=== PATIENT | male | born 1975 | race African-American/Black ===

== ENCOUNTER 2016-03-29 19:35 | Inpatient (IN) | payer MEDICARE ==
[~2016-03-29] VITALS: Ht 180.3 cm; Wt 81.0 kg
[~2016-03-29 19:35] MED LIST: ALBU8HFA IH; ARIP15TA3 PO; LITH300T PO; METF500T4 PO; MIRT30 PO; VITAD1000 PO
[2016-03-29] MEDS ORDERED: ZOLPIDEM TARTRATE 10 MG TABLET PO PRN (22:45)
[2016-03-29] MEDS ORDERED: HALOPERIDOL 5 MG TABLET PO PRN (22:45)
[2016-03-29 23:05] VITALS: BP 116/77
[2016-03-29] MEDS ORDERED: PNEUMOCOCCAL VACCINE POLYVALENT 0.5 ML VIAL [PPSV23] IM ONE (23:45)
[2016-03-30 00:02] LABS: GLUCOSE,POINT OF CARE 272 MG/DL (70-110)
[2016-03-30 00:53] VITALS: BP 114/87
[2016-03-30 06:37] LABS: GLUCOSE,POINT OF CARE 238 MG/DL (70-110)
[2016-03-30 08:06] VITALS: BP 117/79
[2016-03-30 08:39] LABS: EOSINOPHILS % (AUTO) 3.4 % (1.0-6.0); HEMATOCRIT 49.7 % (36-46); HEMOGLOBIN 16.2 g/dL (12.0-16.0); LYMPHOCYTES # (AUTO) 2.9 K/uL (1.0-4.8); MEAN CORPUSCULAR HEMOGLOBIN 29.5 pg (26.0-34.0); MEAN CORPUSCULAR HGB CONC 32.6 G/dL (31.0-37.0); MEAN CORPUSCULAR VOLUME 91 fL (80-100); MONOCYTES # (AUTO) 0.8 K/uL (0.1-1.0); MONOCYTES % (AUTO) 11.3 % (2.0-9.0); NEUTROPHILS # (AUTO) 2.8 K/uL (1.8-7.7); NEUTROPHILS % (AUTO) 41.3 % (40.0-70.0); PLATELET COUNT (AUTO) 205 K/uL (150-450); RED BLOOD CELL COUNT(AUTO) 5.48 MIL/uL (4.00-5.20); WHITE BLOOD COUNT (AUTO) 6.7 K/uL (4.5-11.0)
[2016-03-30 09:10] LABS: ALANINE AMINOTRANSFERASE 25 U/L (12-78); ALBUMIN 3.2 g/dL (3.4-5.0); ANION GAP 7 mmol/L (8-16); ASPARTATE AMINOTRANSFERASE 18 U/L (15-37); BILIRUBIN,TOTAL 0.6 mg/dL (0.1-1.0); CALCIUM, TOTAL 8.6 mg/dL (8.8-10.5); CARBON DIOXIDE 32 mmol/L (22-29); CHLORIDE 98 mmol/L (98-107); CHOL/HDL RATIO 3.5 (3.9-5.7); CREATININE 0.73 mg/dL (0.60-1.30); GLOMERULAR FILTR. RATE CALC > 60 mL/min (>60); SODIUM SERUM 137 mmol/L (136-145); TOTAL PROTEIN, SERUM 6.6 g/dL (6.4-8.2); UREA NITROGEN, BLOOD 19 mg/dL (7-18)
[2016-03-30 09:13] LABS: HEMOGLOBIN A1C 8.8 % (4.5-6.2)
[2016-03-30] MEDS ORDERED: ALBUTEROL SULFATE HFA 90 MCG/PUFF 8 GM INHALER IH PRN ×2 (13:30→17:00)
[2016-03-30] MEDS ORDERED: GLUCAGON,HUMAN RECOMBINANT 1 MG VIAL IM PRN ×2 (13:30→17:00)
[2016-03-30] MEDS ORDERED: INSULIN REGULAR, HUMAN 100 UNITS/ML SQ PRN (13:30)
[2016-03-30 14:01] LABS: GLUCOSE,POINT OF CARE 236 MG/DL (70-110)
[2016-03-30 16:11] LABS: GLUCOSE COMMENT 1 Received Meds; GLUCOSE,POINT OF CARE 223 MG/DL (70-110)
[2016-03-30 16:19] VITALS: BP 124/75
[2016-03-30] MEDS: MetFORMIN HCL 500 MG TABLET PO SCH (17:06)
[2016-03-30] MEDS: LITHIUM CARBONATE 300 MG CAPSULE PO SCH (20:39)
[2016-03-30] MEDS: ARIPiprazole 15 MG TABLET PO SCH (20:39)
[2016-03-30 20:42] LABS: GLUCOSE,POINT OF CARE 262 MG/DL (70-110)
[2016-03-31 06:19] VITALS: BP 111/71
[2016-03-31] MEDS: MetFORMIN HCL 500 MG TABLET PO SCH ×2 (06:40→16:54)
[2016-03-31 06:41] LABS: GLUCOSE,POINT OF CARE 182 MG/DL (70-110)
[2016-03-31 08:05] VITALS: BP 120/72
[2016-03-31] MEDS: CHOLECALCIFEROL (VIT D3) 2,000 UNITS TABLET PO SCH (09:05)
[2016-03-31 11:07] LABS: GLUCOSE COMMENT 1 Received Meds; GLUCOSE,POINT OF CARE 218 MG/DL (70-110)
[2016-03-31] MEDS: INSULIN ASPART 100 UNITS/ML SQ PRN (12:40)
[2016-03-31 16:06] VITALS: BP 121/80
[2016-03-31 16:46] LABS: GLUCOSE COMMENT 1 Received Meds; GLUCOSE,POINT OF CARE 192 MG/DL (70-110)
[2016-03-31] MEDS: LITHIUM CARBONATE 300 MG CAPSULE PO SCH (20:03)
[2016-03-31] MEDS: ARIPiprazole 15 MG TABLET PO SCH (20:03)
[2016-03-31 20:07] LABS: GLUCOSE,POINT OF CARE 169 MG/DL (70-110)
[2016-04-01 06:13] VITALS: BP 119/73
[2016-04-01] MEDS: MetFORMIN HCL 500 MG TABLET PO SCH ×2 (06:20→17:22)
[2016-04-01 06:22] LABS: GLUCOSE,POINT OF CARE 192 MG/DL (70-110)
[2016-04-01 08:34] VITALS: BP 124/73
[2016-04-01] MEDS: CHOLECALCIFEROL (VIT D3) 2,000 UNITS TABLET PO SCH (09:57)
[2016-04-01 12:17] LABS: GLUCOSE,POINT OF CARE 223 MG/DL (70-110)
[2016-04-01 16:14] VITALS: BP 113/67
[2016-04-01 16:47] LABS: GLUCOSE COMMENT 1 Received Meds; GLUCOSE,POINT OF CARE 285 MG/DL (70-110)
[2016-04-01] MEDS: INSULIN ASPART 100 UNITS/ML SQ PRN ×2 (17:42→21:03)
[2016-04-01] MEDS: LITHIUM CARBONATE 300 MG CAPSULE PO SCH (20:43)
[2016-04-01] MEDS: ARIPiprazole 15 MG TABLET PO SCH (20:43)
[2016-04-01 20:47] LABS: GLUCOSE,POINT OF CARE 169 MG/DL (70-110)
[2016-04-01] MEDS: LORazepam 2 MG TABLET PO PRN (22:29)
[2016-04-02 06:22] LABS: GLUCOSE,POINT OF CARE 153 MG/DL (70-110)
[2016-04-02] MEDS: MetFORMIN HCL 500 MG TABLET PO SCH ×2 (06:51→16:32)
[2016-04-02 08:49] VITALS: BP 119/72
[2016-04-02] MEDS: CHOLECALCIFEROL (VIT D3) 2,000 UNITS TABLET PO SCH (09:06)
[2016-04-02 11:31] LABS: GLUCOSE,POINT OF CARE 239 MG/DL (70-110)
[2016-04-02] MEDS: INSULIN ASPART 100 UNITS/ML SQ PRN (11:31)
[2016-04-02 16:12] VITALS: BP 117/74
[2016-04-02 16:27] LABS: GLUCOSE,POINT OF CARE 202 MG/DL (70-110)
[2016-04-02 20:17] LABS: GLUCOSE,POINT OF CARE 234 MG/DL (70-110)
[2016-04-02] MEDS: LITHIUM CARBONATE 300 MG CAPSULE PO SCH (20:37)
[2016-04-02] MEDS: ARIPiprazole 15 MG TABLET PO SCH (20:38)
[2016-04-03 01:44] VITALS: BP 113/68
[2016-04-03] MEDS: LORazepam 2 MG TABLET PO PRN (01:48)
[2016-04-03 06:18] LABS: GLUCOSE,POINT OF CARE 171 MG/DL (70-110)
[2016-04-03] MEDS: MetFORMIN HCL 500 MG TABLET PO SCH ×2 (06:46→16:36)
[2016-04-03] MEDS: INSULIN ASPART 100 UNITS/ML SQ PRN ×2 (06:58→20:07)
[2016-04-03 08:07] VITALS: BP 104/63
[2016-04-03] MEDS: CHOLECALCIFEROL (VIT D3) 2,000 UNITS TABLET PO SCH (08:36)
[2016-04-03 12:01] LABS: GLUCOSE,POINT OF CARE 166 MG/DL (70-110)
[2016-04-03 16:04] VITALS: BP 119/70
[2016-04-03 16:42] LABS: GLUCOSE COMMENT 1 Received Meds; GLUCOSE,POINT OF CARE 190 MG/DL (70-110)
[2016-04-03] MEDS ORDERED: NICOTINE 14 MG/24 HOUR PATCH TD ONE (17:00)
[2016-04-03 20:06] LABS: GLUCOSE COMMENT 1 Received Meds; GLUCOSE,POINT OF CARE 202 MG/DL (70-110)
[2016-04-03] MEDS: LITHIUM CARBONATE 300 MG CAPSULE PO SCH (20:08)
[2016-04-03] MEDS: ARIPiprazole 15 MG TABLET PO SCH (20:08)
[2016-04-04] MEDS ORDERED: ONDANSETRON HCL 4 MG TABLET PO PRN (00:30)
[2016-04-04 00:49] VITALS: BP 119/86
[2016-04-04] MEDS ORDERED: VITAD1000 PO (03:09)
[2016-04-04 06:01] LABS: GLUCOSE,POINT OF CARE 174 MG/DL (70-110)
[2016-04-04] MEDS: MetFORMIN HCL 500 MG TABLET PO SCH (06:25)
[2016-04-04] MEDS: CHOLECALCIFEROL (VIT D3) 2,000 UNITS TABLET PO SCH (08:09)
[2016-04-04 08:12] VITALS: BP 112/65
[2016-04-04] MEDS ORDERED: NICOTINE 14 MG/24 HOUR PATCH TD SCH (09:00)
== END 2016-04-04 10:20 | disposition home or self-care (01) | DRG 885 ==
LOC: EDSEX 22:41 → B2X 22:41 → EDSTATUS 23:17
PROVIDERS: ADMIT Psychiatry & Neurology Psychiatry; ATTEND Psychiatry & Neurology Psychiatry
DX: F25.9 Schizoaffective disorder, unspecified (principal); R45.851 Suicidal ideations; F32.9 Major depressive disorder, single episode, unspecified; J45.909 Unspecified asthma, uncomplicated; E11.9 Type 2 diabetes mellitus without complications; J44.9 Chronic obstructive pulmonary disease, unspecified; E55.9 Vitamin D deficiency, unspecified; F19.10 Other psychoactive substance abuse, uncomplicated; Z71.51 Drug abuse counseling and surveillance of drug abuser; Z28.21 Immunization not carried out because of patient refusal
CPT/HCPCS: 82962; 83036; 84439; 84443; Q0162

== ENCOUNTER 2016-04-21 15:12 | Inpatient (IN) | payer MEDICARE ==
[~2016-04-21] VITALS: Ht 180.3 cm; Wt 80.5 kg
[~2016-04-21 15:12] MED LIST changes: -ALBU8HFA IH; -MIRT30 PO
[2016-04-21 17:38] VITALS: BP 126/83
[2016-04-21] MEDS ORDERED: HALOPERIDOL 5 MG TABLET PO PRN (17:45)
[2016-04-21] MEDS ORDERED: LORazepam 2 MG TABLET PO PRN (17:45)
[2016-04-21] MEDS ORDERED: INFLUENZA VIRUS VACCINE QVS 2016-17 (3YR+)/PF 60 MCG/0.5 ML SYRINGE IM ONE (18:30)
[2016-04-21 18:34] VITALS: BP 116/83
[2016-04-21 18:42] LABS: GLUCOSE,POINT OF CARE 191 MG/DL (70-110)
[2016-04-21] MEDS ORDERED: NICOTINE 14 MG/24 HOUR PATCH TD ONE (19:00)
[2016-04-21] MEDS: ZOLPIDEM TARTRATE 10 MG TABLET PO PRN (20:54)
[2016-04-22 00:47] VITALS: BP 112/72
[2016-04-22 06:02] LABS: GLUCOSE,POINT OF CARE 149 MG/DL (70-110)
[2016-04-22] MEDS: MetFORMIN HCL 500 MG TABLET PO SCH ×2 (06:46→16:33)
[2016-04-22 08:01] VITALS: BP 102/62
[2016-04-22 08:04] LABS: BASOPHILS % (AUTO) 0.8 % (0.0-2.0); EOSINOPHILS % (AUTO) 2.6 % (1.0-6.0); HEMATOCRIT 48.7 % (41-53); HEMOGLOBIN 15.7 g/dL (13.5-17.5); LYMPHOCYTES # (AUTO) 2.6 K/uL (1.0-4.8); LYMPHOCYTES % (AUTO) 30.6 % (22.0-44.0); MEAN CORPUSCULAR HEMOGLOBIN 29.3 pg (26.0-34.0); MEAN CORPUSCULAR HGB CONC 32.2 G/dL (31.0-37.0); MEAN CORPUSCULAR VOLUME 91 fL (80-100); MONOCYTES # (AUTO) 0.8 K/uL (0.1-1.0); MONOCYTES % (AUTO) 9.7 % (2.0-9.0); NEUTROPHILS # (AUTO) 4.7 K/uL (1.8-7.7); NEUTROPHILS % (AUTO) 56.3 % (40.0-70.0); PLATELET COUNT (AUTO) 253 K/uL (150-450); RED BLOOD CELL COUNT(AUTO) 5.35 MIL/uL (4.50-5.90); RED CELL DISTRIBUTION WIDTH 14.2 % (11.5-14.5); WHITE BLOOD COUNT (AUTO) 8.4 K/uL (4.5-11.0)
[2016-04-22 08:33] LABS: ALANINE AMINOTRANSFERASE 41 U/L (12-78); ALBUMIN 3.5 g/dL (3.4-5.0); ANION GAP 8 mmol/L (8-16); ASPARTATE AMINOTRANSFERASE 34 U/L (15-37); CALCIUM, TOTAL 8.7 mg/dL (8.8-10.5); CARBON DIOXIDE 28 mmol/L (22-29); CHLORIDE 100 mmol/L (98-107); CREATININE 0.67 mg/dL (0.60-1.30); GLOMERULAR FILTR. RATE CALC > 60 mL/min (>60); POTASSIUM 4.1 mmol/L (3.5-5.1); SODIUM SERUM 136 mmol/L (136-145); THYROID STIMULATING HORMONE 0.76 uIU/mL (0.36-3.74); TOTAL PROTEIN, SERUM 7.4 g/dL (6.4-8.2); UREA NITROGEN, BLOOD 14 mg/dL (7-18)
[2016-04-22 08:56] LABS: LITHIUM < 0.20 mmol/L (0.60-1.20)
[2016-04-22] MEDS: CHOLECALCIFEROL (VIT D3) 1,000 UNITS TABLET PO SCH (09:14)
[2016-04-22] MEDS: NICOTINE 14 MG/24 HOUR PATCH TD SCH (09:15)
[2016-04-22] MEDS ORDERED: BENZOCAINE 10% 7 GM GEL TP PRN (09:45)
[2016-04-22 16:09] VITALS: BP 112/67
[2016-04-22 16:57] LABS: GLUCOSE,POINT OF CARE 195 MG/DL (70-110)
[2016-04-22] MEDS: LITHIUM CARBONATE 300 MG CAPSULE PO SCH (20:21)
[2016-04-22] MEDS: ARIPiprazole 15 MG TABLET PO SCH (20:21)
[2016-04-22] MEDS: ZOLPIDEM TARTRATE 10 MG TABLET PO PRN (20:54)
[2016-04-22] MEDS ORDERED: ACETAMINOPHEN 325 MG TABLET PO PRN (22:45)
[2016-04-22] MEDS ORDERED: IBUPROFEN 400 MG TABLET PO PRN (22:45)
[2016-04-23 03:50] VITALS: BP 115/77
[2016-04-23] MEDS: MetFORMIN HCL 500 MG TABLET PO SCH ×2 (06:59→17:04)
[2016-04-23] MEDS ORDERED: MetFORMIN HCL 500 MG TABLET PO SCH (07:00)
[2016-04-23 08:25] LABS: CHOL/HDL RATIO 2.8 (4.2-7.3)
[2016-04-23] MEDS ORDERED: CHOLECALCIFEROL (VIT D3) 1,000 UNITS TABLET PO SCH (09:00)
[2016-04-23] MEDS: NICOTINE 14 MG/24 HOUR PATCH TD SCH (09:00)
[2016-04-23] MEDS: CHOLECALCIFEROL (VIT D3) 1,000 UNITS TABLET PO SCH (09:00)
[2016-04-23] MEDS: CETYLPYRIDINIUM 120 ML MOUTHWASH PO PRN (13:30)
[2016-04-23 16:13] VITALS: BP 121/79
[2016-04-23] MEDS: LITHIUM CARBONATE 300 MG CAPSULE PO SCH (20:38)
[2016-04-23] MEDS: ARIPiprazole 15 MG TABLET PO SCH (20:39)
[2016-04-23] MEDS: ZOLPIDEM TARTRATE 10 MG TABLET PO PRN (20:42)
[2016-04-24 06:32] VITALS: BP 115/73
[2016-04-24] MEDS: MetFORMIN HCL 500 MG TABLET PO SCH ×2 (07:17→16:35)
[2016-04-24 08:28] VITALS: BP 123/70
[2016-04-24] MEDS: NICOTINE 14 MG/24 HOUR PATCH TD SCH (09:37)
[2016-04-24] MEDS: CHOLECALCIFEROL (VIT D3) 1,000 UNITS TABLET PO SCH (09:37)
[2016-04-24 16:00] VITALS: BP 121/70
[2016-04-24 16:32] LABS: GLUCOSE,POINT OF CARE 203 MG/DL (70-110)
[2016-04-24] MEDS: ARIPiprazole 15 MG TABLET PO SCH (20:37)
[2016-04-24] MEDS: LITHIUM CARBONATE 300 MG CAPSULE PO SCH (20:37)
[2016-04-25 06:52] LABS: GLUCOSE,POINT OF CARE 83 MG/DL (70-110)
[2016-04-25] MEDS: MetFORMIN HCL 500 MG TABLET PO SCH ×2 (07:05→16:34)
[2016-04-25] MEDS: NICOTINE 14 MG/24 HOUR PATCH TD SCH (08:25)
[2016-04-25] MEDS: CHOLECALCIFEROL (VIT D3) 1,000 UNITS TABLET PO SCH (08:26)
[2016-04-25 08:29] VITALS: BP 115/64
[2016-04-25 16:16] VITALS: BP 117/69
[2016-04-25 16:16] LABS: GLUCOSE,POINT OF CARE 174 MG/DL (70-110)
[2016-04-25] MEDS: LITHIUM CARBONATE 300 MG CAPSULE PO SCH (20:36)
[2016-04-25] MEDS: ARIPiprazole 15 MG TABLET PO SCH (20:36)
[2016-04-26] MEDS: MetFORMIN HCL 500 MG TABLET PO SCH ×2 (06:57→17:59)
[2016-04-26 08:07] VITALS: BP 118/72
[2016-04-26] MEDS: CHOLECALCIFEROL (VIT D3) 1,000 UNITS TABLET PO SCH (08:53)
[2016-04-26] MEDS: NICOTINE 14 MG/24 HOUR PATCH TD SCH (08:54)
[2016-04-26 16:00] VITALS: BP 108/76
[2016-04-26 16:26] LABS: GLUCOSE,POINT OF CARE 139 MG/DL (70-110)
[2016-04-26] MEDS: ARIPiprazole 15 MG TABLET PO SCH (20:35)
[2016-04-26] MEDS: LITHIUM CARBONATE 300 MG CAPSULE PO SCH (20:35)
[2016-04-27] MEDS: MetFORMIN HCL 500 MG TABLET PO SCH ×2 (07:02→16:36)
[2016-04-27] MEDS: CHOLECALCIFEROL (VIT D3) 1,000 UNITS TABLET PO SCH (08:58)
[2016-04-27] MEDS: NICOTINE 14 MG/24 HOUR PATCH TD SCH (08:58)
[2016-04-27 09:02] VITALS: BP 122/75
[2016-04-27] MEDS: CETYLPYRIDINIUM 120 ML MOUTHWASH PO PRN (14:27)
[2016-04-27 16:04] VITALS: BP 115/66
[2016-04-27 16:12] LABS: GLUCOSE,POINT OF CARE 134 MG/DL (70-110)
[2016-04-27] MEDS: ARIPiprazole 15 MG TABLET PO SCH (20:39)
[2016-04-27] MEDS: LITHIUM CARBONATE 300 MG CAPSULE PO SCH (20:39)
[2016-04-28 06:12] VITALS: BP 111/72
[2016-04-28] MEDS: MetFORMIN HCL 500 MG TABLET PO SCH ×2 (06:44→17:06)
[2016-04-28 08:56] VITALS: BP 114/62
[2016-04-28] MEDS: CHOLECALCIFEROL (VIT D3) 1,000 UNITS TABLET PO SCH (09:02)
[2016-04-28] MEDS: NICOTINE 14 MG/24 HOUR PATCH TD SCH (09:03)
[2016-04-28 16:19] VITALS: BP 109/79
[2016-04-28 16:52] LABS: GLUCOSE,POINT OF CARE 164 MG/DL (70-110)
[2016-04-28] MEDS: ZOLPIDEM TARTRATE 10 MG TABLET PO PRN (20:40)
[2016-04-28] MEDS: LITHIUM CARBONATE 300 MG CAPSULE PO SCH (20:43)
[2016-04-28] MEDS: ARIPiprazole 15 MG TABLET PO SCH (20:43)
[2016-04-29] MEDS: MetFORMIN HCL 500 MG TABLET PO SCH ×2 (06:24→16:52)
[2016-04-29 06:27] LABS: GLUCOSE,POINT OF CARE 146 MG/DL (70-110)
[2016-04-29 06:35] VITALS: BP 110/71
[2016-04-29 08:08] VITALS: BP 114/61
[2016-04-29] MEDS: CHOLECALCIFEROL (VIT D3) 1,000 UNITS TABLET PO SCH (09:30)
[2016-04-29] MEDS: NICOTINE 14 MG/24 HOUR PATCH TD SCH (09:31)
[2016-04-29 16:08] VITALS: BP 105/69
[2016-04-29 16:57] LABS: GLUCOSE,POINT OF CARE 173 MG/DL (70-110)
[2016-04-29] MEDS: LITHIUM CARBONATE 300 MG CAPSULE PO SCH (20:08)
[2016-04-29] MEDS: ARIPiprazole 15 MG TABLET PO SCH (20:08)
[2016-04-29] MEDS: ZOLPIDEM TARTRATE 10 MG TABLET PO PRN (20:43)
[2016-04-30 05:45] VITALS: BP 117/71
[2016-04-30 06:07] LABS: GLUCOSE,POINT OF CARE 135 MG/DL (70-110)
[2016-04-30] MEDS: MetFORMIN HCL 500 MG TABLET PO SCH ×2 (06:45→16:16)
[2016-04-30] MEDS: CHOLECALCIFEROL (VIT D3) 1,000 UNITS TABLET PO SCH (08:11)
[2016-04-30] MEDS: NICOTINE 14 MG/24 HOUR PATCH TD SCH (08:12)
[2016-04-30 08:21] VITALS: BP 112/59
[2016-04-30 16:05] VITALS: BP 115/73
[2016-04-30] MEDS: LITHIUM CARBONATE 300 MG CAPSULE PO SCH (20:06)
[2016-04-30] MEDS: ARIPiprazole 15 MG TABLET PO SCH (20:06)
[2016-04-30] MEDS: ZOLPIDEM TARTRATE 10 MG TABLET PO PRN (20:07)
[2016-05-01 01:28] VITALS: BP 123/80
[2016-05-01] MEDS ORDERED: LOPERAMIDE HCL 2 MG CAPSULE PO PRN (05:30)
[2016-05-01 06:02] LABS: GLUCOSE,POINT OF CARE 197 MG/DL (70-110)
[2016-05-01] MEDS: MetFORMIN HCL 500 MG TABLET PO SCH (06:36)
[2016-05-01 08:06] VITALS: BP 120/70
[2016-05-01] MEDS: CHOLECALCIFEROL (VIT D3) 1,000 UNITS TABLET PO SCH (08:33)
[2016-05-01] MEDS: NICOTINE 14 MG/24 HOUR PATCH TD SCH (08:33)
== END 2016-05-01 10:00 | disposition home or self-care (01) | DRG 885 ==
LOC: B2X 17:57
PROVIDERS: ADMIT Psychiatry & Neurology Psychiatry; ATTEND Psychiatry & Neurology Psychiatry
DX: F25.9 Schizoaffective disorder, unspecified (principal); J44.9 Chronic obstructive pulmonary disease, unspecified; J45.909 Unspecified asthma, uncomplicated; Z59.0 Homelessness; E55.9 Vitamin D deficiency, unspecified; E11.9 Type 2 diabetes mellitus without complications; Z79.84 Long term (current) use of oral hypoglycemic drugs; Z79.899 Other long term (current) drug therapy; F19.10 Other psychoactive substance abuse, uncomplicated; F99 Mental disorder, not otherwise specified; Z28.21 Immunization not carried out because of patient refusal
CPT/HCPCS: 82962; 83036; 84436; 84439; 84443; 87081

== ENCOUNTER 2016-07-15 01:33 | Inpatient (IN) | payer MEDICARE ==
[~2016-07-15] VITALS: Ht 180.3 cm; Wt 77.6 kg
[2016-07-15] MEDS ORDERED: LORazepam 2 MG TABLET PO PRN (02:00)
[2016-07-15] MEDS ORDERED: HALOPERIDOL 5 MG TABLET PO PRN (02:00)
[2016-07-15] MEDS ORDERED: PNEUMOCOCCAL VACCINE POLYVALENT 0.5 ML VIAL [PPSV23] IM ONE (04:00)
[2016-07-15 05:10] VITALS: BP 122/72
[2016-07-15] MEDS ORDERED: LORazepam 1 MG TABLET PO PRN (08:00)
[2016-07-15 08:02] VITALS: BP 120/70
[2016-07-15] MEDS ORDERED: HALO5 PO (09:27)
[2016-07-15] MEDS ORDERED: ARIP10TA14 PO (09:27)
[2016-07-15] MEDS ORDERED: LITH450CRT PO (09:27)
[2016-07-15] MEDS ORDERED: TRAZ-144 PO (09:27)
[2016-07-15] MEDS ORDERED: ZOLP10 PO (09:27)
[2016-07-15 16:30] VITALS: BP 125/74
[2016-07-15] MEDS ORDERED: ACETAMINOPHEN 325 MG TABLET PO PRN (20:15)
[2016-07-15] MEDS ORDERED: IBUPROFEN 400 MG TABLET PO PRN (20:15)
[2016-07-15] MEDS: ARIPiprazole 15 MG TABLET PO SCH (20:21)
[2016-07-15] MEDS ORDERED: LITHIUM CARBONATE 300 MG CAPSULE PO SCH (21:00)
[2016-07-16 05:26] VITALS: BP 118/71
[2016-07-16] MEDS: MetFORMIN HCL 500 MG TABLET PO SCH ×2 (06:08→16:25)
[2016-07-16 07:47] LABS: BASOPHILS % (AUTO) 0.9 % (0.0-2.0); EOSINOPHILS % (AUTO) 4.3 % (1.0-6.0); HEMATOCRIT 46.2 % (41-53); HEMOGLOBIN 14.7 g/dL (13.5-17.5); LYMPHOCYTES # (AUTO) 2.6 K/uL (1.0-4.8); LYMPHOCYTES % (AUTO) 39.1 % (22.0-44.0); MEAN CORPUSCULAR HEMOGLOBIN 29.2 pg (26.0-34.0); MEAN CORPUSCULAR HGB CONC 31.8 G/dL (31.0-37.0); MEAN CORPUSCULAR VOLUME 92 fL (80-100); MONOCYTES # (AUTO) 0.6 K/uL (0.1-1.0); MONOCYTES % (AUTO) 8.8 % (2.0-9.0); NEUTROPHILS # (AUTO) 3.2 K/uL (1.8-7.7); NEUTROPHILS % (AUTO) 46.9 % (40.0-70.0); PLATELET COUNT (AUTO) 186 K/uL (150-450); RED BLOOD CELL COUNT(AUTO) 5.02 MIL/uL (4.50-5.90); RED CELL DISTRIBUTION WIDTH 14.8 % (11.5-14.5); WHITE BLOOD COUNT (AUTO) 6.8 K/uL (4.5-11.0)
[2016-07-16 08:13] VITALS: BP 118/77
[2016-07-16 08:17] LABS: ALANINE AMINOTRANSFERASE 20 U/L (12-78); ALBUMIN 3.2 g/dL (3.4-5.0); ANION GAP 6 mmol/L (8-16); ASPARTATE AMINOTRANSFERASE 18 U/L (15-37); BILIRUBIN,TOTAL 0.6 mg/dL (0.1-1.0); CALCIUM, TOTAL 8.5 mg/dL (8.8-10.5); CARBON DIOXIDE 28 mmol/L (22-29); CHLORIDE 100 mmol/L (98-107); CHOL/HDL RATIO 2.7 (4.2-7.3); CREATININE 0.66 mg/dL (0.60-1.30); GLOMERULAR FILTR. RATE CALC > 60 mL/min (>60); LITHIUM < 0.20 mmol/L (0.60-1.20); POTASSIUM 4.3 mmol/L (3.5-5.1); SODIUM SERUM 134 mmol/L (136-145); THYROID STIMULATING HORMONE 1.22 uIU/mL (0.36-3.74); TOTAL PROTEIN, SERUM 6.8 g/dL (6.4-8.2); UREA NITROGEN, BLOOD 16 mg/dL (7-18)
[2016-07-16] MEDS: CHOLECALCIFEROL (VIT D3) 1,000 UNITS TABLET PO SCH (08:43)
[2016-07-16 12:41] LABS: HEMOGLOBIN A1C 7.9 % (4.5-6.2)
[2016-07-16 16:43] VITALS: BP 121/80
[2016-07-16] MEDS: ARIPiprazole 15 MG TABLET PO SCH (20:46)
[2016-07-16] MEDS: LITHIUM CARBONATE 300 MG CAPSULE PO SCH (20:46)
[2016-07-17 00:56] VITALS: BP 119/79
[2016-07-17] MEDS: MetFORMIN HCL 500 MG TABLET PO SCH ×2 (06:52→17:00)
[2016-07-17] MEDS: CHOLECALCIFEROL (VIT D3) 1,000 UNITS TABLET PO SCH ×2 (08:32→09:00)
[2016-07-17 08:54] VITALS: BP 117/74
[2016-07-17 16:15] VITALS: BP 137/70
[2016-07-17] MEDS: LITHIUM CARBONATE 300 MG CAPSULE PO SCH (20:49)
[2016-07-17] MEDS: ARIPiprazole 15 MG TABLET PO SCH (20:49)
[2016-07-18 00:47] VITALS: BP 115/69
[2016-07-18] MEDS: MetFORMIN HCL 500 MG TABLET PO SCH ×2 (07:00→16:59)
[2016-07-18 08:25] VITALS: BP 125/76
[2016-07-18] MEDS: CHOLECALCIFEROL (VIT D3) 1,000 UNITS TABLET PO SCH (09:00)
[2016-07-18 16:20] VITALS: BP 118/72
[2016-07-18] MEDS: LITHIUM CARBONATE 300 MG CAPSULE PO SCH (20:38)
[2016-07-18] MEDS: ARIPiprazole 15 MG TABLET PO SCH (20:38)
[2016-07-19 01:30] VITALS: BP 115/74
[2016-07-19] MEDS: MetFORMIN HCL 500 MG TABLET PO SCH ×2 (06:03→17:00)
[2016-07-19 08:30] VITALS: BP 124/77
[2016-07-19] MEDS: CHOLECALCIFEROL (VIT D3) 1,000 UNITS TABLET PO SCH (08:48)
[2016-07-19 16:11] VITALS: BP 122/76
[2016-07-19] MEDS: ARIPiprazole 15 MG TABLET PO SCH (20:42)
[2016-07-19] MEDS: LITHIUM CARBONATE 300 MG CAPSULE PO SCH (20:42)
[2016-07-20 01:16] VITALS: BP 102/74
[2016-07-20] MEDS: MetFORMIN HCL 500 MG TABLET PO SCH ×2 (07:00→17:00)
[2016-07-20 08:14] VITALS: BP 124/74
[2016-07-20] MEDS: CHOLECALCIFEROL (VIT D3) 1,000 UNITS TABLET PO SCH (09:00)
[2016-07-20 16:19] VITALS: BP 117/74
[2016-07-20] MEDS: ARIPiprazole 15 MG TABLET PO SCH (20:40)
[2016-07-20] MEDS: LITHIUM CARBONATE 300 MG CAPSULE PO SCH (20:40)
[2016-07-21 06:55] VITALS: BP 130/87
[2016-07-21] MEDS: MetFORMIN HCL 500 MG TABLET PO SCH ×2 (06:55→16:50)
[2016-07-21] MEDS: CHOLECALCIFEROL (VIT D3) 1,000 UNITS TABLET PO SCH (08:40)
[2016-07-21 09:34] VITALS: BP 123/61
[2016-07-21 11:27] LABS: GLUCOSE,POINT OF CARE 212 MG/DL (70-110)
[2016-07-21 16:21] VITALS: BP 117/69
[2016-07-21] MEDS: LITHIUM CARBONATE 300 MG CAPSULE PO SCH (20:07)
[2016-07-21] MEDS: ARIPiprazole 15 MG TABLET PO SCH (20:07)
[2016-07-21] MEDS: ZOLPIDEM TARTRATE 10 MG TABLET PO PRN (20:44)
[2016-07-22 06:27] LABS: GLUCOSE,POINT OF CARE 150 MG/DL (70-110)
[2016-07-22 06:41] VITALS: BP 114/72
[2016-07-22] MEDS: MetFORMIN HCL 500 MG TABLET PO SCH ×2 (06:50→16:22)
[2016-07-22 08:47] VITALS: BP 116/64
[2016-07-22] MEDS: CHOLECALCIFEROL (VIT D3) 1,000 UNITS TABLET PO SCH (09:19)
[2016-07-22 16:27] VITALS: BP 111/82
[2016-07-22] MEDS: ARIPiprazole 15 MG TABLET PO SCH (20:20)
[2016-07-22] MEDS: LITHIUM CARBONATE 300 MG CAPSULE PO SCH (20:20)
[2016-07-22] MEDS: ZOLPIDEM TARTRATE 10 MG TABLET PO PRN (20:57)
[2016-07-23] MEDS: MetFORMIN HCL 500 MG TABLET PO SCH ×2 (06:02→16:37)
[2016-07-23 06:22] LABS: GLUCOSE,POINT OF CARE 159 MG/DL (70-110)
[2016-07-23 06:43] VITALS: BP 120/73
[2016-07-23 08:11] VITALS: BP 120/76
[2016-07-23] MEDS: CHOLECALCIFEROL (VIT D3) 1,000 UNITS TABLET PO SCH (09:32)
[2016-07-23 16:16] VITALS: BP 111/76
[2016-07-23] MEDS: ARIPiprazole 15 MG TABLET PO SCH (20:37)
[2016-07-23] MEDS: LITHIUM CARBONATE 300 MG CAPSULE PO SCH (20:37)
[2016-07-24 01:09] VITALS: BP 111/69
[2016-07-24] MEDS: MetFORMIN HCL 500 MG TABLET PO SCH (06:30)
[2016-07-24 06:43] LABS: GLUCOSE,POINT OF CARE 171 MG/DL (70-110)
[2016-07-24 08:05] VITALS: BP 123/70
[2016-07-24] MEDS: CHOLECALCIFEROL (VIT D3) 1,000 UNITS TABLET PO SCH (08:52)
== END 2016-07-24 13:25 | disposition home or self-care (01) | DRG 885 ==
LOC: B2X 02:08 → EDSTATUS 02:32 → B2X 07-23 16:21
PROVIDERS: ADMIT Psychiatry & Neurology Child & Adolescent Psychiatry; ATTEND Psychiatry & Neurology Child & Adolescent Psychiatry
DX: F25.0 Schizoaffective disorder, bipolar type (principal); E11.9 Type 2 diabetes mellitus without complications; E55.9 Vitamin D deficiency, unspecified; F10.10 Alcohol abuse, uncomplicated; F12.10 Cannabis abuse, uncomplicated; J44.9 Chronic obstructive pulmonary disease, unspecified; Z63.8 Other specified problems related to primary support group; F29 Unspecified psychosis not due to a substance or known physiological condition; Y90.9 Presence of alcohol in blood, level not specified; F19.10 Other psychoactive substance abuse, uncomplicated; F15.10 Other stimulant abuse, uncomplicated
CPT/HCPCS: 82962; 83036; 84443

== ENCOUNTER 2016-07-28 17:53 | Inpatient (IN) | payer MEDICARE ==
[~2016-07-28] VITALS: Ht 180.3 cm; Wt 83.0 kg
[2016-07-28 20:46] VITALS: BP 120/70
[2016-07-28] MEDS ORDERED: ZOLPIDEM TARTRATE 10 MG TABLET PO PRN (21:15)
[2016-07-28] MEDS ORDERED: LORazepam 2 MG TABLET PO PRN (21:15)
[2016-07-28] MEDS ORDERED: HALOPERIDOL 5 MG TABLET PO PRN (21:15)
[2016-07-28 21:45] VITALS: BP 109/71
[2016-07-28] MEDS ORDERED: PERMETHRIN 5% 60 GM CREAM TP ONE (22:15)
[2016-07-28] MEDS ORDERED: GLUCAGON,HUMAN RECOMBINANT 1 MG VIAL IM PRN (22:15)
[2016-07-29 00:07] LABS: GLUCOSE,POINT OF CARE 219 MG/DL (70-110)
[2016-07-29] MEDS: MetFORMIN HCL 500 MG TABLET PO SCH ×2 (07:00→16:50)
[2016-07-29] MEDS: INSULIN ASPART 100 UNITS/ML SQ PRN (07:33)
[2016-07-29] MEDS: CHOLECALCIFEROL (VIT D3) 1,000 UNITS TABLET PO SCH (08:44)
[2016-07-29 08:45] VITALS: BP 134/82
[2016-07-29 16:06] VITALS: BP 114/72
[2016-07-29 16:52] LABS: GLUCOSE,POINT OF CARE 185 MG/DL (70-110)
[2016-07-29] MEDS: OLANZapine 5 MG TABLET PO SCH (20:44)
[2016-07-29] MEDS: LITHIUM CARBONATE 300 MG CAPSULE PO SCH (20:45)
[2016-07-30 00:49] VITALS: BP 115/74
[2016-07-30 06:13] LABS: GLUCOSE,POINT OF CARE 175 MG/DL (70-110)
[2016-07-30] MEDS: MetFORMIN HCL 500 MG TABLET PO SCH ×2 (06:42→16:53)
[2016-07-30 08:08] VITALS: BP 125/75
[2016-07-30] MEDS: CHOLECALCIFEROL (VIT D3) 1,000 UNITS TABLET PO SCH (09:17)
[2016-07-30 16:18] VITALS: BP 119/83
[2016-07-30 17:06] LABS: GLUCOSE,POINT OF CARE 150 MG/DL (70-110)
[2016-07-30] MEDS: LITHIUM CARBONATE 300 MG CAPSULE PO SCH (20:34)
[2016-07-30] MEDS: OLANZapine 5 MG TABLET PO SCH (20:35)
[2016-07-31 00:01] VITALS: BP 115/75
[2016-07-31] MEDS: MetFORMIN HCL 500 MG TABLET PO SCH ×2 (06:00→17:08)
[2016-07-31 08:43] VITALS: BP 116/67
[2016-07-31] MEDS: CHOLECALCIFEROL (VIT D3) 1,000 UNITS TABLET PO SCH (09:24)
[2016-07-31 17:37] LABS: GLUCOSE,POINT OF CARE 216 MG/DL (70-110)
[2016-07-31 18:45] VITALS: BP 118/74
[2016-07-31] MEDS: OLANZapine 5 MG TABLET PO SCH (20:28)
[2016-07-31] MEDS: LITHIUM CARBONATE 300 MG CAPSULE PO SCH (20:28)
[2016-08-01] MEDS: MetFORMIN HCL 500 MG TABLET PO SCH ×2 (06:31→16:58)
[2016-08-01] MEDS: CHOLECALCIFEROL (VIT D3) 1,000 UNITS TABLET PO SCH (08:06)
[2016-08-01 08:30] LABS: BASOPHILS % (AUTO) 0.7 % (0.0-2.0); EOSINOPHILS % (AUTO) 5.3 % (1.0-6.0); HEMOGLOBIN 16.2 g/dL (13.5-17.5); LYMPHOCYTES # (AUTO) 1.5 K/uL (1.0-4.8); LYMPHOCYTES % (AUTO) 21.8 % (22.0-44.0); MEAN CORPUSCULAR HEMOGLOBIN 30.6 pg (26.0-34.0); MEAN CORPUSCULAR HGB CONC 33.8 G/dL (31.0-37.0); MEAN CORPUSCULAR VOLUME 90 fL (80-100); MONOCYTES # (AUTO) 0.6 K/uL (0.1-1.0); MONOCYTES % (AUTO) 9.1 % (2.0-9.0); NEUTROPHILS # (AUTO) 4.4 K/uL (1.8-7.7); NEUTROPHILS % (AUTO) 63.1 % (40.0-70.0); PLATELET COUNT (AUTO) 201 K/uL (150-450); RED BLOOD CELL COUNT(AUTO) 5.31 MIL/uL (4.50-5.90); RED CELL DISTRIBUTION WIDTH 14.3 % (11.5-14.5)
[2016-08-01 08:41] VITALS: BP 122/67
[2016-08-01 08:43] LABS: WHITE BLOOD COUNT (AUTO) 7.6 K/uL (4.5-11.0)
[2016-08-01 08:46] LABS: LITHIUM 0.88 mmol/L (0.60-1.20)
[2016-08-01 08:53] LABS: ALANINE AMINOTRANSFERASE 29 U/L (12-78); ALBUMIN 3.3 g/dL (3.4-5.0); ANION GAP 5 mmol/L (8-16); ASPARTATE AMINOTRANSFERASE 16 U/L (15-37); BILIRUBIN,TOTAL 0.5 mg/dL (0.1-1.0); CALCIUM, TOTAL 8.9 mg/dL (8.8-10.5); CARBON DIOXIDE 31 mmol/L (22-29); CHLORIDE 102 mmol/L (98-107); CREATININE 0.75 mg/dL (0.60-1.30); GLOMERULAR FILTR. RATE CALC > 60 mL/min (>60); SODIUM SERUM 138 mmol/L (136-145); THYROID STIMULATING HORMONE 1.13 uIU/mL (0.36-3.74); TOTAL PROTEIN, SERUM 7.2 g/dL (6.4-8.2); UREA NITROGEN, BLOOD 13 mg/dL (7-18)
[2016-08-01 16:00] VITALS: BP 110/79
[2016-08-01] MEDS: LITHIUM CARBONATE 300 MG CAPSULE PO SCH (20:09)
[2016-08-01] MEDS: OLANZapine 5 MG TABLET PO SCH (20:09)
[2016-08-02 00:43] VITALS: BP 117/80
[2016-08-02] MEDS: MetFORMIN HCL 500 MG TABLET PO SCH ×2 (06:42→16:58)
[2016-08-02] MEDS: CHOLECALCIFEROL (VIT D3) 1,000 UNITS TABLET PO SCH (09:07)
[2016-08-02 16:08] VITALS: BP 112/78
[2016-08-02] MEDS: LITHIUM CARBONATE 300 MG CAPSULE PO SCH (20:22)
[2016-08-02] MEDS: OLANZapine 5 MG TABLET PO SCH (20:23)
[2016-08-03 06:20] VITALS: BP 104/69
[2016-08-03] MEDS: MetFORMIN HCL 500 MG TABLET PO SCH ×2 (06:30→16:39)
[2016-08-03] MEDS: CHOLECALCIFEROL (VIT D3) 1,000 UNITS TABLET PO SCH (09:05)
[2016-08-03] MEDS: FLUoxetine HCL 20 MG CAPSULE PO SCH (13:07)
[2016-08-03 16:07] VITALS: BP 110/66
[2016-08-03 16:18] LABS: GLUCOSE,POINT OF CARE 183 MG/DL (70-110)
[2016-08-03] MEDS: OLANZapine 5 MG TABLET PO SCH (20:43)
[2016-08-03] MEDS: LITHIUM CARBONATE 300 MG CAPSULE PO SCH (20:43)
[2016-08-04 00:04] VITALS: BP 113/67
[2016-08-04] MEDS: MetFORMIN HCL 500 MG TABLET PO SCH ×2 (06:07→17:19)
[2016-08-04 08:05] VITALS: BP 110/67
[2016-08-04] MEDS: FLUoxetine HCL 20 MG CAPSULE PO SCH (08:45)
[2016-08-04] MEDS: CHOLECALCIFEROL (VIT D3) 1,000 UNITS TABLET PO SCH (08:45)
[2016-08-04 16:08] VITALS: BP 108/68
[2016-08-04] MEDS: OLANZapine 5 MG TABLET PO SCH (20:16)
[2016-08-04] MEDS: LITHIUM CARBONATE 300 MG CAPSULE PO SCH (20:16)
[2016-08-05 00:14] VITALS: BP 102/61
[2016-08-05] MEDS: MetFORMIN HCL 500 MG TABLET PO SCH ×2 (06:36→16:45)
[2016-08-05 08:44] VITALS: BP 120/63
[2016-08-05] MEDS: CHOLECALCIFEROL (VIT D3) 1,000 UNITS TABLET PO SCH (08:49)
[2016-08-05] MEDS: FLUoxetine HCL 20 MG CAPSULE PO SCH (08:49)
[2016-08-05 11:27] LABS: GLUCOSE,POINT OF CARE 163 MG/DL (70-110)
[2016-08-05 16:04] VITALS: BP 111/69
[2016-08-05 16:38] LABS: GLUCOSE,POINT OF CARE 173 MG/DL (70-110)
[2016-08-05] MEDS: INSULIN ASPART 100 UNITS/ML SQ PRN (16:43)
[2016-08-05] MEDS: OLANZapine 5 MG TABLET PO SCH (20:34)
[2016-08-05] MEDS: LITHIUM CARBONATE 300 MG CAPSULE PO SCH (20:34)
[2016-08-06 00:27] VITALS: BP 123/76
[2016-08-06] MEDS: MetFORMIN HCL 500 MG TABLET PO SCH ×2 (07:04→17:06)
[2016-08-06 08:03] VITALS: BP 102/56
[2016-08-06] MEDS: CHOLECALCIFEROL (VIT D3) 1,000 UNITS TABLET PO SCH (08:53)
[2016-08-06] MEDS: FLUoxetine HCL 20 MG CAPSULE PO SCH (08:53)
[2016-08-06 11:28] LABS: GLUCOSE,POINT OF CARE 136 MG/DL (70-110)
[2016-08-06 16:04] VITALS: BP 114/60
[2016-08-06 19:43] LABS: GLUCOSE,POINT OF CARE 131 MG/DL (70-110)
[2016-08-06] MEDS: LITHIUM CARBONATE 300 MG CAPSULE PO SCH (20:50)
[2016-08-06] MEDS: OLANZapine 5 MG TABLET PO SCH (20:50)
[2016-08-06] MEDS: INSULIN ASPART 100 UNITS/ML SQ PRN (20:55)
[2016-08-06 21:22] LABS: GLUCOSE,POINT OF CARE 162 MG/DL (70-110)
[2016-08-07 01:03] VITALS: BP 107/68
[2016-08-07] MEDS: MetFORMIN HCL 500 MG TABLET PO SCH ×2 (05:48→16:40)
[2016-08-07 06:37] LABS: GLUCOSE,POINT OF CARE 140 MG/DL (70-110)
[2016-08-07 08:12] VITALS: BP 105/61
[2016-08-07] MEDS: CHOLECALCIFEROL (VIT D3) 1,000 UNITS TABLET PO SCH (08:42)
[2016-08-07] MEDS: FLUoxetine HCL 20 MG CAPSULE PO SCH (08:42)
[2016-08-07 11:22] LABS: GLUCOSE,POINT OF CARE 143 MG/DL (70-110)
[2016-08-07 16:07] VITALS: BP 116/72
[2016-08-07 16:36] LABS: GLUCOSE COMMENT 1 Received Meds; GLUCOSE,POINT OF CARE 286 MG/DL (70-110)
[2016-08-07] MEDS: INSULIN ASPART 100 UNITS/ML SQ PRN ×2 (16:47→20:55)
[2016-08-07 20:37] LABS: GLUCOSE,POINT OF CARE 276 MG/DL (70-110)
[2016-08-07] MEDS: OLANZapine 5 MG TABLET PO SCH (21:10)
[2016-08-07] MEDS: LITHIUM CARBONATE 300 MG CAPSULE PO SCH (21:10)
[2016-08-08 00:01] VITALS: BP 106/69
[2016-08-08] MEDS: MetFORMIN HCL 500 MG TABLET PO SCH ×2 (06:51→16:43)
[2016-08-08 07:02] LABS: GLUCOSE,POINT OF CARE 143 MG/DL (70-110)
[2016-08-08] MEDS: INSULIN ASPART 100 UNITS/ML SQ PRN ×2 (07:13→12:02)
[2016-08-08 08:01] VITALS: BP 110/61
[2016-08-08] MEDS: FLUoxetine HCL 20 MG CAPSULE PO SCH (08:08)
[2016-08-08] MEDS: CHOLECALCIFEROL (VIT D3) 1,000 UNITS TABLET PO SCH (08:08)
[2016-08-08 11:17] LABS: GLUCOSE,POINT OF CARE 157 MG/DL (70-110)
[2016-08-08 16:03] VITALS: BP 124/83
[2016-08-08] MEDS: LITHIUM CARBONATE 300 MG CAPSULE PO SCH (20:37)
[2016-08-08] MEDS: OLANZapine 5 MG TABLET PO SCH (20:38)
[2016-08-09 00:23] VITALS: BP 104/61
[2016-08-09] MEDS: MetFORMIN HCL 500 MG TABLET PO SCH ×2 (06:41→16:20)
[2016-08-09 08:15] VITALS: BP 112/68
[2016-08-09] MEDS: CHOLECALCIFEROL (VIT D3) 1,000 UNITS TABLET PO SCH (09:00)
[2016-08-09] MEDS: FLUoxetine HCL 20 MG CAPSULE PO SCH (09:00)
[2016-08-09 11:23] LABS: GLUCOSE,POINT OF CARE 184 MG/DL (70-110)
[2016-08-09 16:06] VITALS: BP 108/75
[2016-08-09 16:47] LABS: GLUCOSE,POINT OF CARE 208 MG/DL (70-110)
[2016-08-09] MEDS: INSULIN ASPART 100 UNITS/ML SQ PRN (16:58)
[2016-08-09] MEDS ORDERED: FLUO-191 PO (17:10)
== END 2016-08-09 18:27 | disposition home or self-care (01) | DRG 885 ==
LOC: B2X 21:07 → EDSTATUS 21:16 → B2X 07-29 08:59
PROVIDERS: ADMIT Psychiatry & Neurology Psychiatry; ATTEND Psychiatry & Neurology Psychiatry
DX: F25.0 Schizoaffective disorder, bipolar type (principal); F15.20 Other stimulant dependence, uncomplicated; R45.851 Suicidal ideations; E11.9 Type 2 diabetes mellitus without complications; J44.9 Chronic obstructive pulmonary disease, unspecified; E55.9 Vitamin D deficiency, unspecified; F10.10 Alcohol abuse, uncomplicated; F22 Delusional disorders; Z59.0 Homelessness; Z79.899 Other long term (current) drug therapy; Z71.51 Drug abuse counseling and surveillance of drug abuser
CPT/HCPCS: 82962; 84436; 84439; 84443; 86592; 87081

== ENCOUNTER 2017-07-12 21:05 | Inpatient (IN) | payer MEDICARE ==
[~2017-07-12] VITALS: Ht 180.3 cm; Wt 80.7 kg
[~2017-07-12 21:05] MED LIST changes: +ARIP15TA2 PO; -ARIP15TA3 PO; +ARIP400S3 IM; +GLIM2TAB PO; -METF500T4 PO; +METF500T6 PO; +TRAZ-147 PO; -VITAD1000 PO
[2017-07-13 01:20] VITALS: BP 125/79
[2017-07-13] MEDS ORDERED: PNEUMOCOCCAL VACCINE POLYVALENT 0.5 ML VIAL [PPSV23] IM ONE (01:45)
[2017-07-13] MEDS ORDERED: HALOPERIDOL 5 MG TABLET PO PRN (03:45)
[2017-07-13] MEDS ORDERED: ZOLPIDEM TARTRATE 10 MG TABLET PO PRN (03:45)
[2017-07-13] MEDS ORDERED: LORazepam 2 MG TABLET PO PRN (03:45)
[2017-07-13 05:52] LABS: GLUCOMETER DEV NAME(LOC) 3EI B; GLUCOSE,POINT OF CARE 253 MG/DL (70-110)
[2017-07-13] MEDS ORDERED: DEXTROSE 50%-WATER 25 GM/50 ML SYRINGE IVP PRN (07:15)
[2017-07-13 08:00] VITALS: BP 130/77
[2017-07-13] MEDS: INSULIN LISPRO 100 UNITS/ML SQ PRN ×2 (08:15→21:00)
[2017-07-13] MEDS: GLIMEPIRIDE 4 MG TABLET PO SCH (08:15)
[2017-07-13] MEDS: MetFORMIN HCL 500 MG TABLET PO SCH ×2 (10:53→17:26)
[2017-07-13 11:38] LABS: GLUCOMETER DEV NAME(LOC) 3EI B; GLUCOSE,POINT OF CARE 145 MG/DL (70-110)
[2017-07-13] MEDS ORDERED: GLIM4 PO (16:46)
[2017-07-13 17:03] LABS: GLUCOMETER DEV NAME(LOC) 3EI B; GLUCOSE,POINT OF CARE 110 MG/DL (70-110)
[2017-07-13 17:14] VITALS: BP 113/65
[2017-07-13] MEDS: LITHIUM CARBONATE 300 MG CAPSULE PO SCH (17:23)
[2017-07-13] MEDS: TraZODone HCL 50 MG TABLET PO SCH (20:48)
[2017-07-13 21:03] LABS: GLUCOMETER DEV NAME(LOC) 3EI B; GLUCOSE,POINT OF CARE 158 MG/DL (70-110)
[2017-07-14 06:08] LABS: GLUCOMETER DEV NAME(LOC) 3EX 1; GLUCOSE,POINT OF CARE 195 MG/DL (70-110)
[2017-07-14 06:18] LABS: BASOPHILS % (AUTO) 0.8 % (0.0-2.0); EOSINOPHILS % (AUTO) 6.5 % (1.0-6.0); HEMATOCRIT 46.3 % (41-53); HEMOGLOBIN 15.9 g/dL (13.5-17.5); LYMPHOCYTES # (AUTO) 1.8 K/uL (1.0-4.8); LYMPHOCYTES % (AUTO) 35.7 % (22.0-44.0); MEAN CORPUSCULAR HGB CONC 34.3 G/dL (31.0-37.0); MEAN CORPUSCULAR VOLUME 88 fL (80-100); MONOCYTES # (AUTO) 0.6 K/uL (0.1-1.0); MONOCYTES % (AUTO) 11.5 % (2.0-9.0); NEUTROPHILS # (AUTO) 2.4 K/uL (1.8-7.7); NEUTROPHILS % (AUTO) 45.5 % (40.0-70.0); PLATELET COUNT (AUTO) 232 K/uL (150-450); RED BLOOD CELL COUNT(AUTO) 5.29 MIL/uL (4.50-5.90); RED CELL DISTRIBUTION WIDTH 14.4 % (11.5-14.5)
[2017-07-14 06:33] LABS: ALANINE AMINOTRANSFERASE 20 U/L (12-78); ALBUMIN 2.9 g/dL (3.4-5.0); ALKALINE PHOSPHATASE 72 U/L (46-116); ANION GAP 5 mmol/L (8-16); ASPARTATE AMINOTRANSFERASE 15 U/L (15-37); BILIRUBIN,TOTAL 0.3 mg/dL (0.1-1.0); CALCIUM, TOTAL 8.8 mg/dL (8.8-10.5); CARBON DIOXIDE 28 mmol/L (22-29); CHLORIDE 103 mmol/L (98-107); CREATININE 0.68 mg/dL (0.60-1.30); GLOMERULAR FILTR. RATE CALC > 60 mL/min (>60); GLUCOSE,RANDOM 194 mg/dL (70-110); SODIUM SERUM 136 mmol/L (136-145); TOTAL PROTEIN, SERUM 7.2 g/dL (6.4-8.2); UREA NITROGEN, BLOOD 14 mg/dL (7-18)
[2017-07-14] MEDS: GLIMEPIRIDE 4 MG TABLET PO SCH (07:25)
[2017-07-14] MEDS: MetFORMIN HCL 500 MG TABLET PO SCH ×2 (07:25→17:18)
[2017-07-14 08:00] VITALS: BP 126/75
[2017-07-14] MEDS: ARIPiprazole 15 MG TABLET PO SCH (08:37)
[2017-07-14] MEDS: LITHIUM CARBONATE 300 MG CAPSULE PO SCH ×2 (08:37→17:18)
[2017-07-14 11:33] LABS: GLUCOMETER DEV NAME(LOC) 3EI B; GLUCOSE,POINT OF CARE 218 MG/DL (70-110)
[2017-07-14] MEDS: INSULIN LISPRO 100 UNITS/ML SQ PRN ×3 (11:40→21:07)
[2017-07-14 16:50] VITALS: BP 135/84
[2017-07-14 16:58] LABS: GLUCOMETER DEV NAME(LOC) 3EI B; GLUCOSE,POINT OF CARE 141 MG/DL (70-110)
[2017-07-14] MEDS: TraZODone HCL 50 MG TABLET PO SCH (20:13)
[2017-07-14 21:03] LABS: GLUCOMETER DEV NAME(LOC) 3EI B; GLUCOSE,POINT OF CARE 172 MG/DL (70-110)
[2017-07-15 06:18] LABS: GLUCOMETER DEV NAME(LOC) 3EX 1; GLUCOSE,POINT OF CARE 212 MG/DL (70-110)
[2017-07-15] MEDS: GLIMEPIRIDE 4 MG TABLET PO SCH (07:26)
[2017-07-15] MEDS: MetFORMIN HCL 500 MG TABLET PO SCH ×3 (07:27→17:30)
[2017-07-15] MEDS: INSULIN LISPRO 100 UNITS/ML SQ PRN ×2 (07:28→11:45)
[2017-07-15 08:45] VITALS: BP 136/76
[2017-07-15] MEDS: LITHIUM CARBONATE 300 MG CAPSULE PO SCH ×2 (08:53→17:42)
[2017-07-15] MEDS: ARIPiprazole 15 MG TABLET PO SCH (08:53)
[2017-07-15 11:33] LABS: GLUCOMETER DEV NAME(LOC) 3EI B; GLUCOSE,POINT OF CARE 196 MG/DL (70-110)
[2017-07-15 16:05] VITALS: BP 124/79
[2017-07-15 17:48] LABS: GLUCOMETER DEV NAME(LOC) 3EI B; GLUCOSE,POINT OF CARE 98 MG/DL (70-110)
[2017-07-15] MEDS: TraZODone HCL 50 MG TABLET PO SCH (21:00)
[2017-07-16 06:39] LABS: GLUCOMETER DEV NAME(LOC) 3EI B; GLUCOSE,POINT OF CARE 203 MG/DL (70-110)
[2017-07-16] MEDS: GLIMEPIRIDE 4 MG TABLET PO SCH (07:04)
[2017-07-16] MEDS: MetFORMIN HCL 500 MG TABLET PO SCH ×2 (07:05→17:28)
[2017-07-16] MEDS: INSULIN LISPRO 100 UNITS/ML SQ PRN ×3 (07:22→21:22)
[2017-07-16] MEDS: LITHIUM CARBONATE 300 MG CAPSULE PO SCH (08:14)
[2017-07-16] MEDS: ARIPiprazole 15 MG TABLET PO SCH (08:14)
[2017-07-16 08:15] VITALS: BP 115/72
[2017-07-16 11:39] LABS: GLUCOMETER DEV NAME(LOC) 3EX 1; GLUCOSE,POINT OF CARE 248 MG/DL (70-110)
[2017-07-16 16:30] VITALS: BP 116/77
[2017-07-16] MEDS: LITHIUM CARBONATE 600 MG CAPSULE PO SCH (17:25)
[2017-07-16 17:28] LABS: GLUCOMETER DEV NAME(LOC) 3EX 1; GLUCOSE,POINT OF CARE 86 MG/DL (70-110)
[2017-07-16] MEDS: TraZODone HCL 50 MG TABLET PO SCH (20:49)
[2017-07-16 22:38] LABS: GLUCOMETER DEV NAME(LOC) 3EX 1; GLUCOSE,POINT OF CARE 224 MG/DL (70-110)
[2017-07-17 05:48] LABS: GLUCOMETER DEV NAME(LOC) 3EI B; GLUCOSE,POINT OF CARE 200 MG/DL (70-110)
[2017-07-17] MEDS: GLIMEPIRIDE 4 MG TABLET PO SCH (06:49)
[2017-07-17] MEDS: MetFORMIN HCL 500 MG TABLET PO SCH ×3 (06:49→17:12)
[2017-07-17] MEDS: INSULIN LISPRO 100 UNITS/ML SQ PRN ×4 (07:22→21:12)
[2017-07-17] MEDS: ARIPiprazole 15 MG TABLET PO SCH (08:00)
[2017-07-17] MEDS: LITHIUM CARBONATE 600 MG CAPSULE PO SCH ×2 (08:00→17:11)
[2017-07-17 09:03] VITALS: BP 110/78
[2017-07-17 11:17] LABS: GLUCOMETER DEV NAME(LOC) 3EX 1; GLUCOSE,POINT OF CARE 304 MG/DL (70-110)
[2017-07-17 17:18] LABS: GLUCOMETER DEV NAME(LOC) 3EX 1; GLUCOSE,POINT OF CARE 215 MG/DL (70-110)
[2017-07-17 18:43] VITALS: BP 132/77
[2017-07-17] MEDS: TraZODone HCL 50 MG TABLET PO SCH (20:25)
[2017-07-17 20:35] LABS: GLUCOMETER DEV NAME(LOC) 3EX 1; GLUCOSE,POINT OF CARE 188 MG/DL (70-110)
[2017-07-18 05:53] LABS: GLUCOMETER DEV NAME(LOC) 3EI B; GLUCOSE,POINT OF CARE 164 MG/DL (70-110)
[2017-07-18] MEDS: GLIMEPIRIDE 4 MG TABLET PO SCH (06:39)
[2017-07-18] MEDS: MetFORMIN HCL 500 MG TABLET PO SCH (06:42)
[2017-07-18] MEDS: INSULIN LISPRO 100 UNITS/ML SQ PRN ×2 (06:47→13:04)
[2017-07-18] MEDS: ARIPiprazole 15 MG TABLET PO SCH (08:13)
[2017-07-18] MEDS: LITHIUM CARBONATE 600 MG CAPSULE PO SCH (08:13)
[2017-07-18 08:50] VITALS: BP 109/67
[2017-07-18 12:38] LABS: GLUCOMETER DEV NAME(LOC) 3EX 1; GLUCOSE,POINT OF CARE 199 MG/DL (70-110)
== END 2017-07-18 15:00 | disposition home or self-care (01) | DRG 885 ==
LOC: 3EX 07-13 00:45
PROVIDERS: ADMIT Psychiatry & Neurology Psychiatry; ATTEND Psychiatry & Neurology Psychiatry
DX: F25.1 Schizoaffective disorder, depressive type (principal); R45.851 Suicidal ideations; E11.9 Type 2 diabetes mellitus without complications; F12.90 Cannabis use, unspecified, uncomplicated; G47.00 Insomnia, unspecified; F15.90 Other stimulant use, unspecified, uncomplicated; Z59.0 Homelessness; Z79.84 Long term (current) use of oral hypoglycemic drugs; Z91.5 Personal history of self-harm; Z28.21 Immunization not carried out because of patient refusal; Z71.51 Drug abuse counseling and surveillance of drug abuser
CPT/HCPCS: 82652; 99285

== ENCOUNTER 2017-08-22 16:07 | Inpatient (IN) | payer MEDICARE ==
[~2017-08-22] VITALS: Ht 180.3 cm; Wt 75.0 kg
[~2017-08-22 16:07] MED LIST changes: -ARIP400S3 IM; -GLIM2TAB PO; +GLIM4 PO; -TRAZ-147 PO; +TRAZ-220 PO
[2017-08-22 18:30] VITALS: BP 128/64
[2017-08-22] MEDS ORDERED: ACETAMINOPHEN 325 MG TABLET PO PRN (19:15)
[2017-08-22] MEDS ORDERED: DEXTROSE 50%-WATER 25 GM/50 ML SYRINGE IVP PRN (19:15)
[2017-08-22] MEDS ORDERED: LORazepam 2 MG TABLET PO PRN (19:15)
[2017-08-22] MEDS ORDERED: LOPERAMIDE HCL 2 MG CAPSULE PO PRN (19:15)
[2017-08-22] MEDS ORDERED: MAGNESIUM HYDROXIDE SUSPENSION 30 ML UDCUP PO PRN (19:15)
[2017-08-22] MEDS ORDERED: HALOPERIDOL 5 MG TABLET PO PRN (19:15)
[2017-08-22] MEDS ORDERED: MAG HYDROX/AL HYDROX/SIMETH ES 30 ML SUSPENSION UDCUP PO PRN (19:15)
[2017-08-23 06:36] LABS: BASOPHILS % (AUTO) 0.8 % (0.0-2.0); EOSINOPHILS % (AUTO) 3.7 % (1.0-6.0); HEMATOCRIT 45.5 % (41-53); HEMOGLOBIN 15.7 g/dL (13.5-17.5); LYMPHOCYTES # (AUTO) 2.3 K/uL (1.0-4.8); LYMPHOCYTES % (AUTO) 40.5 % (22.0-44.0); MEAN CORPUSCULAR HEMOGLOBIN 30.3 pg (26.0-34.0); MEAN CORPUSCULAR HGB CONC 34.5 G/dL (31.0-37.0); MEAN CORPUSCULAR VOLUME 88 fL (80-100); MONOCYTES # (AUTO) 0.6 K/uL (0.1-1.0); MONOCYTES % (AUTO) 10.2 % (2.0-9.0); NEUTROPHILS # (AUTO) 2.6 K/uL (1.8-7.7); NEUTROPHILS % (AUTO) 44.8 % (40.0-70.0); PLATELET COUNT (AUTO) 211 K/uL (150-450); RED BLOOD CELL COUNT(AUTO) 5.18 MIL/uL (4.50-5.90); RED CELL DISTRIBUTION WIDTH 14.5 % (11.5-14.5)
[2017-08-23 06:56] LABS: ALANINE AMINOTRANSFERASE 18 U/L (12-78); ALKALINE PHOSPHATASE 76 U/L (46-116); ANION GAP 1 mmol/L (8-16); ASPARTATE AMINOTRANSFERASE 12 U/L (15-37); BILIRUBIN,TOTAL 0.5 mg/dL (0.1-1.0); CALCIUM, TOTAL 8.2 mg/dL (8.8-10.5); CARBON DIOXIDE 31 mmol/L (22-29); CHLORIDE 103 mmol/L (98-107); CREATININE 0.68 mg/dL (0.60-1.30); GLOMERULAR FILTR. RATE CALC > 60 mL/min (>60); GLUCOSE,RANDOM 220 mg/dL (70-110); POTASSIUM 4.2 mmol/L (3.5-5.1); SODIUM SERUM 135 mmol/L (136-145); TOTAL PROTEIN, SERUM 6.8 g/dL (6.4-8.2); UREA NITROGEN, BLOOD 14 mg/dL (7-18)
[2017-08-23 07:01] LABS: HEMOGLOBIN A1C 8.7 % (4.5-6.2)
[2017-08-23 08:36] VITALS: BP 159/96
[2017-08-23] MEDS: ARIPiprazole 15 MG TABLET PO SCH (09:22)
[2017-08-23] MEDS: MetFORMIN HCL 500 MG TABLET PO SCH ×2 (09:22→17:15)
[2017-08-23] MEDS: LITHIUM CARBONATE 600 MG CAPSULE PO SCH ×2 (09:22→17:09)
[2017-08-23] MEDS: NICOTINE 21 MG/24 HOUR PATCH TD SCH (09:23)
[2017-08-23 17:23] LABS: GLUCOMETER DEV NAME(LOC) 3EX 1; GLUCOSE,POINT OF CARE 184 MG/DL (70-110)
[2017-08-23] MEDS: INSULIN LISPRO 100 UNITS/ML SQ PRN (17:34)
[2017-08-23 18:08] VITALS: BP 109/68
[2017-08-24] MEDS: MetFORMIN HCL 500 MG TABLET PO SCH ×2 (07:09→16:56)
[2017-08-24 08:00] VITALS: BP 127/76
[2017-08-24] MEDS: ARIPiprazole 15 MG TABLET PO SCH (08:28)
[2017-08-24] MEDS: LITHIUM CARBONATE 600 MG CAPSULE PO SCH ×2 (08:28→16:49)
[2017-08-24] MEDS: NICOTINE 21 MG/24 HOUR PATCH TD SCH (08:32)
[2017-08-24 17:02] VITALS: BP 106/72
[2017-08-25] MEDS: MetFORMIN HCL 500 MG TABLET PO SCH ×2 (06:55→17:00)
[2017-08-25 08:16] VITALS: BP 134/93
[2017-08-25] MEDS: NICOTINE 21 MG/24 HOUR PATCH TD SCH (08:41)
[2017-08-25] MEDS: ARIPiprazole 15 MG TABLET PO SCH (08:41)
[2017-08-25] MEDS: CHOLECALCIFEROL (VIT D3) 1,000 UNITS TABLET PO SCH (08:41)
[2017-08-25] MEDS: LITHIUM CARBONATE 600 MG CAPSULE PO SCH ×2 (08:41→16:42)
[2017-08-25 16:46] VITALS: BP 121/78
[2017-08-26] MEDS: MetFORMIN HCL 500 MG TABLET PO SCH ×2 (07:00→16:36)
[2017-08-26 09:50] VITALS: BP 96/66
[2017-08-26] MEDS: ARIPiprazole 15 MG TABLET PO SCH (10:37)
[2017-08-26] MEDS: NICOTINE 21 MG/24 HOUR PATCH TD SCH (10:37)
[2017-08-26] MEDS: LITHIUM CARBONATE 600 MG CAPSULE PO SCH ×2 (10:37→16:23)
[2017-08-26] MEDS: CHOLECALCIFEROL (VIT D3) 1,000 UNITS TABLET PO SCH (10:38)
[2017-08-26 11:54] LABS: GLUCOMETER DEV NAME(LOC) 3EX 1; GLUCOSE,POINT OF CARE 240 MG/DL (70-110)
[2017-08-26] MEDS: INSULIN LISPRO 100 UNITS/ML SQ PRN (13:03)
[2017-08-26 18:00] VITALS: BP 132/84
[2017-08-27] MEDS: MetFORMIN HCL 500 MG TABLET PO SCH ×2 (07:20→16:17)
[2017-08-27 08:10] VITALS: BP 126/77
[2017-08-27] MEDS: LITHIUM CARBONATE 600 MG CAPSULE PO SCH ×2 (08:28→16:11)
[2017-08-27] MEDS: ARIPiprazole 15 MG TABLET PO SCH (08:28)
[2017-08-27] MEDS: CHOLECALCIFEROL (VIT D3) 1,000 UNITS TABLET PO SCH (08:28)
[2017-08-27] MEDS: NICOTINE 21 MG/24 HOUR PATCH TD SCH (08:29)
[2017-08-27 11:23] LABS: GLUCOMETER DEV NAME(LOC) 3EX 1; GLUCOSE,POINT OF CARE 274 MG/DL (70-110)
[2017-08-27] MEDS: INSULIN LISPRO 100 UNITS/ML SQ PRN ×3 (11:30→20:35)
[2017-08-27 16:04] VITALS: BP 124/71
[2017-08-27 16:34] LABS: GLUCOMETER DEV NAME(LOC) 3EX 1; GLUCOSE,POINT OF CARE 197 MG/DL (70-110)
[2017-08-27] MEDS: ZOLPIDEM TARTRATE 10 MG TABLET PO PRN (20:33)
[2017-08-27 20:59] LABS: GLUCOMETER DEV NAME(LOC) 3EX 1; GLUCOSE,POINT OF CARE 199 MG/DL (70-110)
[2017-08-28] MEDS: MetFORMIN HCL 500 MG TABLET PO SCH ×2 (07:08→16:15)
[2017-08-28] MEDS: LITHIUM CARBONATE 600 MG CAPSULE PO SCH ×2 (08:08→16:13)
[2017-08-28] MEDS: ARIPiprazole 15 MG TABLET PO SCH (08:08)
[2017-08-28] MEDS: CHOLECALCIFEROL (VIT D3) 1,000 UNITS TABLET PO SCH (08:16)
[2017-08-28] MEDS: NICOTINE 21 MG/24 HOUR PATCH TD SCH (08:17)
[2017-08-28 09:38] VITALS: BP 117/71
[2017-08-28] MEDS: INSULIN LISPRO 100 UNITS/ML SQ PRN ×2 (11:14→17:27)
[2017-08-28 11:19] LABS: GLUCOMETER DEV NAME(LOC) 3EX 1; GLUCOSE,POINT OF CARE 285 MG/DL (70-110)
[2017-08-28 16:28] LABS: GLUCOMETER DEV NAME(LOC) 3EX 1; GLUCOSE,POINT OF CARE 186 MG/DL (70-110)
[2017-08-28] MEDS: ZOLPIDEM TARTRATE 10 MG TABLET PO PRN (21:27)
[2017-08-29 06:22] VITALS: BP 151/78
[2017-08-29] MEDS: MetFORMIN HCL 500 MG TABLET PO SCH ×2 (07:11→17:04)
[2017-08-29] MEDS: NICOTINE 21 MG/24 HOUR PATCH TD SCH (08:03)
[2017-08-29] MEDS: CHOLECALCIFEROL (VIT D3) 1,000 UNITS TABLET PO SCH (08:03)
[2017-08-29] MEDS: ARIPiprazole 15 MG TABLET PO SCH (08:04)
[2017-08-29] MEDS: LITHIUM CARBONATE 600 MG CAPSULE PO SCH ×2 (08:04→16:06)
[2017-08-29 09:30] VITALS: BP 103/72
[2017-08-29 16:43] VITALS: BP 123/76
[2017-08-29 16:58] LABS: GLUCOMETER DEV NAME(LOC) 3EX 1; GLUCOSE,POINT OF CARE 176 MG/DL (70-110)
[2017-08-29] MEDS: INSULIN LISPRO 100 UNITS/ML SQ PRN ×2 (16:59→21:00)
[2017-08-29 20:49] LABS: GLUCOMETER DEV NAME(LOC) 3EX 1; GLUCOSE,POINT OF CARE 171 MG/DL (70-110)
[2017-08-29] MEDS: ZOLPIDEM TARTRATE 10 MG TABLET PO PRN (21:22)
[2017-08-30 07:12] LABS: ALANINE AMINOTRANSFERASE 17 U/L (12-78); ALBUMIN 3.3 g/dL (3.4-5.0); ALKALINE PHOSPHATASE 92 U/L (46-116); ANION GAP 2 mmol/L (8-16); ASPARTATE AMINOTRANSFERASE 14 U/L (15-37); BILIRUBIN,TOTAL 0.7 mg/dL (0.1-1.0); CARBON DIOXIDE 30 mmol/L (22-29); CHLORIDE 101 mmol/L (98-107); CHOL/HDL RATIO 3.9 (4.2-7.3); CHOLESTEROL 141 mg/dL (131-200); CREATINE KINASE, TOTAL 28 U/L (39-308); CREATININE 0.75 mg/dL (0.60-1.30); FREE T4 (FREE THYROXINE) 0.71 ng/dL (0.76-1.46); GLOMERULAR FILTR. RATE CALC > 60 mL/min (>60); GLUCOSE,RANDOM 212 mg/dL (70-110); HDL CHOLESTEROL 36 mg/dL (40-60); LDL CHOL (CALC.) 67 mg/dL (0-130); POTASSIUM 4.1 mmol/L (3.5-5.1); SODIUM SERUM 133 mmol/L (136-145); THYROID STIMULATING HORMONE 4.47 uIU/mL (0.36-3.74); TOTAL PROTEIN, SERUM 7.3 g/dL (6.4-8.2); TRIGLYCERIDES 189 mg/dL (15-150); UREA NITROGEN, BLOOD 15 mg/dL (7-18)
[2017-08-30] MEDS: MetFORMIN HCL 500 MG TABLET PO SCH (07:13)
[2017-08-30] MEDS: NICOTINE 21 MG/24 HOUR PATCH TD SCH (08:23)
[2017-08-30] MEDS: LITHIUM CARBONATE 600 MG CAPSULE PO SCH ×2 (08:24→16:25)
[2017-08-30] MEDS: LinaGLIPtin 5 MG TABLET PO SCH (08:24)
[2017-08-30] MEDS: CHOLECALCIFEROL (VIT D3) 1,000 UNITS TABLET PO SCH (08:24)
[2017-08-30] MEDS: ARIPiprazole 15 MG TABLET PO SCH (08:24)
[2017-08-30 09:10] VITALS: BP 123/75
[2017-08-30 11:18] LABS: GLUCOMETER DEV NAME(LOC) 3EX 1; GLUCOSE,POINT OF CARE 239 MG/DL (70-110)
[2017-08-30] MEDS: INSULIN LISPRO 100 UNITS/ML SQ PRN ×3 (11:18→21:11)
[2017-08-30 16:29] LABS: GLUCOMETER DEV NAME(LOC) 3EX 1; GLUCOSE,POINT OF CARE 189 MG/DL (70-110)
[2017-08-30 16:38] VITALS: BP 147/61
[2017-08-30 20:53] LABS: GLUCOMETER DEV NAME(LOC) 3EX 1; GLUCOSE,POINT OF CARE 163 MG/DL (70-110)
[2017-08-30] MEDS: ZOLPIDEM TARTRATE 10 MG TABLET PO PRN (21:34)
[2017-08-31 05:44] LABS: GLUCOMETER DEV NAME(LOC) 3EI B; GLUCOSE,POINT OF CARE 193 MG/DL (70-110)
[2017-08-31] MEDS: INSULIN LISPRO 100 UNITS/ML SQ PRN (07:13)
[2017-08-31] MEDS: GlipiZIDE 5 MG TABLET PO SCH (07:16)
[2017-08-31] MEDS: LinaGLIPtin 5 MG TABLET PO SCH (08:03)
[2017-08-31] MEDS: ARIPiprazole 15 MG TABLET PO SCH (08:03)
[2017-08-31] MEDS: CHOLECALCIFEROL (VIT D3) 1,000 UNITS TABLET PO SCH (08:03)
[2017-08-31] MEDS: LITHIUM CARBONATE 600 MG CAPSULE PO SCH ×2 (08:03→16:14)
[2017-08-31] MEDS: NICOTINE 21 MG/24 HOUR PATCH TD SCH (08:08)
[2017-08-31 09:27] VITALS: BP_SYST 116
[2017-08-31] MEDS: ZOLPIDEM TARTRATE 10 MG TABLET PO PRN (22:12)
[2017-09-01 06:14] LABS: GLUCOMETER DEV NAME(LOC) 3EI B; GLUCOSE,POINT OF CARE 208 MG/DL (70-110)
[2017-09-01] MEDS: INSULIN LISPRO 100 UNITS/ML SQ PRN ×2 (07:06→11:11)
[2017-09-01] MEDS: GlipiZIDE 5 MG TABLET PO SCH (07:08)
[2017-09-01] MEDS: LITHIUM CARBONATE 600 MG CAPSULE PO SCH (08:32)
[2017-09-01] MEDS: CHOLECALCIFEROL (VIT D3) 1,000 UNITS TABLET PO SCH (08:32)
[2017-09-01] MEDS: ARIPiprazole 15 MG TABLET PO SCH (08:32)
[2017-09-01] MEDS: LinaGLIPtin 5 MG TABLET PO SCH (08:32)
[2017-09-01] MEDS: NICOTINE 21 MG/24 HOUR PATCH TD SCH (08:32)
[2017-09-01 10:10] VITALS: BP 126/82
[2017-09-01 11:13] LABS: GLUCOMETER DEV NAME(LOC) 3EX 1; GLUCOSE,POINT OF CARE 166 MG/DL (70-110)
[2017-09-01] MEDS ORDERED: VITAD1000 PO (11:32)
[2017-09-01] MEDS ORDERED: GLIP5 PO (11:34)
[2017-09-01] MEDS ORDERED: LINA5TAB PO (11:35)
== END 2017-09-01 13:30 | disposition home or self-care (01) | DRG 885 ==
LOC: 3EX 18:00
PROVIDERS: ADMIT Psychiatry & Neurology Psychiatry; ATTEND Psychiatry & Neurology Psychiatry
DX: F25.0 Schizoaffective disorder, bipolar type (principal); E87.1 Hypo-osmolality and hyponatremia; F19.20 Other psychoactive substance dependence, uncomplicated; R45.851 Suicidal ideations; F17.200 Nicotine dependence, unspecified, uncomplicated; E55.9 Vitamin D deficiency, unspecified; E11.9 Type 2 diabetes mellitus without complications; Z59.0 Homelessness; Z79.84 Long term (current) use of oral hypoglycemic drugs; Z79.899 Other long term (current) drug therapy; Z91.5 Personal history of self-harm; Z91.19 Patient's noncompliance with other medical treatment and regimen
CPT/HCPCS: 80074; 82306; 82607; 82652; 82746; 83036; 83735; 84439; 84443

== ENCOUNTER 2017-09-16 01:31 | Inpatient (IN) | payer MEDICARE ==
[~2017-09-16] VITALS: Ht 180.3 cm; Wt 72.6 kg
[~2017-09-16 01:31] MED LIST changes: -GLIM4 PO; +GLIP5 PO; +LINA5TAB PO; -METF500T6 PO; -TRAZ-220 PO; +VITAD1000 PO
[2017-09-16] MEDS ORDERED: LITH300C3 PO (02:51)
[2017-09-16] MEDS ORDERED: TRAZ150 PO (02:51)
[2017-09-16] MEDS ORDERED: METF500T6 PO ×2 (02:51)
[2017-09-16] MEDS ORDERED: ARIP10TA8 PO (02:51)
[2017-09-16] MEDS ORDERED: HALOPERIDOL 5 MG TABLET PO PRN (03:00)
[2017-09-16] MEDS ORDERED: ZOLPIDEM TARTRATE 10 MG TABLET PO PRN (03:00)
[2017-09-16] MEDS ORDERED: LORazepam 2 MG TABLET PO PRN (03:00)
[2017-09-16 03:47] VITALS: BP 130/86
[2017-09-16 06:18] LABS: GLUCOMETER DEV NAME(LOC) BV2N3; GLUCOSE,POINT OF CARE 231 MG/DL (70-110)
[2017-09-16] MEDS ORDERED: GLUCAGON,HUMAN RECOMBINANT 1 MG VIAL IM PRN (07:00)
[2017-09-16] MEDS: MetFORMIN HCL 500 MG TABLET PO SCH ×2 (07:00→17:00)
[2017-09-16] MEDS: INSULIN LISPRO 100 UNITS/ML SQ PRN ×3 (07:09→20:38)
[2017-09-16] MEDS ORDERED: MAGNESIUM HYDROXIDE SUSPENSION 30 ML UDCUP PO PRN (07:15)
[2017-09-16] MEDS ORDERED: LOPERAMIDE HCL 2 MG CAPSULE PO PRN (07:15)
[2017-09-16] MEDS ORDERED: ACETAMINOPHEN 325 MG TABLET PO PRN (07:15)
[2017-09-16] MEDS ORDERED: MAG HYDROX/AL HYDROX/SIMETH ES 30 ML SUSPENSION UDCUP PO PRN (07:15)
[2017-09-16] MEDS: NICOTINE 7 MG/24 HOUR PATCH TD SCH (08:19)
[2017-09-16] MEDS: CHOLECALCIFEROL (VIT D3) 1,000 UNITS TABLET PO SCH (08:19)
[2017-09-16 08:30] VITALS: BP 118/67
[2017-09-16 10:58] LABS: GLUCOMETER DEV NAME(LOC) BV2N3; GLUCOSE,POINT OF CARE 175 MG/DL (70-110)
[2017-09-16 16:00] VITALS: BP 119/78
[2017-09-16 16:23] LABS: GLUCOMETER DEV NAME(LOC) BV2N3; GLUCOSE,POINT OF CARE 134 MG/DL (70-110)
[2017-09-16] MEDS: LinaGLIPtin 5 MG TABLET PO SCH (16:24)
[2017-09-16] MEDS: LITHIUM CARBONATE 600 MG CAPSULE PO SCH (16:35)
[2017-09-16] MEDS: MAGNESIUM SULFATE 454 GM BOX TP SCH (17:27)
[2017-09-16 20:34] LABS: GLUCOMETER DEV NAME(LOC) BV2N3; GLUCOSE,POINT OF CARE 180 MG/DL (70-110)
[2017-09-17 06:14] VITALS: BP 105/68
[2017-09-17 06:23] LABS: GLUCOMETER DEV NAME(LOC) BV2N3; GLUCOSE,POINT OF CARE 130 MG/DL (70-110)
[2017-09-17] MEDS ORDERED: GlipiZIDE 5 MG TABLET PO SCH (06:30)
[2017-09-17] MEDS: GlipiZIDE 5 MG TABLET PO SCH (06:40)
[2017-09-17 08:15] VITALS: BP 118/74
[2017-09-17] MEDS: ARIPiprazole 15 MG TABLET PO SCH (08:25)
[2017-09-17] MEDS: LinaGLIPtin 5 MG TABLET PO SCH (08:25)
[2017-09-17] MEDS: LITHIUM CARBONATE 600 MG CAPSULE PO SCH ×2 (08:25→17:03)
[2017-09-17] MEDS: NICOTINE 7 MG/24 HOUR PATCH TD SCH (08:26)
[2017-09-17] MEDS: CHOLECALCIFEROL (VIT D3) 1,000 UNITS TABLET PO SCH (08:26)
[2017-09-17] MEDS: MAGNESIUM SULFATE 454 GM BOX TP SCH (09:00)
[2017-09-17 11:13] LABS: GLUCOMETER DEV NAME(LOC) BV2N3; GLUCOSE,POINT OF CARE 137 MG/DL (70-110)
[2017-09-17 16:10] VITALS: BP 105/65
[2017-09-17 17:09] LABS: GLUCOMETER DEV NAME(LOC) BV2N3; GLUCOSE,POINT OF CARE 98 MG/DL (70-110)
[2017-09-17 20:24] LABS: GLUCOMETER DEV NAME(LOC) BV2N3; GLUCOSE,POINT OF CARE 159 MG/DL (70-110)
[2017-09-17] MEDS: INSULIN LISPRO 100 UNITS/ML SQ PRN (20:42)
[2017-09-18 03:07] VITALS: BP 115/67
[2017-09-18] MEDS ORDERED: PNEUMOCOCCAL VACCINE POLYVALENT 0.5 ML VIAL [PPSV23] IM ONE (04:00)
[2017-09-18] MEDS: GlipiZIDE 5 MG TABLET PO SCH (06:29)
[2017-09-18 08:34] VITALS: BP 114/74
[2017-09-18] MEDS: ARIPiprazole 15 MG TABLET PO SCH (08:40)
[2017-09-18] MEDS: LITHIUM CARBONATE 600 MG CAPSULE PO SCH ×2 (08:40→17:00)
[2017-09-18] MEDS: LinaGLIPtin 5 MG TABLET PO SCH (08:40)
[2017-09-18] MEDS: CHOLECALCIFEROL (VIT D3) 1,000 UNITS TABLET PO SCH (08:40)
[2017-09-18] MEDS: NICOTINE 7 MG/24 HOUR PATCH TD SCH (08:42)
[2017-09-18] MEDS: MAGNESIUM SULFATE 454 GM BOX TP SCH (09:00)
[2017-09-18] MEDS: INSULIN LISPRO 100 UNITS/ML SQ PRN ×2 (11:02→20:43)
[2017-09-18 14:55] LABS: GLUCOMETER DEV NAME(LOC) BV2N3; GLUCOSE,POINT OF CARE 109 MG/DL (70-110)
[2017-09-18 14:55] LABS: GLUCOMETER DEV NAME(LOC) BV2N3; GLUCOSE,POINT OF CARE 142 MG/DL (70-110)
[2017-09-18 16:08] VITALS: BP 113/69
[2017-09-18 17:03] LABS: GLUCOMETER DEV NAME(LOC) BV2N3; GLUCOSE,POINT OF CARE 122 MG/DL (70-110)
[2017-09-18 20:19] LABS: GLUCOMETER DEV NAME(LOC) BV2N3; GLUCOSE,POINT OF CARE 145 MG/DL (70-110)
[2017-09-19 06:24] LABS: GLUCOMETER DEV NAME(LOC) BV2N3; GLUCOSE,POINT OF CARE 109 MG/DL (70-110)
[2017-09-19] MEDS: GlipiZIDE 5 MG TABLET PO SCH (06:33)
[2017-09-19 06:59] VITALS: BP 109/69
[2017-09-19 08:21] VITALS: BP 111/68
[2017-09-19] MEDS: ARIPiprazole 15 MG TABLET PO SCH (08:46)
[2017-09-19] MEDS: LinaGLIPtin 5 MG TABLET PO SCH (08:46)
[2017-09-19] MEDS: CHOLECALCIFEROL (VIT D3) 1,000 UNITS TABLET PO SCH (08:46)
[2017-09-19] MEDS: LITHIUM CARBONATE 600 MG CAPSULE PO SCH ×2 (08:46→16:51)
[2017-09-19] MEDS: NICOTINE 7 MG/24 HOUR PATCH TD SCH (08:47)
[2017-09-19] MEDS: MAGNESIUM SULFATE 454 GM BOX TP SCH (09:00)
[2017-09-19 11:08] LABS: GLUCOMETER DEV NAME(LOC) BV2N3; GLUCOSE,POINT OF CARE 123 MG/DL (70-110)
[2017-09-19 16:19] VITALS: BP 122/73
[2017-09-19 17:04] LABS: GLUCOMETER DEV NAME(LOC) BV2N3; GLUCOSE,POINT OF CARE 119 MG/DL (70-110)
[2017-09-19 21:04] LABS: GLUCOMETER DEV NAME(LOC) BV2N3; GLUCOSE,POINT OF CARE 134 MG/DL (70-110)
[2017-09-20 02:08] VITALS: BP 115/73
[2017-09-20] MEDS: GlipiZIDE 5 MG TABLET PO SCH (06:56)
[2017-09-20 08:00] VITALS: BP 112/75
[2017-09-20 08:39] LABS: BASOPHILS % (AUTO) 0.8 % (0.0-2.0); EOSINOPHILS % (AUTO) 2.4 % (1.0-6.0); HEMATOCRIT 53.3 % (41-53); HEMOGLOBIN 18.3 g/dL (13.5-17.5); LYMPHOCYTES # (AUTO) 1.8 K/uL (1.0-4.8); MEAN CORPUSCULAR HEMOGLOBIN 30.4 pg (26.0-34.0); MEAN CORPUSCULAR HGB CONC 34.2 G/dL (31.0-37.0); MEAN CORPUSCULAR VOLUME 89 fL (80-100); MONOCYTES # (AUTO) 0.7 K/uL (0.1-1.0); MONOCYTES % (AUTO) 8.7 % (2.0-9.0); NEUTROPHILS # (AUTO) 5.5 K/uL (1.8-7.7); NEUTROPHILS % (AUTO) 66.1 % (40.0-70.0); PLATELET COUNT (AUTO) 233 K/uL (150-450); RED BLOOD CELL COUNT(AUTO) 6.01 MIL/uL (4.50-5.90); RED CELL DISTRIBUTION WIDTH 14.4 % (11.5-14.5)
[2017-09-20] MEDS: CHOLECALCIFEROL (VIT D3) 1,000 UNITS TABLET PO SCH (08:46)
[2017-09-20] MEDS: LinaGLIPtin 5 MG TABLET PO SCH (08:46)
[2017-09-20] MEDS: LITHIUM CARBONATE 600 MG CAPSULE PO SCH ×2 (08:46→16:44)
[2017-09-20] MEDS: ARIPiprazole 15 MG TABLET PO SCH (08:47)
[2017-09-20] MEDS: NICOTINE 7 MG/24 HOUR PATCH TD SCH (08:47)
[2017-09-20 08:51] LABS: HEMOGLOBIN A1C 8.3 % (4.5-6.2)
[2017-09-20 09:13] LABS: ALANINE AMINOTRANSFERASE 19 U/L (12-78); ALBUMIN 3.6 g/dL (3.4-5.0); ALKALINE PHOSPHATASE 68 U/L (46-116); ANION GAP 5 mmol/L (8-16); ASPARTATE AMINOTRANSFERASE 17 U/L (15-37); BILIRUBIN,TOTAL 0.8 mg/dL (0.1-1.0); CALCIUM, TOTAL 9.6 mg/dL (8.8-10.5); CARBON DIOXIDE 30 mmol/L (22-29); CHLORIDE 99 mmol/L (98-107); CREATININE 0.82 mg/dL (0.60-1.30); FREE T4 (FREE THYROXINE) 0.73 ng/dL (0.76-1.46); GLOMERULAR FILTR. RATE CALC > 60 mL/min (>60); GLUCOSE,RANDOM 129 mg/dL (70-110); HDL CHOLESTEROL 43 mg/dL (40-60); POTASSIUM 4.6 mmol/L (3.5-5.1); SODIUM SERUM 134 mmol/L (136-145); THYROID STIMULATING HORMONE 2.32 uIU/mL (0.36-3.74); TOTAL PROTEIN, SERUM 8.3 g/dL (6.4-8.2); TRIGLYCERIDES 145 mg/dL (15-150); UREA NITROGEN, BLOOD 17 mg/dL (7-18)
[2017-09-20 09:23] LABS: CHOL/HDL RATIO 3.2 (4.2-7.3); CHOLESTEROL 139 mg/dL (131-200); LDL CHOL (CALC.) 67 mg/dL (0-130)
[2017-09-20] MEDS: MAGNESIUM SULFATE 454 GM BOX TP SCH (10:15)
[2017-09-20] MEDS: INSULIN LISPRO 100 UNITS/ML SQ PRN (11:04)
[2017-09-20 11:14] LABS: GLUCOMETER DEV NAME(LOC) BV2N3; GLUCOSE,POINT OF CARE 200 MG/DL (70-110)
[2017-09-20 16:11] VITALS: BP 105/64
[2017-09-20 16:48] LABS: GLUCOMETER DEV NAME(LOC) BV2N3; GLUCOSE,POINT OF CARE 99 MG/DL (70-110)
[2017-09-20 20:44] LABS: GLUCOMETER DEV NAME(LOC) BV2N3; GLUCOSE,POINT OF CARE 260 MG/DL (70-110)
[2017-09-21] MEDS: GlipiZIDE 5 MG TABLET PO SCH (06:22)
[2017-09-21 06:29] LABS: GLUCOMETER DEV NAME(LOC) BV2N3; GLUCOSE,POINT OF CARE 132 MG/DL (70-110)
[2017-09-21 06:31] VITALS: BP 101/69
[2017-09-21 08:31] VITALS: BP 101/60
[2017-09-21] MEDS: NICOTINE 7 MG/24 HOUR PATCH TD SCH (08:49)
[2017-09-21] MEDS: LITHIUM CARBONATE 600 MG CAPSULE PO SCH ×2 (08:49→16:35)
[2017-09-21] MEDS: LinaGLIPtin 5 MG TABLET PO SCH (08:49)
[2017-09-21] MEDS: ARIPiprazole 15 MG TABLET PO SCH (08:49)
[2017-09-21] MEDS: CHOLECALCIFEROL (VIT D3) 1,000 UNITS TABLET PO SCH (08:49)
[2017-09-21] MEDS: MAGNESIUM SULFATE 454 GM BOX TP SCH (09:58)
[2017-09-21 11:03] LABS: GLUCOMETER DEV NAME(LOC) BV2N3; GLUCOSE,POINT OF CARE 124 MG/DL (70-110)
[2017-09-21 16:28] LABS: GLUCOMETER DEV NAME(LOC) BV2N3; GLUCOSE,POINT OF CARE 160 MG/DL (70-110)
[2017-09-21 16:34] VITALS: BP 118/78
[2017-09-21] MEDS: INSULIN LISPRO 100 UNITS/ML SQ PRN ×2 (16:36→20:46)
[2017-09-21 20:39] LABS: GLUCOMETER DEV NAME(LOC) BV2N3; GLUCOSE,POINT OF CARE 177 MG/DL (70-110)
[2017-09-22] MEDS: GlipiZIDE 5 MG TABLET PO SCH (06:18)
[2017-09-22 06:38] VITALS: BP 116/74
[2017-09-22] MEDS: INSULIN LISPRO 100 UNITS/ML SQ PRN ×2 (07:03→20:38)
[2017-09-22 07:28] LABS: GLUCOMETER DEV NAME(LOC) BV2N3; GLUCOSE,POINT OF CARE 146 MG/DL (70-110)
[2017-09-22 08:33] VITALS: BP 102/61
[2017-09-22] MEDS: LITHIUM CARBONATE 600 MG CAPSULE PO SCH ×2 (08:46→16:58)
[2017-09-22] MEDS: ARIPiprazole 15 MG TABLET PO SCH (08:46)
[2017-09-22] MEDS: CHOLECALCIFEROL (VIT D3) 1,000 UNITS TABLET PO SCH (08:46)
[2017-09-22] MEDS: LinaGLIPtin 5 MG TABLET PO SCH (08:46)
[2017-09-22] MEDS: MAGNESIUM SULFATE 454 GM BOX TP SCH (08:47)
[2017-09-22] MEDS: NICOTINE 7 MG/24 HOUR PATCH TD SCH (08:47)
[2017-09-22 11:09] LABS: GLUCOMETER DEV NAME(LOC) BV2N3; GLUCOSE,POINT OF CARE 120 MG/DL (70-110)
[2017-09-22 16:10] VITALS: BP 111/68
[2017-09-22 16:44] LABS: GLUCOMETER DEV NAME(LOC) BV2N3; GLUCOSE,POINT OF CARE 130 MG/DL (70-110)
[2017-09-22 20:54] LABS: GLUCOMETER DEV NAME(LOC) BV2N3; GLUCOSE,POINT OF CARE 151 MG/DL (70-110)
[2017-09-23 06:14] LABS: GLUCOMETER DEV NAME(LOC) BV2N3; GLUCOSE,POINT OF CARE 146 MG/DL (70-110)
[2017-09-23] MEDS: GlipiZIDE 5 MG TABLET PO SCH (06:40)
[2017-09-23] MEDS: INSULIN LISPRO 100 UNITS/ML SQ PRN (06:42)
[2017-09-23 08:28] VITALS: BP 102/63
[2017-09-23] MEDS: NICOTINE 7 MG/24 HOUR PATCH TD SCH (08:44)
[2017-09-23] MEDS: LITHIUM CARBONATE 600 MG CAPSULE PO SCH ×2 (08:44→17:07)
[2017-09-23] MEDS: ARIPiprazole 15 MG TABLET PO SCH (08:44)
[2017-09-23] MEDS: CHOLECALCIFEROL (VIT D3) 1,000 UNITS TABLET PO SCH (08:45)
[2017-09-23] MEDS: LinaGLIPtin 5 MG TABLET PO SCH (08:45)
[2017-09-23] MEDS: MAGNESIUM SULFATE 454 GM BOX TP SCH (10:09)
[2017-09-23 11:08] LABS: GLUCOMETER DEV NAME(LOC) BV2N3; GLUCOSE,POINT OF CARE 102 MG/DL (70-110)
[2017-09-23 16:05] VITALS: BP 118/64
[2017-09-23 16:49] LABS: GLUCOMETER DEV NAME(LOC) BV2N3; GLUCOSE,POINT OF CARE 91 MG/DL (70-110)
[2017-09-24 04:00] VITALS: BP 112/69
[2017-09-24] MEDS: GlipiZIDE 5 MG TABLET PO SCH (07:07)
[2017-09-24] MEDS: LinaGLIPtin 5 MG TABLET PO SCH (09:19)
[2017-09-24] MEDS: ARIPiprazole 15 MG TABLET PO SCH (09:19)
[2017-09-24] MEDS: LITHIUM CARBONATE 600 MG CAPSULE PO SCH ×2 (09:19→16:33)
[2017-09-24] MEDS: NICOTINE 7 MG/24 HOUR PATCH TD SCH (09:19)
[2017-09-24] MEDS: MAGNESIUM SULFATE 454 GM BOX TP SCH (09:19)
[2017-09-24] MEDS: CHOLECALCIFEROL (VIT D3) 1,000 UNITS TABLET PO SCH (09:19)
[2017-09-24 10:07] VITALS: BP 101/66
[2017-09-24 16:27] VITALS: BP 103/65
[2017-09-24 16:28] LABS: GLUCOMETER DEV NAME(LOC) BV2N3; GLUCOSE,POINT OF CARE 95 MG/DL (70-110)
[2017-09-25 01:35] VITALS: BP 108/64
[2017-09-25] MEDS: GlipiZIDE 5 MG TABLET PO SCH (06:22)
[2017-09-25 07:04] LABS: GLUCOMETER DEV NAME(LOC) BV2N3; GLUCOSE,POINT OF CARE 134 MG/DL (70-110)
[2017-09-25 08:44] VITALS: BP 110/56
[2017-09-25] MEDS: LinaGLIPtin 5 MG TABLET PO SCH (08:58)
[2017-09-25] MEDS: NICOTINE 7 MG/24 HOUR PATCH TD SCH (08:58)
[2017-09-25] MEDS: CHOLECALCIFEROL (VIT D3) 1,000 UNITS TABLET PO SCH (08:58)
[2017-09-25] MEDS: LITHIUM CARBONATE 600 MG CAPSULE PO SCH ×2 (08:58→16:34)
[2017-09-25] MEDS: ARIPiprazole 15 MG TABLET PO SCH (08:58)
[2017-09-25] MEDS: MAGNESIUM SULFATE 454 GM BOX TP SCH (10:00)
[2017-09-25 11:58] LABS: GLUCOMETER DEV NAME(LOC) BV2N3; GLUCOSE,POINT OF CARE 92 MG/DL (70-110)
[2017-09-25 16:08] VITALS: BP 114/69
[2017-09-25 16:29] LABS: GLUCOMETER DEV NAME(LOC) BV2N3; GLUCOSE,POINT OF CARE 147 MG/DL (70-110)
[2017-09-25] MEDS: INSULIN LISPRO 100 UNITS/ML SQ PRN (16:42)
[2017-09-25 21:29] LABS: GLUCOMETER DEV NAME(LOC) BV2N3; GLUCOSE,POINT OF CARE 136 MG/DL (70-110)
[2017-09-26 05:14] VITALS: BP 102/64
[2017-09-26] MEDS: GlipiZIDE 5 MG TABLET PO SCH (06:17)
[2017-09-26] MEDS: INSULIN LISPRO 100 UNITS/ML SQ PRN (06:46)
[2017-09-26 06:53] LABS: GLUCOMETER DEV NAME(LOC) BV2N3; GLUCOSE,POINT OF CARE 157 MG/DL (70-110)
[2017-09-26 08:37] VITALS: BP 121/72
[2017-09-26] MEDS: LITHIUM CARBONATE 600 MG CAPSULE PO SCH ×2 (08:41→16:35)
[2017-09-26] MEDS: ARIPiprazole 15 MG TABLET PO SCH (08:41)
[2017-09-26] MEDS: LinaGLIPtin 5 MG TABLET PO SCH (08:42)
[2017-09-26] MEDS: NICOTINE 7 MG/24 HOUR PATCH TD SCH (08:42)
[2017-09-26] MEDS: CHOLECALCIFEROL (VIT D3) 1,000 UNITS TABLET PO SCH (08:42)
[2017-09-26] MEDS: MAGNESIUM SULFATE 454 GM BOX TP SCH (09:08)
[2017-09-26 11:14] LABS: GLUCOMETER DEV NAME(LOC) BV2N3; GLUCOSE,POINT OF CARE 87 MG/DL (70-110)
[2017-09-26 16:04] VITALS: BP 114/74
[2017-09-26 16:19] LABS: GLUCOMETER DEV NAME(LOC) BV2N3; GLUCOSE,POINT OF CARE 133 MG/DL (70-110)
[2017-09-27 00:30] VITALS: BP 104/64
[2017-09-27] MEDS: GlipiZIDE 5 MG TABLET PO SCH (06:33)
[2017-09-27 06:48] LABS: GLUCOMETER DEV NAME(LOC) BV2N3; GLUCOSE,POINT OF CARE 129 MG/DL (70-110)
[2017-09-27 08:10] VITALS: BP 108/72
[2017-09-27] MEDS: LITHIUM CARBONATE 600 MG CAPSULE PO SCH ×2 (08:10→16:31)
[2017-09-27] MEDS: LinaGLIPtin 5 MG TABLET PO SCH (08:11)
[2017-09-27] MEDS: ARIPiprazole 15 MG TABLET PO SCH (08:11)
[2017-09-27] MEDS: NICOTINE 7 MG/24 HOUR PATCH TD SCH (08:11)
[2017-09-27] MEDS: CHOLECALCIFEROL (VIT D3) 1,000 UNITS TABLET PO SCH (08:11)
[2017-09-27] MEDS: MAGNESIUM SULFATE 454 GM BOX TP SCH (09:37)
[2017-09-27] MEDS: INSULIN LISPRO 100 UNITS/ML SQ PRN ×2 (10:58→16:32)
[2017-09-27 11:04] LABS: GLUCOMETER DEV NAME(LOC) BV2N3; GLUCOSE,POINT OF CARE 158 MG/DL (70-110)
[2017-09-27 16:03] VITALS: BP 106/62
[2017-09-27 16:18] LABS: GLUCOMETER DEV NAME(LOC) BV2N3; GLUCOSE,POINT OF CARE 170 MG/DL (70-110)
[2017-09-28 06:34] LABS: GLUCOMETER DEV NAME(LOC) BV2N3; GLUCOSE,POINT OF CARE 149 MG/DL (70-110)
[2017-09-28] MEDS: GlipiZIDE 5 MG TABLET PO SCH (07:12)
[2017-09-28] MEDS: INSULIN LISPRO 100 UNITS/ML SQ PRN (07:13)
[2017-09-28] MEDS: CHOLECALCIFEROL (VIT D3) 1,000 UNITS TABLET PO SCH (08:24)
[2017-09-28] MEDS: NICOTINE 7 MG/24 HOUR PATCH TD SCH (08:24)
[2017-09-28] MEDS: ARIPiprazole 15 MG TABLET PO SCH (08:24)
[2017-09-28] MEDS: LinaGLIPtin 5 MG TABLET PO SCH (08:24)
[2017-09-28] MEDS: LITHIUM CARBONATE 600 MG CAPSULE PO SCH (08:24)
[2017-09-28 08:28] VITALS: BP 117/63
[2017-09-28] MEDS: MAGNESIUM SULFATE 454 GM BOX TP SCH (09:39)
== END 2017-09-28 10:30 | disposition home or self-care (01) | DRG 885 ==
LOC: B2X 02:55
PROVIDERS: ADMIT Psychiatry & Neurology Psychiatry; ATTEND Psychiatry & Neurology Psychiatry
DX: F25.9 Schizoaffective disorder, unspecified (principal); Z79.84 Long term (current) use of oral hypoglycemic drugs
CPT/HCPCS: 82306; 83036; 84439; 84443; 87081

== ENCOUNTER 2018-10-04 17:39 | Inpatient (IN) | payer MEDICARE, MEDICAID ==
[~2018-10-04] VITALS: Ht 180.3 cm; Wt 86.2 kg
[~2018-10-04 17:39] MED LIST changes: +ARIP10TA8 PO; -ARIP15TA2 PO; +LITH300CRT PO; -LITH300T PO; +TRAZ-220 PO; -VITAD1000 PO
[2018-10-04] MEDS ORDERED: ZOLPIDEM TARTRATE 10 MG TABLET PO PRN (21:00)
[2018-10-04] MEDS ORDERED: LORazepam 2 MG TABLET PO PRN (21:00)
[2018-10-04] MEDS ORDERED: HALOPERIDOL 5 MG TABLET PO PRN (21:00)
[2018-10-04 21:35] LABS: GLUCOMETER DEV NAME(LOC) BV2X.; GLUCOSE,POINT OF CARE 284 MG/DL (70-110)
[2018-10-04] MEDS ORDERED: MAG HYDROX/AL HYDROX/SIMETH ES 30 ML SUSPENSION UDCUP PO PRN (22:15)
[2018-10-04] MEDS ORDERED: PETROLATUM,WHITE 28 GM JELLY TP PRN (22:15)
[2018-10-04] MEDS ORDERED: MAGNESIUM HYDROXIDE SUSPENSION 30 ML UDCUP PO PRN (22:15)
[2018-10-04] MEDS ORDERED: GLUCAGON,HUMAN RECOMBINANT 1 MG VIAL IM PRN (22:15)
[2018-10-04] MEDS ORDERED: CloNIDine HCL 0.1 MG TABLET PO PRN (22:15)
[2018-10-04] MEDS ORDERED: NICOTINE 14 MG/24 HOUR PATCH TD PRN (22:15)
[2018-10-04] MEDS ORDERED: ACETAMINOPHEN 325 MG TABLET PO PRN (22:15)
[2018-10-04] MEDS ORDERED: ONDANSETRON HCL 4 MG TABLET PO PRN (22:15)
[2018-10-04] MEDS ORDERED: DOCUSATE SODIUM 100 MG CAPSULE PO PRN (22:15)
[2018-10-04] MEDS ORDERED: GuaiFENesin/D-METHORPHAN [SUGAR-FREE] 200-20MG/10 ML SYRUP UDCUP PO PRN (22:15)
[2018-10-04] MEDS ORDERED: ALBUTEROL SULFATE HFA 90 MCG/PUFF 8 GM INHALER IH PRN (22:15)
[2018-10-04] MEDS ORDERED: IBUPROFEN 400 MG TABLET PO PRN (22:15)
[2018-10-04] MEDS ORDERED: LOPERAMIDE HCL 2 MG CAPSULE PO PRN (22:15)
[2018-10-04 22:19] VITALS: BP 122/83
[2018-10-04] MEDS ORDERED: PNEUMOCOCCAL VACCINE POLYVALENT 0.5 ML VIAL [PPSV23] IM ONE (22:30)
[2018-10-05 00:17] VITALS: BP 114/74
[2018-10-05] MEDS: GlipiZIDE 5 MG TABLET PO SCH (06:30)
[2018-10-05 08:12] VITALS: BP 122/78
[2018-10-05 08:45] LABS: BASOPHILS % (AUTO) 1.3 % (0.0-2.0); HEMATOCRIT 42.4 % (41-53); HEMOGLOBIN 14.1 g/dL (13.5-17.5); LYMPHOCYTES # (AUTO) 2.1 K/uL (1.0-4.8); LYMPHOCYTES % (AUTO) 30.7 % (22.0-44.0); MEAN CORPUSCULAR HEMOGLOBIN 29.8 pg (26.0-34.0); MEAN CORPUSCULAR HGB CONC 33.2 G/dL (31.0-37.0); MEAN CORPUSCULAR VOLUME 90 fL (80-100); MONOCYTES # (AUTO) 0.5 K/uL (0.1-1.0); NEUTROPHILS # (AUTO) 3.9 K/uL (1.8-7.7); PLATELET COUNT (AUTO) 333 K/uL (150-450); RED BLOOD CELL COUNT(AUTO) 4.72 MIL/uL (4.50-5.90); RED CELL DISTRIBUTION WIDTH 14.3 % (11.5-14.5)
[2018-10-05] MEDS: BACITRACIN 28.4 GM OINTMENT TP SCH ×2 (08:48→16:25)
[2018-10-05] MEDS: LinaGLIPtin 5 MG TABLET PO SCH (08:48)
[2018-10-05 09:02] LABS: LITHIUM < 0.20 mmol/L (0.60-1.20)
[2018-10-05 09:08] LABS: HEMOGLOBIN A1C 9.1 % (4.5-6.2)
[2018-10-05 09:09] LABS: ALANINE AMINOTRANSFERASE 17 U/L (12-78); ALKALINE PHOSPHATASE 104 U/L (46-116); ANION GAP 6 mmol/L (8-16); ASPARTATE AMINOTRANSFERASE 15 U/L (15-37); BILIRUBIN,TOTAL 0.3 mg/dL (0.1-1.0); CALCIUM, TOTAL 8.9 mg/dL (8.8-10.5); CARBON DIOXIDE 28 mmol/L (22-29); CHLORIDE 98 mmol/L (98-107); CHOL/HDL RATIO 3.4 (4.2-7.3); CHOLESTEROL 146 mg/dL (131-200); CREATININE 0.71 mg/dL (0.60-1.30); GLOMERULAR FILTR. RATE CALC > 60 mL/min (>60); GLUCOSE,RANDOM 298 mg/dL (70-110); HDL CHOLESTEROL 43 mg/dL (40-60); LDL CHOL (CALC.) 73 mg/dL (0-130); POTASSIUM 4.3 mmol/L (3.5-5.1); SODIUM SERUM 132 mmol/L (136-145); THYROID STIMULATING HORMONE 0.88 uIU/mL (0.36-3.74); TOTAL PROTEIN, SERUM 7.4 g/dL (6.4-8.2); TRIGLYCERIDES 151 mg/dL (15-150); UREA NITROGEN, BLOOD 12 mg/dL (7-18)
[2018-10-05] MEDS: INSULIN LISPRO 100 UNITS/ML SQ PRN ×3 (11:06→20:35)
[2018-10-05 11:20] LABS: GLUCOMETER DEV NAME(LOC) BV2X.; GLUCOSE,POINT OF CARE 324 MG/DL (70-110)
[2018-10-05] MEDS: LITHIUM CARBONATE 300 MG TABLET PO SCH ×2 (13:00→16:25)
[2018-10-05 16:01] VITALS: BP 110/77
[2018-10-05 17:11] LABS: GLUCOMETER DEV NAME(LOC) BV2X.; GLUCOSE,POINT OF CARE 220 MG/DL (70-110)
[2018-10-05] MEDS: TraZODone HCL 100 MG TABLET PO SCH (20:22)
[2018-10-05 20:40] LABS: GLUCOMETER DEV NAME(LOC) BV2X.; GLUCOSE,POINT OF CARE 254 MG/DL (70-110)
[2018-10-06 00:31] VITALS: BP 116/76
[2018-10-06 06:35] LABS: GLUCOMETER DEV NAME(LOC) BV2X.; GLUCOSE,POINT OF CARE 252 MG/DL (70-110)
[2018-10-06] MEDS: GlipiZIDE 5 MG TABLET PO SCH (07:12)
[2018-10-06] MEDS: INSULIN LISPRO 100 UNITS/ML SQ PRN ×3 (07:14→16:42)
[2018-10-06 08:25] VITALS: BP 114/72
[2018-10-06] MEDS: LinaGLIPtin 5 MG TABLET PO SCH (08:29)
[2018-10-06] MEDS: LITHIUM CARBONATE 300 MG TABLET PO SCH ×2 (08:29→16:38)
[2018-10-06] MEDS: ARIPiprazole 15 MG TABLET PO SCH (08:29)
[2018-10-06] MEDS: BACITRACIN 28.4 GM OINTMENT TP SCH ×2 (08:30→16:43)
[2018-10-06 11:15] LABS: GLUCOMETER DEV NAME(LOC) BV2X.; GLUCOSE,POINT OF CARE 244 MG/DL (70-110)
[2018-10-06 16:02] VITALS: BP 115/83
[2018-10-06] MEDS: TraZODone HCL 100 MG TABLET PO SCH (20:21)
[2018-10-07 01:15] VITALS: BP 117/72
[2018-10-07] MEDS: GlipiZIDE 5 MG TABLET PO SCH (07:01)
[2018-10-07] MEDS: INSULIN LISPRO 100 UNITS/ML SQ PRN ×3 (07:02→20:38)
[2018-10-07] MEDS: ARIPiprazole 15 MG TABLET PO SCH (09:24)
[2018-10-07] MEDS: LinaGLIPtin 5 MG TABLET PO SCH (09:25)
[2018-10-07] MEDS: LITHIUM CARBONATE 300 MG TABLET PO SCH ×2 (09:25→16:28)
[2018-10-07] MEDS: BACITRACIN 28.4 GM OINTMENT TP SCH ×2 (09:25→16:28)
[2018-10-07 09:27] VITALS: BP 122/76
[2018-10-07 12:21] LABS: GLUCOMETER DEV NAME(LOC) BV2X.; GLUCOSE,POINT OF CARE 148 MG/DL (70-110)
[2018-10-07 13:00] LABS: GLUCOMETER DEV NAME(LOC) BV2X.; GLUCOSE,POINT OF CARE 229 MG/DL (70-110)
[2018-10-07 16:01] VITALS: BP 113/62
[2018-10-07 16:11] LABS: GLUCOMETER DEV NAME(LOC) BV2X.; GLUCOSE,POINT OF CARE 199 MG/DL (70-110)
[2018-10-07] MEDS: TraZODone HCL 100 MG TABLET PO SCH (20:30)
[2018-10-07 20:39] LABS: GLUCOMETER DEV NAME(LOC) BV2X.; GLUCOSE,POINT OF CARE 237 MG/DL (70-110)
[2018-10-08 00:31] VITALS: BP 132/83
[2018-10-08 06:25] LABS: GLUCOMETER DEV NAME(LOC) BV2X.; GLUCOSE,POINT OF CARE 95 MG/DL (70-110)
[2018-10-08] MEDS: GlipiZIDE 5 MG TABLET PO SCH (06:31)
[2018-10-08 08:05] VITALS: BP 120/71
[2018-10-08] MEDS: LinaGLIPtin 5 MG TABLET PO SCH (08:29)
[2018-10-08] MEDS: BACITRACIN 28.4 GM OINTMENT TP SCH ×2 (08:29→17:02)
[2018-10-08] MEDS: ARIPiprazole 10 MG TABLET PO SCH (08:29)
[2018-10-08] MEDS: LITHIUM CARBONATE 300 MG TABLET PO SCH ×2 (08:29→16:30)
[2018-10-08] MEDS: INSULIN LISPRO 100 UNITS/ML SQ PRN ×3 (10:53→20:37)
[2018-10-08 11:57] LABS: GLUCOMETER DEV NAME(LOC) BV2X.; GLUCOSE,POINT OF CARE 237 MG/DL (70-110)
[2018-10-08 16:01] VITALS: BP 117/86
[2018-10-08 16:40] LABS: GLUCOMETER DEV NAME(LOC) BV2X.; GLUCOSE,POINT OF CARE 246 MG/DL (70-110)
[2018-10-08] MEDS: OLANZapine 5 MG TABLET PO SCH (17:02)
[2018-10-08] MEDS: TraZODone HCL 100 MG TABLET PO SCH (20:34)
[2018-10-08 20:37] LABS: GLUCOMETER DEV NAME(LOC) BV2X.; GLUCOSE,POINT OF CARE 257 MG/DL (70-110)
[2018-10-09 00:58] VITALS: BP 127/69
[2018-10-09] MEDS: GlipiZIDE 5 MG TABLET PO SCH (06:53)
[2018-10-09 08:23] VITALS: BP 121/76
[2018-10-09] MEDS: LITHIUM CARBONATE 300 MG TABLET PO SCH ×2 (08:42→16:33)
[2018-10-09] MEDS: LinaGLIPtin 5 MG TABLET PO SCH (08:42)
[2018-10-09] MEDS: OLANZapine 5 MG TABLET PO SCH ×2 (08:42→16:33)
[2018-10-09] MEDS: ARIPiprazole 10 MG TABLET PO SCH (08:42)
[2018-10-09] MEDS: BACITRACIN 28.4 GM OINTMENT TP SCH ×2 (08:43→16:33)
[2018-10-09] MEDS: INSULIN LISPRO 100 UNITS/ML SQ PRN ×3 (10:53→20:46)
[2018-10-09 11:05] LABS: GLUCOMETER DEV NAME(LOC) BV2X.; GLUCOSE,POINT OF CARE 214 MG/DL (70-110)
[2018-10-09 16:14] VITALS: BP 110/69
[2018-10-09 16:25] LABS: GLUCOMETER DEV NAME(LOC) BV2X.; GLUCOSE,POINT OF CARE 166 MG/DL (70-110)
[2018-10-09] MEDS: TraZODone HCL 100 MG TABLET PO SCH (20:40)
[2018-10-09 20:43] LABS: GLUCOMETER DEV NAME(LOC) BV2X.; GLUCOSE,POINT OF CARE 292 MG/DL (70-110)
[2018-10-10] MEDS: INSULIN LISPRO 100 UNITS/ML SQ PRN ×2 (06:31→10:50)
[2018-10-10] MEDS: GlipiZIDE 5 MG TABLET PO SCH (06:34)
[2018-10-10 06:39] VITALS: BP 105/63
[2018-10-10 06:41] LABS: GLUCOMETER DEV NAME(LOC) BV2X.; GLUCOSE,POINT OF CARE 227 MG/DL (70-110)
[2018-10-10 08:23] VITALS: BP 109/67
[2018-10-10] MEDS: OLANZapine 5 MG TABLET PO SCH (08:37)
[2018-10-10] MEDS: LinaGLIPtin 5 MG TABLET PO SCH (08:37)
[2018-10-10] MEDS: ARIPiprazole 10 MG TABLET PO SCH (08:37)
[2018-10-10] MEDS: LITHIUM CARBONATE 300 MG TABLET PO SCH (08:37)
[2018-10-10] MEDS: BACITRACIN 28.4 GM OINTMENT TP SCH (08:38)
[2018-10-10] MEDS ORDERED: GLIP5 PO (10:46)
[2018-10-10] MEDS ORDERED: LITH600 PO (10:46)
[2018-10-10] MEDS ORDERED: OLAN5TAB2 PO (10:46)
[2018-10-10] MEDS ORDERED: ARIP10TA8 PO (10:46)
[2018-10-10 11:00] LABS: GLUCOMETER DEV NAME(LOC) BV2X.; GLUCOSE,POINT OF CARE 215 MG/DL (70-110)
== END 2018-10-10 12:10 | disposition home or self-care (01) | DRG 885 ==
LOC: B2X 21:29
PROVIDERS: ADMIT Psychiatry & Neurology Psychiatry; ATTEND Psychiatry & Neurology Psychiatry
DX: F25.9 Schizoaffective disorder, unspecified (principal); R45.851 Suicidal ideations; E11.9 Type 2 diabetes mellitus without complications; E78.5 Hyperlipidemia, unspecified; F10.10 Alcohol abuse, uncomplicated; G89.29 Other chronic pain; M54.9 Dorsalgia, unspecified; J44.9 Chronic obstructive pulmonary disease, unspecified; Z59.0 Homelessness; Z79.899 Other long term (current) drug therapy; Z71.41 Alcohol abuse counseling and surveillance of alcoholic
CPT/HCPCS: 83036; 84436; 84443

== ENCOUNTER 2019-03-05 15:59 | Inpatient (IN) | payer MEDICARE, MEDICAID ==
[~2019-03-05] VITALS: Ht 180.3 cm; Wt 74.4 kg
[~2019-03-05 15:59] MED LIST changes: -LITH300CRT PO; +LITH600 PO; +OLAN5TAB2 PO; -TRAZ-220 PO; +TRAZ-257 PO
[2019-03-05 19:39] VITALS: BP 128/85
[2019-03-05] MEDS ORDERED: HALOPERIDOL 5 MG TABLET PO PRN (19:45)
[2019-03-05] MEDS ORDERED: LORazepam 2 MG TABLET PO PRN (19:45)
[2019-03-05] MEDS ORDERED: HALO5TAB2 PO (20:43)
[2019-03-05] MEDS ORDERED: CloNIDine HCL 0.1 MG TABLET PO PRN (20:45)
[2019-03-05] MEDS ORDERED: MAGNESIUM HYDROXIDE SUSPENSION 30 ML UDCUP PO PRN (20:45)
[2019-03-05] MEDS ORDERED: IBUPROFEN 400 MG TABLET PO PRN (20:45)
[2019-03-05] MEDS ORDERED: MAG HYDROX/AL HYDROX/SIMETH ES 30 ML SUSPENSION UDCUP PO PRN (20:45)
[2019-03-05] MEDS ORDERED: ALBUTEROL SULFATE HFA 90 MCG/PUFF 8 GM INHALER IH PRN (20:45)
[2019-03-05] MEDS ORDERED: NICOTINE 14 MG/24 HOUR PATCH TD PRN (20:45)
[2019-03-05] MEDS ORDERED: DOCUSATE SODIUM 100 MG CAPSULE PO PRN (20:45)
[2019-03-05] MEDS ORDERED: ONDANSETRON HCL 4 MG TABLET PO PRN (20:45)
[2019-03-05] MEDS ORDERED: GuaiFENesin/D-METHORPHAN [SUGAR-FREE] 200-20MG/10 ML SYRUP UDCUP PO PRN (20:45)
[2019-03-05] MEDS ORDERED: LOPERAMIDE HCL 2 MG CAPSULE PO PRN (20:45)
[2019-03-05] MEDS ORDERED: PETROLATUM,WHITE 28 GM JELLY TP PRN (20:45)
[2019-03-05] MEDS ORDERED: ACETAMINOPHEN 325 MG TABLET PO PRN (20:45)
[2019-03-05] MEDS ORDERED: INFLUENZA VIRUS VACCINE QVS 2019-20 (3YR+)/PF 60 MCG/0.5 ML SYRINGE IM ONE (21:15)
[2019-03-05] MEDS ORDERED: PNEUMOCOCCAL VACCINE POLYVALENT 0.5 ML VIAL [PPSV23] IM ONE (21:15)
[2019-03-05] MEDS ORDERED: GLUCAGON,HUMAN RECOMBINANT 1 MG VIAL IM PRN (21:30)
[2019-03-05 21:35] VITALS: BP 132/98
[2019-03-05 21:35] LABS: GLUCOMETER DEV NAME(LOC) BV2X.; GLUCOSE,POINT OF CARE 306 MG/DL (70-110)
[2019-03-05] MEDS: INSULIN LISPRO 100 UNITS/ML SQ PRN (21:42)
[2019-03-06 06:17] LABS: GLUCOMETER DEV NAME(LOC) BV2X.; GLUCOSE,POINT OF CARE 241 MG/DL (70-110)
[2019-03-06] MEDS: GlipiZIDE 5 MG TABLET PO SCH (06:23)
[2019-03-06] MEDS: INSULIN LISPRO 100 UNITS/ML SQ PRN ×3 (06:30→20:38)
[2019-03-06 07:12] VITALS: BP 125/72
[2019-03-06 08:15] VITALS: BP 130/79
[2019-03-06] MEDS: LinaGLIPtin 5 MG TABLET PO SCH (08:58)
[2019-03-06 11:32] LABS: GLUCOMETER DEV NAME(LOC) BV2X.; GLUCOSE,POINT OF CARE 189 MG/DL (70-110)
[2019-03-06 16:14] VITALS: BP 109/76
[2019-03-06 16:26] LABS: GLUCOMETER DEV NAME(LOC) BV2X.; GLUCOSE,POINT OF CARE 106 MG/DL (70-110)
[2019-03-06 20:29] LABS: GLUCOMETER DEV NAME(LOC) BV2X.; GLUCOSE,POINT OF CARE 199 MG/DL (70-110)
[2019-03-07] MEDS: GlipiZIDE 5 MG TABLET PO SCH ×3 (06:21→06:56)
[2019-03-07 08:11] VITALS: BP 139/88
[2019-03-07] MEDS: LITHIUM CARBONATE 600 MG CAPSULE PO SCH ×2 (08:13→16:58)
[2019-03-07] MEDS: LinaGLIPtin 5 MG TABLET PO SCH (08:13)
[2019-03-07 11:17] LABS: GLUCOMETER DEV NAME(LOC) BV2X.; GLUCOSE,POINT OF CARE 133 MG/DL (70-110)
[2019-03-07 16:09] VITALS: BP 132/78
[2019-03-07 16:24] LABS: GLUCOMETER DEV NAME(LOC) BV2X.; GLUCOSE,POINT OF CARE 125 MG/DL (70-110)
[2019-03-08 03:30] VITALS: BP 127/69
[2019-03-08 06:16] LABS: GLUCOMETER DEV NAME(LOC) BV2X.; GLUCOSE,POINT OF CARE 176 MG/DL (70-110)
[2019-03-08] MEDS: GlipiZIDE 5 MG TABLET PO SCH (07:02)
[2019-03-08] MEDS: INSULIN LISPRO 100 UNITS/ML SQ PRN (07:04)
[2019-03-08 08:11] VITALS: BP 130/81
[2019-03-08] MEDS: LITHIUM CARBONATE 600 MG CAPSULE PO SCH ×2 (08:31→16:31)
[2019-03-08] MEDS: LinaGLIPtin 5 MG TABLET PO SCH (08:31)
[2019-03-08 16:26] VITALS: BP 104/70
[2019-03-09 06:48] VITALS: BP 145/81
[2019-03-09] MEDS: GlipiZIDE 5 MG TABLET PO SCH (07:07)
[2019-03-09 08:11] VITALS: BP 137/81
[2019-03-09] MEDS: LITHIUM CARBONATE 600 MG CAPSULE PO SCH ×2 (08:34→16:05)
[2019-03-09] MEDS: LinaGLIPtin 5 MG TABLET PO SCH (08:34)
[2019-03-09] MEDS ORDERED: OLAN7.5T2 PO (13:36)
[2019-03-09] MEDS ORDERED: HALO10 PO (13:37)
[2019-03-09] MEDS: RisperiDONE 1 MG TABLET PO SCH (16:05)
[2019-03-09 16:08] VITALS: BP 122/76
[2019-03-10] MEDS: GlipiZIDE 5 MG TABLET PO SCH (06:07)
[2019-03-10] MEDS: INSULIN LISPRO 100 UNITS/ML SQ PRN ×3 (06:16→16:56)
[2019-03-10 06:41] LABS: GLUCOMETER DEV NAME(LOC) BV2X.; GLUCOSE,POINT OF CARE 207 MG/DL (70-110)
[2019-03-10 07:30] VITALS: BP 124/78
[2019-03-10 08:24] VITALS: BP 131/78
[2019-03-10] MEDS: RisperiDONE 1 MG TABLET PO SCH ×2 (09:17→16:36)
[2019-03-10] MEDS: LITHIUM CARBONATE 600 MG CAPSULE PO SCH ×2 (09:17→16:36)
[2019-03-10] MEDS: LinaGLIPtin 5 MG TABLET PO SCH (09:17)
[2019-03-10 11:11] LABS: GLUCOMETER DEV NAME(LOC) BV2X.; GLUCOSE,POINT OF CARE 145 MG/DL (70-110)
[2019-03-10 16:08] VITALS: BP 117/66
[2019-03-10 16:22] LABS: GLUCOMETER DEV NAME(LOC) BV2X.; GLUCOSE,POINT OF CARE 211 MG/DL (70-110)
[2019-03-11 06:11] VITALS: BP 112/72
[2019-03-11] MEDS: GlipiZIDE 10 MG TABLET PO SCH (06:26)
[2019-03-11 08:14] VITALS: BP 126/81
[2019-03-11] MEDS: RisperiDONE 1 MG TABLET PO SCH ×2 (08:37→16:24)
[2019-03-11] MEDS: LinaGLIPtin 5 MG TABLET PO SCH (08:37)
[2019-03-11] MEDS: LITHIUM CARBONATE 600 MG CAPSULE PO SCH ×2 (08:37→16:24)
[2019-03-11 10:50] LABS: GLUCOMETER DEV NAME(LOC) BV2X.; GLUCOSE,POINT OF CARE 201 MG/DL (70-110)
[2019-03-11] MEDS: INSULIN LISPRO 100 UNITS/ML SQ PRN ×2 (11:19→16:23)
[2019-03-11 16:06] VITALS: BP 133/64
[2019-03-11 16:35] LABS: GLUCOMETER DEV NAME(LOC) BV2X.; GLUCOSE,POINT OF CARE 178 MG/DL (70-110)
[2019-03-12 06:24] VITALS: BP 106/59
[2019-03-12] MEDS: GlipiZIDE 10 MG TABLET PO SCH (06:55)
[2019-03-12 08:10] VITALS: BP 113/74
[2019-03-12] MEDS: LinaGLIPtin 5 MG TABLET PO SCH (08:38)
[2019-03-12] MEDS: RisperiDONE 1 MG TABLET PO SCH ×2 (08:38→16:32)
[2019-03-12] MEDS: LITHIUM CARBONATE 600 MG CAPSULE PO SCH ×2 (08:39→16:32)
[2019-03-12 11:00] LABS: GLUCOMETER DEV NAME(LOC) BV2X.; GLUCOSE,POINT OF CARE 113 MG/DL (70-110)
[2019-03-12 16:05] VITALS: BP 112/79
[2019-03-12 16:16] LABS: GLUCOMETER DEV NAME(LOC) BV2X.; GLUCOSE,POINT OF CARE 118 MG/DL (70-110)
[2019-03-13 04:14] VITALS: BP 146/79
[2019-03-13] MEDS: GlipiZIDE 10 MG TABLET PO SCH (06:31)
[2019-03-13 06:33] LABS: GLUCOMETER DEV NAME(LOC) BV2X.; GLUCOSE,POINT OF CARE 225 MG/DL (70-110)
[2019-03-13] MEDS: INSULIN LISPRO 100 UNITS/ML SQ PRN ×3 (06:35→16:39)
[2019-03-13 08:18] VITALS: BP 110/69
[2019-03-13] MEDS: LinaGLIPtin 5 MG TABLET PO SCH (08:40)
[2019-03-13] MEDS: LITHIUM CARBONATE 600 MG CAPSULE PO SCH ×2 (08:40→16:39)
[2019-03-13] MEDS: RisperiDONE 1 MG TABLET PO SCH ×2 (08:40→16:39)
[2019-03-13 08:58] LABS: LITHIUM 0.64 mmol/L (0.60-1.20)
[2019-03-13 09:08] LABS: CHOL/HDL RATIO 3.2 (4.2-7.3); FREE T4 (FREE THYROXINE) 0.79 ng/dL (0.76-1.46); THYROID STIMULATING HORMONE 2.37 uIU/mL (0.36-3.74)
[2019-03-13 09:10] LABS: HEMOGLOBIN A1C 9.6 % (4.5-6.2)
[2019-03-13 11:29] LABS: GLUCOMETER DEV NAME(LOC) BV2X.; GLUCOSE,POINT OF CARE 150 MG/DL (70-110)
[2019-03-13 16:10] VITALS: BP 118/71
[2019-03-13 16:52] LABS: GLUCOMETER DEV NAME(LOC) BV2X.; GLUCOSE,POINT OF CARE 150 MG/DL (70-110)
[2019-03-13] MEDS: ZOLPIDEM TARTRATE 10 MG TABLET PO PRN (22:47)
[2019-03-14 01:05] VITALS: BP 113/63
[2019-03-14] MEDS: GlipiZIDE 10 MG TABLET PO SCH (07:02)
[2019-03-14 08:18] VITALS: BP 128/78
[2019-03-14] MEDS: LinaGLIPtin 5 MG TABLET PO SCH (09:34)
[2019-03-14] MEDS: RisperiDONE 1 MG TABLET PO SCH ×2 (09:34→17:29)
[2019-03-14] MEDS: LITHIUM CARBONATE 600 MG CAPSULE PO SCH ×2 (09:34→17:29)
[2019-03-14 16:42] VITALS: BP 116/77
[2019-03-15] MEDS: ZOLPIDEM TARTRATE 10 MG TABLET PO PRN (00:53)
[2019-03-15 01:35] VITALS: BP 100/89
[2019-03-15] MEDS: GlipiZIDE 10 MG TABLET PO SCH (07:01)
[2019-03-15] MEDS: LinaGLIPtin 5 MG TABLET PO SCH (09:18)
[2019-03-15] MEDS: RisperiDONE 1 MG TABLET PO SCH ×2 (09:19→16:44)
[2019-03-15] MEDS: LITHIUM CARBONATE 600 MG CAPSULE PO SCH ×2 (09:19→16:44)
[2019-03-15 09:57] VITALS: BP 107/75
[2019-03-15 11:27] LABS: GLUCOMETER DEV NAME(LOC) BV2X.; GLUCOSE,POINT OF CARE 245 MG/DL (70-110)
[2019-03-15] MEDS: INSULIN LISPRO 100 UNITS/ML SQ PRN ×2 (11:31→16:45)
[2019-03-15 16:15] LABS: GLUCOMETER DEV NAME(LOC) BV2X.; GLUCOSE,POINT OF CARE 148 MG/DL (70-110)
[2019-03-15 16:24] VITALS: BP 122/68
[2019-03-16 01:57] VITALS: BP 133/75
[2019-03-16] MEDS: GlipiZIDE 10 MG TABLET PO SCH (07:13)
[2019-03-16 08:20] VITALS: BP 119/69
[2019-03-16] MEDS: LITHIUM CARBONATE 600 MG CAPSULE PO SCH ×2 (09:02→16:34)
[2019-03-16] MEDS: LinaGLIPtin 5 MG TABLET PO SCH (09:02)
[2019-03-16] MEDS: RisperiDONE 1 MG TABLET PO SCH ×2 (09:03→16:34)
[2019-03-16 11:53] LABS: GLUCOMETER DEV NAME(LOC) BV2X.; GLUCOSE,POINT OF CARE 178 MG/DL (70-110)
[2019-03-16] MEDS: INSULIN LISPRO 100 UNITS/ML SQ PRN ×3 (12:19→20:57)
[2019-03-16 16:16] VITALS: BP 112/68
[2019-03-16 16:22] LABS: GLUCOMETER DEV NAME(LOC) BV2X.; GLUCOSE,POINT OF CARE 188 MG/DL (70-110)
[2019-03-16] MEDS ORDERED: ZOLPIDEM TARTRATE 10 MG TABLET PO PRN (20:15)
[2019-03-16 20:46] LABS: GLUCOMETER DEV NAME(LOC) BV2X.; GLUCOSE,POINT OF CARE 233 MG/DL (70-110)
[2019-03-17 04:29] VITALS: BP 113/76
[2019-03-17] MEDS: GlipiZIDE 10 MG TABLET PO SCH (06:44)
[2019-03-17] MEDS: LinaGLIPtin 5 MG TABLET PO SCH (08:46)
[2019-03-17] MEDS: LITHIUM CARBONATE 600 MG CAPSULE PO SCH (08:46)
[2019-03-17] MEDS: RisperiDONE 1 MG TABLET PO SCH (08:46)
[2019-03-17 08:48] VITALS: BP 126/79
[2019-03-17] MEDS ORDERED: GLIP5TAB3 PO (09:37)
[2019-03-17] MEDS ORDERED: RISP1 PO (09:38)
[2019-03-17] MEDS ORDERED: LITH300CRT PO (09:46)
[2019-03-17] MEDS ORDERED: RISP1TAB89 PO (09:47)
[2019-03-17] MEDS ORDERED: GLIP10TA3 PO (09:50)
[2019-03-17] MEDS ORDERED: LINA5TAB PO (09:52)
== END 2019-03-17 11:35 | disposition home or self-care (01) | DRG 885 ==
LOC: B2X 20:01
PROVIDERS: ADMIT Psychiatry & Neurology Psychiatry; ATTEND Psychiatry & Neurology Psychiatry
DX: F25.9 Schizoaffective disorder, unspecified (principal); R45.851 Suicidal ideations; G89.29 Other chronic pain; J44.9 Chronic obstructive pulmonary disease, unspecified; E11.9 Type 2 diabetes mellitus without complications; K59.00 Constipation, unspecified; M54.9 Dorsalgia, unspecified
CPT/HCPCS: 83036; 84439; 84443

== ENCOUNTER 2019-03-31 02:22 | Inpatient (IN) | payer MEDICARE, MEDICAID ==
[~2019-03-31] VITALS: Ht 175.3 cm; Wt 80.2 kg
[~2019-03-31 02:22] MED LIST changes: -ARIP10TA8 PO; -GLIP5 PO; +GLIP5TAB3 PO; -OLAN5TAB2 PO; +RISP1TAB89 PO; -TRAZ-257 PO
[2019-03-31 02:58] LABS: GLUCOSE,POINT OF CARE 236 MG/DL (70-110)
[2019-03-31 02:58] LABS: BASOPHILS % (AUTO) 0.5 % (0.0-2.0); LYMPHOCYTES # (AUTO) 2.3 K/uL (1.0-4.8); LYMPHOCYTES % (AUTO) 27.9 % (22.0-44.0); MEAN CORPUSCULAR HEMOGLOBIN 28.9 pg (26.0-34.0); MEAN CORPUSCULAR HGB CONC 33.3 G/dL (31.0-37.0); MEAN CORPUSCULAR VOLUME 87 fL (80-100); MONOCYTES # (AUTO) 0.9 K/uL (0.1-1.0); MONOCYTES % (AUTO) 11.6 % (2.0-9.0); NEUTROPHILS # (AUTO) 4.7 K/uL (1.8-7.7); PLATELET COUNT (AUTO) 220 K/uL (150-450); RED BLOOD CELL COUNT(AUTO) 4.83 MIL/uL (4.50-5.90); RED CELL DISTRIBUTION WIDTH 14.8 % (11.5-14.5)
[2019-03-31 03:05] LABS: ANION GAP 6 mmol/L (8-16); CALCIUM, TOTAL 8.8 mg/dL (8.8-10.5); CARBON DIOXIDE 33 mmol/L (22-29); CHLORIDE 102 mmol/L (98-107); CREATININE 0.52 mg/dL (0.60-1.30); GLOMERULAR FILTR. RATE CALC > 60 mL/min (>60); GLUCOSE,RANDOM 239 mg/dL (70-110); POTASSIUM 3.8 mmol/L (3.5-5.1); SODIUM SERUM 141 mmol/L (136-145); UREA NITROGEN, BLOOD 16 mg/dL (7-18)
[2019-03-31 03:11] LABS: ALANINE AMINOTRANSFERASE 25 U/L (12-78); ALBUMIN 3.4 g/dL (3.4-5.0); ALKALINE PHOSPHATASE 101 U/L (46-116); ASPARTATE AMINOTRANSFERASE 25 U/L (15-37); BILIRUBIN,TOTAL 0.8 mg/dL (0.1-1.0); TOTAL PROTEIN, SERUM 7.4 g/dL (6.4-8.2)
[2019-03-31 03:16] LABS: LITHIUM < 0.20 mmol/L (0.60-1.20)
[2019-03-31] MEDS ORDERED: QUEtiapine FUMARATE 100 MG TABLET PO PRN (05:30)
[2019-03-31] MEDS: LORazepam 2 MG TABLET PO PRN (08:46)
[2019-03-31 10:37] LABS: GLUCOMETER DEV NAME(LOC) BV2X.; GLUCOSE,POINT OF CARE 309 MG/DL (70-110)
[2019-03-31] MEDS ORDERED: PETROLATUM,WHITE 28 GM JELLY TP PRN (11:30)
[2019-03-31] MEDS ORDERED: ONDANSETRON HCL 4 MG TABLET PO PRN (11:30)
[2019-03-31] MEDS ORDERED: CloNIDine HCL 0.1 MG TABLET PO PRN (11:30)
[2019-03-31] MEDS ORDERED: IBUPROFEN 400 MG TABLET PO PRN (11:30)
[2019-03-31] MEDS ORDERED: MAG HYDROX/AL HYDROX/SIMETH ES 30 ML SUSPENSION UDCUP PO PRN (11:30)
[2019-03-31] MEDS ORDERED: ACETAMINOPHEN 325 MG TABLET PO PRN (11:30)
[2019-03-31] MEDS ORDERED: DOCUSATE SODIUM 100 MG CAPSULE PO PRN (11:30)
[2019-03-31] MEDS ORDERED: NICOTINE 14 MG/24 HOUR PATCH TD PRN (11:30)
[2019-03-31] MEDS ORDERED: MAGNESIUM HYDROXIDE SUSPENSION 30 ML UDCUP PO PRN (11:30)
[2019-03-31] MEDS ORDERED: GuaiFENesin/D-METHORPHAN [SUGAR-FREE] 200-20MG/10 ML SYRUP UDCUP PO PRN (11:30)
[2019-03-31] MEDS ORDERED: ALBUTEROL SULFATE HFA 90 MCG/PUFF 8 GM INHALER IH PRN (11:30)
[2019-03-31 11:42] LABS: GLUCOMETER DEV NAME(LOC) BV2X.; GLUCOSE,POINT OF CARE 317 MG/DL (70-110)
[2019-03-31] MEDS ORDERED: INFLUENZA VIRUS VACCINE QVS 2019-20 (3YR+)/PF 60 MCG/0.5 ML SYRINGE IM ONE (11:45)
[2019-03-31] MEDS: LinaGLIPtin 5 MG TABLET PO SCH (12:45)
[2019-03-31] MEDS: NICOTINE 21 MG/24 HOUR PATCH TD SCH (12:45)
[2019-03-31 12:54] VITALS: BP 138/87
[2019-03-31 12:55] VITALS: BP 138/87
[2019-03-31 16:20] VITALS: BP 127/69
[2019-03-31 16:22] LABS: GLUCOMETER DEV NAME(LOC) BV2X.; GLUCOSE,POINT OF CARE 239 MG/DL (70-110)
[2019-03-31] MEDS: RisperiDONE 1 MG TABLET PO SCH (16:38)
[2019-03-31] MEDS: LITHIUM CARBONATE 600 MG CAPSULE PO SCH (16:38)
[2019-03-31] MEDS ORDERED: INSULIN LISPRO 100 UNITS/ML SQ ONE (17:05)
[2019-03-31 21:42] VITALS: BP 127/69
[2019-03-31] MEDS ORDERED: GLUCAGON,HUMAN RECOMBINANT 1 MG VIAL IM PRN (23:45)
[2019-04-01 06:32] VITALS: BP 143/86
[2019-04-01 06:55] LABS: GLUCOMETER DEV NAME(LOC) BV2X.; GLUCOSE,POINT OF CARE 330 MG/DL (70-110)
[2019-04-01] MEDS: INSULIN LISPRO 100 UNITS/ML SQ PRN ×2 (06:55→16:39)
[2019-04-01] MEDS: GlipiZIDE 10 MG TABLET PO SCH (06:56)
[2019-04-01 08:26] VITALS: BP 134/77
[2019-04-01 08:33] LABS: CHOL/HDL RATIO 3.1 (4.2-7.3)
[2019-04-01] MEDS: LITHIUM CARBONATE 600 MG CAPSULE PO SCH ×2 (08:46→16:29)
[2019-04-01] MEDS: RisperiDONE 1 MG TABLET PO SCH ×2 (08:46→16:29)
[2019-04-01] MEDS: NICOTINE 21 MG/24 HOUR PATCH TD SCH (08:47)
[2019-04-01] MEDS: LinaGLIPtin 5 MG TABLET PO SCH (08:47)
[2019-04-01 12:29] LABS: GLUCOMETER DEV NAME(LOC) BV2X.; GLUCOSE,POINT OF CARE 155 MG/DL (70-110)
[2019-04-01 16:13] VITALS: BP 115/77
[2019-04-01 16:28] LABS: GLUCOMETER DEV NAME(LOC) BV2X.; GLUCOSE,POINT OF CARE 188 MG/DL (70-110)
[2019-04-02] MEDS: GlipiZIDE 10 MG TABLET PO SCH (06:30)
[2019-04-02 08:07] VITALS: BP 123/70
[2019-04-02] MEDS: LinaGLIPtin 5 MG TABLET PO SCH (08:30)
[2019-04-02] MEDS: LITHIUM CARBONATE 600 MG CAPSULE PO SCH ×2 (08:30→16:29)
[2019-04-02] MEDS: NICOTINE 21 MG/24 HOUR PATCH TD SCH (08:30)
[2019-04-02] MEDS: RisperiDONE 1 MG TABLET PO SCH ×2 (08:30→16:29)
[2019-04-02] MEDS: LOPERAMIDE HCL 2 MG CAPSULE PO PRN (09:35)
[2019-04-02 16:29] LABS: GLUCOMETER DEV NAME(LOC) BV2X.; GLUCOSE,POINT OF CARE 222 MG/DL (70-110)
[2019-04-02] MEDS: MUPIROCIN CALCIUM 2% 22 GM OINTMENT NASAL SCH (16:29)
[2019-04-02 16:38] VITALS: BP 123/72
[2019-04-02] MEDS: INSULIN LISPRO 100 UNITS/ML SQ PRN ×2 (16:41→20:47)
[2019-04-02 20:27] LABS: GLUCOMETER DEV NAME(LOC) BV2X.; GLUCOSE,POINT OF CARE 272 MG/DL (70-110)
[2019-04-03 06:14] LABS: GLUCOMETER DEV NAME(LOC) BV2X.; GLUCOSE,POINT OF CARE 241 MG/DL (70-110)
[2019-04-03] MEDS: INSULIN LISPRO 100 UNITS/ML SQ PRN ×4 (06:40→20:42)
[2019-04-03] MEDS: GlipiZIDE 10 MG TABLET PO SCH (06:43)
[2019-04-03] MEDS: LinaGLIPtin 5 MG TABLET PO SCH (08:32)
[2019-04-03] MEDS: LITHIUM CARBONATE 600 MG CAPSULE PO SCH ×2 (08:32→16:37)
[2019-04-03] MEDS: NICOTINE 21 MG/24 HOUR PATCH TD SCH (08:33)
[2019-04-03 08:34] VITALS: BP 138/79
[2019-04-03] MEDS: RisperiDONE 1 MG TABLET PO SCH ×2 (08:35→16:37)
[2019-04-03] MEDS: MUPIROCIN CALCIUM 2% 22 GM OINTMENT NASAL SCH ×2 (09:11→16:37)
[2019-04-03 11:35] LABS: GLUCOMETER DEV NAME(LOC) BV2X.; GLUCOSE,POINT OF CARE 294 MG/DL (70-110)
[2019-04-03] MEDS: LOPERAMIDE HCL 2 MG CAPSULE PO PRN (14:44)
[2019-04-03 16:09] VITALS: BP 106/73
[2019-04-03 16:19] LABS: GLUCOMETER DEV NAME(LOC) BV2X.; GLUCOSE,POINT OF CARE 171 MG/DL (70-110)
[2019-04-03 20:13] LABS: GLUCOMETER DEV NAME(LOC) BV2X.; GLUCOSE,POINT OF CARE 249 MG/DL (70-110)
[2019-04-03] MEDS: ZOLPIDEM TARTRATE 10 MG TABLET PO PRN (20:41)
[2019-04-04 00:28] VITALS: BP 115/62
[2019-04-04] MEDS: GlipiZIDE 10 MG TABLET PO SCH (06:32)
[2019-04-04 06:33] LABS: GLUCOMETER DEV NAME(LOC) BV2X.; GLUCOSE,POINT OF CARE 277 MG/DL (70-110)
[2019-04-04] MEDS: INSULIN LISPRO 100 UNITS/ML SQ PRN ×2 (06:39→11:33)
[2019-04-04 08:10] VITALS: BP 103/69
[2019-04-04] MEDS: LITHIUM CARBONATE 600 MG CAPSULE PO SCH ×2 (08:17→16:09)
[2019-04-04] MEDS: LinaGLIPtin 5 MG TABLET PO SCH (08:17)
[2019-04-04] MEDS: NICOTINE 21 MG/24 HOUR PATCH TD SCH (08:17)
[2019-04-04] MEDS: RisperiDONE 1 MG TABLET PO SCH ×2 (08:19→16:08)
[2019-04-04] MEDS: MUPIROCIN CALCIUM 2% 22 GM OINTMENT NASAL SCH ×2 (08:19→16:08)
[2019-04-04 11:25] LABS: GLUCOMETER DEV NAME(LOC) BV2X.; GLUCOSE,POINT OF CARE 189 MG/DL (70-110)
[2019-04-04 16:05] VITALS: BP 121/69
[2019-04-04] MEDS: LOPERAMIDE HCL 2 MG CAPSULE PO PRN (16:09)
[2019-04-04 16:16] LABS: GLUCOMETER DEV NAME(LOC) BV2X.; GLUCOSE,POINT OF CARE 133 MG/DL (70-110)
[2019-04-04] MEDS: LORazepam 2 MG TABLET PO PRN (18:14)
[2019-04-04 20:13] LABS: GLUCOMETER DEV NAME(LOC) BV2X.; GLUCOSE,POINT OF CARE 124 MG/DL (70-110)
[2019-04-04] MEDS: ZOLPIDEM TARTRATE 10 MG TABLET PO PRN (20:44)
[2019-04-05 00:35] VITALS: BP 113/65
[2019-04-05] MEDS: GlipiZIDE 10 MG TABLET PO SCH (06:25)
[2019-04-05 06:30] LABS: GLUCOMETER DEV NAME(LOC) BV2X.; GLUCOSE,POINT OF CARE 93 MG/DL (70-110)
[2019-04-05 08:16] VITALS: BP 109/65
[2019-04-05] MEDS: RisperiDONE 1 MG TABLET PO SCH ×2 (08:26→18:05)
[2019-04-05] MEDS: MUPIROCIN CALCIUM 2% 22 GM OINTMENT NASAL SCH ×2 (08:26→17:00)
[2019-04-05] MEDS: LinaGLIPtin 5 MG TABLET PO SCH (08:26)
[2019-04-05] MEDS: LITHIUM CARBONATE 600 MG CAPSULE PO SCH ×2 (08:27→18:05)
[2019-04-05] MEDS: NICOTINE 21 MG/24 HOUR PATCH TD SCH (08:31)
[2019-04-05 11:24] LABS: GLUCOMETER DEV NAME(LOC) BV2X.; GLUCOSE,POINT OF CARE 297 MG/DL (70-110)
[2019-04-05] MEDS: INSULIN LISPRO 100 UNITS/ML SQ PRN ×3 (12:33→22:21)
[2019-04-05 16:09] VITALS: BP 115/81
[2019-04-05 16:37] LABS: GLUCOMETER DEV NAME(LOC) BV2X.; GLUCOSE,POINT OF CARE 246 MG/DL (70-110)
[2019-04-05] MEDS: LORazepam 2 MG TABLET PO PRN (19:05)
[2019-04-05 20:34] LABS: GLUCOMETER DEV NAME(LOC) BV2X.; GLUCOSE,POINT OF CARE 245 MG/DL (70-110)
[2019-04-05] MEDS: ZOLPIDEM TARTRATE 10 MG TABLET PO PRN (21:24)
[2019-04-06 06:35] VITALS: BP 105/78
[2019-04-06 06:41] LABS: GLUCOMETER DEV NAME(LOC) BV2X.; GLUCOSE,POINT OF CARE 218 MG/DL (70-110)
[2019-04-06] MEDS: INSULIN LISPRO 100 UNITS/ML SQ PRN ×2 (06:46→12:04)
[2019-04-06] MEDS: GlipiZIDE 10 MG TABLET PO SCH (06:47)
[2019-04-06 08:25] VITALS: BP 130/63
[2019-04-06] MEDS: RisperiDONE 1 MG TABLET PO SCH (09:51)
[2019-04-06] MEDS: LITHIUM CARBONATE 600 MG CAPSULE PO SCH (09:51)
[2019-04-06] MEDS: LinaGLIPtin 5 MG TABLET PO SCH (09:51)
[2019-04-06] MEDS: NICOTINE 21 MG/24 HOUR PATCH TD SCH (09:51)
[2019-04-06] MEDS: MUPIROCIN CALCIUM 2% 22 GM OINTMENT NASAL SCH (09:52)
[2019-04-06 12:01] LABS: GLUCOMETER DEV NAME(LOC) BV2X.; GLUCOSE,POINT OF CARE 295 MG/DL (70-110)
== END 2019-04-06 14:56 | disposition home or self-care (01) | DRG 885 ==
LOC: EMS 02:22 → B2X 06:41
PROVIDERS: ADMIT Psychiatry & Neurology Psychiatry; ATTEND Psychiatry & Neurology Psychiatry
DX: F25.0 Schizoaffective disorder, bipolar type (principal); R45.851 Suicidal ideations; Z28.21 Immunization not carried out because of patient refusal; F12.90 Cannabis use, unspecified, uncomplicated; J44.9 Chronic obstructive pulmonary disease, unspecified; E11.9 Type 2 diabetes mellitus without complications; G89.29 Other chronic pain; Z91.14 Patient's other noncompliance with medication regimen; Z91.5 Personal history of self-harm; F41.9 Anxiety disorder, unspecified; M54.9 Dorsalgia, unspecified
CPT/HCPCS: 82948; 87081; G0480; J1815

== ENCOUNTER 2019-04-10 17:55 | Inpatient (IN) | payer MEDICARE, MEDICAID ==
[~2019-04-10] VITALS: Ht 180.3 cm; Wt 77.7 kg
[2019-04-10] MEDS ORDERED: LORazepam 2 MG TABLET PO PRN (18:15)
[2019-04-10] MEDS ORDERED: HALOPERIDOL 5 MG TABLET PO PRN (18:15)
[2019-04-10 18:23] VITALS: BP 126/86
[2019-04-10] MEDS ORDERED: INFLUENZA VIRUS VACCINE QVS 2019-20 (3YR+)/PF 60 MCG/0.5 ML SYRINGE IM ONE (19:30)
[2019-04-10] MEDS ORDERED: PNEUMOCOCCAL VACCINE POLYVALENT 0.5 ML VIAL [PPSV23] IM ONE (19:30)
[2019-04-10 20:08] LABS: GLUCOMETER DEV NAME(LOC) BV2X.; GLUCOSE,POINT OF CARE 227 MG/DL (70-110)
[2019-04-11] MEDS: GlipiZIDE 10 MG TABLET PO SCH (06:22)
[2019-04-11 08:42] VITALS: BP 117/69
[2019-04-11] MEDS: LinaGLIPtin 5 MG TABLET PO SCH ×4 (09:00→10:36)
[2019-04-11] MEDS ORDERED: GLIP10 PO (13:35)
[2019-04-11] MEDS ORDERED: GLUCAGON,HUMAN RECOMBINANT 1 MG VIAL IM PRN (14:00)
[2019-04-11] MEDS ORDERED: GuaiFENesin/D-METHORPHAN [SUGAR-FREE] 200-20MG/10 ML SYRUP UDCUP PO PRN (15:00)
[2019-04-11] MEDS ORDERED: LOPERAMIDE HCL 2 MG CAPSULE PO PRN (15:00)
[2019-04-11] MEDS ORDERED: PETROLATUM,WHITE 28 GM JELLY TP PRN (15:00)
[2019-04-11] MEDS ORDERED: DOCUSATE SODIUM 100 MG CAPSULE PO PRN (15:00)
[2019-04-11] MEDS ORDERED: CloNIDine HCL 0.1 MG TABLET PO PRN (15:00)
[2019-04-11] MEDS ORDERED: ACETAMINOPHEN 325 MG TABLET PO PRN (15:00)
[2019-04-11] MEDS ORDERED: ONDANSETRON HCL 4 MG TABLET PO PRN (15:00)
[2019-04-11] MEDS ORDERED: IBUPROFEN 400 MG TABLET PO PRN (15:00)
[2019-04-11] MEDS ORDERED: MAGNESIUM HYDROXIDE SUSPENSION 30 ML UDCUP PO PRN (15:00)
[2019-04-11] MEDS ORDERED: ALBUTEROL SULFATE HFA 90 MCG/PUFF 8 GM INHALER IH PRN (15:00)
[2019-04-11] MEDS ORDERED: MAG HYDROX/AL HYDROX/SIMETH ES 30 ML SUSPENSION UDCUP PO PRN (15:00)
[2019-04-11 16:41] VITALS: BP 137/81
[2019-04-11] MEDS: RisperiDONE 1 MG TABLET PO SCH (17:20)
[2019-04-11] MEDS: LITHIUM CARBONATE 600 MG CAPSULE PO SCH (17:22)
[2019-04-11 20:49] VITALS: BP 125/74
[2019-04-12] MEDS: GlipiZIDE 10 MG TABLET PO SCH (06:01)
[2019-04-12 08:09] VITALS: BP 132/73
[2019-04-12] MEDS: RisperiDONE 1 MG TABLET PO SCH ×2 (09:00→17:00)
[2019-04-12] MEDS: LITHIUM CARBONATE 600 MG CAPSULE PO SCH ×2 (09:00→17:00)
[2019-04-12] MEDS: LinaGLIPtin 5 MG TABLET PO SCH (09:00)
[2019-04-12 16:05] VITALS: BP 120/70
[2019-04-13] MEDS: GlipiZIDE 10 MG TABLET PO SCH (06:40)
[2019-04-13] MEDS: RisperiDONE 1 MG TABLET PO SCH ×2 (09:00→17:00)
[2019-04-13] MEDS: LinaGLIPtin 5 MG TABLET PO SCH (09:00)
[2019-04-13] MEDS: LITHIUM CARBONATE 600 MG CAPSULE PO SCH ×2 (09:00→17:00)
[2019-04-13 16:06] VITALS: BP 118/75
[2019-04-14] MEDS: GlipiZIDE 10 MG TABLET PO SCH (06:30)
[2019-04-14] MEDS: RisperiDONE 1 MG TABLET PO SCH ×2 (09:54→16:55)
[2019-04-14] MEDS: LITHIUM CARBONATE 600 MG CAPSULE PO SCH ×2 (09:54→16:55)
[2019-04-14] MEDS: LinaGLIPtin 5 MG TABLET PO SCH (09:55)
[2019-04-14 11:41] LABS: GLUCOMETER DEV NAME(LOC) BV2X.; GLUCOSE,POINT OF CARE 239 MG/DL (70-110)
[2019-04-14 16:22] VITALS: BP 116/74
[2019-04-14 17:05] LABS: GLUCOMETER DEV NAME(LOC) BV2X.; GLUCOSE,POINT OF CARE 238 MG/DL (70-110)
[2019-04-14] MEDS: INSULIN LISPRO 100 UNITS/ML SQ PRN (17:41)
[2019-04-15] MEDS: GlipiZIDE 10 MG TABLET PO SCH (06:30)
[2019-04-15] MEDS: MetFORMIN HCL 500 MG TABLET PO SCH (06:50)
[2019-04-15] MEDS: LinaGLIPtin 5 MG TABLET PO SCH (09:34)
[2019-04-15] MEDS: RisperiDONE 1 MG TABLET PO SCH ×2 (09:34→16:47)
[2019-04-15] MEDS: LITHIUM CARBONATE 600 MG CAPSULE PO SCH ×2 (09:34→16:46)
[2019-04-15 16:11] VITALS: BP 100/61
[2019-04-16 02:13] VITALS: BP 105/73
[2019-04-16] MEDS: GlipiZIDE 10 MG TABLET PO SCH (06:23)
[2019-04-16] MEDS: MetFORMIN HCL 500 MG TABLET PO SCH (06:23)
[2019-04-16 08:25] VITALS: BP 106/69
[2019-04-16] MEDS: LITHIUM CARBONATE 600 MG CAPSULE PO SCH ×2 (09:25→16:46)
[2019-04-16] MEDS: LinaGLIPtin 5 MG TABLET PO SCH (09:25)
[2019-04-16] MEDS: RisperiDONE 1 MG TABLET PO SCH ×2 (09:25→16:46)
[2019-04-16 11:12] LABS: GLUCOMETER DEV NAME(LOC) BV2X.; GLUCOSE,POINT OF CARE 88 MG/DL (70-110)
[2019-04-16 16:27] VITALS: BP 119/67
[2019-04-16] MEDS: INSULIN LISPRO 100 UNITS/ML SQ PRN (16:46)
[2019-04-16 16:56] LABS: GLUCOMETER DEV NAME(LOC) BV2X.; GLUCOSE,POINT OF CARE 159 MG/DL (70-110)
[2019-04-16 20:57] LABS: GLUCOMETER DEV NAME(LOC) BV2X.; GLUCOSE,POINT OF CARE 129 MG/DL (70-110)
[2019-04-16] MEDS: ZOLPIDEM TARTRATE 10 MG TABLET PO PRN (21:06)
[2019-04-17 00:28] VITALS: BP 98/64
[2019-04-17] MEDS: MetFORMIN HCL 500 MG TABLET PO SCH (07:00)
[2019-04-17] MEDS: GlipiZIDE 10 MG TABLET PO SCH (07:01)
[2019-04-17 08:10] VITALS: BP 104/69
[2019-04-17] MEDS: LITHIUM CARBONATE 600 MG CAPSULE PO SCH ×2 (08:44→16:30)
[2019-04-17] MEDS: RisperiDONE 1 MG TABLET PO SCH ×2 (08:44→16:30)
[2019-04-17] MEDS: LinaGLIPtin 5 MG TABLET PO SCH (09:20)
[2019-04-17 16:12] VITALS: BP 106/60
[2019-04-17] MEDS: INSULIN LISPRO 100 UNITS/ML SQ PRN ×2 (16:48→20:38)
[2019-04-17 16:53] LABS: GLUCOMETER DEV NAME(LOC) BV2X.; GLUCOSE,POINT OF CARE 165 MG/DL (70-110)
[2019-04-17 20:34] LABS: GLUCOMETER DEV NAME(LOC) BV2X.; GLUCOSE,POINT OF CARE 169 MG/DL (70-110)
[2019-04-17] MEDS: ZOLPIDEM TARTRATE 10 MG TABLET PO PRN (20:55)
[2019-04-18] MEDS: MetFORMIN HCL 500 MG TABLET PO SCH (07:00)
[2019-04-18] MEDS: GlipiZIDE 10 MG TABLET PO SCH (07:15)
[2019-04-18 08:11] VITALS: BP 106/68
[2019-04-18] MEDS: RisperiDONE 1 MG TABLET PO SCH ×2 (10:10→16:45)
[2019-04-18] MEDS: LITHIUM CARBONATE 600 MG CAPSULE PO SCH ×2 (10:10→16:46)
[2019-04-18 10:28] LABS: GLUCOMETER DEV NAME(LOC) BV2X.; GLUCOSE,POINT OF CARE 202 MG/DL (70-110)
[2019-04-18] MEDS: LinaGLIPtin 5 MG TABLET PO SCH (11:21)
[2019-04-18 11:41] LABS: GLUCOMETER DEV NAME(LOC) BV2X.; GLUCOSE,POINT OF CARE 128 MG/DL (70-110)
[2019-04-18] MEDS: NICOTINE 14 MG/24 HOUR PATCH TD PRN (13:46)
[2019-04-18 16:23] VITALS: BP 112/72
[2019-04-18] MEDS: INSULIN LISPRO 100 UNITS/ML SQ PRN ×2 (16:50→21:13)
[2019-04-18 16:58] LABS: GLUCOMETER DEV NAME(LOC) BV2X.; GLUCOSE,POINT OF CARE 166 MG/DL (70-110)
[2019-04-18 20:16] LABS: GLUCOMETER DEV NAME(LOC) BV2X.; GLUCOSE,POINT OF CARE 188 MG/DL (70-110)
[2019-04-18] MEDS: ZOLPIDEM TARTRATE 10 MG TABLET PO PRN (21:07)
[2019-04-19 00:39] VITALS: BP 115/73
[2019-04-19] MEDS: MetFORMIN HCL 500 MG TABLET PO SCH (06:43)
[2019-04-19] MEDS: GlipiZIDE 10 MG TABLET PO SCH (06:43)
[2019-04-19 08:49] VITALS: BP 102/72
[2019-04-19] MEDS: LITHIUM CARBONATE 600 MG CAPSULE PO SCH ×2 (09:08→16:04)
[2019-04-19] MEDS: LinaGLIPtin 5 MG TABLET PO SCH (09:08)
[2019-04-19] MEDS: RisperiDONE 1 MG TABLET PO SCH ×2 (09:08→16:04)
[2019-04-19 09:33] LABS: GLUCOMETER DEV NAME(LOC) BV2X.; GLUCOSE,POINT OF CARE 123 MG/DL (70-110)
[2019-04-19 11:23] LABS: GLUCOMETER DEV NAME(LOC) BV2X.; GLUCOSE,POINT OF CARE 78 MG/DL (70-110)
[2019-04-19] MEDS: NICOTINE 14 MG/24 HOUR PATCH TD PRN (14:34)
[2019-04-19 16:07] VITALS: BP 105/68
[2019-04-19 16:31] LABS: GLUCOMETER DEV NAME(LOC) BV2X.; GLUCOSE,POINT OF CARE 136 MG/DL (70-110)
[2019-04-19] MEDS: ZOLPIDEM TARTRATE 10 MG TABLET PO PRN (21:09)
[2019-04-20 00:30] VITALS: BP 106/65
[2019-04-20] MEDS: GlipiZIDE 10 MG TABLET PO SCH (06:58)
[2019-04-20] MEDS: MetFORMIN HCL 500 MG TABLET PO SCH (06:59)
[2019-04-20 08:16] VITALS: BP 116/72
[2019-04-20] MEDS: LinaGLIPtin 5 MG TABLET PO SCH (09:28)
[2019-04-20] MEDS: LITHIUM CARBONATE 600 MG CAPSULE PO SCH ×2 (09:29→16:21)
[2019-04-20] MEDS: RisperiDONE 1 MG TABLET PO SCH ×2 (09:29→16:21)
[2019-04-20 11:43] LABS: GLUCOMETER DEV NAME(LOC) BV2X.; GLUCOSE,POINT OF CARE 132 MG/DL (70-110)
[2019-04-20 16:08] VITALS: BP 117/68
[2019-04-20 16:38] LABS: GLUCOMETER DEV NAME(LOC) BV2X.; GLUCOSE,POINT OF CARE 146 MG/DL (70-110)
[2019-04-20] MEDS: INSULIN LISPRO 100 UNITS/ML SQ PRN ×2 (17:01→20:59)
[2019-04-20 20:22] LABS: GLUCOMETER DEV NAME(LOC) BV2X.; GLUCOSE,POINT OF CARE 177 MG/DL (70-110)
[2019-04-21 06:13] VITALS: BP 114/74
[2019-04-21] MEDS: GlipiZIDE 10 MG TABLET PO SCH (06:34)
[2019-04-21] MEDS: MetFORMIN HCL 500 MG TABLET PO SCH (06:35)
[2019-04-21] MEDS: LITHIUM CARBONATE 600 MG CAPSULE PO SCH (09:54)
[2019-04-21] MEDS: RisperiDONE 1 MG TABLET PO SCH (09:54)
[2019-04-21] MEDS: LinaGLIPtin 5 MG TABLET PO SCH (09:54)
[2019-04-21 11:11] LABS: GLUCOMETER DEV NAME(LOC) BV2X.; GLUCOSE,POINT OF CARE 117 MG/DL (70-110)
[2019-04-21] MEDS: NICOTINE 14 MG/24 HOUR PATCH TD PRN (11:23)
[2019-04-21] MEDS ORDERED: METF-960 PO (13:09)
== END 2019-04-21 15:52 | disposition home or self-care (01) | DRG 885 ==
LOC: B2X 18:15
PROVIDERS: ADMIT Psychiatry & Neurology Psychiatry; ATTEND Psychiatry & Neurology Psychiatry
PROC: 3E02340 Introduction of Influenza Vaccine into Muscle, Percutaneous Approach (ICD-10-PCS; principal; 2019-04-10)
PROC: 3E0234Z Introduction of Serum, Toxoid and Vaccine into Muscle, Percutaneous Approach (ICD-10-PCS; 2019-04-10)
DX: F25.9 Schizoaffective disorder, unspecified (principal); E11.9 Type 2 diabetes mellitus without complications; G89.29 Other chronic pain; J44.9 Chronic obstructive pulmonary disease, unspecified; Z23 Encounter for immunization; Z79.899 Other long term (current) drug therapy
CPT/HCPCS: 87081

== ENCOUNTER 2019-04-26 19:21 | Inpatient (IN) | payer MEDICARE, MEDICAID ==
[~2019-04-26] VITALS: Ht 180.3 cm; Wt 77.8 kg
[~2019-04-26 19:21] MED LIST changes: +GLIP10 PO; -GLIP5TAB3 PO; +METF-960 PO
[2019-04-26] MEDS ORDERED: LORazepam 2 MG TABLET PO PRN (19:30)
[2019-04-26] MEDS ORDERED: HALOPERIDOL 5 MG TABLET PO PRN (19:30)
[2019-04-26 19:49] VITALS: BP 109/76
[2019-04-26 20:27] VITALS: BP 114/63
[2019-04-26] MEDS ORDERED: INFLUENZA VIRUS VACCINE QVS 2019-20 (3YR+)/PF 60 MCG/0.5 ML SYRINGE IM ONE (20:45)
[2019-04-26] MEDS ORDERED: PNEUMOCOCCAL VACCINE POLYVALENT 0.5 ML VIAL [PPSV23] IM ONE (20:45)
[2019-04-26 20:49] LABS: GLUCOMETER DEV NAME(LOC) BV2X.; GLUCOSE,POINT OF CARE 172 MG/DL (70-110)
[2019-04-26] MEDS ORDERED: GLUCAGON,HUMAN RECOMBINANT 1 MG VIAL IM PRN (21:15)
[2019-04-26] MEDS: INSULIN LISPRO 100 UNITS/ML SQ PRN (21:41)
[2019-04-27] MEDS: GlipiZIDE 10 MG TABLET PO SCH (06:30)
[2019-04-27] MEDS: MetFORMIN HCL 500 MG TABLET PO SCH (06:59)
[2019-04-27] MEDS ORDERED: PETROLATUM,WHITE 28 GM JELLY TP PRN (09:00)
[2019-04-27] MEDS ORDERED: CloNIDine HCL 0.1 MG TABLET PO PRN (09:00)
[2019-04-27] MEDS ORDERED: ONDANSETRON HCL 4 MG TABLET PO PRN (09:00)
[2019-04-27] MEDS ORDERED: LOPERAMIDE HCL 2 MG CAPSULE PO PRN (09:00)
[2019-04-27] MEDS ORDERED: DOCUSATE SODIUM 100 MG CAPSULE PO PRN (09:00)
[2019-04-27] MEDS ORDERED: MAG HYDROX/AL HYDROX/SIMETH ES 30 ML SUSPENSION UDCUP PO PRN (09:00)
[2019-04-27] MEDS ORDERED: ACETAMINOPHEN 325 MG TABLET PO PRN (09:00)
[2019-04-27] MEDS ORDERED: ALBUTEROL SULFATE HFA 90 MCG/PUFF 8 GM INHALER IH PRN (09:00)
[2019-04-27] MEDS ORDERED: NICOTINE 14 MG/24 HOUR PATCH TD PRN (09:00)
[2019-04-27] MEDS ORDERED: GuaiFENesin/D-METHORPHAN [SUGAR-FREE] 200-20MG/10 ML SYRUP UDCUP PO PRN (09:00)
[2019-04-27] MEDS ORDERED: MAGNESIUM HYDROXIDE SUSPENSION 30 ML UDCUP PO PRN (09:00)
[2019-04-27] MEDS ORDERED: IBUPROFEN 400 MG TABLET PO PRN (09:00)
[2019-04-27] MEDS: LinaGLIPtin 5 MG TABLET PO SCH (09:34)
[2019-04-27] MEDS: NICOTINE 14 MG/24 HOUR PATCH TD SCH (09:34)
[2019-04-27 16:16] VITALS: BP 130/86
[2019-04-28] MEDS: GlipiZIDE 10 MG TABLET PO SCH (06:30)
[2019-04-28] MEDS: MetFORMIN HCL 500 MG TABLET PO SCH (06:42)
[2019-04-28] MEDS: LinaGLIPtin 5 MG TABLET PO SCH (08:36)
[2019-04-28] MEDS: NICOTINE 14 MG/24 HOUR PATCH TD SCH (08:40)
[2019-04-28 14:21] LABS: GLUCOMETER DEV NAME(LOC) BV2X.; GLUCOSE,POINT OF CARE 256 MG/DL (70-110)
[2019-04-28] MEDS: MUPIROCIN CALCIUM 2% 22 GM OINTMENT NASAL SCH (16:10)
[2019-04-28 16:17] VITALS: BP 127/79
[2019-04-29] MEDS: GlipiZIDE 10 MG TABLET PO SCH (06:30)
[2019-04-29] MEDS: MetFORMIN HCL 500 MG TABLET PO SCH (06:35)
[2019-04-29 08:01] VITALS: BP 133/71
[2019-04-29] MEDS: NICOTINE 14 MG/24 HOUR PATCH TD SCH (08:46)
[2019-04-29] MEDS: LITHIUM CARBONATE 600 MG CAPSULE PO SCH ×2 (08:46→16:10)
[2019-04-29] MEDS: RisperiDONE 1 MG TABLET PO SCH ×2 (08:46→16:10)
[2019-04-29] MEDS: LinaGLIPtin 5 MG TABLET PO SCH (08:46)
[2019-04-29] MEDS: MUPIROCIN CALCIUM 2% 22 GM OINTMENT NASAL SCH ×2 (08:48→16:10)
[2019-04-29 11:53] LABS: GLUCOMETER DEV NAME(LOC) BV2X.; GLUCOSE,POINT OF CARE 170 MG/DL (70-110)
[2019-04-29 16:08] VITALS: BP 121/74
[2019-04-29 16:19] LABS: GLUCOMETER DEV NAME(LOC) BV2X.; GLUCOSE,POINT OF CARE 187 MG/DL (70-110)
[2019-04-29] MEDS: INSULIN LISPRO 100 UNITS/ML SQ PRN (16:37)
[2019-04-30 00:05] VITALS: BP 134/79
[2019-04-30] MEDS: MetFORMIN HCL 500 MG TABLET PO SCH (06:36)
[2019-04-30] MEDS: GlipiZIDE 10 MG TABLET PO SCH (06:36)
[2019-04-30] MEDS: LinaGLIPtin 5 MG TABLET PO SCH (08:03)
[2019-04-30] MEDS: MUPIROCIN CALCIUM 2% 22 GM OINTMENT NASAL SCH ×2 (08:03→16:06)
[2019-04-30] MEDS: RisperiDONE 1 MG TABLET PO SCH ×2 (08:03→16:06)
[2019-04-30] MEDS: NICOTINE 14 MG/24 HOUR PATCH TD SCH (08:08)
[2019-04-30 08:09] VITALS: BP 112/61
[2019-04-30] MEDS: LITHIUM CARBONATE 600 MG CAPSULE PO SCH ×2 (10:08→16:06)
[2019-04-30 16:18] VITALS: BP 109/67
[2019-04-30 16:56] LABS: GLUCOMETER DEV NAME(LOC) BV2X.; GLUCOSE,POINT OF CARE 139 MG/DL (70-110)
[2019-04-30] MEDS: ZOLPIDEM TARTRATE 10 MG TABLET PO PRN (22:01)
[2019-05-01 00:03] VITALS: BP 129/76
[2019-05-01] MEDS: GlipiZIDE 10 MG TABLET PO SCH (06:30)
[2019-05-01] MEDS: MetFORMIN HCL 500 MG TABLET PO SCH (06:53)
[2019-05-01] MEDS: LITHIUM CARBONATE 600 MG CAPSULE PO SCH ×2 (08:14→16:09)
[2019-05-01] MEDS: LinaGLIPtin 5 MG TABLET PO SCH (08:15)
[2019-05-01] MEDS: RisperiDONE 1 MG TABLET PO SCH ×2 (08:15→16:09)
[2019-05-01] MEDS: MUPIROCIN CALCIUM 2% 22 GM OINTMENT NASAL SCH ×2 (08:19→16:08)
[2019-05-01] MEDS: NICOTINE 14 MG/24 HOUR PATCH TD SCH (08:20)
[2019-05-01 12:30] VITALS: BP 112/70
[2019-05-01 16:21] VITALS: BP 124/74
[2019-05-01] MEDS: ZOLPIDEM TARTRATE 10 MG TABLET PO PRN (20:09)
[2019-05-02 00:51] VITALS: BP 123/71
[2019-05-02] MEDS: GlipiZIDE 10 MG TABLET PO SCH (06:32)
[2019-05-02] MEDS: MetFORMIN HCL 500 MG TABLET PO SCH ×2 (06:32→06:49)
[2019-05-02 08:00] VITALS: BP 107/67
[2019-05-02] MEDS: LITHIUM CARBONATE 600 MG CAPSULE PO SCH ×2 (08:02→16:03)
[2019-05-02] MEDS: LinaGLIPtin 5 MG TABLET PO SCH (08:02)
[2019-05-02] MEDS: RisperiDONE 1 MG TABLET PO SCH ×2 (08:02→16:02)
[2019-05-02] MEDS: MUPIROCIN CALCIUM 2% 22 GM OINTMENT NASAL SCH ×2 (08:05→16:03)
[2019-05-02] MEDS: NICOTINE 14 MG/24 HOUR PATCH TD SCH (08:06)
[2019-05-02 16:05] VITALS: BP 109/69
[2019-05-02 16:44] LABS: GLUCOMETER DEV NAME(LOC) BV2X.; GLUCOSE,POINT OF CARE 105 MG/DL (70-110)
[2019-05-02] MEDS: ZOLPIDEM TARTRATE 10 MG TABLET PO PRN (21:59)
[2019-05-03] MEDS: GlipiZIDE 10 MG TABLET PO SCH (06:39)
[2019-05-03] MEDS: MetFORMIN HCL 500 MG TABLET PO SCH (06:58)
[2019-05-03 08:06] VITALS: BP 113/72
[2019-05-03] MEDS: LinaGLIPtin 5 MG TABLET PO SCH (08:08)
[2019-05-03] MEDS: RisperiDONE 1 MG TABLET PO SCH ×2 (08:08→16:21)
[2019-05-03] MEDS: LITHIUM CARBONATE 600 MG CAPSULE PO SCH ×2 (08:08→16:21)
[2019-05-03] MEDS: MUPIROCIN CALCIUM 2% 22 GM OINTMENT NASAL SCH (08:43)
[2019-05-03] MEDS: NICOTINE 14 MG/24 HOUR PATCH TD SCH (08:43)
[2019-05-03 16:05] VITALS: BP 113/74
[2019-05-03] MEDS: INSULIN LISPRO 100 UNITS/ML SQ PRN (16:30)
[2019-05-03 16:55] LABS: GLUCOMETER DEV NAME(LOC) BV2X.; GLUCOSE,POINT OF CARE 163 MG/DL (70-110)
[2019-05-03] MEDS: ZOLPIDEM TARTRATE 10 MG TABLET PO PRN (20:05)
[2019-05-04 06:12] VITALS: BP 115/76
[2019-05-04] MEDS: GlipiZIDE 10 MG TABLET PO SCH (06:29)
[2019-05-04] MEDS: MetFORMIN HCL 500 MG TABLET PO SCH (06:33)
[2019-05-04] MEDS: INSULIN LISPRO 100 UNITS/ML SQ PRN (06:33)
[2019-05-04 06:44] LABS: GLUCOMETER DEV NAME(LOC) BV2X.; GLUCOSE,POINT OF CARE 211 MG/DL (70-110)
[2019-05-04] MEDS: LITHIUM CARBONATE 600 MG CAPSULE PO SCH ×2 (08:30→16:52)
[2019-05-04] MEDS: RisperiDONE 1 MG TABLET PO SCH ×2 (08:30→16:52)
[2019-05-04] MEDS: LinaGLIPtin 5 MG TABLET PO SCH (08:30)
[2019-05-04] MEDS: NICOTINE 14 MG/24 HOUR PATCH TD SCH (08:31)
[2019-05-04 08:55] VITALS: BP 116/72
[2019-05-04 16:01] VITALS: BP 114/69
[2019-05-04] MEDS: ZOLPIDEM TARTRATE 10 MG TABLET PO PRN (20:55)
[2019-05-05 05:14] VITALS: BP 112/67
[2019-05-05] MEDS: MetFORMIN HCL 500 MG TABLET PO SCH (06:37)
[2019-05-05] MEDS: GlipiZIDE 10 MG TABLET PO SCH (06:37)
[2019-05-05 06:42] LABS: GLUCOMETER DEV NAME(LOC) BV2S.; GLUCOSE,POINT OF CARE 181 MG/DL (70-110)
[2019-05-05 08:13] VITALS: BP 134/72
[2019-05-05] MEDS: LinaGLIPtin 5 MG TABLET PO SCH (09:17)
[2019-05-05] MEDS: NICOTINE 14 MG/24 HOUR PATCH TD SCH (09:17)
[2019-05-05] MEDS: LITHIUM CARBONATE 600 MG CAPSULE PO SCH ×2 (09:17→16:30)
[2019-05-05] MEDS: RisperiDONE 1 MG TABLET PO SCH ×2 (09:17→16:30)
[2019-05-05 16:20] VITALS: BP 115/68
== END 2019-05-05 17:29 | disposition home or self-care (01) | DRG 885 ==
LOC: B2X 19:32
PROVIDERS: ADMIT Psychiatry & Neurology Psychiatry; ATTEND Psychiatry & Neurology Psychiatry
DX: F25.9 Schizoaffective disorder, unspecified (principal); E11.9 Type 2 diabetes mellitus without complications; J44.9 Chronic obstructive pulmonary disease, unspecified; F10.10 Alcohol abuse, uncomplicated; G89.29 Other chronic pain; M54.9 Dorsalgia, unspecified; Z22.322 Carrier or suspected carrier of Methicillin resistant Staphylococcus aureus
CPT/HCPCS: 87081

== ENCOUNTER 2019-05-16 02:26 | Inpatient (IN) | payer MEDICARE, MEDICAID ==
[~2019-05-16] VITALS: Ht 180.3 cm; Wt 77.6 kg
[2019-05-16] MEDS ORDERED: HALOPERIDOL 5 MG TABLET PO PRN (04:00)
[2019-05-16] MEDS ORDERED: LORazepam 2 MG TABLET PO PRN (04:00)
[2019-05-16 04:30] VITALS: BP 122/78
[2019-05-16] MEDS ORDERED: PNEUMOCOCCAL VACCINE POLYVALENT 0.5 ML VIAL [PPSV23] IM ONE (04:45)
[2019-05-16 04:52] VITALS: BP 122/78
[2019-05-16] MEDS ORDERED: GLUCAGON,HUMAN RECOMBINANT 1 MG VIAL IM PRN (05:30)
[2019-05-16] MEDS: GlipiZIDE 10 MG TABLET PO SCH (06:30)
[2019-05-16] MEDS: MetFORMIN HCL 500 MG TABLET PO SCH (06:51)
[2019-05-16] MEDS: LinaGLIPtin 5 MG TABLET PO SCH (08:25)
[2019-05-16 16:36] VITALS: BP 117/62
[2019-05-16 17:08] LABS: GLUCOMETER DEV NAME(LOC) BV2X.; GLUCOSE,POINT OF CARE 218 MG/DL (70-110)
[2019-05-16] MEDS: INSULIN LISPRO 100 UNITS/ML SQ PRN (17:08)
[2019-05-16] MEDS ORDERED: DOCUSATE SODIUM 100 MG CAPSULE PO PRN (19:30)
[2019-05-16] MEDS ORDERED: MAGNESIUM HYDROXIDE SUSPENSION 30 ML UDCUP PO PRN (19:30)
[2019-05-16] MEDS ORDERED: ALBUTEROL SULFATE HFA 90 MCG/PUFF 8 GM INHALER IH PRN (19:30)
[2019-05-16] MEDS ORDERED: MAG HYDROX/AL HYDROX/SIMETH ES 30 ML SUSPENSION UDCUP PO PRN (19:30)
[2019-05-16] MEDS ORDERED: ONDANSETRON HCL 4 MG TABLET PO PRN (19:30)
[2019-05-16] MEDS ORDERED: NICOTINE 14 MG/24 HOUR PATCH TD PRN (19:30)
[2019-05-16] MEDS ORDERED: ACETAMINOPHEN 325 MG TABLET PO PRN (19:30)
[2019-05-16] MEDS ORDERED: CloNIDine HCL 0.1 MG TABLET PO PRN (19:30)
[2019-05-16] MEDS ORDERED: GuaiFENesin/D-METHORPHAN [SUGAR-FREE] 200-20MG/10 ML SYRUP UDCUP PO PRN (19:30)
[2019-05-16] MEDS ORDERED: PETROLATUM,WHITE 28 GM JELLY TP PRN (19:30)
[2019-05-17] MEDS: GlipiZIDE 10 MG TABLET PO SCH (07:11)
[2019-05-17] MEDS: MetFORMIN HCL 500 MG TABLET PO SCH (07:11)
[2019-05-17] MEDS: LinaGLIPtin 5 MG TABLET PO SCH (08:08)
[2019-05-17] MEDS: IBUPROFEN 400 MG TABLET PO PRN (08:22)
[2019-05-17 08:23] VITALS: BP 120/69
[2019-05-17] MEDS: INSULIN LISPRO 100 UNITS/ML SQ PRN (11:48)
[2019-05-17 11:59] LABS: GLUCOMETER DEV NAME(LOC) BV2X.; GLUCOSE,POINT OF CARE 205 MG/DL (70-110)
[2019-05-17 16:06] VITALS: BP 100/60
[2019-05-17] MEDS: LITHIUM CARBONATE 600 MG CAPSULE PO SCH (16:34)
[2019-05-17] MEDS: RisperiDONE 1 MG TABLET PO SCH (16:34)
[2019-05-17 16:56] LABS: GLUCOMETER DEV NAME(LOC) BV2X.; GLUCOSE,POINT OF CARE 115 MG/DL (70-110)
[2019-05-18 06:08] VITALS: BP 113/69
[2019-05-18] MEDS: GlipiZIDE 10 MG TABLET PO SCH (06:37)
[2019-05-18] MEDS: MetFORMIN HCL 500 MG TABLET PO SCH (06:37)
[2019-05-18] MEDS: IBUPROFEN 400 MG TABLET PO PRN (07:00)
[2019-05-18 08:01] VITALS: BP 104/65
[2019-05-18] MEDS: LinaGLIPtin 5 MG TABLET PO SCH (08:32)
[2019-05-18] MEDS: LITHIUM CARBONATE 600 MG CAPSULE PO SCH ×2 (08:32→16:32)
[2019-05-18] MEDS: RisperiDONE 1 MG TABLET PO SCH ×2 (08:32→16:32)
[2019-05-18 16:01] VITALS: BP 116/68
[2019-05-18 20:10] LABS: GLUCOMETER DEV NAME(LOC) BV2X.; GLUCOSE,POINT OF CARE 295 MG/DL (70-110)
[2019-05-18] MEDS: INSULIN LISPRO 100 UNITS/ML SQ PRN (20:36)
[2019-05-18] MEDS: ZOLPIDEM TARTRATE 10 MG TABLET PO PRN (20:52)
[2019-05-19 01:59] VITALS: BP 110/72
[2019-05-19] MEDS: GlipiZIDE 10 MG TABLET PO SCH (06:30)
[2019-05-19] MEDS: MetFORMIN HCL 500 MG TABLET PO SCH (06:44)
[2019-05-19 08:08] VITALS: BP 121/67
[2019-05-19] MEDS: LITHIUM CARBONATE 600 MG CAPSULE PO SCH ×2 (08:11→16:50)
[2019-05-19] MEDS: RisperiDONE 1 MG TABLET PO SCH ×2 (08:11→16:49)
[2019-05-19] MEDS: LinaGLIPtin 5 MG TABLET PO SCH (08:11)
[2019-05-19 16:03] VITALS: BP 123/64
[2019-05-19 17:05] LABS: GLUCOMETER DEV NAME(LOC) BV2X.; GLUCOSE,POINT OF CARE 270 MG/DL (70-110)
[2019-05-19] MEDS: INSULIN LISPRO 100 UNITS/ML SQ PRN (17:51)
[2019-05-20 01:45] VITALS: BP 104/77
[2019-05-20] MEDS: GlipiZIDE 10 MG TABLET PO SCH (06:29)
[2019-05-20] MEDS: MetFORMIN HCL 500 MG TABLET PO SCH (06:29)
[2019-05-20] MEDS: RisperiDONE 1 MG TABLET PO SCH ×2 (08:05→16:29)
[2019-05-20] MEDS: LinaGLIPtin 5 MG TABLET PO SCH (08:05)
[2019-05-20] MEDS: LITHIUM CARBONATE 600 MG CAPSULE PO SCH ×2 (08:05→16:29)
[2019-05-20 08:06] VITALS: BP 114/86
[2019-05-20] MEDS: IBUPROFEN 400 MG TABLET PO PRN (09:50)
[2019-05-20 15:56] LABS: GLUCOMETER DEV NAME(LOC) BV2X.; GLUCOSE,POINT OF CARE 214 MG/DL (70-110)
[2019-05-20 16:05] VITALS: BP 116/75
[2019-05-20] MEDS: INSULIN LISPRO 100 UNITS/ML SQ PRN (16:41)
[2019-05-21 00:10] VITALS: BP 119/67
[2019-05-21 06:28] VITALS: BP 122/70
[2019-05-21] MEDS: IBUPROFEN 400 MG TABLET PO PRN ×2 (06:31→16:23)
[2019-05-21] MEDS: GlipiZIDE 10 MG TABLET PO SCH (06:31)
[2019-05-21] MEDS: MetFORMIN HCL 500 MG TABLET PO SCH (06:40)
[2019-05-21 08:04] VITALS: BP 132/76
[2019-05-21] MEDS: LinaGLIPtin 5 MG TABLET PO SCH (08:04)
[2019-05-21] MEDS: RisperiDONE 1 MG TABLET PO SCH ×2 (08:04→16:32)
[2019-05-21] MEDS: LITHIUM CARBONATE 600 MG CAPSULE PO SCH ×2 (08:04→16:32)
[2019-05-21 08:27] LABS: BASOPHILS % (AUTO) 0.5 % (0.0-2.0); EOSINOPHILS % (AUTO) 1.1 % (1.0-6.0); HEMATOCRIT 47.1 % (41-53); HEMOGLOBIN 15.9 g/dL (13.5-17.5); LYMPHOCYTES # (AUTO) 0.8 K/uL (1.0-4.8); LYMPHOCYTES % (AUTO) 11.4 % (22.0-44.0); MEAN CORPUSCULAR HEMOGLOBIN 29.5 pg (26.0-34.0); MEAN CORPUSCULAR HGB CONC 33.8 G/dL (31.0-37.0); MEAN CORPUSCULAR VOLUME 87 fL (80-100); MONOCYTES # (AUTO) 0.7 K/uL (0.1-1.0); MONOCYTES % (AUTO) 10.6 % (2.0-9.0); NEUTROPHILS # (AUTO) 5.3 K/uL (1.8-7.7); NEUTROPHILS % (AUTO) 76.4 % (40.0-70.0); PLATELET COUNT (AUTO) 189 K/uL (150-450); RED BLOOD CELL COUNT(AUTO) 5.41 MIL/uL (4.50-5.90); RED CELL DISTRIBUTION WIDTH 15.1 % (11.5-14.5)
[2019-05-21 09:18] LABS: LITHIUM 0.57 mmol/L (0.60-1.20)
[2019-05-21 09:30] LABS: ALANINE AMINOTRANSFERASE 28 U/L (12-78); ALBUMIN 3.4 g/dL (3.4-5.0); ALKALINE PHOSPHATASE 81 U/L (46-116); ANION GAP 10 mmol/L (8-16); ASPARTATE AMINOTRANSFERASE 16 U/L (15-37); BILIRUBIN,TOTAL 0.8 mg/dL (0.1-1.0); CALCIUM, TOTAL 9.1 mg/dL (8.8-10.5); CARBON DIOXIDE 27 mmol/L (22-29); CHLORIDE 97 mmol/L (98-107); CREATININE 0.84 mg/dL (0.60-1.30); GLOMERULAR FILTR. RATE CALC > 60 mL/min (>60); GLUCOSE,RANDOM 253 mg/dL (70-110); POTASSIUM 4.2 mmol/L (3.5-5.1); SODIUM SERUM 134 mmol/L (136-145); TOTAL PROTEIN, SERUM 7.2 g/dL (6.4-8.2); UREA NITROGEN, BLOOD 19 mg/dL (7-18)
[2019-05-21 16:18] LABS: GLUCOMETER DEV NAME(LOC) BV2X.; GLUCOSE,POINT OF CARE 202 MG/DL (70-110)
[2019-05-21 16:20] VITALS: BP 112/66
[2019-05-21] MEDS: INSULIN LISPRO 100 UNITS/ML SQ PRN ×2 (16:33→20:38)
[2019-05-21] MEDS: LOPERAMIDE HCL 2 MG CAPSULE PO PRN (18:33)
[2019-05-21 20:15] LABS: GLUCOMETER DEV NAME(LOC) BV2X.; GLUCOSE,POINT OF CARE 205 MG/DL (70-110)
[2019-05-21] MEDS: ZOLPIDEM TARTRATE 10 MG TABLET PO PRN (20:58)
[2019-05-22] MEDS: GlipiZIDE 10 MG TABLET PO SCH (06:36)
[2019-05-22] MEDS: INSULIN LISPRO 100 UNITS/ML SQ PRN ×4 (06:39→20:41)
[2019-05-22 06:41] LABS: GLUCOMETER DEV NAME(LOC) BV2X.; GLUCOSE,POINT OF CARE 230 MG/DL (70-110)
[2019-05-22] MEDS: MetFORMIN HCL 500 MG TABLET PO SCH (07:00)
[2019-05-22 08:06] VITALS: BP 107/66
[2019-05-22] MEDS: LITHIUM CARBONATE 600 MG CAPSULE PO SCH ×2 (08:09→16:27)
[2019-05-22] MEDS: RisperiDONE 1 MG TABLET PO SCH ×2 (08:09→16:27)
[2019-05-22] MEDS: LinaGLIPtin 5 MG TABLET PO SCH (08:09)
[2019-05-22 11:47] LABS: GLUCOMETER DEV NAME(LOC) BV2X.; GLUCOSE,POINT OF CARE 252 MG/DL (70-110)
[2019-05-22 16:07] VITALS: BP 120/78
[2019-05-22 16:29] LABS: GLUCOMETER DEV NAME(LOC) BV2X.; GLUCOSE,POINT OF CARE 172 MG/DL (70-110)
[2019-05-22 20:04] LABS: GLUCOMETER DEV NAME(LOC) BV2X.; GLUCOSE,POINT OF CARE 248 MG/DL (70-110)
[2019-05-22] MEDS: ZOLPIDEM TARTRATE 10 MG TABLET PO PRN (20:44)
[2019-05-23 00:44] VITALS: BP 106/69
[2019-05-23] MEDS: GlipiZIDE 10 MG TABLET PO SCH (06:18)
[2019-05-23] MEDS: MetFORMIN HCL 500 MG TABLET PO SCH (06:18)
[2019-05-23] MEDS: LITHIUM CARBONATE 600 MG CAPSULE PO SCH ×2 (08:11→16:39)
[2019-05-23] MEDS: LinaGLIPtin 5 MG TABLET PO SCH (08:11)
[2019-05-23] MEDS: RisperiDONE 1 MG TABLET PO SCH ×2 (08:11→16:39)
[2019-05-23 08:16] VITALS: BP 123/68
[2019-05-23 16:03] VITALS: BP 112/68
[2019-05-23] MEDS: IBUPROFEN 400 MG TABLET PO PRN (16:39)
[2019-05-23] MEDS: LOPERAMIDE HCL 2 MG CAPSULE PO PRN (16:47)
[2019-05-23 17:02] LABS: GLUCOMETER DEV NAME(LOC) BV2X.; GLUCOSE,POINT OF CARE 119 MG/DL (70-110)
[2019-05-23] MEDS ORDERED: LOPERAMIDE HCL 2 MG CAPSULE PO PRN (17:15)
[2019-05-23] MEDS: ZOLPIDEM TARTRATE 10 MG TABLET PO PRN (20:10)
[2019-05-24 01:52] VITALS: BP 128/79
[2019-05-24] MEDS: GlipiZIDE 10 MG TABLET PO SCH (06:30)
[2019-05-24] MEDS: MetFORMIN HCL 500 MG TABLET PO SCH (07:00)
[2019-05-24 08:00] VITALS: BP 105/64
[2019-05-24] MEDS: LinaGLIPtin 5 MG TABLET PO SCH ×2 (08:28→09:00)
[2019-05-24] MEDS: LITHIUM CARBONATE 600 MG CAPSULE PO SCH (08:28)
[2019-05-24] MEDS: RisperiDONE 1 MG TABLET PO SCH (08:28)
[2019-05-24] MEDS: INSULIN LISPRO 100 UNITS/ML SQ PRN (11:14)
[2019-05-24 11:21] LABS: GLUCOMETER DEV NAME(LOC) BV2X.; GLUCOSE,POINT OF CARE 190 MG/DL (70-110)
== END 2019-05-24 15:59 | disposition home or self-care (01) | DRG 885 ==
LOC: B2X 03:30
PROVIDERS: ADMIT Psychiatry & Neurology Psychiatry; ATTEND Psychiatry & Neurology Psychiatry
DX: F25.9 Schizoaffective disorder, unspecified (principal); E87.1 Hypo-osmolality and hyponatremia; E11.9 Type 2 diabetes mellitus without complications; J44.9 Chronic obstructive pulmonary disease, unspecified; F10.10 Alcohol abuse, uncomplicated; Y90.9 Presence of alcohol in blood, level not specified; F19.10 Other psychoactive substance abuse, uncomplicated; Z28.21 Immunization not carried out because of patient refusal
CPT/HCPCS: 87081

== ENCOUNTER 2019-06-01 10:49 | Inpatient (IN) | payer MEDICARE, MEDICAID ==
[~2019-06-01] VITALS: Ht 180.3 cm; Wt 78.5 kg
[2019-06-01] MEDS ORDERED: HALOPERIDOL 5 MG TABLET PO PRN (12:15)
[2019-06-01] MEDS ORDERED: LORazepam 2 MG TABLET PO PRN (12:15)
[2019-06-01 12:23] VITALS: BP 111/74
[2019-06-01] MEDS ORDERED: PNEUMOCOCCAL VACCINE POLYVALENT 0.5 ML VIAL [PPSV23] IM ONE (14:00)
[2019-06-01 14:43] LABS: GLUCOMETER DEV NAME(LOC) BV2X.; GLUCOSE,POINT OF CARE 358 MG/DL (70-110)
[2019-06-01] MEDS: INSULIN LISPRO 100 UNITS/ML SQ PRN (15:10)
[2019-06-01] MEDS ORDERED: GLUCAGON,HUMAN RECOMBINANT 1 MG VIAL IM PRN (15:15)
[2019-06-01 17:36] VITALS: BP 111/74
[2019-06-02] MEDS: GlipiZIDE 10 MG TABLET PO SCH (06:30)
[2019-06-02] MEDS: MetFORMIN HCL 500 MG TABLET PO SCH (06:38)
[2019-06-02] MEDS: LinaGLIPtin 5 MG TABLET PO SCH (08:04)
[2019-06-02 08:24] VITALS: BP 113/73
[2019-06-02] MEDS ORDERED: GuaiFENesin/D-METHORPHAN [SUGAR-FREE] 200-20MG/10 ML SYRUP UDCUP PO PRN (12:30)
[2019-06-02] MEDS ORDERED: LOPERAMIDE HCL 2 MG CAPSULE PO PRN (12:30)
[2019-06-02] MEDS ORDERED: CloNIDine HCL 0.1 MG TABLET PO PRN (12:30)
[2019-06-02] MEDS ORDERED: ALBUTEROL SULFATE HFA 90 MCG/PUFF 8 GM INHALER IH PRN (12:30)
[2019-06-02] MEDS ORDERED: ONDANSETRON HCL 4 MG TABLET PO PRN (12:30)
[2019-06-02] MEDS ORDERED: MAG HYDROX/AL HYDROX/SIMETH ES 30 ML SUSPENSION UDCUP PO PRN (12:30)
[2019-06-02] MEDS ORDERED: MAGNESIUM HYDROXIDE SUSPENSION 30 ML UDCUP PO PRN (12:30)
[2019-06-02] MEDS ORDERED: DOCUSATE SODIUM 100 MG CAPSULE PO PRN (12:30)
[2019-06-02] MEDS ORDERED: ACETAMINOPHEN 325 MG TABLET PO PRN (12:30)
[2019-06-02] MEDS ORDERED: PETROLATUM,WHITE 28 GM JELLY TP PRN (12:30)
[2019-06-02] MEDS ORDERED: NICOTINE 14 MG/24 HOUR PATCH TD PRN (12:30)
[2019-06-02 16:01] VITALS: BP 112/74
[2019-06-03] MEDS: GlipiZIDE 10 MG TABLET PO SCH (06:30)
[2019-06-03] MEDS: MetFORMIN HCL 500 MG TABLET PO SCH (06:37)
[2019-06-03 08:12] VITALS: BP 100/66
[2019-06-03] MEDS: LinaGLIPtin 5 MG TABLET PO SCH (08:59)
[2019-06-03 16:03] VITALS: BP 110/64
[2019-06-03] MEDS: INSULIN LISPRO 100 UNITS/ML SQ PRN (20:33)
[2019-06-03 20:36] LABS: GLUCOMETER DEV NAME(LOC) BV2X.; GLUCOSE,POINT OF CARE 303 MG/DL (70-110)
[2019-06-04] MEDS: GlipiZIDE 10 MG TABLET PO SCH (06:30)
[2019-06-04] MEDS: MetFORMIN HCL 500 MG TABLET PO SCH (06:35)
[2019-06-04] MEDS: LinaGLIPtin 5 MG TABLET PO SCH (08:10)
[2019-06-04 08:42] VITALS: BP 97/62
[2019-06-04 16:07] VITALS: BP 111/68
[2019-06-04] MEDS: IBUPROFEN 400 MG TABLET PO PRN (16:17)
[2019-06-04 16:23] LABS: GLUCOMETER DEV NAME(LOC) BV2X.; GLUCOSE,POINT OF CARE 321 MG/DL (70-110)
[2019-06-04] MEDS: INSULIN LISPRO 100 UNITS/ML SQ PRN ×2 (16:41→20:33)
[2019-06-04 20:35] LABS: GLUCOMETER DEV NAME(LOC) BV2X.; GLUCOSE,POINT OF CARE 254 MG/DL (70-110)
[2019-06-05 03:25] VITALS: BP 102/75
[2019-06-05 06:10] LABS: GLUCOMETER DEV NAME(LOC) BV2X.; GLUCOSE,POINT OF CARE 286 MG/DL (70-110)
[2019-06-05] MEDS: GlipiZIDE 10 MG TABLET PO SCH (06:30)
[2019-06-05] MEDS: MetFORMIN HCL 500 MG TABLET PO SCH (06:35)
[2019-06-05] MEDS: INSULIN LISPRO 100 UNITS/ML SQ PRN ×3 (06:35→20:38)
[2019-06-05 08:04] LABS: BASOPHILS % (AUTO) 1.7 % (0.0-2.0); EOSINOPHILS % (AUTO) 3.2 % (1.0-6.0); HEMATOCRIT 48.5 % (41-53); LYMPHOCYTES # (AUTO) 2.6 K/uL (1.0-4.8); LYMPHOCYTES % (AUTO) 43.5 % (22.0-44.0); MEAN CORPUSCULAR HEMOGLOBIN 28.7 pg (26.0-34.0); MEAN CORPUSCULAR VOLUME 87 fL (80-100); MONOCYTES # (AUTO) 0.5 K/uL (0.1-1.0); NEUTROPHILS # (AUTO) 2.6 K/uL (1.8-7.7); NEUTROPHILS % (AUTO) 43.6 % (40.0-70.0); PLATELET COUNT (AUTO) 408 K/uL (150-450); RED BLOOD CELL COUNT(AUTO) 5.57 MIL/uL (4.50-5.90); RED CELL DISTRIBUTION WIDTH 14.8 % (11.5-14.5)
[2019-06-05] MEDS: LinaGLIPtin 5 MG TABLET PO SCH (08:11)
[2019-06-05] MEDS: RisperiDONE 1 MG TABLET PO SCH ×2 (08:11→16:30)
[2019-06-05] MEDS: LITHIUM CARBONATE 600 MG CAPSULE PO SCH ×2 (08:11→16:30)
[2019-06-05 08:26] VITALS: BP 108/66
[2019-06-05 08:34] LABS: ALANINE AMINOTRANSFERASE 23 U/L (12-78); ALBUMIN 3.6 g/dL (3.4-5.0); ALKALINE PHOSPHATASE 101 U/L (46-116); ANION GAP 7 mmol/L (8-16); ASPARTATE AMINOTRANSFERASE 15 U/L (15-37); BILIRUBIN,TOTAL 0.3 mg/dL (0.1-1.0); CALCIUM, TOTAL 9.3 mg/dL (8.8-10.5); CARBON DIOXIDE 30 mmol/L (22-29); CHLORIDE 98 mmol/L (98-107); CHOL/HDL RATIO 4.3 (4.2-7.3); CHOLESTEROL 169 mg/dL (131-200); CREATININE 0.66 mg/dL (0.60-1.30); FREE T4 (FREE THYROXINE) 0.84 ng/dL (0.76-1.46); GLOMERULAR FILTR. RATE CALC > 60 mL/min (>60); GLUCOSE,RANDOM 308 mg/dL (70-110); HDL CHOLESTEROL 39 mg/dL (40-60); LDL CHOL (CALC.) 103 mg/dL (0-130); POTASSIUM 5.2 mmol/L (3.5-5.1); SODIUM SERUM 135 mmol/L (136-145); THYROID STIMULATING HORMONE 2.81 uIU/mL (0.36-3.74); TOTAL PROTEIN, SERUM 7.9 g/dL (6.4-8.2); TRIGLYCERIDES 137 mg/dL (15-150); UREA NITROGEN, BLOOD 26 mg/dL (7-18)
[2019-06-05 08:42] LABS: HEMOGLOBIN A1C 8.4 % (3.8-5.6)
[2019-06-05] MEDS ORDERED: SODIUM POLYSTYRENE SULFONATE 15 GM/60 ML SUSPENSION BOTTLE PO ONE (16:00)
[2019-06-05 16:03] VITALS: BP 108/69
[2019-06-05 16:30] LABS: GLUCOMETER DEV NAME(LOC) BV2X.; GLUCOSE,POINT OF CARE 332 MG/DL (70-110)
[2019-06-05 20:01] LABS: GLUCOMETER DEV NAME(LOC) BV2X.; GLUCOSE,POINT OF CARE 213 MG/DL (70-110)
[2019-06-05] MEDS: ZOLPIDEM TARTRATE 10 MG TABLET PO PRN (22:07)
[2019-06-06 05:29] VITALS: BP 110/72
[2019-06-06] MEDS: MetFORMIN HCL 500 MG TABLET PO SCH ×2 (06:30→16:46)
[2019-06-06] MEDS: GlipiZIDE 10 MG TABLET PO SCH (06:30)
[2019-06-06] MEDS: INSULIN LISPRO 100 UNITS/ML SQ PRN ×2 (06:33→17:01)
[2019-06-06 08:07] VITALS: BP 111/69
[2019-06-06] MEDS: RisperiDONE 1 MG TABLET PO SCH ×2 (08:41→16:45)
[2019-06-06] MEDS: LinaGLIPtin 5 MG TABLET PO SCH ×2 (08:41→09:00)
[2019-06-06] MEDS: LITHIUM CARBONATE 600 MG CAPSULE PO SCH ×2 (08:41→16:45)
[2019-06-06 11:18] LABS: GLUCOMETER DEV NAME(LOC) BV2X.; GLUCOSE,POINT OF CARE 255 MG/DL (70-110)
[2019-06-06 16:01] VITALS: BP 118/65
[2019-06-06 16:56] LABS: GLUCOMETER DEV NAME(LOC) BV2X.; GLUCOSE,POINT OF CARE 271 MG/DL (70-110)
[2019-06-06] MEDS: ZOLPIDEM TARTRATE 10 MG TABLET PO PRN (21:43)
[2019-06-07 06:11] VITALS: BP 119/77
[2019-06-07] MEDS: GlipiZIDE 10 MG TABLET PO SCH (06:30)
[2019-06-07] MEDS: MetFORMIN HCL 500 MG TABLET PO SCH ×2 (06:30→16:30)
[2019-06-07] MEDS: RisperiDONE 1 MG TABLET PO SCH ×2 (08:16→16:31)
[2019-06-07] MEDS: LITHIUM CARBONATE 600 MG CAPSULE PO SCH ×2 (08:16→16:31)
[2019-06-07] MEDS: LinaGLIPtin 5 MG TABLET PO SCH (08:17)
[2019-06-07 08:56] VITALS: BP 102/76
[2019-06-07 11:11] LABS: GLUCOMETER DEV NAME(LOC) BV2X.; GLUCOSE,POINT OF CARE 262 MG/DL (70-110)
[2019-06-07] MEDS: INSULIN LISPRO 100 UNITS/ML SQ PRN ×3 (11:40→20:36)
[2019-06-07 16:00] VITALS: BP 108/73
[2019-06-07 16:33] LABS: GLUCOMETER DEV NAME(LOC) BV2X.; GLUCOSE,POINT OF CARE 192 MG/DL (70-110)
[2019-06-07] MEDS: IBUPROFEN 400 MG TABLET PO PRN (19:48)
[2019-06-07 19:49] VITALS: BP 113/66
[2019-06-07 20:14] LABS: GLUCOMETER DEV NAME(LOC) BV2X.; GLUCOSE,POINT OF CARE 230 MG/DL (70-110)
[2019-06-07] MEDS: ZOLPIDEM TARTRATE 10 MG TABLET PO PRN (20:59)
[2019-06-08 04:52] VITALS: BP 115/74
[2019-06-08 06:01] LABS: GLUCOMETER DEV NAME(LOC) BV2X.; GLUCOSE,POINT OF CARE 271 MG/DL (70-110)
[2019-06-08] MEDS: GlipiZIDE 10 MG TABLET PO SCH (06:30)
[2019-06-08] MEDS: MetFORMIN HCL 500 MG TABLET PO SCH ×2 (06:30→16:30)
[2019-06-08 08:05] VITALS: BP 102/66
[2019-06-08] MEDS: RisperiDONE 1 MG TABLET PO SCH ×2 (08:12→16:17)
[2019-06-08] MEDS: LITHIUM CARBONATE 600 MG CAPSULE PO SCH ×2 (08:12→16:17)
[2019-06-08] MEDS: LinaGLIPtin 5 MG TABLET PO SCH (08:12)
[2019-06-08 16:28] VITALS: BP 122/63
[2019-06-08 16:41] LABS: GLUCOMETER DEV NAME(LOC) BV2X.; GLUCOSE,POINT OF CARE 271 MG/DL (70-110)
[2019-06-08] MEDS: INSULIN LISPRO 100 UNITS/ML SQ PRN ×2 (17:27→20:48)
[2019-06-08 20:24] LABS: GLUCOMETER DEV NAME(LOC) BV2X.; GLUCOSE,POINT OF CARE 163 MG/DL (70-110)
[2019-06-08] MEDS: ZOLPIDEM TARTRATE 10 MG TABLET PO PRN (21:49)
[2019-06-09 05:29] VITALS: BP 110/57
[2019-06-09 06:24] LABS: GLUCOMETER DEV NAME(LOC) BV2X.; GLUCOSE,POINT OF CARE 346 MG/DL (70-110)
[2019-06-09] MEDS: MetFORMIN HCL 500 MG TABLET PO SCH ×2 (06:30→16:30)
[2019-06-09] MEDS: GlipiZIDE 10 MG TABLET PO SCH (06:30)
[2019-06-09] MEDS: INSULIN LISPRO 100 UNITS/ML SQ PRN ×4 (06:37→20:32)
[2019-06-09] MEDS: RisperiDONE 1 MG TABLET PO SCH ×2 (08:05→16:30)
[2019-06-09] MEDS: LITHIUM CARBONATE 600 MG CAPSULE PO SCH ×2 (08:05→16:28)
[2019-06-09] MEDS: LinaGLIPtin 5 MG TABLET PO SCH (08:06)
[2019-06-09 08:38] VITALS: BP 134/72
[2019-06-09] MEDS: IBUPROFEN 400 MG TABLET PO PRN (09:12)
[2019-06-09 11:37] LABS: GLUCOMETER DEV NAME(LOC) BV2X.; GLUCOSE,POINT OF CARE 214 MG/DL (70-110)
[2019-06-09 16:01] VITALS: BP 108/74
[2019-06-09 16:14] LABS: GLUCOMETER DEV NAME(LOC) BV2X.; GLUCOSE,POINT OF CARE 247 MG/DL (70-110)
[2019-06-09 20:29] LABS: GLUCOMETER DEV NAME(LOC) BV2X.; GLUCOSE,POINT OF CARE 287 MG/DL (70-110)
[2019-06-09] MEDS: ZOLPIDEM TARTRATE 10 MG TABLET PO PRN (21:03)
[2019-06-10 00:15] VITALS: BP 117/65
[2019-06-10 06:23] LABS: GLUCOMETER DEV NAME(LOC) BV2X.; GLUCOSE,POINT OF CARE 322 MG/DL (70-110)
[2019-06-10] MEDS: GlipiZIDE 10 MG TABLET PO SCH (06:29)
[2019-06-10] MEDS: MetFORMIN HCL 500 MG TABLET PO SCH ×2 (06:30→16:42)
[2019-06-10] MEDS: INSULIN LISPRO 100 UNITS/ML SQ PRN ×4 (06:35→20:28)
[2019-06-10 08:06] VITALS: BP 117/76
[2019-06-10] MEDS: RisperiDONE 1 MG TABLET PO SCH ×2 (08:36→16:36)
[2019-06-10] MEDS: LITHIUM CARBONATE 600 MG CAPSULE PO SCH ×2 (08:36→16:36)
[2019-06-10] MEDS: LinaGLIPtin 5 MG TABLET PO SCH (08:39)
[2019-06-10 08:42] LABS: ANION GAP 6 mmol/L (8-16); CALCIUM, TOTAL 9.5 mg/dL (8.8-10.5); CARBON DIOXIDE 27 mmol/L (22-29); CHLORIDE 99 mmol/L (98-107); CREATININE 0.65 mg/dL (0.60-1.30); GLOMERULAR FILTR. RATE CALC > 60 mL/min (>60); GLUCOSE,RANDOM 312 mg/dL (70-110); POTASSIUM 4.9 mmol/L (3.5-5.1); SODIUM SERUM 132 mmol/L (136-145); UREA NITROGEN, BLOOD 24 mg/dL (7-18)
[2019-06-10 11:35] LABS: GLUCOMETER DEV NAME(LOC) BV2X.; GLUCOSE,POINT OF CARE 269 MG/DL (70-110)
[2019-06-10 16:03] VITALS: BP 102/75
[2019-06-10 16:09] LABS: GLUCOMETER DEV NAME(LOC) BV2X.; GLUCOSE,POINT OF CARE 219 MG/DL (70-110)
[2019-06-10 20:13] LABS: GLUCOMETER DEV NAME(LOC) BV2X.; GLUCOSE,POINT OF CARE 189 MG/DL (70-110)
[2019-06-10] MEDS: ZOLPIDEM TARTRATE 10 MG TABLET PO PRN (20:44)
[2019-06-11 00:55] VITALS: BP 116/71
[2019-06-11] MEDS: IBUPROFEN 400 MG TABLET PO PRN (01:04)
[2019-06-11 05:45] LABS: GLUCOMETER DEV NAME(LOC) BV2X.; GLUCOSE,POINT OF CARE 230 MG/DL (70-110)
[2019-06-11] MEDS: GlipiZIDE 10 MG TABLET PO SCH (06:30)
[2019-06-11] MEDS: MetFORMIN HCL 500 MG TABLET PO SCH (06:32)
[2019-06-11] MEDS: INSULIN LISPRO 100 UNITS/ML SQ PRN (06:34)
[2019-06-11] MEDS: RisperiDONE 1 MG TABLET PO SCH (08:05)
[2019-06-11] MEDS: LinaGLIPtin 5 MG TABLET PO SCH (08:05)
[2019-06-11] MEDS: LITHIUM CARBONATE 600 MG CAPSULE PO SCH (08:05)
[2019-06-11 08:23] VITALS: BP 110/68
[2019-06-13] MEDS ORDERED: METF-960 PO (08:56)
== END 2019-06-11 11:20 | disposition home or self-care (01) | DRG 885 ==
LOC: B2X 12:59
PROVIDERS: ADMIT Psychiatry & Neurology Psychiatry; ATTEND Psychiatry & Neurology Psychiatry
DX: F25.9 Schizoaffective disorder, unspecified (principal); R45.851 Suicidal ideations; F19.10 Other psychoactive substance abuse, uncomplicated; F10.10 Alcohol abuse, uncomplicated; Y90.9 Presence of alcohol in blood, level not specified; J44.9 Chronic obstructive pulmonary disease, unspecified; E11.9 Type 2 diabetes mellitus without complications; E87.5 Hyperkalemia; Z28.21 Immunization not carried out because of patient refusal
CPT/HCPCS: 83036; 84439; 84443; 87081

== ENCOUNTER 2019-07-22 14:15 | Inpatient (IN) | payer MEDICARE, MEDICAID ==
[~2019-07-22] VITALS: Ht 180.3 cm; Wt 76.9 kg
[2019-07-22] MEDS ORDERED: SODIUM CHLORIDE 0.9% 1,000 ML IV ONE (15:15)
[2019-07-22 15:31] LABS: APPEARANCE,URINE CLEAR (CLEAR); BILIRUBIN,URINE NEGATIVE (NEGATIVE); GLUCOSE, URINE (UA) >=1000 mg/dL (NEGATIVE); KETONES,URINE NEGATIVE (NEGATIVE); LEUKOCYTE ESTERASE ,URINE NEGATIVE (NEGATIVE); NITRATE,URINE NEGATIVE (NEGATIVE); OCCULT BLOOD,URINE NEGATIVE (NEGATIVE); PH,URINE 5.5 (5.0-8.0); PROTEIN,URINE POS 1+ (NEGATIVE)
[2019-07-22 15:37] LABS: AMPHET/METH SCREEN,URINE POSITIVE (NEGATIVE); BARBITURATE SCREEN, URINE NEGATIVE (NEGATIVE); BENZODIAZEPINES SCREEN,URINE NEGATIVE (NEGATIVE); CANNABINOID SCREEN,URINE NEGATIVE (NEGATIVE); COCAINE SCREEN,URINE NEGATIVE (NEGATIVE); METHADONE SCREEN, URINE NEGATIVE (NEGATIVE); OPIATE SCREEN,URINE NEGATIVE (NEGATIVE); PHENCYCLIDINE SCREEN,URINE NEGATIVE (NEGATIVE)
[2019-07-22 15:57] LABS: BASOPHILS % (AUTO) 1.5 % (0.0-2.0); HEMATOCRIT 46.1 % (41-53); HEMOGLOBIN 15.2 g/dL (13.5-17.5); LYMPHOCYTES # (AUTO) 1.6 K/uL (1.0-4.8); LYMPHOCYTES % (AUTO) 30.1 % (22.0-44.0); MEAN CORPUSCULAR HEMOGLOBIN 29.7 pg (26.0-34.0); MEAN CORPUSCULAR HGB CONC 33.1 G/dL (31.0-37.0); MEAN CORPUSCULAR VOLUME 90 fL (80-100); MONOCYTES # (AUTO) 0.5 K/uL (0.1-1.0); MONOCYTES % (AUTO) 9.9 % (2.0-9.0); NEUTROPHILS # (AUTO) 2.9 K/uL (1.8-7.7); NEUTROPHILS % (AUTO) 56.5 % (40.0-70.0); PLATELET COUNT (AUTO) 245 K/uL (150-450); RED BLOOD CELL COUNT(AUTO) 5.13 MIL/uL (4.50-5.90); RED CELL DISTRIBUTION WIDTH 14.2 % (11.5-14.5)
[2019-07-22 16:11] LABS: BACTERIA,URINE None Seen /HPF (None Seen); RBC,URINE None Seen /HPF (0-2); SQUAMOUS EPITHELIAL CELL,UR Rare /LPF (None Seen); WBC,URINE 0-2 /HPF (0-5)
[2019-07-22 16:18] LABS: ALANINE AMINOTRANSFERASE 27 U/L (12-78); ALBUMIN 3.8 g/dL (3.4-5.0); ALKALINE PHOSPHATASE 86 U/L (46-116); ANION GAP 10 mmol/L (8-16); ASPARTATE AMINOTRANSFERASE 20 U/L (15-37); BILIRUBIN,TOTAL 0.8 mg/dL (0.1-1.0); CALCIUM, TOTAL 9.4 mg/dL (8.8-10.5); CARBON DIOXIDE 30 mmol/L (22-29); CHLORIDE 99 mmol/L (98-107); CREATININE 0.85 mg/dL (0.60-1.30); GLOMERULAR FILTR. RATE CALC > 60 mL/min (>60); POTASSIUM 4.2 mmol/L (3.5-5.1); SODIUM SERUM 139 mmol/L (136-145); TOTAL PROTEIN, SERUM 8.5 g/dL (6.4-8.2); UREA NITROGEN, BLOOD 16 mg/dL (7-18)
[2019-07-22 16:20] LABS: GLUCOSE,RANDOM 474 mg/dL (70-110)
[2019-07-22] MEDS ORDERED: INSULIN REGULAR, HUMAN 100 UNITS/ML IVP ONE (16:30)
[2019-07-22 17:54] LABS: GLUCOSE,POINT OF CARE 194 MG/DL (70-110)
[2019-07-22] MEDS ORDERED: HALOPERIDOL 5 MG TABLET PO PRN (22:15)
[2019-07-23] MEDS: LORazepam 2 MG TABLET PO PRN (00:26)
[2019-07-23] MEDS: ZOLPIDEM TARTRATE 10 MG TABLET PO PRN (00:26)
[2019-07-23 00:53] VITALS: BP 121/85
[2019-07-23 00:56] LABS: GLUCOMETER DEV NAME(LOC) AHU.; GLUCOSE,POINT OF CARE 455 MG/DL (70-110)
[2019-07-23] MEDS ORDERED: PNEUMOCOCCAL VACCINE POLYVALENT 0.5 ML VIAL [PPSV23] IM ONE (01:15)
[2019-07-23 08:00] LABS: CHOL/HDL RATIO 2.9 (4.2-7.3)
[2019-07-23] MEDS ORDERED: BACITRACIN 28.4 GM OINTMENT TP PRN (08:00)
[2019-07-23] MEDS ORDERED: ONDANSETRON HCL 4 MG TABLET PO PRN (08:00)
[2019-07-23] MEDS ORDERED: DOCUSATE SODIUM 100 MG CAPSULE PO PRN (08:00)
[2019-07-23] MEDS ORDERED: BENZOCAINE/MENTHOL LOZENGE MM PRN (08:00)
[2019-07-23] MEDS ORDERED: ACETAMINOPHEN 325 MG TABLET PO PRN (08:00)
[2019-07-23] MEDS ORDERED: CloNIDine HCL 0.1 MG TABLET PO PRN (08:00)
[2019-07-23] MEDS ORDERED: MAG HYDROX/AL HYDROX/SIMETH ES 30 ML SUSPENSION UDCUP PO PRN (08:00)
[2019-07-23] MEDS ORDERED: IBUPROFEN 600 MG TABLET PO PRN (08:00)
[2019-07-23] MEDS ORDERED: ALBUTEROL SULFATE HFA 90 MCG/PUFF 8 GM INHALER IH PRN (08:00)
[2019-07-23] MEDS ORDERED: MAGNESIUM HYDROXIDE SUSPENSION 30 ML UDCUP PO PRN (08:00)
[2019-07-23] MEDS ORDERED: LOPERAMIDE HCL 2 MG CAPSULE PO PRN (08:00)
[2019-07-23] MEDS ORDERED: DEXTROSE 50%-WATER 25 GM/50 ML SYRINGE IVP PRN (08:00)
[2019-07-23] MEDS ORDERED: PETROLATUM,WHITE 28 GM JELLY TP PRN (08:00)
[2019-07-23] MEDS ORDERED: OMEPRAZOLE 20 MG CAPSULE PO PRN (08:00)
[2019-07-23 08:56] VITALS: BP 119/76
[2019-07-23] MEDS: CHOLECALCIFEROL (VIT D3) 1,000 UNITS [25 MCG] TABLET PO SCH (10:25)
[2019-07-23] MEDS: OMEGA-3/DHA/EPA/FISH OIL 1,000 MG CAPSULE PO SCH (10:25)
[2019-07-23] MEDS: LinaGLIPtin 5 MG TABLET PO SCH (10:25)
[2019-07-23 12:31] LABS: GLUCOMETER DEV NAME(LOC) 3E.C; GLUCOSE,POINT OF CARE 234 MG/DL (70-110)
[2019-07-23] MEDS: MetFORMIN HCL 500 MG TABLET PO SCH (17:30)
[2019-07-23] MEDS: LITHIUM CARBONATE 600 MG CAPSULE PO SCH (18:27)
[2019-07-23] MEDS: RisperiDONE 1 MG TABLET PO SCH (20:51)
[2019-07-24] MEDS: GlipiZIDE 10 MG TABLET PO SCH (06:17)
[2019-07-24] MEDS: MetFORMIN HCL 500 MG TABLET PO SCH ×2 (06:34→17:22)
[2019-07-24] MEDS: OMEGA-3/DHA/EPA/FISH OIL 1,000 MG CAPSULE PO SCH (08:35)
[2019-07-24] MEDS: CHOLECALCIFEROL (VIT D3) 1,000 UNITS [25 MCG] TABLET PO SCH (08:35)
[2019-07-24] MEDS: LITHIUM CARBONATE 600 MG CAPSULE PO SCH ×2 (08:36→17:07)
[2019-07-24] MEDS: LinaGLIPtin 5 MG TABLET PO SCH (08:36)
[2019-07-24] MEDS: RisperiDONE 1 MG TABLET PO SCH ×2 (08:36→21:04)
[2019-07-24 09:18] VITALS: BP 125/75
[2019-07-24 16:00] VITALS: BP 127/81
[2019-07-24] MEDS: MUPIROCIN CALCIUM 2% 22 GM OINTMENT NASAL SCH (17:08)
[2019-07-24] MEDS: INSULIN LISPRO 100 UNITS/ML SQ PRN (17:26)
[2019-07-24 17:33] LABS: GLUCOMETER DEV NAME(LOC) 3E.I 2; GLUCOSE,POINT OF CARE 212 MG/DL (70-110)
[2019-07-25] MEDS: MetFORMIN HCL 500 MG TABLET PO SCH ×2 (06:53→16:11)
[2019-07-25] MEDS: GlipiZIDE 10 MG TABLET PO SCH (06:54)
[2019-07-25] MEDS: RisperiDONE 1 MG TABLET PO SCH ×2 (10:59→21:10)
[2019-07-25] MEDS: LITHIUM CARBONATE 600 MG CAPSULE PO SCH ×2 (10:59→16:11)
[2019-07-25] MEDS: CHOLECALCIFEROL (VIT D3) 1,000 UNITS [25 MCG] TABLET PO SCH (10:59)
[2019-07-25] MEDS: MUPIROCIN CALCIUM 2% 22 GM OINTMENT NASAL SCH ×2 (11:00→16:10)
[2019-07-25] MEDS: LinaGLIPtin 5 MG TABLET PO SCH (11:00)
[2019-07-25] MEDS: OMEGA-3/DHA/EPA/FISH OIL 1,000 MG CAPSULE PO SCH (11:00)
[2019-07-25] MEDS: INSULIN LISPRO 100 UNITS/ML SQ PRN (17:25)
[2019-07-25 18:13] VITALS: BP 118/79
[2019-07-25 21:48] VITALS: BP 122/81
[2019-07-26 06:08] LABS: GLUCOMETER DEV NAME(LOC) 3E.I 2; GLUCOSE,POINT OF CARE 270 MG/DL (70-110)
[2019-07-26] MEDS: GlipiZIDE 10 MG TABLET PO SCH (06:40)
[2019-07-26] MEDS: INSULIN LISPRO 100 UNITS/ML SQ PRN (06:40)
[2019-07-26] MEDS: MetFORMIN HCL 500 MG TABLET PO SCH ×2 (06:40→17:30)
[2019-07-26 08:00] VITALS: BP 106/72
[2019-07-26] MEDS: LITHIUM CARBONATE 600 MG CAPSULE PO SCH ×2 (11:17→16:27)
[2019-07-26] MEDS: MUPIROCIN CALCIUM 2% 22 GM OINTMENT NASAL SCH ×2 (11:18→17:06)
[2019-07-26] MEDS: RisperiDONE 1 MG TABLET PO SCH ×2 (11:20→21:04)
[2019-07-26] MEDS: CHOLECALCIFEROL (VIT D3) 1,000 UNITS [25 MCG] TABLET PO SCH (11:20)
[2019-07-26] MEDS: OMEGA-3/DHA/EPA/FISH OIL 1,000 MG CAPSULE PO SCH (11:20)
[2019-07-26] MEDS: LinaGLIPtin 5 MG TABLET PO SCH (11:21)
[2019-07-26 16:29] VITALS: BP 102/71
[2019-07-26] MEDS: ZOLPIDEM TARTRATE 10 MG TABLET PO PRN (20:40)
[2019-07-27 03:39] VITALS: BP 108/76
[2019-07-27] MEDS: GlipiZIDE 10 MG TABLET PO SCH (06:45)
[2019-07-27] MEDS: MetFORMIN HCL 500 MG TABLET PO SCH ×2 (06:45→16:23)
[2019-07-27 08:00] VITALS: BP 118/80
[2019-07-27] MEDS: LinaGLIPtin 5 MG TABLET PO SCH (09:49)
[2019-07-27] MEDS: MUPIROCIN CALCIUM 2% 22 GM OINTMENT NASAL SCH ×2 (09:49→16:21)
[2019-07-27] MEDS: OMEGA-3/DHA/EPA/FISH OIL 1,000 MG CAPSULE PO SCH (09:49)
[2019-07-27] MEDS: RisperiDONE 1 MG TABLET PO SCH ×2 (09:49→20:33)
[2019-07-27] MEDS: CHOLECALCIFEROL (VIT D3) 1,000 UNITS [25 MCG] TABLET PO SCH (09:49)
[2019-07-27] MEDS: LITHIUM CARBONATE 600 MG CAPSULE PO SCH ×2 (09:49→16:22)
[2019-07-27 12:03] LABS: GLUCOMETER DEV NAME(LOC) 3E.I 2; GLUCOSE,POINT OF CARE 272 MG/DL (70-110)
[2019-07-27] MEDS: INSULIN LISPRO 100 UNITS/ML SQ PRN ×3 (12:24→20:35)
[2019-07-27 16:33] LABS: GLUCOMETER DEV NAME(LOC) 3E.I 2; GLUCOSE,POINT OF CARE 176 MG/DL (70-110)
[2019-07-27 16:56] VITALS: BP 108/77
[2019-07-27] MEDS: ZOLPIDEM TARTRATE 10 MG TABLET PO PRN (20:43)
[2019-07-27 20:44] LABS: GLUCOMETER DEV NAME(LOC) 3E.I 2; GLUCOSE,POINT OF CARE 192 MG/DL (70-110)
[2019-07-28] MEDS: MetFORMIN HCL 500 MG TABLET PO SCH ×2 (06:40→17:05)
[2019-07-28] MEDS: GlipiZIDE 10 MG TABLET PO SCH (06:40)
[2019-07-28 08:00] VITALS: BP 119/74
[2019-07-28] MEDS: LinaGLIPtin 5 MG TABLET PO SCH (09:00)
[2019-07-28] MEDS: OMEGA-3/DHA/EPA/FISH OIL 1,000 MG CAPSULE PO SCH (09:46)
[2019-07-28] MEDS: RisperiDONE 1 MG TABLET PO SCH ×2 (09:46→20:24)
[2019-07-28] MEDS: LITHIUM CARBONATE 600 MG CAPSULE PO SCH ×2 (09:46→16:42)
[2019-07-28] MEDS: CHOLECALCIFEROL (VIT D3) 1,000 UNITS [25 MCG] TABLET PO SCH (09:46)
[2019-07-28] MEDS: MUPIROCIN CALCIUM 2% 22 GM OINTMENT NASAL SCH ×2 (09:47→16:42)
[2019-07-28 16:00] VITALS: BP 135/77
[2019-07-28 17:19] LABS: GLUCOMETER DEV NAME(LOC) 3E.I 2; GLUCOSE,POINT OF CARE 190 MG/DL (70-110)
[2019-07-28] MEDS: INSULIN LISPRO 100 UNITS/ML SQ PRN (17:24)
[2019-07-28] MEDS: ZOLPIDEM TARTRATE 10 MG TABLET PO PRN (20:24)
[2019-07-28 21:19] VITALS: BP 121/80
[2019-07-28] MEDS ORDERED: NICOTINE 21 MG/24 HOUR PATCH TD PRN (22:45)
[2019-07-29 04:06] VITALS: BP 108/76
[2019-07-29] MEDS: GlipiZIDE 10 MG TABLET PO SCH (06:50)
[2019-07-29] MEDS: MetFORMIN HCL 500 MG TABLET PO SCH ×2 (06:50→16:00)
[2019-07-29 08:42] VITALS: BP 111/74
[2019-07-29] MEDS: CHOLECALCIFEROL (VIT D3) 1,000 UNITS [25 MCG] TABLET PO SCH (08:55)
[2019-07-29] MEDS: MUPIROCIN CALCIUM 2% 22 GM OINTMENT NASAL SCH (08:55)
[2019-07-29] MEDS: OMEGA-3/DHA/EPA/FISH OIL 1,000 MG CAPSULE PO SCH (08:55)
[2019-07-29] MEDS: LITHIUM CARBONATE 600 MG CAPSULE PO SCH ×2 (08:55→16:00)
[2019-07-29] MEDS: RisperiDONE 1 MG TABLET PO SCH ×2 (08:55→20:06)
[2019-07-29] MEDS: LinaGLIPtin 5 MG TABLET PO SCH (08:55)
[2019-07-29 16:00] VITALS: BP 116/62
[2019-07-29 16:14] LABS: GLUCOMETER DEV NAME(LOC) 3E.I 2; GLUCOSE,POINT OF CARE 212 MG/DL (70-110)
[2019-07-29] MEDS: INSULIN LISPRO 100 UNITS/ML SQ PRN ×2 (16:42→20:30)
[2019-07-29] MEDS: ZOLPIDEM TARTRATE 10 MG TABLET PO PRN (20:31)
[2019-07-29 21:23] LABS: GLUCOMETER DEV NAME(LOC) 3E.I 2; GLUCOSE,POINT OF CARE 185 MG/DL (70-110)
[2019-07-30 00:19] VITALS: BP 121/76
[2019-07-30] MEDS: LORazepam 2 MG TABLET PO PRN (00:53)
[2019-07-30] MEDS: GlipiZIDE 10 MG TABLET PO SCH (06:59)
[2019-07-30] MEDS: MetFORMIN HCL 500 MG TABLET PO SCH (06:59)
[2019-07-30] MEDS: LITHIUM CARBONATE 600 MG CAPSULE PO SCH (08:54)
[2019-07-30] MEDS: OMEGA-3/DHA/EPA/FISH OIL 1,000 MG CAPSULE PO SCH (08:54)
[2019-07-30] MEDS: CHOLECALCIFEROL (VIT D3) 1,000 UNITS [25 MCG] TABLET PO SCH (08:54)
[2019-07-30] MEDS: RisperiDONE 1 MG TABLET PO SCH (08:54)
[2019-07-30] MEDS: LinaGLIPtin 5 MG TABLET PO SCH (08:54)
[2019-07-30 08:55] VITALS: BP 113/69
[2019-07-30 12:19] VITALS: BP 121/72
== END 2019-07-30 11:47 | disposition home or self-care (01) | DRG 885 ==
LOC: EMS 14:22 → UNDOADMIN 22:10 → 3EI 22:10
PROVIDERS: ADMIT Psychiatry & Neurology Child & Adolescent Psychiatry; ATTEND Psychiatry & Neurology Psychiatry
DX: F25.1 Schizoaffective disorder, depressive type (principal); F10.231 Alcohol dependence with withdrawal delirium; R45.851 Suicidal ideations; E11.65 Type 2 diabetes mellitus with hyperglycemia; E78.5 Hyperlipidemia, unspecified; F12.90 Cannabis use, unspecified, uncomplicated; F15.10 Other stimulant abuse, uncomplicated; J44.9 Chronic obstructive pulmonary disease, unspecified; K21.9 Gastro-esophageal reflux disease without esophagitis; K59.00 Constipation, unspecified; R45.850 Homicidal ideations; E55.9 Vitamin D deficiency, unspecified; F41.9 Anxiety disorder, unspecified; Z72.0 Tobacco use; Z91.14 Patient's other noncompliance with medication regimen; Z56.0 Unemployment, unspecified; Z59.0 Homelessness; Z79.899 Other long term (current) drug therapy
CPT/HCPCS: 87081; G0480; J1815; J7030

== ENCOUNTER 2019-07-30 11:45 | Inpatient (IN) | payer MEDICARE, MEDICAID ==
[~2019-07-30] VITALS: Ht 182.9 cm; Wt 88.6 kg
[2019-07-30 15:26] VITALS: BP 111/74
[2019-07-30 16:00] VITALS: BP 116/67
[2019-07-30] MEDS ORDERED: PNEUMOCOCCAL VACCINE POLYVALENT 0.5 ML VIAL [PPSV23] IM ONE (16:00)
[2019-07-30] MEDS ORDERED: ALBUTEROL SULFATE HFA 90 MCG/PUFF 8 GM INHALER IH PRN (17:30)
[2019-07-30] MEDS ORDERED: OMEPRAZOLE 20 MG CAPSULE PO PRN (17:30)
[2019-07-30] MEDS ORDERED: HALOPERIDOL 5 MG TABLET PO PRN (17:30)
[2019-07-30] MEDS ORDERED: MAGNESIUM HYDROXIDE SUSPENSION 30 ML UDCUP PO PRN (17:30)
[2019-07-30] MEDS ORDERED: PETROLATUM,WHITE 28 GM JELLY TP PRN (17:30)
[2019-07-30] MEDS ORDERED: BENZOCAINE/MENTHOL LOZENGE MM PRN (17:30)
[2019-07-30] MEDS ORDERED: MAG HYDROX/AL HYDROX/SIMETH ES 30 ML SUSPENSION UDCUP PO PRN (17:30)
[2019-07-30] MEDS ORDERED: IBUPROFEN 600 MG TABLET PO PRN (17:30)
[2019-07-30] MEDS ORDERED: DEXTROSE 50%-WATER 25 GM/50 ML SYRINGE IVP PRN (17:30)
[2019-07-30] MEDS ORDERED: ACETAMINOPHEN 325 MG TABLET PO PRN (17:30)
[2019-07-30] MEDS ORDERED: BACITRACIN 28.4 GM OINTMENT TP PRN (17:30)
[2019-07-30] MEDS ORDERED: CloNIDine HCL 0.1 MG TABLET PO PRN (17:30)
[2019-07-30] MEDS ORDERED: ONDANSETRON HCL 4 MG TABLET PO PRN (17:30)
[2019-07-30] MEDS ORDERED: DOCUSATE SODIUM 100 MG CAPSULE PO PRN (17:30)
[2019-07-30] MEDS: LITHIUM CARBONATE 600 MG CAPSULE PO SCH (17:45)
[2019-07-30] MEDS: RisperiDONE 1 MG TABLET PO SCH (20:13)
[2019-07-30 20:27] LABS: GLUCOMETER DEV NAME(LOC) 3EX.; GLUCOSE,POINT OF CARE 216 MG/DL (70-110)
[2019-07-31] MEDS: GlipiZIDE 10 MG TABLET PO SCH (06:53)
[2019-07-31] MEDS: OMEGA-3/DHA/EPA/FISH OIL 1,000 MG CAPSULE PO SCH (08:17)
[2019-07-31] MEDS: LinaGLIPtin 5 MG TABLET PO SCH (08:17)
[2019-07-31] MEDS: LITHIUM CARBONATE 600 MG CAPSULE PO SCH ×2 (08:17→16:24)
[2019-07-31] MEDS: CHOLECALCIFEROL (VIT D3) 1,000 UNITS [25 MCG] TABLET PO SCH (08:18)
[2019-07-31] MEDS: RisperiDONE 1 MG TABLET PO SCH ×2 (08:18→20:14)
[2019-07-31] MEDS: NICOTINE 21 MG/24 HOUR PATCH TD SCH (08:27)
[2019-07-31 08:33] VITALS: BP 113/73
[2019-07-31 11:39] LABS: GLUCOMETER DEV NAME(LOC) 3EX.; GLUCOSE,POINT OF CARE 256 MG/DL (70-110)
[2019-07-31] MEDS: INSULIN LISPRO 100 UNITS/ML SQ PRN ×3 (11:55→21:14)
[2019-07-31 16:00] VITALS: BP 111/73
[2019-07-31] MEDS: MetFORMIN HCL 500 MG TABLET PO SCH (16:24)
[2019-07-31 17:24] LABS: GLUCOMETER DEV NAME(LOC) 3EX.; GLUCOSE,POINT OF CARE 229 MG/DL (70-110)
[2019-07-31] MEDS: ZOLPIDEM TARTRATE 10 MG TABLET PO PRN (20:14)
[2019-07-31 20:24] LABS: GLUCOMETER DEV NAME(LOC) 3EX.; GLUCOSE,POINT OF CARE 225 MG/DL (70-110)
[2019-08-01 05:41] VITALS: BP 111/71
[2019-08-01] MEDS: GlipiZIDE 10 MG TABLET PO SCH (06:49)
[2019-08-01] MEDS: INSULIN LISPRO 100 UNITS/ML SQ PRN ×4 (07:05→20:49)
[2019-08-01] MEDS: MetFORMIN HCL 500 MG TABLET PO SCH ×2 (07:30→17:30)
[2019-08-01] MEDS: OMEGA-3/DHA/EPA/FISH OIL 1,000 MG CAPSULE PO SCH (08:03)
[2019-08-01] MEDS: LinaGLIPtin 5 MG TABLET PO SCH (08:03)
[2019-08-01] MEDS: NICOTINE 21 MG/24 HOUR PATCH TD SCH (08:03)
[2019-08-01] MEDS: CHOLECALCIFEROL (VIT D3) 1,000 UNITS [25 MCG] TABLET PO SCH (08:03)
[2019-08-01] MEDS: RisperiDONE 1 MG TABLET PO SCH ×2 (08:03→20:14)
[2019-08-01] MEDS: LITHIUM CARBONATE 600 MG CAPSULE PO SCH ×2 (08:03→16:31)
[2019-08-01 09:57] VITALS: BP 100/58
[2019-08-01 11:18] LABS: GLUCOMETER DEV NAME(LOC) 3EX.; GLUCOSE,POINT OF CARE 271 MG/DL (70-110)
[2019-08-01 12:22] LABS: GLUCOMETER DEV NAME(LOC) 3E.I 2; GLUCOSE,POINT OF CARE 237 MG/DL (70-110)
[2019-08-01 16:13] VITALS: BP 113/74
[2019-08-01 16:17] LABS: GLUCOMETER DEV NAME(LOC) 3EX.; GLUCOSE,POINT OF CARE 248 MG/DL (70-110)
[2019-08-01 20:23] LABS: GLUCOMETER DEV NAME(LOC) 3EX.; GLUCOSE,POINT OF CARE 172 MG/DL (70-110)
[2019-08-01] MEDS: ZOLPIDEM TARTRATE 10 MG TABLET PO PRN (21:09)
[2019-08-02] MEDS: GlipiZIDE 10 MG TABLET PO SCH (06:56)
[2019-08-02] MEDS: MetFORMIN HCL 500 MG TABLET PO SCH ×2 (07:30→17:08)
[2019-08-02] MEDS: CHOLECALCIFEROL (VIT D3) 1,000 UNITS [25 MCG] TABLET PO SCH (08:53)
[2019-08-02] MEDS: LinaGLIPtin 5 MG TABLET PO SCH (08:53)
[2019-08-02] MEDS: OMEGA-3/DHA/EPA/FISH OIL 1,000 MG CAPSULE PO SCH (08:53)
[2019-08-02] MEDS: RisperiDONE 1 MG TABLET PO SCH ×2 (08:53→20:14)
[2019-08-02] MEDS: LITHIUM CARBONATE 600 MG CAPSULE PO SCH ×2 (08:53→16:15)
[2019-08-02] MEDS: NICOTINE 21 MG/24 HOUR PATCH TD SCH (08:54)
[2019-08-02 10:33] VITALS: BP 98/52
[2019-08-02 16:00] VITALS: BP 111/66
[2019-08-02 16:38] LABS: GLUCOMETER DEV NAME(LOC) 3EX.; GLUCOSE,POINT OF CARE 253 MG/DL (70-110)
[2019-08-02] MEDS: INSULIN LISPRO 100 UNITS/ML SQ PRN ×2 (17:15→21:16)
[2019-08-02 20:31] LABS: GLUCOMETER DEV NAME(LOC) 3EX.; GLUCOSE,POINT OF CARE 191 MG/DL (70-110)
[2019-08-02] MEDS: ZOLPIDEM TARTRATE 10 MG TABLET PO PRN (21:19)
[2019-08-03] MEDS: MetFORMIN HCL 500 MG TABLET PO SCH ×2 (06:44→16:50)
[2019-08-03] MEDS: GlipiZIDE 10 MG TABLET PO SCH (06:44)
[2019-08-03] MEDS: OMEGA-3/DHA/EPA/FISH OIL 1,000 MG CAPSULE PO SCH (08:37)
[2019-08-03] MEDS: LITHIUM CARBONATE 600 MG CAPSULE PO SCH ×2 (08:37→16:47)
[2019-08-03] MEDS: LinaGLIPtin 5 MG TABLET PO SCH (08:37)
[2019-08-03] MEDS: RisperiDONE 1 MG TABLET PO SCH ×2 (08:38→20:12)
[2019-08-03] MEDS: CHOLECALCIFEROL (VIT D3) 1,000 UNITS [25 MCG] TABLET PO SCH (08:38)
[2019-08-03] MEDS: NICOTINE 21 MG/24 HOUR PATCH TD SCH (08:39)
[2019-08-03 09:29] VITALS: BP 114/73
[2019-08-03 17:11] VITALS: BP 109/70
[2019-08-03] MEDS: INSULIN LISPRO 100 UNITS/ML SQ PRN ×2 (18:19→21:16)
[2019-08-03 20:15] LABS: GLUCOMETER DEV NAME(LOC) 3EX.; GLUCOSE,POINT OF CARE 245 MG/DL (70-110)
[2019-08-03 20:15] LABS: GLUCOMETER DEV NAME(LOC) 3EX.; GLUCOSE,POINT OF CARE 200 MG/DL (70-110)
[2019-08-03] MEDS: ZOLPIDEM TARTRATE 10 MG TABLET PO PRN (21:51)
[2019-08-04] MEDS: MetFORMIN HCL 500 MG TABLET PO SCH ×2 (06:43→17:30)
[2019-08-04] MEDS: GlipiZIDE 10 MG TABLET PO SCH (06:43)
[2019-08-04 08:00] VITALS: BP 104/69
[2019-08-04] MEDS: RisperiDONE 1 MG TABLET PO SCH ×2 (08:26→20:22)
[2019-08-04] MEDS: CHOLECALCIFEROL (VIT D3) 1,000 UNITS [25 MCG] TABLET PO SCH (08:26)
[2019-08-04] MEDS: LITHIUM CARBONATE 600 MG CAPSULE PO SCH ×2 (08:26→17:00)
[2019-08-04] MEDS: NICOTINE 21 MG/24 HOUR PATCH TD SCH (08:27)
[2019-08-04] MEDS: OMEGA-3/DHA/EPA/FISH OIL 1,000 MG CAPSULE PO SCH (08:27)
[2019-08-04] MEDS: LinaGLIPtin 5 MG TABLET PO SCH (08:27)
[2019-08-04] MEDS: INSULIN LISPRO 100 UNITS/ML SQ PRN ×3 (12:13→22:22)
[2019-08-04 12:18] LABS: GLUCOMETER DEV NAME(LOC) 3EX.; GLUCOSE,POINT OF CARE 280 MG/DL (70-110)
[2019-08-04 16:00] VITALS: BP 113/74
[2019-08-04 16:26] LABS: GLUCOMETER DEV NAME(LOC) 3EX.; GLUCOSE,POINT OF CARE 186 MG/DL (70-110)
[2019-08-04] MEDS: ZOLPIDEM TARTRATE 10 MG TABLET PO PRN (20:31)
[2019-08-04 22:03] LABS: GLUCOMETER DEV NAME(LOC) 3EX.; GLUCOSE,POINT OF CARE 238 MG/DL (70-110)
[2019-08-05 00:46] VITALS: BP 116/62
[2019-08-05] MEDS: GlipiZIDE 10 MG TABLET PO SCH (06:56)
[2019-08-05] MEDS: MetFORMIN HCL 500 MG TABLET PO SCH ×2 (07:30→17:18)
[2019-08-05] MEDS: RisperiDONE 1 MG TABLET PO SCH ×2 (08:24→20:05)
[2019-08-05] MEDS: OMEGA-3/DHA/EPA/FISH OIL 1,000 MG CAPSULE PO SCH (08:24)
[2019-08-05] MEDS: LITHIUM CARBONATE 600 MG CAPSULE PO SCH ×2 (08:24→17:01)
[2019-08-05] MEDS: CHOLECALCIFEROL (VIT D3) 1,000 UNITS [25 MCG] TABLET PO SCH (08:24)
[2019-08-05] MEDS: LinaGLIPtin 5 MG TABLET PO SCH (08:25)
[2019-08-05] MEDS: NICOTINE 21 MG/24 HOUR PATCH TD SCH (08:26)
[2019-08-05 09:51] VITALS: BP 110/70
[2019-08-05 11:24] LABS: GLUCOMETER DEV NAME(LOC) 3EX.; GLUCOSE,POINT OF CARE 285 MG/DL (70-110)
[2019-08-05] MEDS: INSULIN LISPRO 100 UNITS/ML SQ PRN ×3 (11:26→21:12)
[2019-08-05 17:29] LABS: GLUCOMETER DEV NAME(LOC) 3EX.; GLUCOSE,POINT OF CARE 239 MG/DL (70-110)
[2019-08-05 17:38] VITALS: BP 114/73
[2019-08-05] MEDS: LORazepam 2 MG TABLET PO PRN (19:13)
[2019-08-05 20:21] LABS: GLUCOMETER DEV NAME(LOC) 3EX.; GLUCOSE,POINT OF CARE 203 MG/DL (70-110)
[2019-08-05] MEDS: ZOLPIDEM TARTRATE 10 MG TABLET PO PRN (21:01)
[2019-08-06 03:23] VITALS: BP 103/67
[2019-08-06] MEDS: GlipiZIDE 10 MG TABLET PO SCH (06:35)
[2019-08-06] MEDS: MetFORMIN HCL 500 MG TABLET PO SCH ×2 (07:30→16:50)
[2019-08-06] MEDS: OMEGA-3/DHA/EPA/FISH OIL 1,000 MG CAPSULE PO SCH (08:41)
[2019-08-06] MEDS: LITHIUM CARBONATE 600 MG CAPSULE PO SCH ×2 (08:41→16:44)
[2019-08-06] MEDS: CHOLECALCIFEROL (VIT D3) 1,000 UNITS [25 MCG] TABLET PO SCH (08:41)
[2019-08-06] MEDS: RisperiDONE 1 MG TABLET PO SCH ×2 (08:41→20:01)
[2019-08-06] MEDS: NICOTINE 21 MG/24 HOUR PATCH TD SCH (08:45)
[2019-08-06] MEDS: LinaGLIPtin 5 MG TABLET PO SCH (08:46)
[2019-08-06 12:42] VITALS: BP 111/69
[2019-08-06 16:00] VITALS: BP 115/69
[2019-08-06] MEDS: ZOLPIDEM TARTRATE 10 MG TABLET PO PRN (20:01)
[2019-08-07] MEDS: GlipiZIDE 10 MG TABLET PO SCH (06:01)
[2019-08-07] MEDS: MetFORMIN HCL 500 MG TABLET PO SCH ×2 (07:30→17:01)
[2019-08-07 08:00] VITALS: BP 128/77
[2019-08-07] MEDS: CHOLECALCIFEROL (VIT D3) 1,000 UNITS [25 MCG] TABLET PO SCH (08:03)
[2019-08-07] MEDS: RisperiDONE 1 MG TABLET PO SCH ×2 (08:03→20:14)
[2019-08-07] MEDS: OMEGA-3/DHA/EPA/FISH OIL 1,000 MG CAPSULE PO SCH (08:04)
[2019-08-07] MEDS: LITHIUM CARBONATE 600 MG CAPSULE PO SCH ×2 (08:04→16:42)
[2019-08-07] MEDS: NICOTINE 21 MG/24 HOUR PATCH TD SCH (08:05)
[2019-08-07] MEDS: LinaGLIPtin 5 MG TABLET PO SCH (08:11)
[2019-08-07 11:33] LABS: GLUCOMETER DEV NAME(LOC) 3EX.; GLUCOSE,POINT OF CARE 308 MG/DL (70-110)
[2019-08-07] MEDS: INSULIN LISPRO 100 UNITS/ML SQ PRN ×3 (11:53→21:54)
[2019-08-07 17:08] LABS: GLUCOMETER DEV NAME(LOC) 3EX.; GLUCOSE,POINT OF CARE 259 MG/DL (70-110)
[2019-08-07 17:10] VITALS: BP 101/60
[2019-08-07 20:29] LABS: GLUCOMETER DEV NAME(LOC) 3EX.; GLUCOSE,POINT OF CARE 193 MG/DL (70-110)
[2019-08-07] MEDS: ZOLPIDEM TARTRATE 10 MG TABLET PO PRN (20:56)
[2019-08-08 00:30] VITALS: BP 112/66
[2019-08-08 06:41] LABS: GLUCOMETER DEV NAME(LOC) 3E.I 2; GLUCOSE,POINT OF CARE 238 MG/DL (70-110)
[2019-08-08] MEDS: INSULIN LISPRO 100 UNITS/ML SQ PRN ×3 (06:41→20:20)
[2019-08-08] MEDS: GlipiZIDE 10 MG TABLET PO SCH (06:54)
[2019-08-08] MEDS: MetFORMIN HCL 500 MG TABLET PO SCH ×2 (07:30→16:31)
[2019-08-08] MEDS: LITHIUM CARBONATE 600 MG CAPSULE PO SCH ×2 (08:30→16:27)
[2019-08-08] MEDS: CHOLECALCIFEROL (VIT D3) 1,000 UNITS [25 MCG] TABLET PO SCH (08:31)
[2019-08-08] MEDS: LinaGLIPtin 5 MG TABLET PO SCH (08:31)
[2019-08-08] MEDS: OMEGA-3/DHA/EPA/FISH OIL 1,000 MG CAPSULE PO SCH (08:31)
[2019-08-08] MEDS: RisperiDONE 1 MG TABLET PO SCH ×2 (08:31→20:10)
[2019-08-08] MEDS: NICOTINE 21 MG/24 HOUR PATCH TD SCH (08:31)
[2019-08-08 10:18] VITALS: BP 84/55
[2019-08-08 11:46] LABS: GLUCOMETER DEV NAME(LOC) 3EX.; GLUCOSE,POINT OF CARE 311 MG/DL (70-110)
[2019-08-08 16:00] VITALS: BP 105/65
[2019-08-08 16:41] LABS: GLUCOMETER DEV NAME(LOC) 3EX.; GLUCOSE,POINT OF CARE 219 MG/DL (70-110)
[2019-08-08 20:24] LABS: GLUCOMETER DEV NAME(LOC) 3EX.; GLUCOSE,POINT OF CARE 301 MG/DL (70-110)
[2019-08-08] MEDS: ZOLPIDEM TARTRATE 10 MG TABLET PO PRN (20:56)
[2019-08-09 05:42] LABS: GLUCOMETER DEV NAME(LOC) 3E.I 2; GLUCOSE,POINT OF CARE 234 MG/DL (70-110)
[2019-08-09] MEDS: INSULIN LISPRO 100 UNITS/ML SQ PRN ×3 (06:31→17:17)
[2019-08-09] MEDS: MetFORMIN HCL 500 MG TABLET PO SCH ×2 (06:52→16:09)
[2019-08-09] MEDS: GlipiZIDE 10 MG TABLET PO SCH (06:52)
[2019-08-09 08:43] VITALS: BP 125/76
[2019-08-09] MEDS: OMEGA-3/DHA/EPA/FISH OIL 1,000 MG CAPSULE PO SCH (08:55)
[2019-08-09] MEDS: CHOLECALCIFEROL (VIT D3) 1,000 UNITS [25 MCG] TABLET PO SCH (08:55)
[2019-08-09] MEDS: RisperiDONE 1 MG TABLET PO SCH ×2 (08:55→20:04)
[2019-08-09] MEDS: LITHIUM CARBONATE 600 MG CAPSULE PO SCH ×2 (08:55→16:08)
[2019-08-09] MEDS: NICOTINE 21 MG/24 HOUR PATCH TD SCH (08:55)
[2019-08-09] MEDS: LinaGLIPtin 5 MG TABLET PO SCH (08:56)
[2019-08-09 11:47] LABS: GLUCOMETER DEV NAME(LOC) 3EX.; GLUCOSE,POINT OF CARE 353 MG/DL (70-110)
[2019-08-09 16:49] VITALS: BP 124/74
[2019-08-09] MEDS: ZOLPIDEM TARTRATE 10 MG TABLET PO PRN (20:04)
[2019-08-09 20:26] LABS: GLUCOMETER DEV NAME(LOC) 3EX.; GLUCOSE,POINT OF CARE 193 MG/DL (70-110)
[2019-08-10] MEDS: GlipiZIDE 10 MG TABLET PO SCH (06:09)
[2019-08-10] MEDS: MetFORMIN HCL 500 MG TABLET PO SCH ×2 (07:07→16:07)
[2019-08-10 08:00] VITALS: BP 106/70
[2019-08-10] MEDS: CHOLECALCIFEROL (VIT D3) 1,000 UNITS [25 MCG] TABLET PO SCH (08:56)
[2019-08-10] MEDS: RisperiDONE 1 MG TABLET PO SCH ×2 (08:56→20:20)
[2019-08-10] MEDS: OMEGA-3/DHA/EPA/FISH OIL 1,000 MG CAPSULE PO SCH (08:56)
[2019-08-10] MEDS: NICOTINE 21 MG/24 HOUR PATCH TD SCH (08:57)
[2019-08-10] MEDS: LITHIUM CARBONATE 600 MG CAPSULE PO SCH ×2 (08:57→16:02)
[2019-08-10] MEDS: LinaGLIPtin 5 MG TABLET PO SCH (08:57)
[2019-08-10 12:04] LABS: GLUCOMETER DEV NAME(LOC) 3EX.; GLUCOSE,POINT OF CARE 262 MG/DL (70-110)
[2019-08-10] MEDS: INSULIN LISPRO 100 UNITS/ML SQ PRN ×3 (12:08→20:46)
[2019-08-10 16:00] VITALS: BP 108/70
[2019-08-10 16:22] LABS: GLUCOMETER DEV NAME(LOC) 3EX.; GLUCOSE,POINT OF CARE 230 MG/DL (70-110)
[2019-08-10 20:43] LABS: GLUCOMETER DEV NAME(LOC) 3EX.; GLUCOSE,POINT OF CARE 222 MG/DL (70-110)
[2019-08-10] MEDS: ZOLPIDEM TARTRATE 10 MG TABLET PO PRN (22:07)
[2019-08-11] MEDS: GlipiZIDE 10 MG TABLET PO SCH (06:30)
[2019-08-11] MEDS: MetFORMIN HCL 500 MG TABLET PO SCH ×2 (07:00→16:55)
[2019-08-11] MEDS: INSULIN LISPRO 100 UNITS/ML SQ PRN ×4 (07:49→20:52)
[2019-08-11 07:54] LABS: GLUCOMETER DEV NAME(LOC) 3EX.; GLUCOSE,POINT OF CARE 244 MG/DL (70-110)
[2019-08-11 08:33] VITALS: BP 104/72
[2019-08-11] MEDS: CHOLECALCIFEROL (VIT D3) 1,000 UNITS [25 MCG] TABLET PO SCH (09:44)
[2019-08-11] MEDS: OMEGA-3/DHA/EPA/FISH OIL 1,000 MG CAPSULE PO SCH (09:44)
[2019-08-11] MEDS: LITHIUM CARBONATE 600 MG CAPSULE PO SCH ×2 (09:44→16:35)
[2019-08-11] MEDS: RisperiDONE 1 MG TABLET PO SCH ×2 (09:44→20:20)
[2019-08-11] MEDS: LinaGLIPtin 5 MG TABLET PO SCH (09:45)
[2019-08-11] MEDS: NICOTINE 21 MG/24 HOUR PATCH TD SCH (09:46)
[2019-08-11 11:30] LABS: GLUCOMETER DEV NAME(LOC) 3EX.; GLUCOSE,POINT OF CARE 284 MG/DL (70-110)
[2019-08-11 16:00] VITALS: BP 105/65
[2019-08-11 16:58] LABS: GLUCOMETER DEV NAME(LOC) 3EX.; GLUCOSE,POINT OF CARE 181 MG/DL (70-110)
[2019-08-11 20:35] LABS: GLUCOMETER DEV NAME(LOC) 3EX.; GLUCOSE,POINT OF CARE 255 MG/DL (70-110)
[2019-08-11] MEDS: ZOLPIDEM TARTRATE 10 MG TABLET PO PRN (21:25)
[2019-08-12] MEDS: MetFORMIN HCL 500 MG TABLET PO SCH ×2 (06:33→17:00)
[2019-08-12] MEDS: GlipiZIDE 10 MG TABLET PO SCH (06:33)
[2019-08-12 08:00] VITALS: BP 111/71
[2019-08-12] MEDS: CHOLECALCIFEROL (VIT D3) 1,000 UNITS [25 MCG] TABLET PO SCH (08:58)
[2019-08-12] MEDS: OMEGA-3/DHA/EPA/FISH OIL 1,000 MG CAPSULE PO SCH (08:59)
[2019-08-12] MEDS: LITHIUM CARBONATE 600 MG CAPSULE PO SCH ×2 (08:59→16:59)
[2019-08-12] MEDS: RisperiDONE 1 MG TABLET PO SCH ×2 (08:59→20:21)
[2019-08-12] MEDS: NICOTINE 21 MG/24 HOUR PATCH TD SCH (09:00)
[2019-08-12] MEDS: LinaGLIPtin 5 MG TABLET PO SCH (09:00)
[2019-08-12 11:55] LABS: GLUCOMETER DEV NAME(LOC) 3EX.; GLUCOSE,POINT OF CARE 391 MG/DL (70-110)
[2019-08-12] MEDS: INSULIN LISPRO 100 UNITS/ML SQ PRN ×2 (12:00→22:44)
[2019-08-12 17:06] LABS: GLUCOMETER DEV NAME(LOC) 3EX.; GLUCOSE,POINT OF CARE 231 MG/DL (70-110)
[2019-08-12] MEDS: ZOLPIDEM TARTRATE 10 MG TABLET PO PRN (20:21)
[2019-08-12 20:31] LABS: GLUCOMETER DEV NAME(LOC) 3EX.; GLUCOSE,POINT OF CARE 181 MG/DL (70-110)
[2019-08-12 20:32] VITALS: BP 105/66
[2019-08-13 05:40] LABS: GLUCOMETER DEV NAME(LOC) 3E.I 2; GLUCOSE,POINT OF CARE 238 MG/DL (70-110)
[2019-08-13] MEDS: INSULIN LISPRO 100 UNITS/ML SQ PRN ×3 (06:54→17:56)
[2019-08-13] MEDS: MetFORMIN HCL 500 MG TABLET PO SCH ×2 (06:55→16:24)
[2019-08-13] MEDS: GlipiZIDE 10 MG TABLET PO SCH (06:55)
[2019-08-13] MEDS: LITHIUM CARBONATE 600 MG CAPSULE PO SCH ×2 (08:11→16:23)
[2019-08-13] MEDS: LinaGLIPtin 5 MG TABLET PO SCH (08:11)
[2019-08-13] MEDS: OMEGA-3/DHA/EPA/FISH OIL 1,000 MG CAPSULE PO SCH (08:12)
[2019-08-13] MEDS: CHOLECALCIFEROL (VIT D3) 1,000 UNITS [25 MCG] TABLET PO SCH (08:12)
[2019-08-13] MEDS: RisperiDONE 1 MG TABLET PO SCH ×2 (08:12→20:31)
[2019-08-13] MEDS: NICOTINE 21 MG/24 HOUR PATCH TD SCH (08:12)
[2019-08-13 08:59] VITALS: BP 117/68
[2019-08-13 11:43] LABS: GLUCOMETER DEV NAME(LOC) 3EX.; GLUCOSE,POINT OF CARE 296 MG/DL (70-110)
[2019-08-13 16:00] VITALS: BP 114/61
[2019-08-13 16:30] LABS: GLUCOMETER DEV NAME(LOC) 3EX.; GLUCOSE,POINT OF CARE 273 MG/DL (70-110)
[2019-08-13 20:30] LABS: GLUCOMETER DEV NAME(LOC) 3EX.; GLUCOSE,POINT OF CARE 176 MG/DL (70-110)
[2019-08-13] MEDS: ZOLPIDEM TARTRATE 10 MG TABLET PO PRN (20:31)
[2019-08-14 05:40] LABS: GLUCOMETER DEV NAME(LOC) 3E.I 2; GLUCOSE,POINT OF CARE 291 MG/DL (70-110)
[2019-08-14] MEDS: INSULIN LISPRO 100 UNITS/ML SQ PRN ×3 (06:52→17:31)
[2019-08-14] MEDS: GlipiZIDE 10 MG TABLET PO SCH (06:53)
[2019-08-14] MEDS: MetFORMIN HCL 500 MG TABLET PO SCH ×2 (07:30→16:53)
[2019-08-14] MEDS: CHOLECALCIFEROL (VIT D3) 1,000 UNITS [25 MCG] TABLET PO SCH (08:19)
[2019-08-14] MEDS: LinaGLIPtin 5 MG TABLET PO SCH (08:19)
[2019-08-14] MEDS: RisperiDONE 1 MG TABLET PO SCH ×2 (08:19→20:14)
[2019-08-14] MEDS: NICOTINE 21 MG/24 HOUR PATCH TD SCH (08:19)
[2019-08-14] MEDS: LITHIUM CARBONATE 600 MG CAPSULE PO SCH ×2 (08:19→16:19)
[2019-08-14] MEDS: OMEGA-3/DHA/EPA/FISH OIL 1,000 MG CAPSULE PO SCH (08:20)
[2019-08-14 08:47] VITALS: BP 130/78
[2019-08-14 11:36] LABS: GLUCOMETER DEV NAME(LOC) 3EX.; GLUCOSE,POINT OF CARE 262 MG/DL (70-110)
[2019-08-14 16:29] LABS: GLUCOMETER DEV NAME(LOC) 3EX.; GLUCOSE,POINT OF CARE 276 MG/DL (70-110)
[2019-08-14 16:52] VITALS: BP 112/69
[2019-08-14] MEDS: ZOLPIDEM TARTRATE 10 MG TABLET PO PRN (20:14)
[2019-08-14 20:27] LABS: GLUCOMETER DEV NAME(LOC) 3EX.; GLUCOSE,POINT OF CARE 212 MG/DL (70-110)
[2019-08-15 05:38] LABS: GLUCOMETER DEV NAME(LOC) 3E.I 2; GLUCOSE,POINT OF CARE 236 MG/DL (70-110)
[2019-08-15] MEDS: INSULIN LISPRO 100 UNITS/ML SQ PRN ×4 (06:38→21:47)
[2019-08-15] MEDS: GlipiZIDE 10 MG TABLET PO SCH (06:41)
[2019-08-15] MEDS: MetFORMIN HCL 500 MG TABLET PO SCH ×2 (07:26→16:55)
[2019-08-15 08:00] VITALS: BP 126/67
[2019-08-15] MEDS: LinaGLIPtin 5 MG TABLET PO SCH (09:02)
[2019-08-15] MEDS: RisperiDONE 1 MG TABLET PO SCH ×2 (09:02→20:13)
[2019-08-15] MEDS: LITHIUM CARBONATE 600 MG CAPSULE PO SCH ×2 (09:02→16:00)
[2019-08-15] MEDS: OMEGA-3/DHA/EPA/FISH OIL 1,000 MG CAPSULE PO SCH (09:02)
[2019-08-15] MEDS: CHOLECALCIFEROL (VIT D3) 1,000 UNITS [25 MCG] TABLET PO SCH (09:02)
[2019-08-15] MEDS: NICOTINE 21 MG/24 HOUR PATCH TD SCH (09:02)
[2019-08-15 11:25] LABS: GLUCOMETER DEV NAME(LOC) 3EX.; GLUCOSE,POINT OF CARE 268 MG/DL (70-110)
[2019-08-15 16:00] VITALS: BP 136/86
[2019-08-15 16:15] LABS: GLUCOMETER DEV NAME(LOC) 3EX.; GLUCOSE,POINT OF CARE 204 MG/DL (70-110)
[2019-08-15] MEDS: LORazepam 2 MG TABLET PO PRN (16:27)
[2019-08-15] MEDS: ZOLPIDEM TARTRATE 10 MG TABLET PO PRN (20:21)
[2019-08-16 00:50] VITALS: BP 109/67
[2019-08-16 05:49] LABS: GLUCOMETER DEV NAME(LOC) 3E.I 2; GLUCOSE,POINT OF CARE 244 MG/DL (70-110)
[2019-08-16] MEDS: GlipiZIDE 10 MG TABLET PO SCH (06:56)
[2019-08-16] MEDS: MetFORMIN HCL 500 MG TABLET PO SCH ×2 (07:13→16:33)
[2019-08-16] MEDS: INSULIN LISPRO 100 UNITS/ML SQ PRN ×4 (07:13→20:41)
[2019-08-16 08:00] VITALS: BP 109/73
[2019-08-16] MEDS: LinaGLIPtin 5 MG TABLET PO SCH (08:27)
[2019-08-16] MEDS: RisperiDONE 1 MG TABLET PO SCH ×2 (08:27→20:21)
[2019-08-16] MEDS: CHOLECALCIFEROL (VIT D3) 1,000 UNITS [25 MCG] TABLET PO SCH (08:27)
[2019-08-16] MEDS: OMEGA-3/DHA/EPA/FISH OIL 1,000 MG CAPSULE PO SCH (08:29)
[2019-08-16] MEDS: LITHIUM CARBONATE 600 MG CAPSULE PO SCH ×2 (08:29→16:33)
[2019-08-16] MEDS: NICOTINE 21 MG/24 HOUR PATCH TD SCH (08:29)
[2019-08-16 11:46] LABS: GLUCOMETER DEV NAME(LOC) 3EX.; GLUCOSE,POINT OF CARE 278 MG/DL (70-110)
[2019-08-16 16:20] VITALS: BP 107/68
[2019-08-16 16:38] LABS: GLUCOMETER DEV NAME(LOC) 3EX.; GLUCOSE,POINT OF CARE 258 MG/DL (70-110)
[2019-08-16 20:54] LABS: GLUCOMETER DEV NAME(LOC) 3EX.; GLUCOSE,POINT OF CARE 187 MG/DL (70-110)
[2019-08-16] MEDS: ZOLPIDEM TARTRATE 10 MG TABLET PO PRN (20:54)
[2019-08-17 05:40] LABS: GLUCOMETER DEV NAME(LOC) 3E.I 2; GLUCOSE,POINT OF CARE 237 MG/DL (70-110)
[2019-08-17] MEDS: INSULIN LISPRO 100 UNITS/ML SQ PRN ×4 (06:33→20:37)
[2019-08-17] MEDS: GlipiZIDE 10 MG TABLET PO SCH (06:39)
[2019-08-17] MEDS: MetFORMIN HCL 500 MG TABLET PO SCH ×2 (06:40→16:45)
[2019-08-17] MEDS: CHOLECALCIFEROL (VIT D3) 1,000 UNITS [25 MCG] TABLET PO SCH (08:33)
[2019-08-17] MEDS: LinaGLIPtin 5 MG TABLET PO SCH (08:34)
[2019-08-17] MEDS: LITHIUM CARBONATE 600 MG CAPSULE PO SCH ×2 (08:34→16:45)
[2019-08-17] MEDS: RisperiDONE 1 MG TABLET PO SCH ×2 (08:34→20:12)
[2019-08-17] MEDS: OMEGA-3/DHA/EPA/FISH OIL 1,000 MG CAPSULE PO SCH (08:34)
[2019-08-17] MEDS: NICOTINE 21 MG/24 HOUR PATCH TD SCH (08:35)
[2019-08-17 09:08] VITALS: BP 116/65
[2019-08-17 11:46] LABS: GLUCOMETER DEV NAME(LOC) 3EX.; GLUCOSE,POINT OF CARE 317 MG/DL (70-110)
[2019-08-17 16:00] VITALS: BP 120/65
[2019-08-17 16:47] LABS: GLUCOMETER DEV NAME(LOC) 3EX.; GLUCOSE,POINT OF CARE 266 MG/DL (70-110)
[2019-08-17 20:28] LABS: GLUCOMETER DEV NAME(LOC) 3EX.; GLUCOSE,POINT OF CARE 211 MG/DL (70-110)
[2019-08-17] MEDS: ZOLPIDEM TARTRATE 10 MG TABLET PO PRN (21:37)
[2019-08-18] MEDS: MetFORMIN HCL 500 MG TABLET PO SCH ×2 (06:52→17:16)
[2019-08-18] MEDS: GlipiZIDE 10 MG TABLET PO SCH (06:52)
[2019-08-18] MEDS: RisperiDONE 1 MG TABLET PO SCH ×2 (08:21→20:47)
[2019-08-18] MEDS: OMEGA-3/DHA/EPA/FISH OIL 1,000 MG CAPSULE PO SCH (08:22)
[2019-08-18] MEDS: LinaGLIPtin 5 MG TABLET PO SCH (08:22)
[2019-08-18] MEDS: LITHIUM CARBONATE 600 MG CAPSULE PO SCH ×2 (08:22→17:09)
[2019-08-18] MEDS: CHOLECALCIFEROL (VIT D3) 1,000 UNITS [25 MCG] TABLET PO SCH (08:22)
[2019-08-18] MEDS: NICOTINE 21 MG/24 HOUR PATCH TD SCH (08:23)
[2019-08-18 08:38] VITALS: BP 124/64
[2019-08-18 11:28] LABS: GLUCOMETER DEV NAME(LOC) 3EX.; GLUCOSE,POINT OF CARE 251 MG/DL (70-110)
[2019-08-18] MEDS: INSULIN LISPRO 100 UNITS/ML SQ PRN ×3 (12:00→20:55)
[2019-08-18 16:00] VITALS: BP 106/60
[2019-08-18] MEDS: ZOLPIDEM TARTRATE 10 MG TABLET PO PRN (20:47)
[2019-08-18 20:56] LABS: GLUCOMETER DEV NAME(LOC) 3EX.; GLUCOSE,POINT OF CARE 227 MG/DL (70-110)
[2019-08-19] MEDS: INSULIN LISPRO 100 UNITS/ML SQ PRN ×4 (06:35→20:43)
[2019-08-19] MEDS: GlipiZIDE 10 MG TABLET PO SCH (06:40)
[2019-08-19] MEDS: MetFORMIN HCL 500 MG TABLET PO SCH ×2 (06:40→16:40)
[2019-08-19 06:49] LABS: GLUCOMETER DEV NAME(LOC) 3E.I 2; GLUCOSE,POINT OF CARE 197 MG/DL (70-110)
[2019-08-19] MEDS: LITHIUM CARBONATE 600 MG CAPSULE PO SCH ×2 (08:33→16:40)
[2019-08-19] MEDS: RisperiDONE 1 MG TABLET PO SCH ×2 (08:33→20:34)
[2019-08-19] MEDS: LinaGLIPtin 5 MG TABLET PO SCH (08:33)
[2019-08-19] MEDS: OMEGA-3/DHA/EPA/FISH OIL 1,000 MG CAPSULE PO SCH (08:34)
[2019-08-19] MEDS: CHOLECALCIFEROL (VIT D3) 1,000 UNITS [25 MCG] TABLET PO SCH (08:34)
[2019-08-19] MEDS: NICOTINE 21 MG/24 HOUR PATCH TD SCH (08:37)
[2019-08-19 09:25] VITALS: BP 124/69
[2019-08-19 11:25] LABS: GLUCOMETER DEV NAME(LOC) 3EX.; GLUCOSE,POINT OF CARE 306 MG/DL (70-110)
[2019-08-19 16:00] VITALS: BP 114/60
[2019-08-19 16:09] LABS: GLUCOMETER DEV NAME(LOC) 3EX.; GLUCOSE,POINT OF CARE 289 MG/DL (70-110)
[2019-08-19] MEDS: ZOLPIDEM TARTRATE 10 MG TABLET PO PRN (20:50)
[2019-08-19 20:52] LABS: GLUCOMETER DEV NAME(LOC) 3E.I 2; GLUCOSE,POINT OF CARE 189 MG/DL (70-110)
[2019-08-20] MEDS: MetFORMIN HCL 500 MG TABLET PO SCH ×2 (06:36→17:15)
[2019-08-20] MEDS: GlipiZIDE 10 MG TABLET PO SCH (06:36)
[2019-08-20 06:45] LABS: GLUCOMETER DEV NAME(LOC) 3E.I 2; GLUCOSE,POINT OF CARE 210 MG/DL (70-110)
[2019-08-20] MEDS: INSULIN LISPRO 100 UNITS/ML SQ PRN ×4 (06:48→21:33)
[2019-08-20 08:00] VITALS: BP 115/73
[2019-08-20] MEDS: OMEGA-3/DHA/EPA/FISH OIL 1,000 MG CAPSULE PO SCH (08:07)
[2019-08-20] MEDS: CHOLECALCIFEROL (VIT D3) 1,000 UNITS [25 MCG] TABLET PO SCH (08:08)
[2019-08-20] MEDS: NICOTINE 21 MG/24 HOUR PATCH TD SCH (08:08)
[2019-08-20] MEDS: LITHIUM CARBONATE 600 MG CAPSULE PO SCH ×2 (08:08→16:15)
[2019-08-20] MEDS: RisperiDONE 1 MG TABLET PO SCH ×2 (08:08→20:23)
[2019-08-20] MEDS: LinaGLIPtin 5 MG TABLET PO SCH (08:08)
[2019-08-20] MEDS: LOPERAMIDE HCL 2 MG CAPSULE PO PRN (08:09)
[2019-08-20 11:47] LABS: GLUCOMETER DEV NAME(LOC) 3EX.; GLUCOSE,POINT OF CARE 238 MG/DL (70-110)
[2019-08-20] MEDS ORDERED: TUBERCULIN, PURIFIED PROTEIN DERIVATIVE 5 TU/0.1 ML SYRINGE ID ONE (13:30)
[2019-08-20 16:09] VITALS: BP 143/96
[2019-08-20 16:28] LABS: GLUCOMETER DEV NAME(LOC) 3EX.; GLUCOSE,POINT OF CARE 236 MG/DL (70-110)
[2019-08-20 20:34] LABS: GLUCOMETER DEV NAME(LOC) 3EX.; GLUCOSE,POINT OF CARE 163 MG/DL (70-110)
[2019-08-20] MEDS: ZOLPIDEM TARTRATE 10 MG TABLET PO PRN (21:52)
[2019-08-21 05:37] LABS: GLUCOMETER DEV NAME(LOC) 3E.I 2; GLUCOSE,POINT OF CARE 202 MG/DL (70-110)
[2019-08-21] MEDS: GlipiZIDE 10 MG TABLET PO SCH (06:34)
[2019-08-21] MEDS: MetFORMIN HCL 500 MG TABLET PO SCH ×2 (06:34→17:30)
[2019-08-21] MEDS: INSULIN LISPRO 100 UNITS/ML SQ PRN ×4 (06:39→21:06)
[2019-08-21 08:00] VITALS: BP 135/83
[2019-08-21] MEDS: RisperiDONE 1 MG TABLET PO SCH ×2 (08:21→21:10)
[2019-08-21] MEDS: CHOLECALCIFEROL (VIT D3) 1,000 UNITS [25 MCG] TABLET PO SCH (08:21)
[2019-08-21] MEDS: OMEGA-3/DHA/EPA/FISH OIL 1,000 MG CAPSULE PO SCH (08:22)
[2019-08-21] MEDS: LinaGLIPtin 5 MG TABLET PO SCH (08:22)
[2019-08-21] MEDS: LITHIUM CARBONATE 600 MG CAPSULE PO SCH ×2 (08:22→16:14)
[2019-08-21] MEDS: NICOTINE 21 MG/24 HOUR PATCH TD SCH (08:22)
[2019-08-21] MEDS: LOPERAMIDE HCL 2 MG CAPSULE PO PRN (16:14)
[2019-08-21 16:43] VITALS: BP 126/72
[2019-08-21 17:48] LABS: GLUCOMETER DEV NAME(LOC) 3EX.; GLUCOSE,POINT OF CARE 318 MG/DL (70-110)
[2019-08-21 18:01] LABS: GLUCOMETER DEV NAME(LOC) 3EX.; GLUCOSE,POINT OF CARE 223 MG/DL (70-110)
[2019-08-21 21:12] LABS: GLUCOMETER DEV NAME(LOC) 3E.I 2; GLUCOSE,POINT OF CARE 193 MG/DL (70-110)
[2019-08-21] MEDS: ZOLPIDEM TARTRATE 10 MG TABLET PO PRN (23:14)
[2019-08-22 00:45] VITALS: BP 105/62
[2019-08-22 05:33] LABS: GLUCOMETER DEV NAME(LOC) 3E.I 2; GLUCOSE,POINT OF CARE 210 MG/DL (70-110)
[2019-08-22] MEDS: MetFORMIN HCL 500 MG TABLET PO SCH ×2 (06:44→16:42)
[2019-08-22] MEDS: GlipiZIDE 10 MG TABLET PO SCH (06:44)
[2019-08-22 08:00] VITALS: BP 93/46
[2019-08-22] MEDS: CHOLECALCIFEROL (VIT D3) 1,000 UNITS [25 MCG] TABLET PO SCH (08:24)
[2019-08-22] MEDS: LITHIUM CARBONATE 600 MG CAPSULE PO SCH ×2 (08:24→16:37)
[2019-08-22] MEDS: LinaGLIPtin 5 MG TABLET PO SCH (08:24)
[2019-08-22] MEDS: OMEGA-3/DHA/EPA/FISH OIL 1,000 MG CAPSULE PO SCH (08:24)
[2019-08-22] MEDS: RisperiDONE 1 MG TABLET PO SCH ×2 (08:24→20:38)
[2019-08-22] MEDS: NICOTINE 21 MG/24 HOUR PATCH TD SCH (08:25)
[2019-08-22 11:17] LABS: GLUCOMETER DEV NAME(LOC) 3EX.; GLUCOSE,POINT OF CARE 276 MG/DL (70-110)
[2019-08-22] MEDS: INSULIN LISPRO 100 UNITS/ML SQ PRN ×3 (12:24→20:48)
[2019-08-22 16:00] VITALS: BP 127/71
[2019-08-22 16:53] LABS: GLUCOMETER DEV NAME(LOC) 3EX.; GLUCOSE,POINT OF CARE 250 MG/DL (70-110)
[2019-08-22 20:53] LABS: GLUCOMETER DEV NAME(LOC) 3EX.; GLUCOSE,POINT OF CARE 198 MG/DL (70-110)
[2019-08-22] MEDS: ZOLPIDEM TARTRATE 10 MG TABLET PO PRN (23:55)
[2019-08-23 00:20] VITALS: BP 109/68
[2019-08-23] MEDS: MetFORMIN HCL 500 MG TABLET PO SCH ×2 (06:41→16:49)
[2019-08-23] MEDS: GlipiZIDE 10 MG TABLET PO SCH (06:41)
[2019-08-23] MEDS: INSULIN LISPRO 100 UNITS/ML SQ PRN ×4 (06:46→21:21)
[2019-08-23 06:51] LABS: GLUCOMETER DEV NAME(LOC) 3E.I 2; GLUCOSE,POINT OF CARE 235 MG/DL (70-110)
[2019-08-23 08:00] VITALS: BP 109/64
[2019-08-23] MEDS: OMEGA-3/DHA/EPA/FISH OIL 1,000 MG CAPSULE PO SCH (08:08)
[2019-08-23] MEDS: RisperiDONE 1 MG TABLET PO SCH ×2 (08:08→20:17)
[2019-08-23] MEDS: CHOLECALCIFEROL (VIT D3) 1,000 UNITS [25 MCG] TABLET PO SCH (08:08)
[2019-08-23] MEDS: LITHIUM CARBONATE 600 MG CAPSULE PO SCH ×2 (08:08→16:44)
[2019-08-23] MEDS: LinaGLIPtin 5 MG TABLET PO SCH (08:08)
[2019-08-23] MEDS: NICOTINE 21 MG/24 HOUR PATCH TD SCH (08:09)
[2019-08-23 11:09] LABS: GLUCOMETER DEV NAME(LOC) 3EX.; GLUCOSE,POINT OF CARE 310 MG/DL (70-110)
[2019-08-23 16:10] VITALS: BP 114/74
[2019-08-23 17:26] LABS: GLUCOMETER DEV NAME(LOC) 3EX.; GLUCOSE,POINT OF CARE 304 MG/DL (70-110)
[2019-08-23] MEDS: ZOLPIDEM TARTRATE 10 MG TABLET PO PRN (21:00)
[2019-08-23 21:16] LABS: GLUCOMETER DEV NAME(LOC) 3EX.; GLUCOSE,POINT OF CARE 238 MG/DL (70-110)
[2019-08-24 05:58] LABS: GLUCOMETER DEV NAME(LOC) 3EX.; GLUCOSE,POINT OF CARE 203 MG/DL (70-110)
[2019-08-24] MEDS: INSULIN LISPRO 100 UNITS/ML SQ PRN ×4 (06:44→21:30)
[2019-08-24] MEDS: MetFORMIN HCL 500 MG TABLET PO SCH (06:44)
[2019-08-24] MEDS: GlipiZIDE 10 MG TABLET PO SCH (06:44)
[2019-08-24] MEDS: RisperiDONE 1 MG TABLET PO SCH ×2 (08:40→20:38)
[2019-08-24] MEDS: OMEGA-3/DHA/EPA/FISH OIL 1,000 MG CAPSULE PO SCH (08:40)
[2019-08-24] MEDS: CHOLECALCIFEROL (VIT D3) 1,000 UNITS [25 MCG] TABLET PO SCH (08:40)
[2019-08-24] MEDS: LITHIUM CARBONATE 600 MG CAPSULE PO SCH ×2 (08:40→17:02)
[2019-08-24] MEDS: NICOTINE 21 MG/24 HOUR PATCH TD SCH (08:41)
[2019-08-24] MEDS: LinaGLIPtin 5 MG TABLET PO SCH (08:41)
[2019-08-24 09:00] VITALS: BP 127/79
[2019-08-24 11:37] LABS: GLUCOMETER DEV NAME(LOC) 3EX.; GLUCOSE,POINT OF CARE 285 MG/DL (70-110)
[2019-08-24 16:00] VITALS: BP 122/88
[2019-08-24 16:29] LABS: GLUCOMETER DEV NAME(LOC) 3EX.; GLUCOSE,POINT OF CARE 209 MG/DL (70-110)
[2019-08-24 20:54] LABS: GLUCOMETER DEV NAME(LOC) 3EX.; GLUCOSE,POINT OF CARE 135 MG/DL (70-110)
[2019-08-25] MEDS: ZOLPIDEM TARTRATE 10 MG TABLET PO PRN ×2 (00:13→20:31)
[2019-08-25] MEDS: INSULIN LISPRO 100 UNITS/ML SQ PRN ×4 (06:47→21:27)
[2019-08-25 06:49] LABS: GLUCOMETER DEV NAME(LOC) 3E.I 2; GLUCOSE,POINT OF CARE 186 MG/DL (70-110)
[2019-08-25 08:00] VITALS: BP 118/74
[2019-08-25] MEDS: NICOTINE 21 MG/24 HOUR PATCH TD SCH (08:47)
[2019-08-25] MEDS: RisperiDONE 1 MG TABLET PO SCH ×2 (08:47→20:31)
[2019-08-25] MEDS: LITHIUM CARBONATE 600 MG CAPSULE PO SCH ×2 (08:47→16:15)
[2019-08-25] MEDS: OMEGA-3/DHA/EPA/FISH OIL 1,000 MG CAPSULE PO SCH (08:47)
[2019-08-25] MEDS: CHOLECALCIFEROL (VIT D3) 1,000 UNITS [25 MCG] TABLET PO SCH (08:47)
[2019-08-25] MEDS: LinaGLIPtin 5 MG TABLET PO SCH (08:47)
[2019-08-25 16:37] VITALS: BP 117/70
[2019-08-25 17:27] LABS: GLUCOMETER DEV NAME(LOC) 3EX.; GLUCOSE,POINT OF CARE 286 MG/DL (70-110)
[2019-08-25 17:28] LABS: GLUCOMETER DEV NAME(LOC) 3EX.; GLUCOSE,POINT OF CARE 222 MG/DL (70-110)
[2019-08-25 21:33] LABS: GLUCOMETER DEV NAME(LOC) 3EX.; GLUCOSE,POINT OF CARE 168 MG/DL (70-110)
[2019-08-26 03:23] VITALS: BP 106/61
[2019-08-26 06:51] LABS: GLUCOMETER DEV NAME(LOC) 3E.I 2; GLUCOSE,POINT OF CARE 255 MG/DL (70-110)
[2019-08-26 08:00] VITALS: BP 110/74
[2019-08-26] MEDS: CHOLECALCIFEROL (VIT D3) 1,000 UNITS [25 MCG] TABLET PO SCH (08:10)
[2019-08-26] MEDS: RisperiDONE 1 MG TABLET PO SCH ×2 (08:10→20:04)
[2019-08-26] MEDS: LinaGLIPtin 5 MG TABLET PO SCH (08:10)
[2019-08-26] MEDS: LITHIUM CARBONATE 600 MG CAPSULE PO SCH ×2 (08:10→16:28)
[2019-08-26] MEDS: OMEGA-3/DHA/EPA/FISH OIL 1,000 MG CAPSULE PO SCH (08:10)
[2019-08-26] MEDS: NICOTINE 21 MG/24 HOUR PATCH TD SCH (08:14)
[2019-08-26] MEDS: INSULIN LISPRO 100 UNITS/ML SQ PRN ×3 (11:52→21:51)
[2019-08-26 11:57] LABS: GLUCOMETER DEV NAME(LOC) 3EX.; GLUCOSE,POINT OF CARE 254 MG/DL (70-110)
[2019-08-26 16:38] VITALS: BP 121/76
[2019-08-26 16:46] LABS: GLUCOMETER DEV NAME(LOC) 3EX.; GLUCOSE,POINT OF CARE 231 MG/DL (70-110)
[2019-08-26 20:18] LABS: GLUCOMETER DEV NAME(LOC) 3EX.; GLUCOSE,POINT OF CARE 220 MG/DL (70-110)
[2019-08-26] MEDS: ZOLPIDEM TARTRATE 10 MG TABLET PO PRN (21:44)
[2019-08-27 05:44] LABS: GLUCOMETER DEV NAME(LOC) 3E.I 2; GLUCOSE,POINT OF CARE 234 MG/DL (70-110)
[2019-08-27] MEDS: INSULIN LISPRO 100 UNITS/ML SQ PRN ×4 (06:42→20:58)
[2019-08-27 08:00] VITALS: BP 107/56
[2019-08-27] MEDS: RisperiDONE 1 MG TABLET PO SCH ×2 (08:07→20:07)
[2019-08-27] MEDS: LinaGLIPtin 5 MG TABLET PO SCH (08:07)
[2019-08-27] MEDS: OMEGA-3/DHA/EPA/FISH OIL 1,000 MG CAPSULE PO SCH (08:07)
[2019-08-27] MEDS: LITHIUM CARBONATE 600 MG CAPSULE PO SCH ×2 (08:08→16:33)
[2019-08-27] MEDS: NICOTINE 21 MG/24 HOUR PATCH TD SCH (08:08)
[2019-08-27] MEDS: CHOLECALCIFEROL (VIT D3) 1,000 UNITS [25 MCG] TABLET PO SCH (08:08)
[2019-08-27 12:28] LABS: GLUCOMETER DEV NAME(LOC) 3EX.; GLUCOSE,POINT OF CARE 237 MG/DL (70-110)
[2019-08-27 16:11] VITALS: BP 120/80
[2019-08-27 16:33] LABS: GLUCOMETER DEV NAME(LOC) 3EX.; GLUCOSE,POINT OF CARE 225 MG/DL (70-110)
[2019-08-27 20:31] LABS: GLUCOMETER DEV NAME(LOC) 3EX.; GLUCOSE,POINT OF CARE 214 MG/DL (70-110)
[2019-08-27] MEDS: ZOLPIDEM TARTRATE 10 MG TABLET PO PRN (21:41)
[2019-08-28 05:35] LABS: GLUCOMETER DEV NAME(LOC) 3E.I 2; GLUCOSE,POINT OF CARE 180 MG/DL (70-110)
[2019-08-28] MEDS: INSULIN LISPRO 100 UNITS/ML SQ PRN ×4 (06:35→20:51)
[2019-08-28 08:39] VITALS: BP 135/78
[2019-08-28] MEDS: LinaGLIPtin 5 MG TABLET PO SCH (08:43)
[2019-08-28] MEDS: OMEGA-3/DHA/EPA/FISH OIL 1,000 MG CAPSULE PO SCH (08:43)
[2019-08-28] MEDS: CHOLECALCIFEROL (VIT D3) 1,000 UNITS [25 MCG] TABLET PO SCH (08:43)
[2019-08-28] MEDS: LITHIUM CARBONATE 600 MG CAPSULE PO SCH ×2 (08:43→16:53)
[2019-08-28] MEDS: RisperiDONE 1 MG TABLET PO SCH ×2 (08:43→20:48)
[2019-08-28] MEDS: NICOTINE 21 MG/24 HOUR PATCH TD SCH (09:00)
[2019-08-28 11:28] LABS: GLUCOMETER DEV NAME(LOC) 3EX.; GLUCOSE,POINT OF CARE 256 MG/DL (70-110)
[2019-08-28 16:00] VITALS: BP 115/76
[2019-08-28 16:16] LABS: GLUCOMETER DEV NAME(LOC) 3EX.; GLUCOSE,POINT OF CARE 272 MG/DL (70-110)
[2019-08-28 20:23] LABS: GLUCOMETER DEV NAME(LOC) 3EX.; GLUCOSE,POINT OF CARE 222 MG/DL (70-110)
[2019-08-28] MEDS: ZOLPIDEM TARTRATE 10 MG TABLET PO PRN (22:28)
[2019-08-29 05:44] LABS: GLUCOMETER DEV NAME(LOC) 3E.I 2; GLUCOSE,POINT OF CARE 232 MG/DL (70-110)
[2019-08-29] MEDS: INSULIN LISPRO 100 UNITS/ML SQ PRN ×4 (06:36→20:58)
[2019-08-29 08:00] VITALS: BP 126/76
[2019-08-29] MEDS: LinaGLIPtin 5 MG TABLET PO SCH (08:24)
[2019-08-29] MEDS: LITHIUM CARBONATE 600 MG CAPSULE PO SCH ×2 (08:24→16:55)
[2019-08-29] MEDS: OMEGA-3/DHA/EPA/FISH OIL 1,000 MG CAPSULE PO SCH (08:25)
[2019-08-29] MEDS: CHOLECALCIFEROL (VIT D3) 1,000 UNITS [25 MCG] TABLET PO SCH (08:25)
[2019-08-29] MEDS: RisperiDONE 1 MG TABLET PO SCH ×2 (08:25→20:13)
[2019-08-29] MEDS: NICOTINE 21 MG/24 HOUR PATCH TD SCH (08:27)
[2019-08-29 11:10] LABS: GLUCOMETER DEV NAME(LOC) 3EX.; GLUCOSE,POINT OF CARE 215 MG/DL (70-110)
[2019-08-29 16:00] VITALS: BP 115/68
[2019-08-29 16:23] LABS: GLUCOMETER DEV NAME(LOC) 3EX.; GLUCOSE,POINT OF CARE 294 MG/DL (70-110)
[2019-08-29 21:00] LABS: GLUCOMETER DEV NAME(LOC) 3EX.; GLUCOSE,POINT OF CARE 231 MG/DL (70-110)
[2019-08-29] MEDS: ZOLPIDEM TARTRATE 10 MG TABLET PO PRN (22:34)
[2019-08-30 06:30] LABS: GLUCOMETER DEV NAME(LOC) 3E.I 2; GLUCOSE,POINT OF CARE 212 MG/DL (70-110)
[2019-08-30] MEDS: INSULIN LISPRO 100 UNITS/ML SQ PRN ×4 (06:37→20:57)
[2019-08-30] MEDS: RisperiDONE 1 MG TABLET PO SCH ×2 (08:30→20:42)
[2019-08-30] MEDS: NICOTINE 21 MG/24 HOUR PATCH TD SCH (08:30)
[2019-08-30] MEDS: CHOLECALCIFEROL (VIT D3) 1,000 UNITS [25 MCG] TABLET PO SCH (08:30)
[2019-08-30] MEDS: OMEGA-3/DHA/EPA/FISH OIL 1,000 MG CAPSULE PO SCH (08:30)
[2019-08-30] MEDS: LITHIUM CARBONATE 600 MG CAPSULE PO SCH ×2 (08:31→16:17)
[2019-08-30] MEDS: LinaGLIPtin 5 MG TABLET PO SCH (08:31)
[2019-08-30 09:07] VITALS: BP 139/86
[2019-08-30 11:35] LABS: GLUCOMETER DEV NAME(LOC) 3EX.; GLUCOSE,POINT OF CARE 326 MG/DL (70-110)
[2019-08-30 16:00] VITALS: BP 119/75
[2019-08-30 17:25] LABS: GLUCOMETER DEV NAME(LOC) 3EX.; GLUCOSE,POINT OF CARE 326 MG/DL (70-110)
[2019-08-30 21:02] LABS: GLUCOMETER DEV NAME(LOC) 3EX.; GLUCOSE,POINT OF CARE 259 MG/DL (70-110)
[2019-08-30] MEDS: ZOLPIDEM TARTRATE 10 MG TABLET PO PRN (21:30)
[2019-08-31 06:06] LABS: GLUCOMETER DEV NAME(LOC) 3E.I 2; GLUCOSE,POINT OF CARE 269 MG/DL (70-110)
[2019-08-31] MEDS: INSULIN LISPRO 100 UNITS/ML SQ PRN ×4 (06:35→21:08)
[2019-08-31] MEDS: RisperiDONE 1 MG TABLET PO SCH ×2 (08:34→20:33)
[2019-08-31] MEDS: LinaGLIPtin 5 MG TABLET PO SCH (08:34)
[2019-08-31] MEDS: CHOLECALCIFEROL (VIT D3) 1,000 UNITS [25 MCG] TABLET PO SCH (08:34)
[2019-08-31] MEDS: LITHIUM CARBONATE 600 MG CAPSULE PO SCH ×2 (08:34→16:53)
[2019-08-31] MEDS: OMEGA-3/DHA/EPA/FISH OIL 1,000 MG CAPSULE PO SCH (08:34)
[2019-08-31] MEDS: NICOTINE 21 MG/24 HOUR PATCH TD SCH (08:35)
[2019-08-31 08:53] VITALS: BP 108/66
[2019-08-31 11:32] LABS: GLUCOMETER DEV NAME(LOC) 3EX.; GLUCOSE,POINT OF CARE 323 MG/DL (70-110)
[2019-08-31 16:00] VITALS: BP 121/65
[2019-08-31 17:20] LABS: GLUCOMETER DEV NAME(LOC) 3EX.; GLUCOSE,POINT OF CARE 301 MG/DL (70-110)
[2019-08-31 20:52] LABS: GLUCOMETER DEV NAME(LOC) 3EX.; GLUCOSE,POINT OF CARE 209 MG/DL (70-110)
[2019-08-31] MEDS: ZOLPIDEM TARTRATE 10 MG TABLET PO PRN (21:34)
[2019-09-01 06:38] LABS: GLUCOMETER DEV NAME(LOC) 3E.I 2; GLUCOSE,POINT OF CARE 260 MG/DL (70-110)
[2019-09-01] MEDS: INSULIN LISPRO 100 UNITS/ML SQ PRN ×4 (06:46→21:57)
[2019-09-01 08:00] VITALS: BP 139/93
[2019-09-01] MEDS: RisperiDONE 1 MG TABLET PO SCH ×2 (08:22→20:25)
[2019-09-01] MEDS: OMEGA-3/DHA/EPA/FISH OIL 1,000 MG CAPSULE PO SCH (08:23)
[2019-09-01] MEDS: LinaGLIPtin 5 MG TABLET PO SCH (08:23)
[2019-09-01] MEDS: LITHIUM CARBONATE 600 MG CAPSULE PO SCH ×2 (08:23→16:20)
[2019-09-01] MEDS: NICOTINE 21 MG/24 HOUR PATCH TD SCH (08:23)
[2019-09-01] MEDS: CHOLECALCIFEROL (VIT D3) 1,000 UNITS [25 MCG] TABLET PO SCH (08:23)
[2019-09-01 11:51] LABS: GLUCOMETER DEV NAME(LOC) 3EX.; GLUCOSE,POINT OF CARE 292 MG/DL (70-110)
[2019-09-01 16:11] VITALS: BP 100/67
[2019-09-01 16:26] LABS: GLUCOMETER DEV NAME(LOC) 3EX.; GLUCOSE,POINT OF CARE 181 MG/DL (70-110)
[2019-09-01 20:36] LABS: GLUCOMETER DEV NAME(LOC) 3EX.; GLUCOSE,POINT OF CARE 219 MG/DL (70-110)
[2019-09-01] MEDS: ZOLPIDEM TARTRATE 10 MG TABLET PO PRN (21:49)
[2019-09-02 06:28] LABS: GLUCOMETER DEV NAME(LOC) 3E.I 2; GLUCOSE,POINT OF CARE 224 MG/DL (70-110)
[2019-09-02] MEDS: INSULIN LISPRO 100 UNITS/ML SQ PRN ×4 (06:36→21:14)
[2019-09-02 06:46] LABS: BAND NEUTROPHILS % (MANUAL) 0 % (0-5)
[2019-09-02 06:48] LABS: HEMATOCRIT 42.9 % (41-53); HEMOGLOBIN 14.5 g/dL (13.5-17.5); MEAN CORPUSCULAR HEMOGLOBIN 30.3 pg (26.0-34.0); MEAN CORPUSCULAR HGB CONC 33.9 G/dL (31.0-37.0); MEAN CORPUSCULAR VOLUME 90 fL (80-100); PLATELET COUNT (AUTO) 183 K/uL (150-450); RED BLOOD CELL COUNT(AUTO) 4.79 MIL/uL (4.50-5.90); RED CELL DISTRIBUTION WIDTH 14.3 % (11.5-14.5)
[2019-09-02 07:12] LABS: HEMOGLOBIN A1C 8.5 % (3.8-5.6)
[2019-09-02 07:20] LABS: ANION GAP 6 mmol/L (8-16); CALCIUM, TOTAL 9.1 mg/dL (8.8-10.5); CARBON DIOXIDE 31 mmol/L (22-29); CHLORIDE 101 mmol/L (98-107); CHOL/HDL RATIO 3.6 (4.2-7.3); CHOLESTEROL 160 mg/dL (131-200); GLOMERULAR FILTR. RATE CALC > 60 mL/min (>60); GLUCOSE,RANDOM 231 mg/dL (70-110); HDL CHOLESTEROL 44 mg/dL (40-60); LDL CHOL (CALC.) 96 mg/dL (0-130); PHOSPHORUS 4.2 mg/dL (2.5-4.9); POTASSIUM 3.9 mmol/L (3.5-5.1); SODIUM SERUM 138 mmol/L (136-145); TRIGLYCERIDES 98 mg/dL (15-150); UREA NITROGEN, BLOOD 23 mg/dL (7-18)
[2019-09-02 08:00] VITALS: BP 117/63
[2019-09-02] MEDS: LinaGLIPtin 5 MG TABLET PO SCH (08:15)
[2019-09-02] MEDS: OMEGA-3/DHA/EPA/FISH OIL 1,000 MG CAPSULE PO SCH (08:15)
[2019-09-02] MEDS: RisperiDONE 1 MG TABLET PO SCH ×2 (08:15→20:11)
[2019-09-02] MEDS: LITHIUM CARBONATE 600 MG CAPSULE PO SCH ×2 (08:15→16:39)
[2019-09-02] MEDS: CHOLECALCIFEROL (VIT D3) 1,000 UNITS [25 MCG] TABLET PO SCH (08:15)
[2019-09-02] MEDS: NICOTINE 21 MG/24 HOUR PATCH TD SCH (08:17)
[2019-09-02 11:50] LABS: GLUCOMETER DEV NAME(LOC) 3EX.; GLUCOSE,POINT OF CARE 357 MG/DL (70-110)
[2019-09-02 12:02] LABS: EOSINOPHILS % (MANUAL) 4 % (1-6); LYMPHOCYTES % (MANUAL) 31 % (22-44); MONOCYTES % (MANUAL) 13 % (2-9); SEGMENTED NEUTROPHILS % 52 % (40-70)
[2019-09-02 16:34] VITALS: BP 118/70
[2019-09-02 16:50] LABS: GLUCOMETER DEV NAME(LOC) 3EX.; GLUCOSE,POINT OF CARE 271 MG/DL (70-110)
[2019-09-02 20:35] LABS: GLUCOMETER DEV NAME(LOC) 3EX.; GLUCOSE,POINT OF CARE 275 MG/DL (70-110)
[2019-09-02] MEDS: ZOLPIDEM TARTRATE 10 MG TABLET PO PRN (21:27)
[2019-09-03 04:21] VITALS: BP 106/69
[2019-09-03 05:35] LABS: GLUCOMETER DEV NAME(LOC) 3E.I 2; GLUCOSE,POINT OF CARE 293 MG/DL (70-110)
[2019-09-03] MEDS: INSULIN LISPRO 100 UNITS/ML SQ PRN ×4 (06:56→21:44)
[2019-09-03 08:00] VITALS: BP 144/84
[2019-09-03] MEDS: LITHIUM CARBONATE 600 MG CAPSULE PO SCH ×2 (08:04→16:55)
[2019-09-03] MEDS: OMEGA-3/DHA/EPA/FISH OIL 1,000 MG CAPSULE PO SCH (08:04)
[2019-09-03] MEDS: RisperiDONE 1 MG TABLET PO SCH ×2 (08:04→20:19)
[2019-09-03] MEDS: CHOLECALCIFEROL (VIT D3) 1,000 UNITS [25 MCG] TABLET PO SCH (08:04)
[2019-09-03] MEDS: LinaGLIPtin 5 MG TABLET PO SCH (08:05)
[2019-09-03] MEDS: NICOTINE 21 MG/24 HOUR PATCH TD SCH (08:06)
[2019-09-03 11:22] LABS: GLUCOMETER DEV NAME(LOC) 3EX.; GLUCOSE,POINT OF CARE 323 MG/DL (70-110)
[2019-09-03 16:11] VITALS: BP 112/64
[2019-09-03 17:16] LABS: GLUCOMETER DEV NAME(LOC) 3EX.; GLUCOSE,POINT OF CARE 247 MG/DL (70-110)
[2019-09-03] MEDS: ZOLPIDEM TARTRATE 10 MG TABLET PO PRN (20:18)
[2019-09-03 20:29] LABS: GLUCOMETER DEV NAME(LOC) 3EX.; GLUCOSE,POINT OF CARE 244 MG/DL (70-110)
[2019-09-04 01:27] VITALS: BP 106/68
[2019-09-04 05:41] LABS: GLUCOMETER DEV NAME(LOC) 3E.I 2; GLUCOSE,POINT OF CARE 271 MG/DL (70-110)
[2019-09-04] MEDS: INSULIN LISPRO 100 UNITS/ML SQ PRN ×4 (06:42→21:08)
[2019-09-04 08:00] VITALS: BP 152/85
[2019-09-04] MEDS: LinaGLIPtin 5 MG TABLET PO SCH (08:11)
[2019-09-04] MEDS: CHOLECALCIFEROL (VIT D3) 1,000 UNITS [25 MCG] TABLET PO SCH (08:11)
[2019-09-04] MEDS: RisperiDONE 1 MG TABLET PO SCH ×2 (08:11→20:55)
[2019-09-04] MEDS: LITHIUM CARBONATE 600 MG CAPSULE PO SCH ×2 (08:11→17:08)
[2019-09-04] MEDS: NICOTINE 21 MG/24 HOUR PATCH TD SCH (08:12)
[2019-09-04] MEDS: OMEGA-3/DHA/EPA/FISH OIL 1,000 MG CAPSULE PO SCH (08:12)
[2019-09-04 11:19] LABS: GLUCOMETER DEV NAME(LOC) 3EX.; GLUCOSE,POINT OF CARE 261 MG/DL (70-110)
[2019-09-04 16:32] VITALS: BP 113/72
[2019-09-04 17:24] LABS: GLUCOMETER DEV NAME(LOC) 3EX.; GLUCOSE,POINT OF CARE 297 MG/DL (70-110)
[2019-09-04] MEDS: ZOLPIDEM TARTRATE 10 MG TABLET PO PRN (20:55)
[2019-09-04 21:09] LABS: GLUCOMETER DEV NAME(LOC) 3EX.; GLUCOSE,POINT OF CARE 240 MG/DL (70-110)
[2019-09-05 00:14] VITALS: BP 121/80
[2019-09-05] MEDS: INSULIN LISPRO 100 UNITS/ML SQ PRN ×2 (06:38→11:56)
[2019-09-05 06:41] LABS: GLUCOMETER DEV NAME(LOC) 3E.I 2; GLUCOSE,POINT OF CARE 236 MG/DL (70-110)
[2019-09-05 08:00] VITALS: BP 117/75
[2019-09-05] MEDS: CHOLECALCIFEROL (VIT D3) 1,000 UNITS [25 MCG] TABLET PO SCH (08:07)
[2019-09-05] MEDS: RisperiDONE 1 MG TABLET PO SCH (08:07)
[2019-09-05] MEDS: LITHIUM CARBONATE 600 MG CAPSULE PO SCH (08:07)
[2019-09-05] MEDS: OMEGA-3/DHA/EPA/FISH OIL 1,000 MG CAPSULE PO SCH (08:08)
[2019-09-05] MEDS: LinaGLIPtin 5 MG TABLET PO SCH (08:08)
[2019-09-05] MEDS: NICOTINE 21 MG/24 HOUR PATCH TD SCH (08:08)
[2019-09-05] MEDS ORDERED: OMEG-136 PO (08:39)
[2019-09-05] MEDS ORDERED: CHOL100018 PO (08:39)
[2019-09-05 12:02] LABS: GLUCOMETER DEV NAME(LOC) 3EX.; GLUCOSE,POINT OF CARE 300 MG/DL (70-110)
[2019-09-08] MEDS ORDERED: TRAZ-252 PO (09:32)
[2019-09-08] MEDS ORDERED: HALO2 PO (09:32)
== END 2019-09-05 18:27 | disposition home or self-care (01) | DRG 885 ==
LOC: 3EX 11:45
PROVIDERS: ADMIT Psychiatry & Neurology Psychiatry; ATTEND Psychiatry & Neurology Psychiatry
DX: F20.0 Paranoid schizophrenia (principal); E11.65 Type 2 diabetes mellitus with hyperglycemia; J44.9 Chronic obstructive pulmonary disease, unspecified; E11.9 Type 2 diabetes mellitus without complications; K21.9 Gastro-esophageal reflux disease without esophagitis; E78.5 Hyperlipidemia, unspecified; E55.9 Vitamin D deficiency, unspecified; F15.10 Other stimulant abuse, uncomplicated; K59.00 Constipation, unspecified; Z59.0 Homelessness; Z72.0 Tobacco use
CPT/HCPCS: 83036; 83735; 84100; 84443; 85007; 87081; G0378

== ENCOUNTER 2019-12-08 17:55 | Inpatient (IN) | payer MEDICARE, MEDICAID ==
[~2019-12-08] VITALS: Ht 172.7 cm; Wt 78.0 kg
[~2019-12-08 17:55] MED LIST changes: +INSLAN SQ; +LEVO50 PO; -METF-960 PO; +RISP1TAB48 PO; -RISP1TAB89 PO
[2019-12-08 19:51] LABS: EOSINOPHILS % (AUTO) 1.4 % (1.0-6.0); HEMATOCRIT 49.8 % (41-53); LYMPHOCYTES % (AUTO) 28.9 % (22.0-44.0); MEAN CORPUSCULAR HEMOGLOBIN 29.5 pg (26.0-34.0); MEAN CORPUSCULAR HGB CONC 34.1 G/dL (31.0-37.0); MEAN CORPUSCULAR VOLUME 87 fL (80-100); MONOCYTES # (AUTO) 0.8 K/uL (0.1-1.0); MONOCYTES % (AUTO) 12.1 % (2.0-9.0); NEUTROPHILS % (AUTO) 56.6 % (40.0-70.0); PLATELET COUNT (AUTO) 220 K/uL (150-450); RED BLOOD CELL COUNT(AUTO) 5.74 MIL/uL (4.50-5.90); RED CELL DISTRIBUTION WIDTH 14.4 % (11.5-14.5)
[2019-12-08 20:02] LABS: ANION GAP 6 mmol/L (8-16); CALCIUM, TOTAL 9.5 mg/dL (8.8-10.5); CARBON DIOXIDE 30 mmol/L (22-29); CHLORIDE 95 mmol/L (98-107); CREATININE 1.05 mg/dL (0.60-1.30); GLOMERULAR FILTR. RATE CALC > 60 mL/min (>60); GLUCOSE,RANDOM 301 mg/dL (70-110); POTASSIUM 4.7 mmol/L (3.5-5.1); SODIUM SERUM 131 mmol/L (136-145); UREA NITROGEN, BLOOD 25 mg/dL (7-18)
[2019-12-08 20:10] LABS: ALANINE AMINOTRANSFERASE 32 U/L (12-78); ALBUMIN 3.8 g/dL (3.4-5.0); ALKALINE PHOSPHATASE 77 U/L (46-116); ASPARTATE AMINOTRANSFERASE 24 U/L (15-37); BILIRUBIN,TOTAL 1.5 mg/dL (0.1-1.0); TOTAL PROTEIN, SERUM 7.7 g/dL (6.4-8.2)
[2019-12-08 20:37] LABS: LITHIUM < 0.20 mmol/L (0.60-1.20)
[2019-12-08 20:46] LABS: FREE T4 (FREE THYROXINE) 1.07 ng/dL (0.76-1.46); THYROID STIMULATING HORMONE 1.17 uIU/mL (0.36-3.74)
[2019-12-08] MEDS ORDERED: INSULIN REGULAR, HUMAN 100 UNITS/ML SQ ONE (21:00)
[2019-12-08 21:04] LABS: GLUCOSE,POINT OF CARE 274 MG/DL (70-110)
[2019-12-08 21:12] LABS: COVID AG,FIA SOURCE NASOPHARYNGEAL
[2019-12-08] MEDS ORDERED: LORazepam 2 MG TABLET PO PRN (23:30)
[2019-12-08] MEDS ORDERED: HALOPERIDOL 5 MG TABLET PO PRN (23:30)
[2019-12-09 05:27] LABS: GLUCOSE,POINT OF CARE 238 MG/DL (70-110)
[2019-12-09 09:11] LABS: GLUCOSE,POINT OF CARE 369 MG/DL (70-110)
[2019-12-09] MEDS ORDERED: DEXTROSE 50%-WATER 25 GM/50 ML SYRINGE IVP PRN (09:15)
[2019-12-09] MEDS: INSULIN LISPRO 100 UNITS/ML SQ PRN ×3 (09:19→17:20)
[2019-12-09 11:49] LABS: GLUCOMETER DEV NAME(LOC) BV2S.; GLUCOSE,POINT OF CARE 148 MG/DL (70-110)
[2019-12-09 13:49] VITALS: BP 118/53
[2019-12-09] MEDS ORDERED: GLUCAGON,HUMAN RECOMBINANT 1 MG VIAL IM PRN (15:45)
[2019-12-09 16:02] VITALS: BP 124/79
[2019-12-09] MEDS ORDERED: INFLUENZA VIRUS VACCINE QVS 2020-21 (6MO+)/PF 60 MCG/0.5 ML SYRINGE IM ONE (16:15)
[2019-12-09] MEDS: LITHIUM CARBONATE 600 MG CAPSULE PO SCH (16:58)
[2019-12-09] MEDS ORDERED: CloNIDine HCL 0.1 MG TABLET PO PRN (19:15)
[2019-12-09] MEDS ORDERED: BENZOCAINE/MENTHOL LOZENGE PO PRN (19:15)
[2019-12-09] MEDS ORDERED: DOCUSATE SODIUM 100 MG CAPSULE PO PRN (19:15)
[2019-12-09] MEDS ORDERED: PETROLATUM,WHITE 28 GM JELLY TP PRN (19:15)
[2019-12-09] MEDS ORDERED: LOPERAMIDE HCL 2 MG CAPSULE PO PRN (19:15)
[2019-12-09] MEDS ORDERED: MAG HYDROX/AL HYDROX/SIMETH ES 30 ML SUSPENSION UDCUP PO PRN (19:15)
[2019-12-09] MEDS ORDERED: ONDANSETRON HCL 4 MG TABLET PO PRN (19:15)
[2019-12-09] MEDS ORDERED: BACITRACIN 28 GM OINTMENT TP PRN (19:15)
[2019-12-09] MEDS ORDERED: OMEPRAZOLE 20 MG CAPSULE PO PRN (19:15)
[2019-12-09] MEDS ORDERED: ALBUTEROL SULFATE HFA 90 MCG/PUFF 8 GM INHALER IH PRN (19:15)
[2019-12-09] MEDS ORDERED: ACETAMINOPHEN 325 MG TABLET PO PRN (19:15)
[2019-12-09] MEDS ORDERED: IBUPROFEN 600 MG TABLET PO PRN (19:15)
[2019-12-09] MEDS ORDERED: MAGNESIUM HYDROXIDE SUSPENSION 30 ML UDCUP PO PRN (19:15)
[2019-12-09] MEDS: RisperiDONE 1 MG TABLET PO SCH (19:58)
[2019-12-09 20:34] LABS: GLUCOMETER DEV NAME(LOC) BV2S.; GLUCOSE,POINT OF CARE 204 MG/DL (70-110)
[2019-12-09] MEDS: INSULIN GLARGINE,HUM.REC.ANLOG 100 UNITS/ML SQ SCH (22:52)
[2019-12-10] MEDS: LEVOTHYROXINE SODIUM 50 MCG TABLET PO SCH (06:05)
[2019-12-10 06:19] LABS: GLUCOMETER DEV NAME(LOC) BV2S.; GLUCOSE,POINT OF CARE 263 MG/DL (70-110)
[2019-12-10] MEDS: INSULIN LISPRO 100 UNITS/ML SQ PRN (06:22)
[2019-12-10 08:10] VITALS: BP 123/76
[2019-12-10] MEDS: LITHIUM CARBONATE 600 MG CAPSULE PO SCH ×2 (08:31→16:46)
[2019-12-10] MEDS: RisperiDONE 1 MG TABLET PO SCH ×2 (08:31→20:07)
[2019-12-10 14:26] LABS: GLUCOMETER DEV NAME(LOC) BV2S.; GLUCOSE,POINT OF CARE 304 MG/DL (70-110)
[2019-12-10 16:11] VITALS: BP 103/60
[2019-12-10] MEDS: INSULIN GLARGINE,HUM.REC.ANLOG 100 UNITS/ML SQ SCH (20:07)
[2019-12-11 01:12] VITALS: BP 105/71
[2019-12-11] MEDS: LEVOTHYROXINE SODIUM 50 MCG TABLET PO SCH (06:49)
[2019-12-11 08:10] VITALS: BP 108/62
[2019-12-11] MEDS: LITHIUM CARBONATE 600 MG CAPSULE PO SCH ×2 (08:26→16:08)
[2019-12-11] MEDS: RisperiDONE 1 MG TABLET PO SCH ×2 (08:26→20:20)
[2019-12-11 10:55] LABS: GLUCOMETER DEV NAME(LOC) BV2S.; GLUCOSE,POINT OF CARE 280 MG/DL (70-110)
[2019-12-11 16:06] VITALS: BP 121/64
[2019-12-11 16:44] LABS: GLUCOMETER DEV NAME(LOC) BV2S.; GLUCOSE,POINT OF CARE 224 MG/DL (70-110)
[2019-12-11] MEDS: INSULIN LISPRO 100 UNITS/ML SQ PRN (20:23)
[2019-12-11] MEDS: INSULIN GLARGINE,HUM.REC.ANLOG 100 UNITS/ML SQ SCH (20:23)
[2019-12-11 20:59] LABS: GLUCOMETER DEV NAME(LOC) BV2S.; GLUCOSE,POINT OF CARE 284 MG/DL (70-110)
[2019-12-12 00:51] VITALS: BP 113/70
[2019-12-12] MEDS: ZOLPIDEM TARTRATE 10 MG TABLET PO PRN (00:53)
[2019-12-12] MEDS: LEVOTHYROXINE SODIUM 50 MCG TABLET PO SCH (06:51)
[2019-12-12 08:02] LABS: APPEARANCE,URINE CLEAR (CLEAR); BILIRUBIN,URINE NEGATIVE (NEGATIVE); GLUCOSE, URINE (UA) >=1000 mg/dL (NEGATIVE); KETONES,URINE NEGATIVE (NEGATIVE); LEUKOCYTE ESTERASE ,URINE NEGATIVE (NEGATIVE); NITRATE,URINE NEGATIVE (NEGATIVE); OCCULT BLOOD,URINE NEGATIVE (NEGATIVE); PROTEIN,URINE NEGATIVE (NEGATIVE)
[2019-12-12 08:07] VITALS: BP 133/89
[2019-12-12 08:07] LABS: AMPHET/METH SCREEN,URINE NEGATIVE (NEGATIVE); BARBITURATE SCREEN, URINE NEGATIVE (NEGATIVE); BENZODIAZEPINES SCREEN,URINE NEGATIVE (NEGATIVE); CANNABINOID SCREEN,URINE NEGATIVE (NEGATIVE); COCAINE SCREEN,URINE NEGATIVE (NEGATIVE); METHADONE SCREEN, URINE NEGATIVE (NEGATIVE); OPIATE SCREEN,URINE NEGATIVE (NEGATIVE); PHENCYCLIDINE SCREEN,URINE NEGATIVE (NEGATIVE)
[2019-12-12 08:21] LABS: BACTERIA,URINE None Seen /HPF (None Seen); RBC,URINE None Seen /HPF (0-2); SQUAMOUS EPITHELIAL CELL,UR Moderate /LPF (None Seen); WBC,URINE None Seen /HPF (0-5)
[2019-12-12] MEDS: LITHIUM CARBONATE 600 MG CAPSULE PO SCH ×2 (08:58→16:46)
[2019-12-12] MEDS: RisperiDONE 1 MG TABLET PO SCH ×2 (08:58→20:45)
[2019-12-12 11:38] LABS: GLUCOMETER DEV NAME(LOC) BV2S.; GLUCOSE,POINT OF CARE 336 MG/DL (70-110)
[2019-12-12] MEDS: INSULIN LISPRO 100 UNITS/ML SQ PRN ×3 (12:21→20:49)
[2019-12-12 16:02] VITALS: BP 107/66
[2019-12-12 16:13] LABS: GLUCOMETER DEV NAME(LOC) BV2S.; GLUCOSE,POINT OF CARE 175 MG/DL (70-110)
[2019-12-12 20:45] LABS: GLUCOMETER DEV NAME(LOC) BV2S.; GLUCOSE,POINT OF CARE 194 MG/DL (70-110)
[2019-12-12] MEDS: INSULIN GLARGINE,HUM.REC.ANLOG 100 UNITS/ML SQ SCH (20:48)
[2019-12-13 04:14] VITALS: BP 121/77
[2019-12-13] MEDS: LEVOTHYROXINE SODIUM 50 MCG TABLET PO SCH (07:05)
[2019-12-13 08:06] VITALS: BP 110/60
[2019-12-13] MEDS: RisperiDONE 1 MG TABLET PO SCH ×2 (08:17→20:04)
[2019-12-13] MEDS: LITHIUM CARBONATE 600 MG CAPSULE PO SCH ×2 (08:17→16:27)
[2019-12-13] MEDS: INSULIN LISPRO 100 UNITS/ML SQ PRN ×3 (10:53→20:06)
[2019-12-13 11:13] LABS: GLUCOMETER DEV NAME(LOC) BV2S.; GLUCOSE,POINT OF CARE 383 MG/DL (70-110)
[2019-12-13 16:04] VITALS: BP 122/70
[2019-12-13 16:36] LABS: GLUCOMETER DEV NAME(LOC) BV2S.; GLUCOSE,POINT OF CARE 257 MG/DL (70-110)
[2019-12-13] MEDS: INSULIN GLARGINE,HUM.REC.ANLOG 100 UNITS/ML SQ SCH (20:06)
[2019-12-13 20:10] LABS: GLUCOMETER DEV NAME(LOC) BV2S.; GLUCOSE,POINT OF CARE 195 MG/DL (70-110)
[2019-12-13] MEDS: ZOLPIDEM TARTRATE 10 MG TABLET PO PRN (23:03)
[2019-12-14 05:50] VITALS: BP 103/63
[2019-12-14] MEDS: LEVOTHYROXINE SODIUM 50 MCG TABLET PO SCH (06:30)
[2019-12-14] MEDS: LITHIUM CARBONATE 600 MG CAPSULE PO SCH ×2 (08:41→16:26)
[2019-12-14] MEDS: RisperiDONE 1 MG TABLET PO SCH ×2 (08:41→20:29)
[2019-12-14 08:49] VITALS: BP 111/60
[2019-12-14] MEDS: INSULIN LISPRO 100 UNITS/ML SQ PRN ×3 (10:53→20:35)
[2019-12-14 11:05] LABS: GLUCOMETER DEV NAME(LOC) BV2S.; GLUCOSE,POINT OF CARE 367 MG/DL (70-110)
[2019-12-14] MEDS: MetFORMIN HCL 500 MG TABLET PO SCH (16:26)
[2019-12-14 17:02] VITALS: BP 107/69
[2019-12-14 17:06] LABS: GLUCOMETER DEV NAME(LOC) BV2S.; GLUCOSE,POINT OF CARE 199 MG/DL (70-110)
[2019-12-14] MEDS: INSULIN GLARGINE,HUM.REC.ANLOG 100 UNITS/ML SQ SCH (20:34)
[2019-12-14 21:38] LABS: GLUCOMETER DEV NAME(LOC) BV2S.; GLUCOSE,POINT OF CARE 204 MG/DL (70-110)
[2019-12-15 04:36] VITALS: BP 112/69
[2019-12-15] MEDS: MetFORMIN HCL 500 MG TABLET PO SCH ×2 (06:21→17:00)
[2019-12-15] MEDS: LEVOTHYROXINE SODIUM 50 MCG TABLET PO SCH (06:21)
[2019-12-15] MEDS: INSULIN LISPRO 100 UNITS/ML SQ PRN ×3 (06:34→19:52)
[2019-12-15 06:35] LABS: GLUCOMETER DEV NAME(LOC) BV2S.; GLUCOSE,POINT OF CARE 235 MG/DL (70-110)
[2019-12-15 08:32] VITALS: BP 118/66
[2019-12-15 08:54] LABS: ANION GAP 5 mmol/L (8-16); CALCIUM, TOTAL 9.4 mg/dL (8.8-10.5); CARBON DIOXIDE 32 mmol/L (22-29); CHLORIDE 104 mmol/L (98-107); CREATININE 0.68 mg/dL (0.60-1.30); GLOMERULAR FILTR. RATE CALC > 60 mL/min (>60); GLUCOSE,RANDOM 224 mg/dL (70-110); LITHIUM 0.71 mmol/L (0.60-1.20); POTASSIUM 4.5 mmol/L (3.5-5.1); SODIUM SERUM 141 mmol/L (136-145); UREA NITROGEN, BLOOD 18 mg/dL (7-18)
[2019-12-15] MEDS: OMEGA-3/DHA/EPA/FISH OIL 1,000 MG CAPSULE PO SCH (09:38)
[2019-12-15] MEDS: RisperiDONE 1 MG TABLET PO SCH ×2 (09:38→19:40)
[2019-12-15] MEDS: LITHIUM CARBONATE 600 MG CAPSULE PO SCH ×2 (09:38→16:18)
[2019-12-15 11:21] LABS: GLUCOMETER DEV NAME(LOC) BV2S.; GLUCOSE,POINT OF CARE 285 MG/DL (70-110)
[2019-12-15 16:04] LABS: GLUCOMETER DEV NAME(LOC) BV2S.; GLUCOSE,POINT OF CARE 253 MG/DL (70-110)
[2019-12-15 16:15] VITALS: BP 116/67
[2019-12-15] MEDS: INSULIN GLARGINE,HUM.REC.ANLOG 100 UNITS/ML SQ SCH (19:52)
[2019-12-15 19:57] LABS: GLUCOMETER DEV NAME(LOC) BV2S.; GLUCOSE,POINT OF CARE 236 MG/DL (70-110)
[2019-12-15] MEDS: ZOLPIDEM TARTRATE 10 MG TABLET PO PRN (21:33)
[2019-12-16 06:00] VITALS: BP 112/75
[2019-12-16] MEDS: LEVOTHYROXINE SODIUM 50 MCG TABLET PO SCH (06:07)
[2019-12-16 06:19] LABS: GLUCOMETER DEV NAME(LOC) BV2S.; GLUCOSE,POINT OF CARE 253 MG/DL (70-110)
[2019-12-16] MEDS: INSULIN LISPRO 100 UNITS/ML SQ PRN ×4 (06:59→21:48)
[2019-12-16] MEDS: MetFORMIN HCL 500 MG TABLET PO SCH ×2 (07:00→17:00)
[2019-12-16] MEDS: RisperiDONE 1 MG TABLET PO SCH ×2 (08:35→19:51)
[2019-12-16] MEDS: LITHIUM CARBONATE 600 MG CAPSULE PO SCH ×2 (08:35→15:59)
[2019-12-16] MEDS: OMEGA-3/DHA/EPA/FISH OIL 1,000 MG CAPSULE PO SCH (08:35)
[2019-12-16 08:38] VITALS: BP 125/87
[2019-12-16 11:15] LABS: GLUCOMETER DEV NAME(LOC) BV2S.; GLUCOSE,POINT OF CARE 242 MG/DL (70-110)
[2019-12-16 16:05] VITALS: BP 105/65
[2019-12-16 16:15] LABS: GLUCOMETER DEV NAME(LOC) BV2S.; GLUCOSE,POINT OF CARE 199 MG/DL (70-110)
[2019-12-16 20:13] LABS: GLUCOMETER DEV NAME(LOC) BV2S.; GLUCOSE,POINT OF CARE 217 MG/DL (70-110)
[2019-12-16] MEDS: INSULIN GLARGINE,HUM.REC.ANLOG 100 UNITS/ML SQ SCH (21:48)
[2019-12-16] MEDS: ZOLPIDEM TARTRATE 10 MG TABLET PO PRN (22:11)
[2019-12-17 00:15] VITALS: BP 115/64
[2019-12-17] MEDS: LEVOTHYROXINE SODIUM 50 MCG TABLET PO SCH (06:08)
[2019-12-17 06:18] LABS: GLUCOMETER DEV NAME(LOC) BV2S.; GLUCOSE,POINT OF CARE 288 MG/DL (70-110)
[2019-12-17] MEDS: INSULIN LISPRO 100 UNITS/ML SQ PRN ×4 (06:44→20:10)
[2019-12-17] MEDS: MetFORMIN HCL 500 MG TABLET PO SCH ×2 (07:00→17:00)
[2019-12-17 08:16] VITALS: BP 107/61
[2019-12-17] MEDS: OMEGA-3/DHA/EPA/FISH OIL 1,000 MG CAPSULE PO SCH (08:41)
[2019-12-17] MEDS: LITHIUM CARBONATE 600 MG CAPSULE PO SCH ×2 (08:41→16:13)
[2019-12-17] MEDS: RisperiDONE 1 MG TABLET PO SCH ×2 (08:41→20:07)
[2019-12-17 11:13] LABS: GLUCOMETER DEV NAME(LOC) BV2S.; GLUCOSE,POINT OF CARE 291 MG/DL (70-110)
[2019-12-17 16:19] LABS: GLUCOMETER DEV NAME(LOC) BV2S.; GLUCOSE,POINT OF CARE 273 MG/DL (70-110)
[2019-12-17 16:29] VITALS: BP 107/64
[2019-12-17] MEDS: INSULIN GLARGINE,HUM.REC.ANLOG 100 UNITS/ML SQ SCH (20:10)
[2019-12-17] MEDS: ZOLPIDEM TARTRATE 10 MG TABLET PO PRN (23:05)
[2019-12-18 06:15] VITALS: BP 123/59
[2019-12-18] MEDS: MetFORMIN HCL 500 MG TABLET PO SCH ×2 (06:19→17:00)
[2019-12-18] MEDS: INSULIN LISPRO 100 UNITS/ML SQ PRN ×3 (06:19→17:34)
[2019-12-18] MEDS: LEVOTHYROXINE SODIUM 50 MCG TABLET PO SCH (06:20)
[2019-12-18 08:15] VITALS: BP 113/69
[2019-12-18 08:24] LABS: GLUCOMETER DEV NAME(LOC) BV2S.; GLUCOSE,POINT OF CARE 248 MG/DL (70-110)
[2019-12-18 08:26] LABS: GLUCOMETER DEV NAME(LOC) BV2S.; GLUCOSE,POINT OF CARE 255 MG/DL (70-110)
[2019-12-18] MEDS: RisperiDONE 1 MG TABLET PO SCH ×2 (08:28→19:58)
[2019-12-18] MEDS: OMEGA-3/DHA/EPA/FISH OIL 1,000 MG CAPSULE PO SCH (08:29)
[2019-12-18] MEDS: LITHIUM CARBONATE 600 MG CAPSULE PO SCH ×2 (08:29→16:23)
[2019-12-18 11:13] LABS: GLUCOMETER DEV NAME(LOC) BV2S.; GLUCOSE,POINT OF CARE 326 MG/DL (70-110)
[2019-12-18 16:15] VITALS: BP 117/70
[2019-12-18 20:02] LABS: GLUCOMETER DEV NAME(LOC) BV2S.; GLUCOSE,POINT OF CARE 289 MG/DL (70-110)
[2019-12-18] MEDS: ZOLPIDEM TARTRATE 10 MG TABLET PO PRN (20:33)
[2019-12-18] MEDS: INSULIN GLARGINE,HUM.REC.ANLOG 100 UNITS/ML SQ SCH (21:09)
[2019-12-19] MEDS: LEVOTHYROXINE SODIUM 50 MCG TABLET PO SCH (06:15)
[2019-12-19] MEDS: INSULIN LISPRO 100 UNITS/ML SQ PRN ×4 (06:22→20:06)
[2019-12-19] MEDS: INSULIN GLARGINE,HUM.REC.ANLOG 100 UNITS/ML SQ SCH ×2 (06:24→20:06)
[2019-12-19] MEDS: MetFORMIN HCL 500 MG TABLET PO SCH ×2 (06:25→16:27)
[2019-12-19 06:30] LABS: GLUCOMETER DEV NAME(LOC) BV2S.; GLUCOSE,POINT OF CARE 217 MG/DL (70-110)
[2019-12-19 06:33] VITALS: BP 117/70
[2019-12-19] MEDS: RisperiDONE 1 MG TABLET PO SCH ×2 (08:12→20:02)
[2019-12-19] MEDS: OMEGA-3/DHA/EPA/FISH OIL 1,000 MG CAPSULE PO SCH (08:12)
[2019-12-19] MEDS: LITHIUM CARBONATE 600 MG CAPSULE PO SCH ×2 (08:12→16:25)
[2019-12-19] MEDS: NICOTINE 21 MG/24 HOUR PATCH TD PRN (08:12)
[2019-12-19 09:41] VITALS: BP 124/60
[2019-12-19 11:01] LABS: GLUCOMETER DEV NAME(LOC) BV2S.; GLUCOSE,POINT OF CARE 262 MG/DL (70-110)
[2019-12-19 16:16] VITALS: BP 108/67
[2019-12-19 16:36] LABS: GLUCOMETER DEV NAME(LOC) BV2S.; GLUCOSE,POINT OF CARE 188 MG/DL (70-110)
[2019-12-19 20:57] LABS: GLUCOMETER DEV NAME(LOC) BV2S.; GLUCOSE,POINT OF CARE 146 MG/DL (70-110)
[2019-12-19] MEDS: ZOLPIDEM TARTRATE 10 MG TABLET PO PRN (21:41)
[2019-12-20 00:45] VITALS: BP 117/70
[2019-12-20] MEDS: LEVOTHYROXINE SODIUM 50 MCG TABLET PO SCH (06:23)
[2019-12-20 06:24] LABS: GLUCOMETER DEV NAME(LOC) BV2S.; GLUCOSE,POINT OF CARE 165 MG/DL (70-110)
[2019-12-20] MEDS: INSULIN GLARGINE,HUM.REC.ANLOG 100 UNITS/ML SQ SCH ×2 (06:33→20:14)
[2019-12-20] MEDS: INSULIN LISPRO 100 UNITS/ML SQ PRN ×4 (06:34→20:14)
[2019-12-20] MEDS: MetFORMIN HCL 500 MG TABLET PO SCH ×2 (06:36→16:19)
[2019-12-20] MEDS: LITHIUM CARBONATE 600 MG CAPSULE PO SCH ×2 (08:26→16:17)
[2019-12-20] MEDS: RisperiDONE 1 MG TABLET PO SCH ×2 (08:26→20:12)
[2019-12-20] MEDS: OMEGA-3/DHA/EPA/FISH OIL 1,000 MG CAPSULE PO SCH (08:26)
[2019-12-20] MEDS: NICOTINE 21 MG/24 HOUR PATCH TD PRN (08:57)
[2019-12-20 10:03] VITALS: BP 124/87
[2019-12-20 11:05] LABS: GLUCOMETER DEV NAME(LOC) BV2S.; GLUCOSE,POINT OF CARE 260 MG/DL (70-110)
[2019-12-20 16:17] VITALS: BP 115/60
[2019-12-20 16:56] LABS: GLUCOMETER DEV NAME(LOC) BV2S.; GLUCOSE,POINT OF CARE 180 MG/DL (70-110)
[2019-12-20 20:59] LABS: GLUCOMETER DEV NAME(LOC) BV2S.; GLUCOSE,POINT OF CARE 219 MG/DL (70-110)
[2019-12-20] MEDS: ZOLPIDEM TARTRATE 10 MG TABLET PO PRN (20:59)
[2019-12-21 00:48] VITALS: BP 118/64
[2019-12-21 06:46] LABS: GLUCOMETER DEV NAME(LOC) BV2S.; GLUCOSE,POINT OF CARE 196 MG/DL (70-110)
[2019-12-21] MEDS: LEVOTHYROXINE SODIUM 50 MCG TABLET PO SCH (06:50)
[2019-12-21] MEDS: INSULIN LISPRO 100 UNITS/ML SQ PRN ×4 (06:58→20:13)
[2019-12-21] MEDS: INSULIN GLARGINE,HUM.REC.ANLOG 100 UNITS/ML SQ SCH ×2 (06:58→20:14)
[2019-12-21] MEDS: MetFORMIN HCL 500 MG TABLET PO SCH ×2 (07:00→16:47)
[2019-12-21 08:32] VITALS: BP 128/76
[2019-12-21] MEDS: LITHIUM CARBONATE 600 MG CAPSULE PO SCH ×2 (08:34→16:21)
[2019-12-21] MEDS: OMEGA-3/DHA/EPA/FISH OIL 1,000 MG CAPSULE PO SCH (08:34)
[2019-12-21] MEDS: RisperiDONE 1 MG TABLET PO SCH ×2 (08:34→20:10)
[2019-12-21 11:00] LABS: GLUCOMETER DEV NAME(LOC) BV2S.; GLUCOSE,POINT OF CARE 264 MG/DL (70-110)
[2019-12-21 16:14] VITALS: BP 117/71
[2019-12-21] MEDS: NICOTINE 21 MG/24 HOUR PATCH TD PRN (16:21)
[2019-12-21 17:06] LABS: GLUCOMETER DEV NAME(LOC) BV2S.; GLUCOSE,POINT OF CARE 200 MG/DL (70-110)
[2019-12-21 21:09] LABS: GLUCOMETER DEV NAME(LOC) BV2S.; GLUCOSE,POINT OF CARE 189 MG/DL (70-110)
[2019-12-21] MEDS: ZOLPIDEM TARTRATE 10 MG TABLET PO PRN (22:02)
[2019-12-22 05:33] VITALS: BP 119/76
[2019-12-22] MEDS: LEVOTHYROXINE SODIUM 50 MCG TABLET PO SCH (06:34)
[2019-12-22 06:45] LABS: GLUCOMETER DEV NAME(LOC) BV2S.; GLUCOSE,POINT OF CARE 186 MG/DL (70-110)
[2019-12-22] MEDS: MetFORMIN HCL 500 MG TABLET PO SCH ×2 (06:52→16:51)
[2019-12-22] MEDS: INSULIN GLARGINE,HUM.REC.ANLOG 100 UNITS/ML SQ SCH ×2 (06:57→20:57)
[2019-12-22] MEDS: INSULIN LISPRO 100 UNITS/ML SQ PRN ×4 (06:57→20:57)
[2019-12-22] MEDS: LITHIUM CARBONATE 600 MG CAPSULE PO SCH ×2 (08:31→15:57)
[2019-12-22] MEDS: RisperiDONE 1 MG TABLET PO SCH ×2 (08:31→20:17)
[2019-12-22] MEDS: OMEGA-3/DHA/EPA/FISH OIL 1,000 MG CAPSULE PO SCH (08:31)
[2019-12-22 08:57] VITALS: BP 130/78
[2019-12-22 10:59] LABS: GLUCOMETER DEV NAME(LOC) BV2S.; GLUCOSE,POINT OF CARE 209 MG/DL (70-110)
[2019-12-22 16:07] VITALS: BP 126/71
[2019-12-22 16:15] LABS: GLUCOMETER DEV NAME(LOC) BV2S.; GLUCOSE,POINT OF CARE 238 MG/DL (70-110)
[2019-12-22] MEDS: ZOLPIDEM TARTRATE 10 MG TABLET PO PRN (20:17)
[2019-12-22 20:27] LABS: GLUCOMETER DEV NAME(LOC) BV2S.; GLUCOSE,POINT OF CARE 181 MG/DL (70-110)
[2019-12-23 06:15] VITALS: BP 116/70
[2019-12-23] MEDS: LEVOTHYROXINE SODIUM 50 MCG TABLET PO SCH (06:24)
[2019-12-23] MEDS: INSULIN GLARGINE,HUM.REC.ANLOG 100 UNITS/ML SQ SCH ×2 (06:27→20:17)
[2019-12-23 06:35] LABS: GLUCOMETER DEV NAME(LOC) BV2S.; GLUCOSE,POINT OF CARE 166 MG/DL (70-110)
[2019-12-23] MEDS: MetFORMIN HCL 500 MG TABLET PO SCH ×2 (06:47→16:09)
[2019-12-23] MEDS: INSULIN LISPRO 100 UNITS/ML SQ PRN ×4 (06:51→20:20)
[2019-12-23] MEDS: RisperiDONE 1 MG TABLET PO SCH ×2 (09:46→20:12)
[2019-12-23] MEDS: OMEGA-3/DHA/EPA/FISH OIL 1,000 MG CAPSULE PO SCH (09:46)
[2019-12-23] MEDS: LITHIUM CARBONATE 600 MG CAPSULE PO SCH ×2 (09:46→16:09)
[2019-12-23 10:54] LABS: GLUCOMETER DEV NAME(LOC) BV2S.; GLUCOSE,POINT OF CARE 280 MG/DL (70-110)
[2019-12-23 13:21] VITALS: BP 108/52
[2019-12-23 15:47] LABS: GLUCOMETER DEV NAME(LOC) BV2S.; GLUCOSE,POINT OF CARE 129 MG/DL (70-110)
[2019-12-23 16:12] VITALS: BP 105/60
[2019-12-23 19:54] LABS: GLUCOMETER DEV NAME(LOC) BV2S.; GLUCOSE,POINT OF CARE 220 MG/DL (70-110)
[2019-12-23] MEDS: ZOLPIDEM TARTRATE 10 MG TABLET PO PRN (20:12)
[2019-12-24 01:17] VITALS: BP 108/71
[2019-12-24] MEDS: MetFORMIN HCL 500 MG TABLET PO SCH ×2 (07:00→17:00)
[2019-12-24] MEDS: LEVOTHYROXINE SODIUM 50 MCG TABLET PO SCH (07:00)
[2019-12-24 07:04] LABS: GLUCOMETER DEV NAME(LOC) BV2S.; GLUCOSE,POINT OF CARE 205 MG/DL (70-110)
[2019-12-24] MEDS: INSULIN GLARGINE,HUM.REC.ANLOG 100 UNITS/ML SQ SCH ×2 (07:09→20:25)
[2019-12-24] MEDS: INSULIN LISPRO 100 UNITS/ML SQ PRN ×4 (07:12→20:24)
[2019-12-24 08:05] VITALS: BP 111/61
[2019-12-24] MEDS: OMEGA-3/DHA/EPA/FISH OIL 1,000 MG CAPSULE PO SCH (08:52)
[2019-12-24] MEDS: LITHIUM CARBONATE 600 MG CAPSULE PO SCH ×2 (08:52→16:09)
[2019-12-24] MEDS: RisperiDONE 1 MG TABLET PO SCH ×2 (08:52→20:21)
[2019-12-24 11:15] LABS: GLUCOMETER DEV NAME(LOC) BV2S.; GLUCOSE,POINT OF CARE 207 MG/DL (70-110)
[2019-12-24 16:04] VITALS: BP 117/66
[2019-12-24 16:48] LABS: GLUCOMETER DEV NAME(LOC) BV2S.; GLUCOSE,POINT OF CARE 209 MG/DL (70-110)
[2019-12-24 20:51] LABS: GLUCOMETER DEV NAME(LOC) BV2S.; GLUCOSE,POINT OF CARE 245 MG/DL (70-110)
[2019-12-25 00:18] VITALS: BP 108/81
[2019-12-25] MEDS: LEVOTHYROXINE SODIUM 50 MCG TABLET PO SCH (06:43)
[2019-12-25] MEDS: INSULIN GLARGINE,HUM.REC.ANLOG 100 UNITS/ML SQ SCH ×2 (06:46→20:27)
[2019-12-25] MEDS: MetFORMIN HCL 500 MG TABLET PO SCH ×2 (07:00→16:59)
[2019-12-25 07:30] LABS: GLUCOMETER DEV NAME(LOC) BV2S.; GLUCOSE,POINT OF CARE 195 MG/DL (70-110)
[2019-12-25 08:08] VITALS: BP 110/64
[2019-12-25] MEDS: RisperiDONE 1 MG TABLET PO SCH ×2 (08:40→20:23)
[2019-12-25] MEDS: OMEGA-3/DHA/EPA/FISH OIL 1,000 MG CAPSULE PO SCH (08:40)
[2019-12-25] MEDS: LITHIUM CARBONATE 600 MG CAPSULE PO SCH ×2 (08:40→16:59)
[2019-12-25 11:05] LABS: GLUCOMETER DEV NAME(LOC) BV2S.; GLUCOSE,POINT OF CARE 263 MG/DL (70-110)
[2019-12-25 16:24] VITALS: BP 110/68
[2019-12-25] MEDS: INSULIN LISPRO 100 UNITS/ML SQ PRN ×2 (16:32→20:27)
[2019-12-25] MEDS: NICOTINE 21 MG/24 HOUR PATCH TD PRN (17:00)
[2019-12-25 17:14] LABS: GLUCOMETER DEV NAME(LOC) BV2S.; GLUCOSE,POINT OF CARE 190 MG/DL (70-110)
[2019-12-25 20:49] LABS: GLUCOMETER DEV NAME(LOC) BV2S.; GLUCOSE,POINT OF CARE 219 MG/DL (70-110)
[2019-12-25] MEDS: ZOLPIDEM TARTRATE 10 MG TABLET PO PRN (21:32)
[2019-12-26 06:07] VITALS: BP 118/78
[2019-12-26 06:15] LABS: GLUCOMETER DEV NAME(LOC) BV2S.; GLUCOSE,POINT OF CARE 191 MG/DL (70-110)
[2019-12-26] MEDS: LEVOTHYROXINE SODIUM 50 MCG TABLET PO SCH (06:49)
[2019-12-26] MEDS: MetFORMIN HCL 500 MG TABLET PO SCH ×2 (06:49→16:31)
[2019-12-26] MEDS: INSULIN GLARGINE,HUM.REC.ANLOG 100 UNITS/ML SQ SCH ×2 (06:50→21:29)
[2019-12-26] MEDS: INSULIN LISPRO 100 UNITS/ML SQ PRN ×4 (06:53→21:29)
[2019-12-26] MEDS: OMEGA-3/DHA/EPA/FISH OIL 1,000 MG CAPSULE PO SCH (08:11)
[2019-12-26] MEDS: LITHIUM CARBONATE 600 MG CAPSULE PO SCH ×2 (08:11→16:31)
[2019-12-26] MEDS: RisperiDONE 1 MG TABLET PO SCH ×2 (08:11→20:20)
[2019-12-26 08:54] VITALS: BP 125/90
[2019-12-26 11:08] LABS: GLUCOMETER DEV NAME(LOC) BV2S.; GLUCOSE,POINT OF CARE 197 MG/DL (70-110)
[2019-12-26 16:22] VITALS: BP 110/74
[2019-12-26 20:21] LABS: GLUCOMETER DEV NAME(LOC) BV2S.; GLUCOSE,POINT OF CARE 194 MG/DL (70-110)
[2019-12-26 20:21] LABS: GLUCOMETER DEV NAME(LOC) BV2S.; GLUCOSE,POINT OF CARE 240 MG/DL (70-110)
[2019-12-26] MEDS: ZOLPIDEM TARTRATE 10 MG TABLET PO PRN (20:43)
[2019-12-27 05:29] VITALS: BP 110/87
[2019-12-27] MEDS: MetFORMIN HCL 500 MG TABLET PO SCH ×2 (07:00→16:49)
[2019-12-27] MEDS: INSULIN LISPRO 100 UNITS/ML SQ PRN ×2 (07:13→16:29)
[2019-12-27] MEDS: INSULIN GLARGINE,HUM.REC.ANLOG 100 UNITS/ML SQ SCH ×2 (07:14→20:20)
[2019-12-27] MEDS: LEVOTHYROXINE SODIUM 50 MCG TABLET PO SCH (07:14)
[2019-12-27 07:22] LABS: GLUCOMETER DEV NAME(LOC) BV2S.; GLUCOSE,POINT OF CARE 209 MG/DL (70-110)
[2019-12-27] MEDS: OMEGA-3/DHA/EPA/FISH OIL 1,000 MG CAPSULE PO SCH (08:09)
[2019-12-27] MEDS: LITHIUM CARBONATE 600 MG CAPSULE PO SCH ×2 (08:09→16:28)
[2019-12-27] MEDS: RisperiDONE 1 MG TABLET PO SCH ×2 (08:09→20:16)
[2019-12-27 08:43] VITALS: BP 117/69
[2019-12-27 11:32] LABS: GLUCOMETER DEV NAME(LOC) BV2S.; GLUCOSE,POINT OF CARE 275 MG/DL (70-110)
[2019-12-27 16:08] VITALS: BP 135/75
[2019-12-27 16:50] LABS: GLUCOMETER DEV NAME(LOC) BV2S.; GLUCOSE,POINT OF CARE 265 MG/DL (70-110)
[2019-12-27 21:07] LABS: GLUCOMETER DEV NAME(LOC) BV2S.; GLUCOSE,POINT OF CARE 265 MG/DL (70-110)
[2019-12-28 05:50] VITALS: BP 126/80
[2019-12-28 06:16] VITALS: BP 114/69
[2019-12-28] MEDS: INSULIN GLARGINE,HUM.REC.ANLOG 100 UNITS/ML SQ SCH ×2 (06:30→20:21)
[2019-12-28] MEDS: LEVOTHYROXINE SODIUM 50 MCG TABLET PO SCH (06:30)
[2019-12-28] MEDS: MetFORMIN HCL 500 MG TABLET PO SCH ×2 (07:00→16:50)
[2019-12-28 08:35] VITALS: BP 116/76
[2019-12-28] MEDS: RisperiDONE 1 MG TABLET PO SCH ×2 (08:40→20:18)
[2019-12-28] MEDS: LITHIUM CARBONATE 600 MG CAPSULE PO SCH ×2 (08:40→16:50)
[2019-12-28] MEDS: OMEGA-3/DHA/EPA/FISH OIL 1,000 MG CAPSULE PO SCH (08:40)
[2019-12-28] MEDS: INSULIN LISPRO 100 UNITS/ML SQ PRN ×2 (11:00→20:21)
[2019-12-28 11:54] LABS: GLUCOMETER DEV NAME(LOC) BV2S.; GLUCOSE,POINT OF CARE 251 MG/DL (70-110)
[2019-12-28 16:13] VITALS: BP 115/70
[2019-12-28 17:10] LABS: GLUCOMETER DEV NAME(LOC) BV2S.; GLUCOSE,POINT OF CARE 232 MG/DL (70-110)
[2019-12-28 20:43] LABS: GLUCOMETER DEV NAME(LOC) BV2S.; GLUCOSE,POINT OF CARE 259 MG/DL (70-110)
[2019-12-28] MEDS: ZOLPIDEM TARTRATE 10 MG TABLET PO PRN (20:45)
[2019-12-29] MEDS: INSULIN GLARGINE,HUM.REC.ANLOG 100 UNITS/ML SQ SCH (06:30)
[2019-12-29 06:31] VITALS: BP 115/73
[2019-12-29] MEDS: LEVOTHYROXINE SODIUM 50 MCG TABLET PO SCH (06:54)
[2019-12-29] MEDS: MetFORMIN HCL 500 MG TABLET PO SCH ×2 (06:54→17:00)
[2019-12-29 08:31] VITALS: BP 111/69
[2019-12-29] MEDS: RisperiDONE 1 MG TABLET PO SCH (09:45)
[2019-12-29] MEDS: OMEGA-3/DHA/EPA/FISH OIL 1,000 MG CAPSULE PO SCH (09:45)
[2019-12-29] MEDS: LITHIUM CARBONATE 600 MG CAPSULE PO SCH ×2 (09:46→16:18)
[2019-12-29 11:37] LABS: GLUCOMETER DEV NAME(LOC) BV2S.; GLUCOSE,POINT OF CARE 267 MG/DL (70-110)
[2019-12-29] MEDS: INSULIN LISPRO 100 UNITS/ML SQ PRN ×2 (11:38→17:28)
[2019-12-29 16:29] LABS: GLUCOMETER DEV NAME(LOC) BV2S.; GLUCOSE,POINT OF CARE 227 MG/DL (70-110)
[2019-12-29] MEDS ORDERED: INSLAN SQ ×2 (16:46→16:47)
[2019-12-29 16:51] VITALS: BP 142/92
== END 2019-12-29 18:33 | disposition home or self-care (01) | DRG 885 ==
LOC: EMS 17:55 → B2S 12-09 09:52
PROVIDERS: ADMIT Psychiatry & Neurology Psychiatry; ATTEND Psychiatry & Neurology Psychiatry
DX: F25.0 Schizoaffective disorder, bipolar type (principal); E11.65 Type 2 diabetes mellitus with hyperglycemia; R45.851 Suicidal ideations; R45.850 Homicidal ideations; G47.00 Insomnia, unspecified; F41.9 Anxiety disorder, unspecified; K59.00 Constipation, unspecified; K21.9 Gastro-esophageal reflux disease without esophagitis; F17.210 Nicotine dependence, cigarettes, uncomplicated; F15.10 Other stimulant abuse, uncomplicated; F12.90 Cannabis use, unspecified, uncomplicated; Z28.21 Immunization not carried out because of patient refusal; Z03.818 Encounter for observation for suspected exposure to other biological agents ruled out
CPT/HCPCS: 84439; 84443; 87081; 87426; 90686; G0480; J1815

== ENCOUNTER 2020-01-01 11:00 | Inpatient (IN) | payer MEDICARE, MEDICAID ==
[~2020-01-01] VITALS: Ht 177.8 cm; Wt 89.4 kg
[~2020-01-01 11:00] MED LIST changes: -GLIP10 PO; -LINA5TAB PO
[2020-01-01] MEDS ORDERED: INFLUENZA VIRUS VACCINE QVS 2020-21 (6MO+)/PF 60 MCG/0.5 ML SYRINGE IM ONE (17:45)
[2020-01-01 18:00] VITALS: BP 128/76
[2020-01-01] MEDS: HALOPERIDOL 5 MG TABLET PO PRN (18:44)
[2020-01-01] MEDS: LORazepam 2 MG TABLET PO PRN (18:44)
[2020-01-01] MEDS ORDERED: DiphenhydrAMINE HCL 50 MG/ML VIAL ONE (18:47)
[2020-01-01] MEDS ORDERED: HALOPERIDOL LACTATE 5 MG/ML VIAL ONE (18:47)
[2020-01-01] MEDS ORDERED: LORazepam 2 MG/ML VIAL ONE (18:47)
[2020-01-01 18:49] LABS: GLUCOMETER DEV NAME(LOC) BV2S.; GLUCOSE,POINT OF CARE 317 MG/DL (70-110)
[2020-01-01] MEDS ORDERED: LORazepam 2 MG/ML VIAL IM ONE (19:00)
[2020-01-01] MEDS ORDERED: DiphenhydrAMINE HCL 50 MG/ML VIAL IM ONE (19:00)
[2020-01-01] MEDS ORDERED: GLUCAGON,HUMAN RECOMBINANT 1 MG VIAL IM PRN (19:00)
[2020-01-01] MEDS ORDERED: HALOPERIDOL LACTATE 5 MG/ML VIAL IM ONE (19:00)
[2020-01-01] MEDS: INSULIN LISPRO 100 UNITS/ML SQ PRN (19:09)
[2020-01-01] MEDS: INSULIN GLARGINE,HUM.REC.ANLOG 100 UNITS/ML SQ SCH (21:00)
[2020-01-02 06:17] VITALS: BP 132/78
[2020-01-02] MEDS: LEVOTHYROXINE SODIUM 50 MCG TABLET PO SCH (06:19)
[2020-01-02 08:07] VITALS: BP 109/59
[2020-01-02] MEDS: INSULIN GLARGINE,HUM.REC.ANLOG 100 UNITS/ML SQ SCH ×2 (08:35→20:09)
[2020-01-02 16:29] LABS: GLUCOMETER DEV NAME(LOC) BV2S.; GLUCOSE,POINT OF CARE 262 MG/DL (70-110)
[2020-01-02 16:30] VITALS: BP 131/82
[2020-01-02] MEDS: INSULIN LISPRO 100 UNITS/ML SQ PRN (16:32)
[2020-01-03 05:48] VITALS: BP 135/84
[2020-01-03] MEDS: LEVOTHYROXINE SODIUM 50 MCG TABLET PO SCH (06:28)
[2020-01-03] MEDS: OMEGA-3/DHA/EPA/FISH OIL 1,000 MG CAPSULE PO SCH (08:26)
[2020-01-03] MEDS: INSULIN GLARGINE,HUM.REC.ANLOG 100 UNITS/ML SQ SCH ×2 (08:29→20:26)
[2020-01-03 16:16] VITALS: BP 119/72
[2020-01-03 16:29] LABS: GLUCOMETER DEV NAME(LOC) BV2S.; GLUCOSE,POINT OF CARE 219 MG/DL (70-110)
[2020-01-03] MEDS: INSULIN LISPRO 100 UNITS/ML SQ PRN ×2 (17:14→20:25)
[2020-01-03] MEDS: RisperiDONE 1 MG TABLET PO SCH (20:15)
[2020-01-03 20:32] LABS: GLUCOMETER DEV NAME(LOC) BV2S.; GLUCOSE,POINT OF CARE 261 MG/DL (70-110)
[2020-01-03] MEDS: ZOLPIDEM TARTRATE 10 MG TABLET PO PRN (20:32)
[2020-01-04 05:50] VITALS: BP 141/84
[2020-01-04] MEDS: LEVOTHYROXINE SODIUM 50 MCG TABLET PO SCH (06:30)
[2020-01-04 08:19] LABS: APPEARANCE,URINE CLEAR (CLEAR); BILIRUBIN,URINE NEGATIVE (NEGATIVE); GLUCOSE, URINE (UA) 500 mg/dL (NEGATIVE); KETONES,URINE NEGATIVE (NEGATIVE); LEUKOCYTE ESTERASE ,URINE NEGATIVE (NEGATIVE); NITRATE,URINE NEGATIVE (NEGATIVE); OCCULT BLOOD,URINE NEGATIVE (NEGATIVE); PH,URINE 6.5 (5.0-8.0); PROTEIN,URINE NEGATIVE (NEGATIVE)
[2020-01-04] MEDS: OMEGA-3/DHA/EPA/FISH OIL 1,000 MG CAPSULE PO SCH (08:19)
[2020-01-04] MEDS: RisperiDONE 1 MG TABLET PO SCH ×2 (08:19→20:10)
[2020-01-04] MEDS: INSULIN GLARGINE,HUM.REC.ANLOG 100 UNITS/ML SQ SCH ×2 (08:20→20:13)
[2020-01-04] MEDS: LITHIUM CARBONATE 600 MG CAPSULE PO SCH ×2 (08:20→16:05)
[2020-01-04 08:22] LABS: AMPHET/METH SCREEN,URINE NEGATIVE (NEGATIVE); BARBITURATE SCREEN, URINE NEGATIVE (NEGATIVE); BENZODIAZEPINES SCREEN,URINE NEGATIVE (NEGATIVE); CANNABINOID SCREEN,URINE NEGATIVE (NEGATIVE); COCAINE SCREEN,URINE NEGATIVE (NEGATIVE); METHADONE SCREEN, URINE NEGATIVE (NEGATIVE); OPIATE SCREEN,URINE NEGATIVE (NEGATIVE)
[2020-01-04 08:25] LABS: PHENCYCLIDINE SCREEN,URINE NEGATIVE (NEGATIVE)
[2020-01-04 08:32] VITALS: BP 104/67
[2020-01-04 08:57] LABS: BACTERIA,URINE None Seen /HPF (None Seen); RBC,URINE None Seen /HPF (0-2); WBC,URINE None Seen /HPF (0-5)
[2020-01-04] MEDS: INSULIN LISPRO 100 UNITS/ML SQ PRN ×3 (10:58→20:13)
[2020-01-04 11:06] LABS: GLUCOMETER DEV NAME(LOC) BV2S.; GLUCOSE,POINT OF CARE 266 MG/DL (70-110)
[2020-01-04 16:23] LABS: GLUCOMETER DEV NAME(LOC) BV2S.; GLUCOSE,POINT OF CARE 186 MG/DL (70-110)
[2020-01-04 16:49] VITALS: BP 112/74
[2020-01-04] MEDS: BACITRACIN 28 GM OINTMENT TP SCH (17:29)
[2020-01-04] MEDS: ZOLPIDEM TARTRATE 10 MG TABLET PO PRN (21:21)
[2020-01-04 21:30] LABS: GLUCOMETER DEV NAME(LOC) BV2S.; GLUCOSE,POINT OF CARE 204 MG/DL (70-110)
[2020-01-05 00:17] VITALS: BP 110/71
[2020-01-05] MEDS: LEVOTHYROXINE SODIUM 50 MCG TABLET PO SCH (06:39)
[2020-01-05 08:37] VITALS: BP 108/64
[2020-01-05] MEDS: INSULIN GLARGINE,HUM.REC.ANLOG 100 UNITS/ML SQ SCH ×2 (09:00→20:20)
[2020-01-05] MEDS: LITHIUM CARBONATE 600 MG CAPSULE PO SCH ×2 (09:00→18:54)
[2020-01-05] MEDS: OMEGA-3/DHA/EPA/FISH OIL 1,000 MG CAPSULE PO SCH (09:00)
[2020-01-05] MEDS: RisperiDONE 1 MG TABLET PO SCH ×2 (09:00→20:20)
[2020-01-05] MEDS: BACITRACIN 28 GM OINTMENT TP SCH ×2 (09:27→18:54)
[2020-01-05] MEDS: INSULIN LISPRO 100 UNITS/ML SQ PRN (11:41)
[2020-01-05 11:46] LABS: GLUCOMETER DEV NAME(LOC) BV2S.; GLUCOSE,POINT OF CARE 253 MG/DL (70-110)
[2020-01-05] MEDS: LORazepam 2 MG TABLET PO PRN (18:54)
[2020-01-05 19:15] LABS: COVID AG,FIA SOURCE NASAL SWAB
[2020-01-05] MEDS: ZOLPIDEM TARTRATE 10 MG TABLET PO PRN (20:20)
[2020-01-06 02:46] VITALS: BP 114/64
[2020-01-06] MEDS: LEVOTHYROXINE SODIUM 50 MCG TABLET PO SCH (06:13)
[2020-01-06 08:05] VITALS: BP 106/64
[2020-01-06] MEDS: RisperiDONE 1 MG TABLET PO SCH ×2 (08:25→20:18)
[2020-01-06] MEDS: LITHIUM CARBONATE 600 MG CAPSULE PO SCH ×2 (08:26→16:26)
[2020-01-06] MEDS: OMEGA-3/DHA/EPA/FISH OIL 1,000 MG CAPSULE PO SCH (08:28)
[2020-01-06] MEDS: INSULIN GLARGINE,HUM.REC.ANLOG 100 UNITS/ML SQ SCH ×2 (09:00→20:17)
[2020-01-06] MEDS: BACITRACIN 28 GM OINTMENT TP SCH ×2 (10:15→16:27)
[2020-01-06 16:04] VITALS: BP 113/76
[2020-01-06] MEDS: HALOPERIDOL 5 MG TABLET PO PRN (16:26)
[2020-01-06] MEDS: LORazepam 2 MG TABLET PO PRN (16:27)
[2020-01-06] MEDS: ZOLPIDEM TARTRATE 10 MG TABLET PO PRN (20:18)
[2020-01-07 00:34] VITALS: BP 119/68
[2020-01-07] MEDS: LEVOTHYROXINE SODIUM 50 MCG TABLET PO SCH (06:21)
[2020-01-07 08:05] VITALS: BP 118/68
[2020-01-07] MEDS: INSULIN GLARGINE,HUM.REC.ANLOG 100 UNITS/ML SQ SCH ×2 (09:00→20:29)
[2020-01-07] MEDS: OMEGA-3/DHA/EPA/FISH OIL 1,000 MG CAPSULE PO SCH (09:02)
[2020-01-07] MEDS: LITHIUM CARBONATE 600 MG CAPSULE PO SCH ×2 (09:02→16:10)
[2020-01-07] MEDS: BACITRACIN 28 GM OINTMENT TP SCH ×2 (09:02→16:28)
[2020-01-07] MEDS: RisperiDONE 1 MG TABLET PO SCH ×2 (09:02→20:29)
[2020-01-07] MEDS: LORazepam 2 MG TABLET PO PRN (16:10)
[2020-01-07] MEDS: HALOPERIDOL 5 MG TABLET PO PRN (16:10)
[2020-01-07 16:21] VITALS: BP 91/55
[2020-01-07 17:00] VITALS: BP 112/64
[2020-01-07] MEDS: ZOLPIDEM TARTRATE 10 MG TABLET PO PRN (20:29)
[2020-01-08 02:45] VITALS: BP 114/62
[2020-01-08] MEDS: LEVOTHYROXINE SODIUM 50 MCG TABLET PO SCH (06:52)
[2020-01-08] MEDS: LITHIUM CARBONATE 600 MG CAPSULE PO SCH ×2 (08:23→16:20)
[2020-01-08] MEDS: RisperiDONE 1 MG TABLET PO SCH ×2 (08:23→20:48)
[2020-01-08] MEDS: OMEGA-3/DHA/EPA/FISH OIL 1,000 MG CAPSULE PO SCH (08:23)
[2020-01-08] MEDS: LORazepam 2 MG TABLET PO PRN (08:26)
[2020-01-08] MEDS: INSULIN GLARGINE,HUM.REC.ANLOG 100 UNITS/ML SQ SCH ×2 (09:00→20:53)
[2020-01-08] MEDS: BACITRACIN 28 GM OINTMENT TP SCH ×2 (09:15→16:21)
[2020-01-08 16:04] VITALS: BP 108/73
[2020-01-08] MEDS: ZOLPIDEM TARTRATE 10 MG TABLET PO PRN (20:50)
[2020-01-09 06:07] VITALS: BP 112/75
[2020-01-09] MEDS: LEVOTHYROXINE SODIUM 50 MCG TABLET PO SCH (06:13)
[2020-01-09] MEDS: INSULIN GLARGINE,HUM.REC.ANLOG 100 UNITS/ML SQ SCH ×2 (09:00→21:20)
[2020-01-09] MEDS: LITHIUM CARBONATE 600 MG CAPSULE PO SCH ×2 (09:20→16:39)
[2020-01-09] MEDS: BACITRACIN 28 GM OINTMENT TP SCH ×2 (09:21→17:01)
[2020-01-09] MEDS: RisperiDONE 1 MG TABLET PO SCH ×2 (09:21→20:06)
[2020-01-09] MEDS: OMEGA-3/DHA/EPA/FISH OIL 1,000 MG CAPSULE PO SCH (09:21)
[2020-01-09 10:05] VITALS: BP 114/65
[2020-01-09 16:10] VITALS: BP 130/80
[2020-01-09 16:55] LABS: GLUCOMETER DEV NAME(LOC) BV3N.; GLUCOSE,POINT OF CARE 280 MG/DL (70-110)
[2020-01-09] MEDS: INSULIN LISPRO 100 UNITS/ML SQ PRN ×2 (16:59→21:21)
[2020-01-09] MEDS: ZOLPIDEM TARTRATE 10 MG TABLET PO PRN (20:06)
[2020-01-09 20:15] LABS: GLUCOMETER DEV NAME(LOC) BV3N.; GLUCOSE,POINT OF CARE 249 MG/DL (70-110)
[2020-01-10 05:03] VITALS: BP 122/78
[2020-01-10] MEDS: LEVOTHYROXINE SODIUM 50 MCG TABLET PO SCH (06:38)
[2020-01-10 08:05] VITALS: BP 115/69
[2020-01-10] MEDS: BACITRACIN 28 GM OINTMENT TP SCH ×2 (08:05→16:30)
[2020-01-10] MEDS: RisperiDONE 1 MG TABLET PO SCH ×2 (08:05→20:18)
[2020-01-10] MEDS: LITHIUM CARBONATE 600 MG CAPSULE PO SCH ×2 (08:05→16:30)
[2020-01-10] MEDS: OMEGA-3/DHA/EPA/FISH OIL 1,000 MG CAPSULE PO SCH (08:05)
[2020-01-10] MEDS: INSULIN GLARGINE,HUM.REC.ANLOG 100 UNITS/ML SQ SCH ×2 (09:00→21:07)
[2020-01-10 16:20] VITALS: BP 115/72
[2020-01-10] MEDS: HALOPERIDOL 5 MG TABLET PO PRN (16:30)
[2020-01-10] MEDS: LORazepam 2 MG TABLET PO PRN (16:30)
[2020-01-10] MEDS: NICOTINE 21 MG/24 HOUR PATCH TD SCH (18:11)
[2020-01-10] MEDS: ZOLPIDEM TARTRATE 10 MG TABLET PO PRN (20:18)
[2020-01-10] MEDS: INSULIN LISPRO 100 UNITS/ML SQ PRN (21:07)
[2020-01-10 21:11] LABS: GLUCOMETER DEV NAME(LOC) BV3N.; GLUCOSE,POINT OF CARE 283 MG/DL (70-110)
[2020-01-11 04:39] VITALS: BP 127/80
[2020-01-11] MEDS: LEVOTHYROXINE SODIUM 50 MCG TABLET PO SCH (06:28)
[2020-01-11 08:05] VITALS: BP 121/65
[2020-01-11] MEDS: OMEGA-3/DHA/EPA/FISH OIL 1,000 MG CAPSULE PO SCH (08:07)
[2020-01-11] MEDS: RisperiDONE 1 MG TABLET PO SCH ×2 (08:07→21:13)
[2020-01-11] MEDS: LITHIUM CARBONATE 600 MG CAPSULE PO SCH ×2 (08:07→17:03)
[2020-01-11] MEDS: BACITRACIN 28 GM OINTMENT TP SCH ×2 (08:16→17:10)
[2020-01-11] MEDS: NICOTINE 21 MG/24 HOUR PATCH TD SCH (09:00)
[2020-01-11] MEDS: INSULIN GLARGINE,HUM.REC.ANLOG 100 UNITS/ML SQ SCH ×2 (09:00→20:23)
[2020-01-11 16:03] VITALS: BP 134/68
[2020-01-11] MEDS: INSULIN LISPRO 100 UNITS/ML SQ PRN ×2 (16:45→20:21)
[2020-01-11 16:52] LABS: GLUCOMETER DEV NAME(LOC) BV2S.; GLUCOSE,POINT OF CARE 302 MG/DL (70-110)
[2020-01-11 20:09] LABS: GLUCOMETER DEV NAME(LOC) BV2S.; GLUCOSE,POINT OF CARE 190 MG/DL (70-110)
[2020-01-11] MEDS: ZOLPIDEM TARTRATE 10 MG TABLET PO PRN (21:14)
[2020-01-12 06:04] VITALS: BP 128/63
[2020-01-12] MEDS: INSULIN LISPRO 100 UNITS/ML SQ PRN ×4 (06:36→20:12)
[2020-01-12 06:39] LABS: GLUCOMETER DEV NAME(LOC) BV2S.; GLUCOSE,POINT OF CARE 174 MG/DL (70-110)
[2020-01-12] MEDS: LEVOTHYROXINE SODIUM 50 MCG TABLET PO SCH (07:05)
[2020-01-12] MEDS: LITHIUM CARBONATE 600 MG CAPSULE PO SCH ×2 (08:04→16:24)
[2020-01-12] MEDS: RisperiDONE 1 MG TABLET PO SCH ×2 (08:04→20:21)
[2020-01-12] MEDS: OMEGA-3/DHA/EPA/FISH OIL 1,000 MG CAPSULE PO SCH (08:04)
[2020-01-12] MEDS: BACITRACIN 28 GM OINTMENT TP SCH ×2 (08:05→16:25)
[2020-01-12] MEDS: NICOTINE 21 MG/24 HOUR PATCH TD SCH (08:05)
[2020-01-12] MEDS: INSULIN GLARGINE,HUM.REC.ANLOG 100 UNITS/ML SQ SCH ×2 (08:36→20:13)
[2020-01-12 08:47] LABS: GLUCOMETER DEV NAME(LOC) BV2S.; GLUCOSE,POINT OF CARE 274 MG/DL (70-110)
[2020-01-12 09:01] VITALS: BP 134/77
[2020-01-12 11:11] LABS: GLUCOMETER DEV NAME(LOC) BV2S.; GLUCOSE,POINT OF CARE 207 MG/DL (70-110)
[2020-01-12 15:46] LABS: GLUCOMETER DEV NAME(LOC) BV2S.; GLUCOSE,POINT OF CARE 222 MG/DL (70-110)
[2020-01-12 16:04] VITALS: BP 121/73
[2020-01-12 20:03] LABS: GLUCOMETER DEV NAME(LOC) BV2S.; GLUCOSE,POINT OF CARE 237 MG/DL (70-110)
[2020-01-12] MEDS: ZOLPIDEM TARTRATE 10 MG TABLET PO PRN (20:21)
[2020-01-13 00:11] VITALS: BP 136/76
[2020-01-13 06:19] LABS: GLUCOMETER DEV NAME(LOC) BV2S.; GLUCOSE,POINT OF CARE 204 MG/DL (70-110)
[2020-01-13] MEDS: LEVOTHYROXINE SODIUM 50 MCG TABLET PO SCH (06:31)
[2020-01-13] MEDS: INSULIN LISPRO 100 UNITS/ML SQ PRN ×4 (06:39→19:25)
[2020-01-13] MEDS: RisperiDONE 1 MG TABLET PO SCH ×2 (08:02→19:04)
[2020-01-13] MEDS: LITHIUM CARBONATE 600 MG CAPSULE PO SCH ×2 (08:02→16:09)
[2020-01-13] MEDS: NICOTINE 21 MG/24 HOUR PATCH TD SCH (08:02)
[2020-01-13] MEDS: OMEGA-3/DHA/EPA/FISH OIL 1,000 MG CAPSULE PO SCH (08:02)
[2020-01-13 08:05] VITALS: BP 17/74
[2020-01-13] MEDS: INSULIN GLARGINE,HUM.REC.ANLOG 100 UNITS/ML SQ SCH ×2 (08:33→19:24)
[2020-01-13 08:38] LABS: GLUCOMETER DEV NAME(LOC) BV2S.; GLUCOSE,POINT OF CARE 394 MG/DL (70-110)
[2020-01-13] MEDS: BACITRACIN 28 GM OINTMENT TP SCH ×2 (09:21→16:09)
[2020-01-13 11:05] LABS: GLUCOMETER DEV NAME(LOC) BV2S.; GLUCOSE,POINT OF CARE 316 MG/DL (70-110)
[2020-01-13 13:23] VITALS: BP 117/74
[2020-01-13 16:04] VITALS: BP 106/68
[2020-01-13 16:15] LABS: GLUCOMETER DEV NAME(LOC) BV2S.; GLUCOSE,POINT OF CARE 217 MG/DL (70-110)
[2020-01-13] MEDS: LORazepam 2 MG TABLET PO PRN (19:04)
[2020-01-13 19:18] LABS: GLUCOMETER DEV NAME(LOC) BV2S.; GLUCOSE,POINT OF CARE 168 MG/DL (70-110)
[2020-01-13] MEDS: ZOLPIDEM TARTRATE 10 MG TABLET PO PRN (22:02)
[2020-01-14 00:23] VITALS: BP 118/67
[2020-01-14] MEDS: LEVOTHYROXINE SODIUM 50 MCG TABLET PO SCH (06:20)
[2020-01-14 06:29] LABS: GLUCOMETER DEV NAME(LOC) BV2S.; GLUCOSE,POINT OF CARE 222 MG/DL (70-110)
[2020-01-14] MEDS: INSULIN LISPRO 100 UNITS/ML SQ PRN ×2 (06:32→11:10)
[2020-01-14] MEDS ORDERED: MetFORMIN HCL 500 MG TABLET PO SCH (07:00)
[2020-01-14 08:17] VITALS: BP 125/78
[2020-01-14] MEDS: LITHIUM CARBONATE 600 MG CAPSULE PO SCH (08:23)
[2020-01-14] MEDS: RisperiDONE 1 MG TABLET PO SCH (08:24)
[2020-01-14] MEDS: OMEGA-3/DHA/EPA/FISH OIL 1,000 MG CAPSULE PO SCH (08:24)
[2020-01-14] MEDS: NICOTINE 21 MG/24 HOUR PATCH TD SCH (08:25)
[2020-01-14] MEDS: INSULIN GLARGINE,HUM.REC.ANLOG 100 UNITS/ML SQ SCH (08:35)
[2020-01-14] MEDS: BACITRACIN 28 GM OINTMENT TP SCH (08:37)
[2020-01-14] MEDS ORDERED: METF-960 PO (11:07)
[2020-01-14 11:18] LABS: GLUCOMETER DEV NAME(LOC) BV2S.; GLUCOSE,POINT OF CARE 284 MG/DL (70-110)
== END 2020-01-14 13:00 | disposition home or self-care (01) | DRG 885 ==
LOC: B2S 17:30 → B3A 01-05 17:21 → B2S 01-11 12:30
PROVIDERS: ADMIT Psychiatry & Neurology Psychiatry; ATTEND Psychiatry & Neurology Psychiatry
DX: F25.9 Schizoaffective disorder, unspecified (principal); E11.65 Type 2 diabetes mellitus with hyperglycemia; K59.00 Constipation, unspecified; F41.9 Anxiety disorder, unspecified; G47.00 Insomnia, unspecified; K21.9 Gastro-esophageal reflux disease without esophagitis; Z79.84 Long term (current) use of oral hypoglycemic drugs; Z20.828 Contact with and (suspected) exposure to other viral communicable diseases
CPT/HCPCS: 80307; 87081; 87426; J1200; J1630; J1815; J2060

== ENCOUNTER 2020-01-18 10:05 | Inpatient (IN) | payer MEDICARE, MEDICAID ==
[~2020-01-18] VITALS: Ht 177.8 cm; Wt 108.7 kg
[~2020-01-18 10:05] MED LIST changes: -INSLAN SQ; -LITH600 PO; +LITH600C5 PO; +METF-960 PO
[2020-01-18 11:09] LABS: BASOPHILS % (AUTO) 0.6 % (0.0-2.0); EOSINOPHILS % (AUTO) 1.2 % (1.0-6.0); HEMATOCRIT 37.3 % (41-53); HEMOGLOBIN 12.8 g/dL (13.5-17.5); LYMPHOCYTES # (AUTO) 1.4 K/uL (1.0-4.8); LYMPHOCYTES % (AUTO) 13.8 % (22.0-44.0); MEAN CORPUSCULAR HEMOGLOBIN 30.2 pg (26.0-34.0); MEAN CORPUSCULAR HGB CONC 34.3 G/dL (31.0-37.0); MEAN CORPUSCULAR VOLUME 88 fL (80-100); MONOCYTES # (AUTO) 1.1 K/uL (0.1-1.0); MONOCYTES % (AUTO) 11.2 % (2.0-9.0); NEUTROPHILS # (AUTO) 7.5 K/uL (1.8-7.7); NEUTROPHILS % (AUTO) 73.2 % (40.0-70.0); PLATELET COUNT (AUTO) 211 K/uL (150-450); RED BLOOD CELL COUNT(AUTO) 4.23 MIL/uL (4.50-5.90); RED CELL DISTRIBUTION WIDTH 14.2 % (11.5-14.5)
[2020-01-18 11:21] LABS: ANION GAP 5 mmol/L (8-16); CALCIUM, TOTAL 7.6 mg/dL (8.8-10.5); CARBON DIOXIDE 31 mmol/L (22-29); CHLORIDE 102 mmol/L (98-107); CREATININE 0.92 mg/dL (0.60-1.30); GLOMERULAR FILTR. RATE CALC > 60 mL/min (>60); GLUCOSE,RANDOM 132 mg/dL (70-110); POTASSIUM 3.8 mmol/L (3.5-5.1); SODIUM SERUM 138 mmol/L (136-145); UREA NITROGEN, BLOOD 22 mg/dL (7-18)
[2020-01-18 11:27] LABS: ALANINE AMINOTRANSFERASE 37 U/L (12-78); ALBUMIN 2.9 g/dL (3.4-5.0); ALKALINE PHOSPHATASE 65 U/L (46-116); ASPARTATE AMINOTRANSFERASE 51 U/L (15-37); TOTAL PROTEIN, SERUM 6.7 g/dL (6.4-8.2)
[2020-01-18 12:45] LABS: AMPHET/METH SCREEN,URINE POSITIVE (NEGATIVE); BARBITURATE SCREEN, URINE NEGATIVE (NEGATIVE); BENZODIAZEPINES SCREEN,URINE NEGATIVE (NEGATIVE); CANNABINOID SCREEN,URINE NEGATIVE (NEGATIVE); COCAINE SCREEN,URINE NEGATIVE (NEGATIVE); METHADONE SCREEN, URINE NEGATIVE (NEGATIVE); OPIATE SCREEN,URINE NEGATIVE (NEGATIVE)
[2020-01-18 12:51] LABS: PHENCYCLIDINE SCREEN,URINE NEGATIVE (NEGATIVE)
[2020-01-18] MEDS ORDERED: FISH1 PO (12:54)
[2020-01-18] MEDS ORDERED: ERGO500054 PO (12:54)
[2020-01-18 13:39] LABS: COVID AG,FIA SOURCE NASOPHARYNGEAL
[2020-01-18 16:00] VITALS: BP 111/70
[2020-01-18 16:25] LABS: GLUCOMETER DEV NAME(LOC) BV2S.; GLUCOSE,POINT OF CARE 274 MG/DL (70-110)
[2020-01-18] MEDS: LORazepam 2 MG TABLET PO PRN (16:43)
[2020-01-18] MEDS ORDERED: GLUCAGON,HUMAN RECOMBINANT 1 MG VIAL IM PRN (17:00)
[2020-01-18] MEDS: MetFORMIN HCL 500 MG TABLET PO SCH ×2 (17:00→17:07)
[2020-01-18] MEDS: BACITRACIN 28 GM OINTMENT TP SCH (17:05)
[2020-01-18] MEDS: INSULIN LISPRO 100 UNITS/ML SQ PRN ×2 (17:30→21:27)
[2020-01-18 20:29] LABS: GLUCOMETER DEV NAME(LOC) BV2S.; GLUCOSE,POINT OF CARE 218 MG/DL (70-110)
[2020-01-18] MEDS: INSULIN GLARGINE,HUM.REC.ANLOG 100 UNITS/ML SQ SCH (21:27)
[2020-01-19] MEDS ORDERED: INFLUENZA VIRUS VACCINE QVS 2020-21 (6MO+)/PF 60 MCG/0.5 ML SYRINGE IM ONE (01:15)
[2020-01-19] MEDS ORDERED: PNEUMOCOCCAL VACCINE POLYVALENT 0.5 ML VIAL [PPSV23] IM ONE (01:15)
[2020-01-19] MEDS: LEVOTHYROXINE SODIUM 50 MCG TABLET PO SCH (06:30)
[2020-01-19] MEDS: MetFORMIN HCL 500 MG TABLET PO SCH ×2 (06:39→17:00)
[2020-01-19 08:38] VITALS: BP 109/68
[2020-01-19] MEDS: INSULIN GLARGINE,HUM.REC.ANLOG 100 UNITS/ML SQ SCH ×2 (09:00→21:00)
[2020-01-19] MEDS: LITHIUM CARBONATE 600 MG CAPSULE PO SCH ×2 (09:19→17:00)
[2020-01-19] MEDS: RisperiDONE 1 MG TABLET PO SCH ×2 (09:19→17:00)
[2020-01-19] MEDS: OMEGA-3/DHA/EPA/FISH OIL 1,000 MG CAPSULE PO SCH (09:19)
[2020-01-19] MEDS: NICOTINE 21 MG/24 HOUR PATCH TD SCH (09:20)
[2020-01-19] MEDS: BACITRACIN 28 GM OINTMENT TP SCH ×2 (09:20→17:00)
[2020-01-19] MEDS: ZOLPIDEM TARTRATE 10 MG TABLET PO PRN (21:18)
[2020-01-20 05:57] VITALS: BP 128/70
[2020-01-20] MEDS: MetFORMIN HCL 500 MG TABLET PO SCH ×2 (06:57→16:16)
[2020-01-20] MEDS: LEVOTHYROXINE SODIUM 50 MCG TABLET PO SCH (06:57)
[2020-01-20 08:14] VITALS: BP 127/80
[2020-01-20] MEDS: LITHIUM CARBONATE 600 MG CAPSULE PO SCH ×2 (08:53→16:15)
[2020-01-20] MEDS: OMEGA-3/DHA/EPA/FISH OIL 1,000 MG CAPSULE PO SCH (08:53)
[2020-01-20] MEDS: RisperiDONE 1 MG TABLET PO SCH ×2 (08:54→16:15)
[2020-01-20] MEDS: NICOTINE 21 MG/24 HOUR PATCH TD SCH (08:54)
[2020-01-20] MEDS: INSULIN GLARGINE,HUM.REC.ANLOG 100 UNITS/ML SQ SCH ×2 (08:54→21:06)
[2020-01-20] MEDS: BACITRACIN 28 GM OINTMENT TP SCH ×2 (08:54→16:16)
[2020-01-20 16:04] VITALS: BP 119/74
[2020-01-20] MEDS: LORazepam 2 MG TABLET PO PRN (16:15)
[2020-01-20 16:53] LABS: GLUCOMETER DEV NAME(LOC) BV3N.; GLUCOSE,POINT OF CARE 171 MG/DL (70-110)
[2020-01-20] MEDS: INSULIN LISPRO 100 UNITS/ML SQ PRN ×2 (17:04→21:06)
[2020-01-20 21:24] LABS: GLUCOMETER DEV NAME(LOC) BV3N.; GLUCOSE,POINT OF CARE 163 MG/DL (70-110)
[2020-01-21 01:14] VITALS: BP 122/68
[2020-01-21] MEDS: MetFORMIN HCL 500 MG TABLET PO SCH ×2 (06:49→16:47)
[2020-01-21] MEDS: LEVOTHYROXINE SODIUM 50 MCG TABLET PO SCH (06:50)
[2020-01-21 08:16] VITALS: BP 101/58
[2020-01-21] MEDS: LITHIUM CARBONATE 600 MG CAPSULE PO SCH ×2 (08:49→16:47)
[2020-01-21] MEDS: RisperiDONE 1 MG TABLET PO SCH ×2 (08:49→16:47)
[2020-01-21] MEDS: OMEGA-3/DHA/EPA/FISH OIL 1,000 MG CAPSULE PO SCH (08:49)
[2020-01-21] MEDS: NICOTINE 21 MG/24 HOUR PATCH TD SCH (08:50)
[2020-01-21] MEDS: INSULIN GLARGINE,HUM.REC.ANLOG 100 UNITS/ML SQ SCH ×2 (09:02→21:22)
[2020-01-21 09:07] LABS: GLUCOMETER DEV NAME(LOC) BV3N.; GLUCOSE,POINT OF CARE 188 MG/DL (70-110)
[2020-01-21] MEDS: BACITRACIN 28 GM OINTMENT TP SCH ×2 (09:26→16:47)
[2020-01-21] MEDS: INSULIN LISPRO 100 UNITS/ML SQ PRN ×3 (11:23→21:23)
[2020-01-21 11:26] LABS: GLUCOMETER DEV NAME(LOC) BV3N.; GLUCOSE,POINT OF CARE 194 MG/DL (70-110)
[2020-01-21 16:08] VITALS: BP 112/65
[2020-01-21] MEDS: LORazepam 2 MG TABLET PO PRN (16:47)
[2020-01-21 17:24] LABS: GLUCOMETER DEV NAME(LOC) BV3N.; GLUCOSE,POINT OF CARE 192 MG/DL (70-110)
[2020-01-21 21:39] LABS: GLUCOMETER DEV NAME(LOC) BV3N.; GLUCOSE,POINT OF CARE 265 MG/DL (70-110)
[2020-01-22 06:07] VITALS: BP 105/66
[2020-01-22] MEDS: LEVOTHYROXINE SODIUM 50 MCG TABLET PO SCH (06:14)
[2020-01-22] MEDS: MetFORMIN HCL 500 MG TABLET PO SCH (06:23)
[2020-01-22] MEDS: OMEGA-3/DHA/EPA/FISH OIL 1,000 MG CAPSULE PO SCH (08:31)
[2020-01-22] MEDS: LITHIUM CARBONATE 600 MG CAPSULE PO SCH ×2 (08:31→16:47)
[2020-01-22] MEDS: RisperiDONE 1 MG TABLET PO SCH ×2 (08:31→16:47)
[2020-01-22] MEDS: NICOTINE 21 MG/24 HOUR PATCH TD SCH (08:32)
[2020-01-22] MEDS: INSULIN GLARGINE,HUM.REC.ANLOG 100 UNITS/ML SQ SCH ×2 (08:43→20:19)
[2020-01-22] MEDS: BACITRACIN 28 GM OINTMENT TP SCH ×2 (08:44→16:49)
[2020-01-22 08:53] LABS: GLUCOMETER DEV NAME(LOC) BV2S.; GLUCOSE,POINT OF CARE 289 MG/DL (70-110)
[2020-01-22] MEDS: INSULIN LISPRO 100 UNITS/ML SQ PRN ×3 (10:56→20:18)
[2020-01-22 11:20] LABS: GLUCOMETER DEV NAME(LOC) BV2S.; GLUCOSE,POINT OF CARE 244 MG/DL (70-110)
[2020-01-22 12:26] VITALS: BP 106/66
[2020-01-22 16:11] VITALS: BP 104/68
[2020-01-22] MEDS: GlipiZIDE 5 MG TABLET PO SCH (16:47)
[2020-01-22 16:55] LABS: GLUCOMETER DEV NAME(LOC) BV2S.; GLUCOSE,POINT OF CARE 205 MG/DL (70-110)
[2020-01-22] MEDS: ZOLPIDEM TARTRATE 10 MG TABLET PO PRN (20:15)
[2020-01-22 20:23] LABS: GLUCOMETER DEV NAME(LOC) BV2S.; GLUCOSE,POINT OF CARE 165 MG/DL (70-110)
[2020-01-23 04:18] VITALS: BP 107/66
[2020-01-23] MEDS: LEVOTHYROXINE SODIUM 50 MCG TABLET PO SCH (07:01)
[2020-01-23] MEDS: GlipiZIDE 5 MG TABLET PO SCH ×2 (07:01→16:05)
[2020-01-23 08:07] VITALS: BP 109/63
[2020-01-23] MEDS: OMEGA-3/DHA/EPA/FISH OIL 1,000 MG CAPSULE PO SCH (08:57)
[2020-01-23] MEDS: BACITRACIN 28 GM OINTMENT TP SCH ×2 (08:57→16:10)
[2020-01-23] MEDS: LITHIUM CARBONATE 600 MG CAPSULE PO SCH ×2 (08:57→16:05)
[2020-01-23] MEDS: NICOTINE 21 MG/24 HOUR PATCH TD SCH (08:57)
[2020-01-23] MEDS: RisperiDONE 1 MG TABLET PO SCH ×2 (08:57→16:10)
[2020-01-23 09:04] LABS: GLUCOMETER DEV NAME(LOC) BV2S.; GLUCOSE,POINT OF CARE 261 MG/DL (70-110)
[2020-01-23] MEDS: INSULIN GLARGINE,HUM.REC.ANLOG 100 UNITS/ML SQ SCH ×2 (09:15→21:15)
[2020-01-23] MEDS: INSULIN LISPRO 100 UNITS/ML SQ PRN ×2 (11:01→17:03)
[2020-01-23 11:19] LABS: GLUCOMETER DEV NAME(LOC) BV2S.; GLUCOSE,POINT OF CARE 228 MG/DL (70-110)
[2020-01-23] MEDS: LORazepam 2 MG TABLET PO PRN (13:50)
[2020-01-23 16:19] LABS: GLUCOMETER DEV NAME(LOC) BV2S.; GLUCOSE,POINT OF CARE 149 MG/DL (70-110)
[2020-01-23 16:29] VITALS: BP 137/78
[2020-01-23 20:03] LABS: COVID AG,FIA SOURCE NASOPHARYNGEAL
[2020-01-23 20:17] LABS: GLUCOMETER DEV NAME(LOC) BV2S.; GLUCOSE,POINT OF CARE 106 MG/DL (70-110)
[2020-01-23] MEDS: ZOLPIDEM TARTRATE 10 MG TABLET PO PRN (20:19)
[2020-01-24 05:31] VITALS: BP 134/72
[2020-01-24 06:20] LABS: GLUCOMETER DEV NAME(LOC) BV2S.; GLUCOSE,POINT OF CARE 95 MG/DL (70-110)
[2020-01-24] MEDS: LEVOTHYROXINE SODIUM 50 MCG TABLET PO SCH (06:29)
[2020-01-24] MEDS: GlipiZIDE 5 MG TABLET PO SCH ×2 (06:29→16:17)
[2020-01-24 08:19] VITALS: BP 109/68
[2020-01-24] MEDS: NICOTINE 21 MG/24 HOUR PATCH TD SCH (08:48)
[2020-01-24] MEDS: RisperiDONE 1 MG TABLET PO SCH ×2 (08:48→16:17)
[2020-01-24] MEDS: BACITRACIN 28 GM OINTMENT TP SCH ×2 (08:48→16:17)
[2020-01-24] MEDS: OMEGA-3/DHA/EPA/FISH OIL 1,000 MG CAPSULE PO SCH (08:48)
[2020-01-24] MEDS: LITHIUM CARBONATE 600 MG CAPSULE PO SCH ×2 (08:48→16:17)
[2020-01-24] MEDS: INSULIN GLARGINE,HUM.REC.ANLOG 100 UNITS/ML SQ SCH ×2 (08:50→20:34)
[2020-01-24] MEDS: INSULIN LISPRO 100 UNITS/ML SQ PRN ×2 (10:58→20:34)
[2020-01-24 11:18] LABS: GLUCOMETER DEV NAME(LOC) BV2S.; GLUCOSE,POINT OF CARE 192 MG/DL (70-110)
[2020-01-24 16:10] VITALS: BP 101/64
[2020-01-24 16:30] LABS: GLUCOMETER DEV NAME(LOC) BV2S.; GLUCOSE,POINT OF CARE 138 MG/DL (70-110)
[2020-01-24 20:59] LABS: GLUCOMETER DEV NAME(LOC) BV2S.; GLUCOSE,POINT OF CARE 145 MG/DL (70-110)
[2020-01-24] MEDS: ZOLPIDEM TARTRATE 10 MG TABLET PO PRN (21:03)
[2020-01-25 01:00] VITALS: BP 116/63
[2020-01-25] MEDS: LEVOTHYROXINE SODIUM 50 MCG TABLET PO SCH (06:50)
[2020-01-25] MEDS: GlipiZIDE 5 MG TABLET PO SCH ×2 (06:50→16:07)
[2020-01-25 08:27] VITALS: BP 140/60
[2020-01-25] MEDS: OMEGA-3/DHA/EPA/FISH OIL 1,000 MG CAPSULE PO SCH (08:39)
[2020-01-25] MEDS: RisperiDONE 1 MG TABLET PO SCH ×2 (08:39→16:07)
[2020-01-25] MEDS: NICOTINE 21 MG/24 HOUR PATCH TD SCH (08:39)
[2020-01-25] MEDS: LITHIUM CARBONATE 600 MG CAPSULE PO SCH ×2 (08:39→16:07)
[2020-01-25] MEDS: BACITRACIN 28 GM OINTMENT TP SCH ×2 (08:40→16:07)
[2020-01-25] MEDS: INSULIN GLARGINE,HUM.REC.ANLOG 100 UNITS/ML SQ SCH ×2 (08:50→20:19)
[2020-01-25 08:59] LABS: GLUCOMETER DEV NAME(LOC) BV2S.; GLUCOSE,POINT OF CARE 220 MG/DL (70-110)
[2020-01-25] MEDS: INSULIN LISPRO 100 UNITS/ML SQ PRN (10:57)
[2020-01-25 11:48] LABS: GLUCOMETER DEV NAME(LOC) BV2S.; GLUCOSE,POINT OF CARE 199 MG/DL (70-110)
[2020-01-25 16:12] VITALS: BP 107/68
[2020-01-25 16:26] LABS: GLUCOMETER DEV NAME(LOC) BV2S.; GLUCOSE,POINT OF CARE 135 MG/DL (70-110)
[2020-01-25] MEDS: ZOLPIDEM TARTRATE 10 MG TABLET PO PRN (20:17)
[2020-01-25 21:14] LABS: GLUCOMETER DEV NAME(LOC) BV2S.; GLUCOSE,POINT OF CARE 130 MG/DL (70-110)
[2020-01-26 04:19] VITALS: BP 103/64
[2020-01-26] MEDS: GlipiZIDE 5 MG TABLET PO SCH ×2 (06:49→16:09)
[2020-01-26] MEDS: LEVOTHYROXINE SODIUM 50 MCG TABLET PO SCH (06:49)
[2020-01-26 08:34] VITALS: BP 114/54
[2020-01-26] MEDS: LITHIUM CARBONATE 600 MG CAPSULE PO SCH ×2 (09:22→16:09)
[2020-01-26] MEDS: OMEGA-3/DHA/EPA/FISH OIL 1,000 MG CAPSULE PO SCH (09:22)
[2020-01-26] MEDS: NICOTINE 21 MG/24 HOUR PATCH TD SCH (09:22)
[2020-01-26] MEDS: BACITRACIN 28 GM OINTMENT TP SCH ×2 (09:22→16:18)
[2020-01-26] MEDS: RisperiDONE 1 MG TABLET PO SCH ×2 (09:22→16:10)
[2020-01-26] MEDS: INSULIN GLARGINE,HUM.REC.ANLOG 100 UNITS/ML SQ SCH ×2 (09:42→21:22)
[2020-01-26] MEDS: INSULIN LISPRO 100 UNITS/ML SQ PRN ×3 (11:27→21:22)
[2020-01-26 11:54] LABS: GLUCOMETER DEV NAME(LOC) BV2S.; GLUCOSE,POINT OF CARE 145 MG/DL (70-110)
[2020-01-26 11:55] LABS: GLUCOMETER DEV NAME(LOC) BV2S.; GLUCOSE,POINT OF CARE 172 MG/DL (70-110)
[2020-01-26 16:19] VITALS: BP 121/69
[2020-01-26 16:32] LABS: GLUCOMETER DEV NAME(LOC) BV2S.; GLUCOSE,POINT OF CARE 240 MG/DL (70-110)
[2020-01-26] MEDS: LORazepam 2 MG TABLET PO PRN (16:38)
[2020-01-26 20:09] LABS: GLUCOMETER DEV NAME(LOC) BV2S.; GLUCOSE,POINT OF CARE 206 MG/DL (70-110)
[2020-01-26] MEDS: ZOLPIDEM TARTRATE 10 MG TABLET PO PRN (20:33)
[2020-01-27 05:24] VITALS: BP 110/75
[2020-01-27] MEDS: LEVOTHYROXINE SODIUM 50 MCG TABLET PO SCH (06:24)
[2020-01-27] MEDS: GlipiZIDE 5 MG TABLET PO SCH ×2 (06:24→16:17)
[2020-01-27] MEDS: LITHIUM CARBONATE 600 MG CAPSULE PO SCH ×2 (08:23→16:17)
[2020-01-27] MEDS: OMEGA-3/DHA/EPA/FISH OIL 1,000 MG CAPSULE PO SCH (08:23)
[2020-01-27] MEDS: RisperiDONE 1 MG TABLET PO SCH ×2 (08:23→16:24)
[2020-01-27] MEDS: BACITRACIN 28 GM OINTMENT TP SCH ×2 (08:24→16:25)
[2020-01-27 08:26] VITALS: BP 107/66
[2020-01-27] MEDS: NICOTINE 21 MG/24 HOUR PATCH TD SCH (08:31)
[2020-01-27] MEDS: INSULIN GLARGINE,HUM.REC.ANLOG 100 UNITS/ML SQ SCH ×2 (08:31→21:20)
[2020-01-27 11:07] LABS: GLUCOMETER DEV NAME(LOC) BV2S.; GLUCOSE,POINT OF CARE 127 MG/DL (70-110)
[2020-01-27 16:14] VITALS: BP 106/68
[2020-01-27 16:27] LABS: GLUCOMETER DEV NAME(LOC) BV2S.; GLUCOSE,POINT OF CARE 185 MG/DL (70-110)
[2020-01-27] MEDS: INSULIN LISPRO 100 UNITS/ML SQ PRN ×2 (17:26→21:19)
[2020-01-27 20:26] LABS: GLUCOMETER DEV NAME(LOC) BV2S.; GLUCOSE,POINT OF CARE 216 MG/DL (70-110)
[2020-01-27] MEDS: ZOLPIDEM TARTRATE 10 MG TABLET PO PRN (20:36)
[2020-01-27] MEDS ORDERED: CloNIDine HCL 0.1 MG TABLET PO PRN (22:00)
[2020-01-27] MEDS ORDERED: ACETAMINOPHEN 325 MG TABLET PO PRN (22:00)
[2020-01-27] MEDS ORDERED: ONDANSETRON HCL 4 MG TABLET PO PRN (22:00)
[2020-01-27] MEDS ORDERED: BACITRACIN 28 GM OINTMENT TP PRN (22:00)
[2020-01-27] MEDS ORDERED: LOPERAMIDE HCL 2 MG CAPSULE PO PRN (22:00)
[2020-01-27] MEDS ORDERED: DOCUSATE SODIUM 100 MG CAPSULE PO PRN (22:00)
[2020-01-27] MEDS ORDERED: OMEPRAZOLE 20 MG CAPSULE PO PRN (22:00)
[2020-01-27] MEDS ORDERED: ALBUTEROL SULFATE HFA 90 MCG/PUFF 8 GM INHALER IH PRN (22:00)
[2020-01-27] MEDS ORDERED: BENZOCAINE/MENTHOL LOZENGE PO PRN (22:00)
[2020-01-27] MEDS ORDERED: PETROLATUM,WHITE 28 GM JELLY TP PRN (22:00)
[2020-01-28 00:39] VITALS: BP 103/62
[2020-01-28 06:20] LABS: GLUCOMETER DEV NAME(LOC) BV2S.; GLUCOSE,POINT OF CARE 163 MG/DL (70-110)
[2020-01-28] MEDS: LEVOTHYROXINE SODIUM 50 MCG TABLET PO SCH (06:22)
[2020-01-28] MEDS: GlipiZIDE 5 MG TABLET PO SCH ×2 (06:22→16:09)
[2020-01-28] MEDS: INSULIN LISPRO 100 UNITS/ML SQ PRN ×4 (06:50→21:28)
[2020-01-28 08:20] VITALS: BP 136/83
[2020-01-28] MEDS: LITHIUM CARBONATE 600 MG CAPSULE PO SCH ×2 (08:33→16:09)
[2020-01-28] MEDS: OMEGA-3/DHA/EPA/FISH OIL 1,000 MG CAPSULE PO SCH (08:33)
[2020-01-28] MEDS: RisperiDONE 1 MG TABLET PO SCH ×2 (08:33→16:09)
[2020-01-28] MEDS: NICOTINE 21 MG/24 HOUR PATCH TD SCH (08:34)
[2020-01-28] MEDS: BACITRACIN 28 GM OINTMENT TP SCH (08:34)
[2020-01-28] MEDS: INSULIN GLARGINE,HUM.REC.ANLOG 100 UNITS/ML SQ SCH ×2 (08:46→21:28)
[2020-01-28 11:14] LABS: GLUCOMETER DEV NAME(LOC) BV2S.; GLUCOSE,POINT OF CARE 141 MG/DL (70-110)
[2020-01-28 16:24] VITALS: BP 117/71
[2020-01-28 17:12] LABS: GLUCOMETER DEV NAME(LOC) BV2S.; GLUCOSE,POINT OF CARE 183 MG/DL (70-110)
[2020-01-28 21:24] LABS: GLUCOMETER DEV NAME(LOC) BV2S.; GLUCOSE,POINT OF CARE 142 MG/DL (70-110)
[2020-01-28] MEDS: ZOLPIDEM TARTRATE 10 MG TABLET PO PRN (22:02)
[2020-01-29 00:59] VITALS: BP 130/75
[2020-01-29 06:23] LABS: GLUCOMETER DEV NAME(LOC) BV2S.; GLUCOSE,POINT OF CARE 134 MG/DL (70-110)
[2020-01-29] MEDS: GlipiZIDE 5 MG TABLET PO SCH ×2 (06:29→17:27)
[2020-01-29] MEDS: LEVOTHYROXINE SODIUM 50 MCG TABLET PO SCH (06:29)
[2020-01-29] MEDS: OMEGA-3/DHA/EPA/FISH OIL 1,000 MG CAPSULE PO SCH (08:10)
[2020-01-29] MEDS: RisperiDONE 1 MG TABLET PO SCH ×2 (08:10→16:28)
[2020-01-29] MEDS: LITHIUM CARBONATE 600 MG CAPSULE PO SCH ×2 (08:10→16:28)
[2020-01-29] MEDS: INSULIN GLARGINE,HUM.REC.ANLOG 100 UNITS/ML SQ SCH ×2 (08:21→21:28)
[2020-01-29] MEDS: NICOTINE 21 MG/24 HOUR PATCH TD SCH (08:22)
[2020-01-29 08:23] VITALS: BP 119/81
[2020-01-29] MEDS: INSULIN LISPRO 100 UNITS/ML SQ PRN ×3 (10:56→21:28)
[2020-01-29 11:46] LABS: GLUCOMETER DEV NAME(LOC) BV2S.; GLUCOSE,POINT OF CARE 188 MG/DL (70-110)
[2020-01-29 16:08] VITALS: BP 105/65
[2020-01-29 17:36] LABS: GLUCOMETER DEV NAME(LOC) BV2S.; GLUCOSE,POINT OF CARE 203 MG/DL (70-110)
[2020-01-29] MEDS: ZOLPIDEM TARTRATE 10 MG TABLET PO PRN (19:57)
[2020-01-30 02:30] VITALS: BP 110/71
[2020-01-30 06:21] LABS: GLUCOMETER DEV NAME(LOC) BV2S.; GLUCOSE,POINT OF CARE 152 MG/DL (70-110)
[2020-01-30] MEDS: GlipiZIDE 5 MG TABLET PO SCH ×2 (06:29→16:10)
[2020-01-30] MEDS: LEVOTHYROXINE SODIUM 50 MCG TABLET PO SCH (06:29)
[2020-01-30] MEDS: INSULIN LISPRO 100 UNITS/ML SQ PRN ×4 (06:45→20:17)
[2020-01-30 08:28] VITALS: BP 142/76
[2020-01-30] MEDS: RisperiDONE 1 MG TABLET PO SCH ×2 (08:34→16:10)
[2020-01-30] MEDS: NICOTINE 21 MG/24 HOUR PATCH TD SCH (08:34)
[2020-01-30] MEDS: OMEGA-3/DHA/EPA/FISH OIL 1,000 MG CAPSULE PO SCH (08:34)
[2020-01-30] MEDS: LITHIUM CARBONATE 600 MG CAPSULE PO SCH ×2 (08:34→16:10)
[2020-01-30] MEDS: INSULIN GLARGINE,HUM.REC.ANLOG 100 UNITS/ML SQ SCH ×2 (08:46→20:17)
[2020-01-30 10:55] LABS: GLUCOMETER DEV NAME(LOC) BV2S.; GLUCOSE,POINT OF CARE 141 MG/DL (70-110)
[2020-01-30 11:15] LABS: GLUCOMETER DEV NAME(LOC) BV2S.; GLUCOSE,POINT OF CARE 194 MG/DL (70-110)
[2020-01-30 16:15] VITALS: BP 111/65
[2020-01-30 16:29] LABS: GLUCOMETER DEV NAME(LOC) BV2S.; GLUCOSE,POINT OF CARE 187 MG/DL (70-110)
[2020-01-30 20:37] LABS: GLUCOMETER DEV NAME(LOC) BV2S.; GLUCOSE,POINT OF CARE 198 MG/DL (70-110)
[2020-01-30] MEDS: ZOLPIDEM TARTRATE 10 MG TABLET PO PRN (20:59)
[2020-01-31 05:43] LABS: GLUCOMETER DEV NAME(LOC) BV2S.; GLUCOSE,POINT OF CARE 128 MG/DL (70-110)
[2020-01-31] MEDS: GlipiZIDE 5 MG TABLET PO SCH ×2 (06:15→16:19)
[2020-01-31] MEDS: LEVOTHYROXINE SODIUM 50 MCG TABLET PO SCH (06:15)
[2020-01-31 06:39] VITALS: BP 117/68
[2020-01-31] MEDS: OMEGA-3/DHA/EPA/FISH OIL 1,000 MG CAPSULE PO SCH (08:25)
[2020-01-31] MEDS: RisperiDONE 1 MG TABLET PO SCH ×2 (08:25→16:19)
[2020-01-31] MEDS: LITHIUM CARBONATE 600 MG CAPSULE PO SCH ×2 (08:25→16:19)
[2020-01-31] MEDS: NICOTINE 21 MG/24 HOUR PATCH TD SCH (08:26)
[2020-01-31 08:27] VITALS: BP 124/78
[2020-01-31 08:30] LABS: BAND NEUTROPHILS % (MANUAL) 0 % (0-5)
[2020-01-31] MEDS: INSULIN GLARGINE,HUM.REC.ANLOG 100 UNITS/ML SQ SCH ×2 (08:35→20:11)
[2020-01-31 08:48] LABS: HEMATOCRIT 42.4 % (41-53); HEMOGLOBIN 14.1 g/dL (13.5-17.5); MEAN CORPUSCULAR HEMOGLOBIN 29.7 pg (26.0-34.0); MEAN CORPUSCULAR HGB CONC 33.3 G/dL (31.0-37.0); MEAN CORPUSCULAR VOLUME 89 fL (80-100); PLATELET COUNT (AUTO) 223 K/uL (150-450); RED BLOOD CELL COUNT(AUTO) 4.76 MIL/uL (4.50-5.90); RED CELL DISTRIBUTION WIDTH 14.4 % (11.5-14.5)
[2020-01-31 08:56] LABS: ANION GAP 4 mmol/L (8-16); CALCIUM, TOTAL 8.4 mg/dL (8.8-10.5); CARBON DIOXIDE 29 mmol/L (22-29); CHLORIDE 105 mmol/L (98-107); CREATININE 0.81 mg/dL (0.60-1.30); GLOMERULAR FILTR. RATE CALC > 60 mL/min (>60); GLUCOSE,RANDOM 203 mg/dL (70-110); PHOSPHORUS 4.3 mg/dL (2.5-4.9); POTASSIUM 4.5 mmol/L (3.5-5.1); SODIUM SERUM 138 mmol/L (136-145); UREA NITROGEN, BLOOD 26 mg/dL (7-18)
[2020-01-31 09:54] LABS: % IRON SATURATION 26.8 % (30-44); IRON, SERUM 99 mcg/dL (50-175); TOTAL IRON BINDING CAPACITY 369 mcg/dL (250-450)
[2020-01-31 10:35] LABS: EOSINOPHILS % (MANUAL) 2 % (1-6); LYMPHOCYTES % (MANUAL) 27 % (22-44); MONOCYTES % (MANUAL) 8 % (2-9); SEGMENTED NEUTROPHILS % 63 % (40-70)
[2020-01-31] MEDS: INSULIN LISPRO 100 UNITS/ML SQ PRN ×3 (10:56→20:12)
[2020-01-31 11:51] LABS: GLUCOMETER DEV NAME(LOC) BV2S.; GLUCOSE,POINT OF CARE 246 MG/DL (70-110)
[2020-01-31 16:19] VITALS: BP 120/74
[2020-01-31] MEDS: MAGNESIUM OXIDE 400 MG TABLET PO SCH (16:19)
[2020-01-31 16:37] LABS: GLUCOMETER DEV NAME(LOC) BV2S.; GLUCOSE,POINT OF CARE 171 MG/DL (70-110)
[2020-01-31 20:31] LABS: GLUCOMETER DEV NAME(LOC) BV2S.; GLUCOSE,POINT OF CARE 191 MG/DL (70-110)
[2020-01-31] MEDS: ZOLPIDEM TARTRATE 10 MG TABLET PO PRN (20:53)
[2020-02-01 06:13] VITALS: BP 124/68
[2020-02-01 06:32] LABS: GLUCOMETER DEV NAME(LOC) BV2S.; GLUCOSE,POINT OF CARE 152 MG/DL (70-110)
[2020-02-01] MEDS: GlipiZIDE 5 MG TABLET PO SCH ×2 (06:33→15:49)
[2020-02-01] MEDS: LEVOTHYROXINE SODIUM 50 MCG TABLET PO SCH (06:33)
[2020-02-01] MEDS: INSULIN LISPRO 100 UNITS/ML SQ PRN ×4 (06:53→21:26)
[2020-02-01 08:20] LABS: COVID AG,FIA SOURCE NASAL SWAB
[2020-02-01 08:31] VITALS: BP 114/65
[2020-02-01] MEDS: RisperiDONE 1 MG TABLET PO SCH ×2 (08:47→15:49)
[2020-02-01] MEDS: OMEGA-3/DHA/EPA/FISH OIL 1,000 MG CAPSULE PO SCH (08:47)
[2020-02-01] MEDS: LITHIUM CARBONATE 600 MG CAPSULE PO SCH ×2 (08:47→15:50)
[2020-02-01] MEDS: MAGNESIUM OXIDE 400 MG TABLET PO SCH ×2 (08:47→15:50)
[2020-02-01] MEDS: NICOTINE 21 MG/24 HOUR PATCH TD SCH (08:48)
[2020-02-01] MEDS: INSULIN GLARGINE,HUM.REC.ANLOG 100 UNITS/ML SQ SCH ×2 (08:56→21:26)
[2020-02-01 11:48] LABS: GLUCOMETER DEV NAME(LOC) BV2S.; GLUCOSE,POINT OF CARE 198 MG/DL (70-110)
[2020-02-01 16:18] VITALS: BP 138/88
[2020-02-01 17:00] LABS: GLUCOMETER DEV NAME(LOC) BV2S.; GLUCOSE,POINT OF CARE 147 MG/DL (70-110)
[2020-02-01 20:43] LABS: GLUCOMETER DEV NAME(LOC) BV2S.; GLUCOSE,POINT OF CARE 212 MG/DL (70-110)
[2020-02-01] MEDS: ZOLPIDEM TARTRATE 10 MG TABLET PO PRN (21:37)
[2020-02-02 01:09] VITALS: BP 105/60
[2020-02-02] MEDS: LEVOTHYROXINE SODIUM 50 MCG TABLET PO SCH (06:26)
[2020-02-02] MEDS: GlipiZIDE 5 MG TABLET PO SCH ×2 (06:26→17:33)
[2020-02-02 06:28] LABS: GLUCOMETER DEV NAME(LOC) BV2S.; GLUCOSE,POINT OF CARE 140 MG/DL (70-110)
[2020-02-02] MEDS: OMEGA-3/DHA/EPA/FISH OIL 1,000 MG CAPSULE PO SCH (08:30)
[2020-02-02] MEDS: NICOTINE 21 MG/24 HOUR PATCH TD SCH (08:30)
[2020-02-02] MEDS: LITHIUM CARBONATE 600 MG CAPSULE PO SCH ×2 (08:30→16:45)
[2020-02-02] MEDS: MAGNESIUM OXIDE 400 MG TABLET PO SCH ×2 (08:30→16:45)
[2020-02-02] MEDS: RisperiDONE 1 MG TABLET PO SCH ×2 (08:30→16:45)
[2020-02-02 08:33] VITALS: BP 107/66
[2020-02-02] MEDS: INSULIN GLARGINE,HUM.REC.ANLOG 100 UNITS/ML SQ SCH ×2 (08:42→21:28)
[2020-02-02] MEDS: INSULIN LISPRO 100 UNITS/ML SQ PRN ×3 (11:00→21:27)
[2020-02-02 11:51] LABS: GLUCOMETER DEV NAME(LOC) BV2S.; GLUCOSE,POINT OF CARE 158 MG/DL (70-110)
[2020-02-02 16:20] VITALS: BP 127/86
[2020-02-02] MEDS: ZOLPIDEM TARTRATE 10 MG TABLET PO PRN (20:10)
[2020-02-02 20:31] LABS: GLUCOMETER DEV NAME(LOC) BV2S.; GLUCOSE,POINT OF CARE 176 MG/DL (70-110)
[2020-02-03 00:58] VITALS: BP 106/67
[2020-02-03] MEDS: LEVOTHYROXINE SODIUM 50 MCG TABLET PO SCH (07:00)
[2020-02-03] MEDS: GlipiZIDE 5 MG TABLET PO SCH ×2 (07:01→16:00)
[2020-02-03] MEDS: INSULIN GLARGINE,HUM.REC.ANLOG 100 UNITS/ML SQ SCH ×2 (08:26→21:10)
[2020-02-03 08:33] LABS: GLUCOMETER DEV NAME(LOC) BV2S.; GLUCOSE,POINT OF CARE 213 MG/DL (70-110)
[2020-02-03 08:44] VITALS: BP 109/68
[2020-02-03] MEDS: LITHIUM CARBONATE 600 MG CAPSULE PO SCH ×2 (09:52→16:42)
[2020-02-03] MEDS: MAGNESIUM OXIDE 400 MG TABLET PO SCH ×2 (09:52→16:42)
[2020-02-03] MEDS: RisperiDONE 1 MG TABLET PO SCH ×2 (09:52→16:42)
[2020-02-03] MEDS: OMEGA-3/DHA/EPA/FISH OIL 1,000 MG CAPSULE PO SCH (09:52)
[2020-02-03] MEDS: NICOTINE 21 MG/24 HOUR PATCH TD SCH (09:53)
[2020-02-03] MEDS: INSULIN LISPRO 100 UNITS/ML SQ PRN ×3 (11:46→21:09)
[2020-02-03 15:09] LABS: GLUCOMETER DEV NAME(LOC) BV2S.; GLUCOSE,POINT OF CARE 220 MG/DL (70-110)
[2020-02-03 16:09] VITALS: BP 129/78
[2020-02-03 16:16] LABS: GLUCOMETER DEV NAME(LOC) BV2S.; GLUCOSE,POINT OF CARE 192 MG/DL (70-110)
[2020-02-03 20:04] LABS: GLUCOMETER DEV NAME(LOC) BV2S.; GLUCOSE,POINT OF CARE 202 MG/DL (70-110)
[2020-02-03] MEDS: ZOLPIDEM TARTRATE 10 MG TABLET PO PRN (21:04)
[2020-02-04 01:04] VITALS: BP 108/72
[2020-02-04] MEDS: LEVOTHYROXINE SODIUM 50 MCG TABLET PO SCH (06:18)
[2020-02-04] MEDS: GlipiZIDE 5 MG TABLET PO SCH ×2 (06:18→16:38)
[2020-02-04 06:34] LABS: GLUCOMETER DEV NAME(LOC) BV2S.; GLUCOSE,POINT OF CARE 187 MG/DL (70-110)
[2020-02-04] MEDS: INSULIN LISPRO 100 UNITS/ML SQ PRN ×3 (06:39→17:31)
[2020-02-04] MEDS: INSULIN GLARGINE,HUM.REC.ANLOG 100 UNITS/ML SQ SCH ×2 (07:51→21:02)
[2020-02-04 07:57] LABS: GLUCOMETER DEV NAME(LOC) BV2S.; GLUCOSE,POINT OF CARE 214 MG/DL (70-110)
[2020-02-04 08:15] VITALS: BP 111/73
[2020-02-04] MEDS: MAGNESIUM OXIDE 400 MG TABLET PO SCH ×2 (09:00→16:59)
[2020-02-04] MEDS: RisperiDONE 1 MG TABLET PO SCH ×2 (09:00→17:00)
[2020-02-04] MEDS: OMEGA-3/DHA/EPA/FISH OIL 1,000 MG CAPSULE PO SCH (09:00)
[2020-02-04] MEDS: NICOTINE 21 MG/24 HOUR PATCH TD SCH (09:00)
[2020-02-04] MEDS: LITHIUM CARBONATE 600 MG CAPSULE PO SCH ×2 (09:00→17:00)
[2020-02-04 11:11] LABS: GLUCOMETER DEV NAME(LOC) BV2S.; GLUCOSE,POINT OF CARE 253 MG/DL (70-110)
[2020-02-04 16:13] VITALS: BP 123/73
[2020-02-04 16:38] LABS: GLUCOMETER DEV NAME(LOC) BV2S.; GLUCOSE,POINT OF CARE 215 MG/DL (70-110)
[2020-02-04 20:00] LABS: GLUCOMETER DEV NAME(LOC) BV2S.; GLUCOSE,POINT OF CARE 145 MG/DL (70-110)
[2020-02-04] MEDS: ZOLPIDEM TARTRATE 10 MG TABLET PO PRN (20:31)
[2020-02-05] MEDS: GlipiZIDE 5 MG TABLET PO SCH ×2 (06:25→16:21)
[2020-02-05] MEDS: LEVOTHYROXINE SODIUM 50 MCG TABLET PO SCH (06:25)
[2020-02-05 06:40] VITALS: BP 114/77
[2020-02-05 08:33] VITALS: BP 129/84
[2020-02-05] MEDS: INSULIN GLARGINE,HUM.REC.ANLOG 100 UNITS/ML SQ SCH ×2 (09:00→21:22)
[2020-02-05] MEDS: MAGNESIUM OXIDE 400 MG TABLET PO SCH ×2 (09:59→16:30)
[2020-02-05] MEDS: RisperiDONE 1 MG TABLET PO SCH ×2 (09:59→16:30)
[2020-02-05] MEDS: LITHIUM CARBONATE 600 MG CAPSULE PO SCH ×2 (10:00→16:31)
[2020-02-05] MEDS: OMEGA-3/DHA/EPA/FISH OIL 1,000 MG CAPSULE PO SCH (10:00)
[2020-02-05] MEDS: NICOTINE 21 MG/24 HOUR PATCH TD SCH (10:01)
[2020-02-05 10:56] LABS: GLUCOMETER DEV NAME(LOC) BV2S.; GLUCOSE,POINT OF CARE 216 MG/DL (70-110)
[2020-02-05] MEDS: INSULIN LISPRO 100 UNITS/ML SQ PRN ×3 (11:49→21:21)
[2020-02-05 16:25] VITALS: BP 110/80
[2020-02-05 16:40] LABS: GLUCOMETER DEV NAME(LOC) BV2S.; GLUCOSE,POINT OF CARE 177 MG/DL (70-110)
[2020-02-05] MEDS: ZOLPIDEM TARTRATE 10 MG TABLET PO PRN (20:28)
[2020-02-05 20:34] LABS: GLUCOMETER DEV NAME(LOC) BV2S.; GLUCOSE,POINT OF CARE 180 MG/DL (70-110)
[2020-02-06 00:31] VITALS: BP 128/76
[2020-02-06] MEDS: LEVOTHYROXINE SODIUM 50 MCG TABLET PO SCH (06:49)
[2020-02-06] MEDS: GlipiZIDE 5 MG TABLET PO SCH ×2 (06:49→16:42)
[2020-02-06 08:11] VITALS: BP 123/75
[2020-02-06] MEDS: INSULIN GLARGINE,HUM.REC.ANLOG 100 UNITS/ML SQ SCH ×2 (09:10→21:28)
[2020-02-06] MEDS: RisperiDONE 1 MG TABLET PO SCH ×2 (09:12→16:42)
[2020-02-06] MEDS: OMEGA-3/DHA/EPA/FISH OIL 1,000 MG CAPSULE PO SCH (09:12)
[2020-02-06] MEDS: MAGNESIUM OXIDE 400 MG TABLET PO SCH ×2 (09:12→16:42)
[2020-02-06] MEDS: LITHIUM CARBONATE 600 MG CAPSULE PO SCH ×2 (09:12→16:42)
[2020-02-06] MEDS: NICOTINE 21 MG/24 HOUR PATCH TD SCH (09:13)
[2020-02-06] MEDS: INSULIN LISPRO 100 UNITS/ML SQ PRN ×3 (11:52→21:28)
[2020-02-06 11:54] LABS: GLUCOMETER DEV NAME(LOC) BV2S.; GLUCOSE,POINT OF CARE 219 MG/DL (70-110)
[2020-02-06 16:11] VITALS: BP 113/60
[2020-02-06 17:04] LABS: GLUCOMETER DEV NAME(LOC) BV2S.; GLUCOSE,POINT OF CARE 199 MG/DL (70-110)
[2020-02-06 20:16] LABS: GLUCOMETER DEV NAME(LOC) BV2S.; GLUCOSE,POINT OF CARE 256 MG/DL (70-110)
[2020-02-06] MEDS: ZOLPIDEM TARTRATE 10 MG TABLET PO PRN (20:48)
[2020-02-07 05:57] VITALS: BP 121/67
[2020-02-07] MEDS: INSULIN LISPRO 100 UNITS/ML SQ PRN ×3 (06:00→16:39)
[2020-02-07 06:08] LABS: GLUCOMETER DEV NAME(LOC) BV2S.; GLUCOSE,POINT OF CARE 163 MG/DL (70-110)
[2020-02-07] MEDS: LEVOTHYROXINE SODIUM 50 MCG TABLET PO SCH (06:30)
[2020-02-07] MEDS: GlipiZIDE 5 MG TABLET PO SCH ×2 (06:30→16:16)
[2020-02-07] MEDS: LITHIUM CARBONATE 600 MG CAPSULE PO SCH ×2 (08:06→16:16)
[2020-02-07] MEDS: NICOTINE 21 MG/24 HOUR PATCH TD SCH (08:06)
[2020-02-07] MEDS: OMEGA-3/DHA/EPA/FISH OIL 1,000 MG CAPSULE PO SCH (08:06)
[2020-02-07] MEDS: RisperiDONE 1 MG TABLET PO SCH ×2 (08:06→16:16)
[2020-02-07] MEDS: MAGNESIUM OXIDE 400 MG TABLET PO SCH ×2 (08:06→16:16)
[2020-02-07] MEDS: INSULIN GLARGINE,HUM.REC.ANLOG 100 UNITS/ML SQ SCH ×2 (08:13→20:15)
[2020-02-07 08:23] VITALS: BP 119/72
[2020-02-07 11:11] LABS: GLUCOMETER DEV NAME(LOC) BV2S.; GLUCOSE,POINT OF CARE 260 MG/DL (70-110)
[2020-02-07 16:20] VITALS: BP 126/80
[2020-02-07 16:34] LABS: GLUCOMETER DEV NAME(LOC) BV2S.; GLUCOSE,POINT OF CARE 157 MG/DL (70-110)
[2020-02-07 20:15] LABS: GLUCOMETER DEV NAME(LOC) BV2S.; GLUCOSE,POINT OF CARE 125 MG/DL (70-110)
[2020-02-07] MEDS: ZOLPIDEM TARTRATE 10 MG TABLET PO PRN (20:35)
[2020-02-08 00:55] VITALS: BP 127/73
[2020-02-08 07:12] LABS: GLUCOMETER DEV NAME(LOC) BV2S.; GLUCOSE,POINT OF CARE 129 MG/DL (70-110)
[2020-02-08] MEDS: LEVOTHYROXINE SODIUM 50 MCG TABLET PO SCH (07:12)
[2020-02-08] MEDS: GlipiZIDE 5 MG TABLET PO SCH ×2 (07:12→16:13)
[2020-02-08 08:47] LABS: COVID AG,FIA SOURCE NASAL SWAB
[2020-02-08] MEDS: RisperiDONE 1 MG TABLET PO SCH ×2 (08:47→16:13)
[2020-02-08] MEDS: LITHIUM CARBONATE 600 MG CAPSULE PO SCH ×2 (08:47→16:13)
[2020-02-08] MEDS: OMEGA-3/DHA/EPA/FISH OIL 1,000 MG CAPSULE PO SCH (08:47)
[2020-02-08] MEDS: MAGNESIUM OXIDE 400 MG TABLET PO SCH ×2 (08:47→16:13)
[2020-02-08] MEDS: NICOTINE 21 MG/24 HOUR PATCH TD SCH (08:48)
[2020-02-08] MEDS: INSULIN GLARGINE,HUM.REC.ANLOG 100 UNITS/ML SQ SCH ×2 (08:57→20:36)
[2020-02-08 09:03] VITALS: BP 122/69
[2020-02-08] MEDS: INSULIN LISPRO 100 UNITS/ML SQ PRN ×2 (11:01→20:36)
[2020-02-08 11:15] LABS: GLUCOMETER DEV NAME(LOC) BV2S.; GLUCOSE,POINT OF CARE 251 MG/DL (70-110)
[2020-02-08 16:11] VITALS: BP 122/79
[2020-02-08 16:18] LABS: GLUCOMETER DEV NAME(LOC) BV2S.; GLUCOSE,POINT OF CARE 130 MG/DL (70-110)
[2020-02-08 21:10] LABS: GLUCOMETER DEV NAME(LOC) BV2S.; GLUCOSE,POINT OF CARE 191 MG/DL (70-110)
[2020-02-08] MEDS: ZOLPIDEM TARTRATE 10 MG TABLET PO PRN (21:20)
[2020-02-09 00:50] VITALS: BP 106/62
[2020-02-09] MEDS: INSULIN LISPRO 100 UNITS/ML SQ PRN ×3 (06:37→21:22)
[2020-02-09 06:44] LABS: GLUCOMETER DEV NAME(LOC) BV2S.; GLUCOSE,POINT OF CARE 191 MG/DL (70-110)
[2020-02-09] MEDS: GlipiZIDE 5 MG TABLET PO SCH ×2 (07:03→16:16)
[2020-02-09] MEDS: LEVOTHYROXINE SODIUM 50 MCG TABLET PO SCH (07:03)
[2020-02-09 08:41] VITALS: BP 117/70
[2020-02-09] MEDS: OMEGA-3/DHA/EPA/FISH OIL 1,000 MG CAPSULE PO SCH (09:42)
[2020-02-09] MEDS: MAGNESIUM OXIDE 400 MG TABLET PO SCH ×2 (09:42→16:15)
[2020-02-09] MEDS: RisperiDONE 1 MG TABLET PO SCH ×2 (09:42→16:16)
[2020-02-09] MEDS: LITHIUM CARBONATE 600 MG CAPSULE PO SCH ×2 (09:42→16:15)
[2020-02-09] MEDS: NICOTINE 21 MG/24 HOUR PATCH TD SCH (09:42)
[2020-02-09] MEDS: INSULIN GLARGINE,HUM.REC.ANLOG 100 UNITS/ML SQ SCH ×2 (09:58→21:22)
[2020-02-09 11:05] LABS: GLUCOMETER DEV NAME(LOC) BV2S.; GLUCOSE,POINT OF CARE 248 MG/DL (70-110)
[2020-02-09 16:33] LABS: GLUCOMETER DEV NAME(LOC) BV2S.; GLUCOSE,POINT OF CARE 138 MG/DL (70-110)
[2020-02-09 17:38] VITALS: BP 110/68
[2020-02-09 20:19] LABS: GLUCOMETER DEV NAME(LOC) BV2S.; GLUCOSE,POINT OF CARE 190 MG/DL (70-110)
[2020-02-10 00:47] VITALS: BP 105/65
[2020-02-10] MEDS: LEVOTHYROXINE SODIUM 50 MCG TABLET PO SCH (06:07)
[2020-02-10] MEDS: GlipiZIDE 5 MG TABLET PO SCH ×2 (06:07→16:42)
[2020-02-10 08:41] VITALS: BP 144/90
[2020-02-10] MEDS: OMEGA-3/DHA/EPA/FISH OIL 1,000 MG CAPSULE PO SCH (09:22)
[2020-02-10] MEDS: RisperiDONE 1 MG TABLET PO SCH ×2 (09:22→16:40)
[2020-02-10] MEDS: MAGNESIUM OXIDE 400 MG TABLET PO SCH ×2 (09:22→16:40)
[2020-02-10] MEDS: LITHIUM CARBONATE 600 MG CAPSULE PO SCH ×2 (09:22→16:40)
[2020-02-10] MEDS: INSULIN GLARGINE,HUM.REC.ANLOG 100 UNITS/ML SQ SCH ×2 (09:32→21:11)
[2020-02-10] MEDS: NICOTINE 21 MG/24 HOUR PATCH TD SCH (09:39)
[2020-02-10 09:43] LABS: GLUCOMETER DEV NAME(LOC) BV2S.; GLUCOSE,POINT OF CARE 198 MG/DL (70-110)
[2020-02-10 11:43] LABS: GLUCOMETER DEV NAME(LOC) BV2S.; GLUCOSE,POINT OF CARE 126 MG/DL (70-110)
[2020-02-10 16:20] VITALS: BP 110/73
[2020-02-10 16:53] LABS: GLUCOMETER DEV NAME(LOC) BV2S.; GLUCOSE,POINT OF CARE 115 MG/DL (70-110)
[2020-02-10 20:06] LABS: GLUCOMETER DEV NAME(LOC) BV2S.; GLUCOSE,POINT OF CARE 134 MG/DL (70-110)
[2020-02-10] MEDS: ZOLPIDEM TARTRATE 10 MG TABLET PO PRN (20:36)
[2020-02-11] MEDS: GlipiZIDE 5 MG TABLET PO SCH ×2 (06:13→16:32)
[2020-02-11] MEDS: LEVOTHYROXINE SODIUM 50 MCG TABLET PO SCH (06:13)
[2020-02-11 08:33] VITALS: BP 117/74
[2020-02-11] MEDS: LITHIUM CARBONATE 600 MG CAPSULE PO SCH ×2 (08:38→16:32)
[2020-02-11] MEDS: MAGNESIUM OXIDE 400 MG TABLET PO SCH ×2 (08:38→16:32)
[2020-02-11] MEDS: RisperiDONE 1 MG TABLET PO SCH ×2 (08:38→16:32)
[2020-02-11] MEDS: NICOTINE 21 MG/24 HOUR PATCH TD SCH (08:39)
[2020-02-11] MEDS: INSULIN GLARGINE,HUM.REC.ANLOG 100 UNITS/ML SQ SCH ×2 (08:51→21:04)
[2020-02-11 09:00] LABS: GLUCOMETER DEV NAME(LOC) BV2S.; GLUCOSE,POINT OF CARE 160 MG/DL (70-110)
[2020-02-11] MEDS: OMEGA-3/DHA/EPA/FISH OIL 1,000 MG CAPSULE PO SCH (09:39)
[2020-02-11 11:42] LABS: GLUCOMETER DEV NAME(LOC) BV2S.; GLUCOSE,POINT OF CARE 140 MG/DL (70-110)
[2020-02-11 15:57] LABS: GLUCOMETER DEV NAME(LOC) BV2S.; GLUCOSE,POINT OF CARE 182 MG/DL (70-110)
[2020-02-11 16:13] VITALS: BP 108/65
[2020-02-11] MEDS: INSULIN LISPRO 100 UNITS/ML SQ PRN ×2 (16:48→21:04)
[2020-02-11 20:25] LABS: GLUCOMETER DEV NAME(LOC) BV2S.; GLUCOSE,POINT OF CARE 144 MG/DL (70-110)
[2020-02-11] MEDS: ZOLPIDEM TARTRATE 10 MG TABLET PO PRN (20:54)
[2020-02-12 02:35] VITALS: BP 118/76
[2020-02-12 05:40] VITALS: BP 138/90
[2020-02-12 06:17] LABS: GLUCOMETER DEV NAME(LOC) BV2S.; GLUCOSE,POINT OF CARE 166 MG/DL (70-110)
[2020-02-12] MEDS: LEVOTHYROXINE SODIUM 50 MCG TABLET PO SCH (06:18)
[2020-02-12] MEDS: GlipiZIDE 5 MG TABLET PO SCH ×2 (06:18→16:04)
[2020-02-12] MEDS: INSULIN LISPRO 100 UNITS/ML SQ PRN (06:29)
[2020-02-12 08:23] VITALS: BP 114/68
[2020-02-12] MEDS: MAGNESIUM OXIDE 400 MG TABLET PO SCH ×2 (09:12→16:03)
[2020-02-12] MEDS: LITHIUM CARBONATE 600 MG CAPSULE PO SCH ×2 (09:12→16:03)
[2020-02-12] MEDS: OMEGA-3/DHA/EPA/FISH OIL 1,000 MG CAPSULE PO SCH (09:12)
[2020-02-12] MEDS: RisperiDONE 1 MG TABLET PO SCH ×2 (09:13→16:03)
[2020-02-12] MEDS: NICOTINE 21 MG/24 HOUR PATCH TD SCH (09:21)
[2020-02-12] MEDS: INSULIN GLARGINE,HUM.REC.ANLOG 100 UNITS/ML SQ SCH ×2 (09:23→21:10)
[2020-02-12 09:34] LABS: GLUCOMETER DEV NAME(LOC) BV2S.; GLUCOSE,POINT OF CARE 136 MG/DL (70-110)
[2020-02-12 11:18] LABS: GLUCOMETER DEV NAME(LOC) BV2S.; GLUCOSE,POINT OF CARE 114 MG/DL (70-110)
[2020-02-12] MEDS ORDERED: TUBERCULIN, PURIFIED PROTEIN DERIVATIVE 5 TU/0.1 ML SYRINGE ID ONE (13:45)
[2020-02-12 16:11] VITALS: BP 118/69
[2020-02-12 16:20] LABS: GLUCOMETER DEV NAME(LOC) BV2S.; GLUCOSE,POINT OF CARE 116 MG/DL (70-110)
[2020-02-12 20:34] LABS: GLUCOMETER DEV NAME(LOC) BV2S.; GLUCOSE,POINT OF CARE 102 MG/DL (70-110)
[2020-02-12] MEDS: ZOLPIDEM TARTRATE 10 MG TABLET PO PRN (22:22)
[2020-02-13 00:28] VITALS: BP 125/68
[2020-02-13] MEDS: LEVOTHYROXINE SODIUM 50 MCG TABLET PO SCH (06:19)
[2020-02-13] MEDS: GlipiZIDE 5 MG TABLET PO SCH ×2 (06:19→16:32)
[2020-02-13 08:35] VITALS: BP 111/64
[2020-02-13] MEDS: OMEGA-3/DHA/EPA/FISH OIL 1,000 MG CAPSULE PO SCH (09:32)
[2020-02-13] MEDS: MAGNESIUM OXIDE 400 MG TABLET PO SCH ×2 (09:32→16:39)
[2020-02-13] MEDS: LITHIUM CARBONATE 600 MG CAPSULE PO SCH ×2 (09:32→16:36)
[2020-02-13] MEDS: RisperiDONE 1 MG TABLET PO SCH ×2 (09:32→16:32)
[2020-02-13] MEDS: NICOTINE 21 MG/24 HOUR PATCH TD SCH (09:42)
[2020-02-13] MEDS: INSULIN GLARGINE,HUM.REC.ANLOG 100 UNITS/ML SQ SCH ×2 (09:48→20:17)
[2020-02-13 09:56] LABS: GLUCOMETER DEV NAME(LOC) BV2S.; GLUCOSE,POINT OF CARE 141 MG/DL (70-110)
[2020-02-13] MEDS ORDERED: TUBERCULIN, PURIFIED PROTEIN DERIVATIVE 5 TU/0.1 ML SYRINGE ID ONE (11:30)
[2020-02-13 11:36] LABS: GLUCOMETER DEV NAME(LOC) BV2S.; GLUCOSE,POINT OF CARE 113 MG/DL (70-110)
[2020-02-13 16:12] VITALS: BP 124/75
[2020-02-13 16:57] LABS: GLUCOMETER DEV NAME(LOC) BV2S.; GLUCOSE,POINT OF CARE 170 MG/DL (70-110)
[2020-02-13] MEDS: INSULIN LISPRO 100 UNITS/ML SQ PRN (17:11)
[2020-02-13] MEDS: ZOLPIDEM TARTRATE 10 MG TABLET PO PRN (20:13)
[2020-02-13 20:36] LABS: GLUCOMETER DEV NAME(LOC) BV2S.; GLUCOSE,POINT OF CARE 134 MG/DL (70-110)
[2020-02-14 06:34] VITALS: BP 106/65
[2020-02-14] MEDS: GlipiZIDE 5 MG TABLET PO SCH ×2 (06:38→16:48)
[2020-02-14] MEDS: LEVOTHYROXINE SODIUM 50 MCG TABLET PO SCH (06:38)
[2020-02-14 07:14] LABS: GLUCOMETER DEV NAME(LOC) BV2S.; GLUCOSE,POINT OF CARE 118 MG/DL (70-110)
[2020-02-14 08:22] VITALS: BP 117/82
[2020-02-14] MEDS: INSULIN GLARGINE,HUM.REC.ANLOG 100 UNITS/ML SQ SCH ×2 (10:01→20:34)
[2020-02-14] MEDS: MAGNESIUM OXIDE 400 MG TABLET PO SCH ×2 (10:09→16:48)
[2020-02-14] MEDS: OMEGA-3/DHA/EPA/FISH OIL 1,000 MG CAPSULE PO SCH (10:09)
[2020-02-14] MEDS: RisperiDONE 1 MG TABLET PO SCH ×2 (10:09→16:48)
[2020-02-14] MEDS: LITHIUM CARBONATE 600 MG CAPSULE PO SCH ×2 (10:09→16:48)
[2020-02-14] MEDS: NICOTINE 21 MG/24 HOUR PATCH TD SCH (10:09)
[2020-02-14 11:36] LABS: GLUCOMETER DEV NAME(LOC) BV2S.; GLUCOSE,POINT OF CARE 151 MG/DL (70-110)
[2020-02-14] MEDS: INSULIN LISPRO 100 UNITS/ML SQ PRN ×3 (12:08→20:35)
[2020-02-14 16:13] VITALS: BP 123/65
[2020-02-14 16:24] LABS: GLUCOMETER DEV NAME(LOC) BV2S.; GLUCOSE,POINT OF CARE 170 MG/DL (70-110)
[2020-02-14] MEDS: ZOLPIDEM TARTRATE 10 MG TABLET PO PRN (20:04)
[2020-02-14 20:37] LABS: GLUCOMETER DEV NAME(LOC) BV2S.; GLUCOSE,POINT OF CARE 164 MG/DL (70-110)
[2020-02-15 02:07] VITALS: BP 115/83
[2020-02-15] MEDS: GlipiZIDE 5 MG TABLET PO SCH ×2 (06:31→16:35)
[2020-02-15] MEDS: LEVOTHYROXINE SODIUM 50 MCG TABLET PO SCH (06:31)
[2020-02-15 07:19] LABS: COVID AG,FIA SOURCE NASOPHARYNGEAL
[2020-02-15 08:20] VITALS: BP 118/71
[2020-02-15] MEDS: LITHIUM CARBONATE 600 MG CAPSULE PO SCH ×2 (08:58→16:35)
[2020-02-15] MEDS: RisperiDONE 1 MG TABLET PO SCH ×2 (08:58→16:35)
[2020-02-15] MEDS: OMEGA-3/DHA/EPA/FISH OIL 1,000 MG CAPSULE PO SCH (08:58)
[2020-02-15] MEDS ORDERED: MAGNESIUM OXIDE 400 MG TABLET PO SCH (09:00)
[2020-02-15] MEDS: INSULIN GLARGINE,HUM.REC.ANLOG 100 UNITS/ML SQ SCH ×2 (09:10→20:14)
[2020-02-15] MEDS: NICOTINE 21 MG/24 HOUR PATCH TD SCH (09:11)
[2020-02-15 09:16] LABS: GLUCOMETER DEV NAME(LOC) BV2S.; GLUCOSE,POINT OF CARE 178 MG/DL (70-110)
[2020-02-15 11:39] LABS: GLUCOMETER DEV NAME(LOC) BV2S.; GLUCOSE,POINT OF CARE 116 MG/DL (70-110)
[2020-02-15 16:26] VITALS: BP 118/67
[2020-02-15 16:58] LABS: GLUCOMETER DEV NAME(LOC) BV2S.; GLUCOSE,POINT OF CARE 142 MG/DL (70-110)
[2020-02-15] MEDS: INSULIN LISPRO 100 UNITS/ML SQ PRN (17:01)
[2020-02-15] MEDS: ZOLPIDEM TARTRATE 10 MG TABLET PO PRN (20:10)
[2020-02-15 20:24] LABS: GLUCOMETER DEV NAME(LOC) BV2S.; GLUCOSE,POINT OF CARE 128 MG/DL (70-110)
[2020-02-16 05:45] VITALS: BP 118/81
[2020-02-16 06:19] LABS: GLUCOMETER DEV NAME(LOC) BV2S.; GLUCOSE,POINT OF CARE 104 MG/DL (70-110)
[2020-02-16] MEDS: GlipiZIDE 5 MG TABLET PO SCH ×2 (06:24→16:17)
[2020-02-16] MEDS: LEVOTHYROXINE SODIUM 50 MCG TABLET PO SCH (06:24)
[2020-02-16 08:40] VITALS: BP 130/89
[2020-02-16] MEDS: OMEGA-3/DHA/EPA/FISH OIL 1,000 MG CAPSULE PO SCH (09:16)
[2020-02-16] MEDS: LITHIUM CARBONATE 600 MG CAPSULE PO SCH ×2 (09:16→16:17)
[2020-02-16] MEDS: RisperiDONE 1 MG TABLET PO SCH ×2 (09:16→16:17)
[2020-02-16] MEDS: NICOTINE 21 MG/24 HOUR PATCH TD SCH (09:17)
[2020-02-16] MEDS: INSULIN GLARGINE,HUM.REC.ANLOG 100 UNITS/ML SQ SCH ×2 (09:24→20:49)
[2020-02-16 11:09] LABS: GLUCOMETER DEV NAME(LOC) BV2S.; GLUCOSE,POINT OF CARE 108 MG/DL (70-110)
[2020-02-16] MEDS: IBUPROFEN 600 MG TABLET PO PRN ×2 (13:29→20:40)
[2020-02-16 16:09] VITALS: BP 125/70
[2020-02-16] MEDS: INSULIN LISPRO 100 UNITS/ML SQ PRN (16:56)
[2020-02-16 18:46] LABS: GLUCOMETER DEV NAME(LOC) BV2S.; GLUCOSE,POINT OF CARE 154 MG/DL (70-110)
[2020-02-16] MEDS: ZOLPIDEM TARTRATE 10 MG TABLET PO PRN (20:40)
[2020-02-16 21:05] LABS: GLUCOMETER DEV NAME(LOC) BV2S.; GLUCOSE,POINT OF CARE 98 MG/DL (70-110)
[2020-02-17 00:58] VITALS: BP 127/79
[2020-02-17] MEDS: LEVOTHYROXINE SODIUM 50 MCG TABLET PO SCH (06:20)
[2020-02-17] MEDS: GlipiZIDE 5 MG TABLET PO SCH ×2 (06:20→17:00)
[2020-02-17 06:28] LABS: GLUCOMETER DEV NAME(LOC) BV2S.; GLUCOSE,POINT OF CARE 128 MG/DL (70-110)
[2020-02-17 06:40] VITALS: BP 132/81
[2020-02-17] MEDS: IBUPROFEN 600 MG TABLET PO PRN ×2 (06:48→14:00)
[2020-02-17] MEDS: AMOXICILLIN TRIHYDRATE 500 MG CAPSULE PO SCH ×3 (08:24→17:01)
[2020-02-17] MEDS: RisperiDONE 1 MG TABLET PO SCH ×2 (08:25→17:00)
[2020-02-17] MEDS: OMEGA-3/DHA/EPA/FISH OIL 1,000 MG CAPSULE PO SCH (08:25)
[2020-02-17] MEDS: NICOTINE 21 MG/24 HOUR PATCH TD SCH (08:25)
[2020-02-17] MEDS: LITHIUM CARBONATE 600 MG CAPSULE PO SCH ×2 (08:25→17:00)
[2020-02-17 08:48] VITALS: BP 110/68
[2020-02-17] MEDS: INSULIN GLARGINE,HUM.REC.ANLOG 100 UNITS/ML SQ SCH ×2 (09:31→20:55)
[2020-02-17 09:41] LABS: GLUCOMETER DEV NAME(LOC) BV2S.; GLUCOSE,POINT OF CARE 300 MG/DL (70-110)
[2020-02-17] MEDS: INSULIN LISPRO 100 UNITS/ML SQ PRN ×2 (11:32→17:24)
[2020-02-17] MEDS: BENZOCAINE 10% 7 GM GEL TP PRN (13:41)
[2020-02-17 14:52] LABS: GLUCOMETER DEV NAME(LOC) BV2S.; GLUCOSE,POINT OF CARE 222 MG/DL (70-110)
[2020-02-17 16:14] VITALS: BP 116/70
[2020-02-17 17:19] LABS: GLUCOMETER DEV NAME(LOC) BV2S.; GLUCOSE,POINT OF CARE 162 MG/DL (70-110)
[2020-02-17 20:08] LABS: GLUCOMETER DEV NAME(LOC) BV2S.; GLUCOSE,POINT OF CARE 118 MG/DL (70-110)
[2020-02-17] MEDS: ZOLPIDEM TARTRATE 10 MG TABLET PO PRN (20:33)
[2020-02-18 01:42] VITALS: BP 119/72
[2020-02-18] MEDS: GlipiZIDE 5 MG TABLET PO SCH ×2 (06:14→16:28)
[2020-02-18] MEDS: LEVOTHYROXINE SODIUM 50 MCG TABLET PO SCH (06:14)
[2020-02-18 06:21] LABS: GLUCOMETER DEV NAME(LOC) BV2S.; GLUCOSE,POINT OF CARE 194 MG/DL (70-110)
[2020-02-18] MEDS: INSULIN LISPRO 100 UNITS/ML SQ PRN ×5 (06:48→21:51)
[2020-02-18 08:16] VITALS: BP 135/79
[2020-02-18] MEDS: IBUPROFEN 600 MG TABLET PO PRN ×3 (08:17→21:09)
[2020-02-18] MEDS: LITHIUM CARBONATE 600 MG CAPSULE PO SCH ×2 (08:17→16:28)
[2020-02-18] MEDS: OMEGA-3/DHA/EPA/FISH OIL 1,000 MG CAPSULE PO SCH (08:18)
[2020-02-18] MEDS: RisperiDONE 1 MG TABLET PO SCH ×2 (08:19→16:28)
[2020-02-18] MEDS: NICOTINE 21 MG/24 HOUR PATCH TD SCH (08:33)
[2020-02-18 08:49] LABS: GLUCOMETER DEV NAME(LOC) BV2S.; GLUCOSE,POINT OF CARE 197 MG/DL (70-110)
[2020-02-18] MEDS: INSULIN GLARGINE,HUM.REC.ANLOG 100 UNITS/ML SQ SCH ×2 (09:36→21:39)
[2020-02-18] MEDS: AMOXICILLIN TRIHYDRATE 500 MG CAPSULE PO SCH ×3 (11:32→16:28)
[2020-02-18 11:37] LABS: GLUCOMETER DEV NAME(LOC) BV2S.; GLUCOSE,POINT OF CARE 136 MG/DL (70-110)
[2020-02-18 14:20] VITALS: BP 130/78
[2020-02-18 16:33] VITALS: BP 122/72
[2020-02-18 16:54] LABS: GLUCOMETER DEV NAME(LOC) BV2S.; GLUCOSE,POINT OF CARE 211 MG/DL (70-110)
[2020-02-18 20:32] LABS: GLUCOMETER DEV NAME(LOC) BV2S.; GLUCOSE,POINT OF CARE 148 MG/DL (70-110)
[2020-02-18] MEDS: ZOLPIDEM TARTRATE 10 MG TABLET PO PRN (21:09)
[2020-02-19 00:22] VITALS: BP 124/68
[2020-02-19] MEDS: LEVOTHYROXINE SODIUM 50 MCG TABLET PO SCH (06:41)
[2020-02-19] MEDS: GlipiZIDE 5 MG TABLET PO SCH ×2 (06:41→16:09)
[2020-02-19] MEDS: IBUPROFEN 600 MG TABLET PO PRN ×3 (06:45→16:02)
[2020-02-19 06:46] VITALS: BP 128/70
[2020-02-19 08:18] VITALS: BP 137/83
[2020-02-19 08:35] LABS: GLUCOMETER DEV NAME(LOC) BV2S.; GLUCOSE,POINT OF CARE 84 MG/DL (70-110)
[2020-02-19] MEDS: LITHIUM CARBONATE 600 MG CAPSULE PO SCH ×2 (08:38→16:02)
[2020-02-19] MEDS: OMEGA-3/DHA/EPA/FISH OIL 1,000 MG CAPSULE PO SCH (08:38)
[2020-02-19] MEDS: RisperiDONE 1 MG TABLET PO SCH ×2 (08:38→16:02)
[2020-02-19] MEDS: NICOTINE 21 MG/24 HOUR PATCH TD SCH (08:48)
[2020-02-19] MEDS: INSULIN LISPRO 100 UNITS/ML SQ PRN ×2 (08:58→21:12)
[2020-02-19] MEDS: INSULIN GLARGINE,HUM.REC.ANLOG 100 UNITS/ML SQ SCH ×2 (08:58→21:12)
[2020-02-19 08:59] LABS: GLUCOMETER DEV NAME(LOC) BV2S.; GLUCOSE,POINT OF CARE 224 MG/DL (70-110)
[2020-02-19] MEDS: AMOXICILLIN TRIHYDRATE 500 MG CAPSULE PO SCH ×3 (09:47→16:02)
[2020-02-19 11:35] LABS: GLUCOMETER DEV NAME(LOC) BV2S.; GLUCOSE,POINT OF CARE 115 MG/DL (70-110)
[2020-02-19 13:26] VITALS: BP 128/72
[2020-02-19 16:13] LABS: GLUCOMETER DEV NAME(LOC) BV2S.; GLUCOSE,POINT OF CARE 112 MG/DL (70-110)
[2020-02-19 16:32] VITALS: BP 116/69
[2020-02-19 20:09] LABS: GLUCOMETER DEV NAME(LOC) BV2S.; GLUCOSE,POINT OF CARE 146 MG/DL (70-110)
[2020-02-19] MEDS: ZOLPIDEM TARTRATE 10 MG TABLET PO PRN (20:32)
[2020-02-20 00:02] VITALS: BP 114/77
[2020-02-20 06:25] LABS: GLUCOMETER DEV NAME(LOC) BV2S.; GLUCOSE,POINT OF CARE 149 MG/DL (70-110)
[2020-02-20] MEDS: LEVOTHYROXINE SODIUM 50 MCG TABLET PO SCH (06:45)
[2020-02-20] MEDS: GlipiZIDE 5 MG TABLET PO SCH ×2 (06:45→16:32)
[2020-02-20] MEDS: INSULIN LISPRO 100 UNITS/ML SQ PRN ×4 (06:46→21:19)
[2020-02-20] MEDS: RisperiDONE 1 MG TABLET PO SCH ×2 (08:11→16:33)
[2020-02-20] MEDS: AMOXICILLIN TRIHYDRATE 500 MG CAPSULE PO SCH ×3 (08:11→16:33)
[2020-02-20] MEDS: LITHIUM CARBONATE 600 MG CAPSULE PO SCH ×2 (08:11→16:33)
[2020-02-20] MEDS: OMEGA-3/DHA/EPA/FISH OIL 1,000 MG CAPSULE PO SCH (08:11)
[2020-02-20] MEDS: NICOTINE 21 MG/24 HOUR PATCH TD SCH (08:14)
[2020-02-20] MEDS: BENZOCAINE 10% 7 GM GEL TP PRN ×2 (08:15→15:44)
[2020-02-20] MEDS: INSULIN GLARGINE,HUM.REC.ANLOG 100 UNITS/ML SQ SCH ×2 (08:48→21:20)
[2020-02-20 08:49] VITALS: BP 130/81
[2020-02-20] MEDS: IBUPROFEN 600 MG TABLET PO PRN ×2 (10:59→19:57)
[2020-02-20 11:53] LABS: GLUCOMETER DEV NAME(LOC) BV2S.; GLUCOSE,POINT OF CARE 143 MG/DL (70-110)
[2020-02-20 16:25] VITALS: BP 110/74
[2020-02-20 16:43] LABS: GLUCOMETER DEV NAME(LOC) BV2S.; GLUCOSE,POINT OF CARE 148 MG/DL (70-110)
[2020-02-20 19:52] LABS: GLUCOMETER DEV NAME(LOC) BV2S.; GLUCOSE,POINT OF CARE 176 MG/DL (70-110)
[2020-02-20] MEDS: ZOLPIDEM TARTRATE 10 MG TABLET PO PRN (20:46)
[2020-02-21 00:11] VITALS: BP 105/78
[2020-02-21] MEDS: LEVOTHYROXINE SODIUM 50 MCG TABLET PO SCH (06:46)
[2020-02-21] MEDS: GlipiZIDE 5 MG TABLET PO SCH ×2 (06:46→16:13)
[2020-02-21] MEDS: IBUPROFEN 600 MG TABLET PO PRN ×2 (06:47→16:13)
[2020-02-21] MEDS: OMEGA-3/DHA/EPA/FISH OIL 1,000 MG CAPSULE PO SCH (08:35)
[2020-02-21] MEDS: AMOXICILLIN TRIHYDRATE 500 MG CAPSULE PO SCH ×3 (08:35→16:13)
[2020-02-21] MEDS: LITHIUM CARBONATE 600 MG CAPSULE PO SCH ×2 (08:35→16:13)
[2020-02-21] MEDS: RisperiDONE 1 MG TABLET PO SCH ×2 (08:35→16:13)
[2020-02-21] MEDS: INSULIN GLARGINE,HUM.REC.ANLOG 100 UNITS/ML SQ SCH ×2 (08:40→20:40)
[2020-02-21] MEDS: NICOTINE 21 MG/24 HOUR PATCH TD SCH ×2 (08:40→09:06)
[2020-02-21] MEDS: INSULIN LISPRO 100 UNITS/ML SQ PRN ×3 (11:01→20:40)
[2020-02-21 11:17] LABS: GLUCOMETER DEV NAME(LOC) BV2S.; GLUCOSE,POINT OF CARE 162 MG/DL (70-110)
[2020-02-21 16:13] VITALS: BP 126/81
[2020-02-21 16:41] LABS: GLUCOMETER DEV NAME(LOC) BV2S.; GLUCOSE,POINT OF CARE 172 MG/DL (70-110)
[2020-02-21] MEDS: ZOLPIDEM TARTRATE 10 MG TABLET PO PRN (20:56)
[2020-02-21 21:03] LABS: GLUCOMETER DEV NAME(LOC) BV2S.; GLUCOSE,POINT OF CARE 156 MG/DL (70-110)
[2020-02-22 02:43] VITALS: BP 120/76
[2020-02-22 06:32] LABS: GLUCOMETER DEV NAME(LOC) BV2S.; GLUCOSE,POINT OF CARE 198 MG/DL (70-110)
[2020-02-22] MEDS: LEVOTHYROXINE SODIUM 50 MCG TABLET PO SCH (06:34)
[2020-02-22] MEDS: GlipiZIDE 5 MG TABLET PO SCH ×2 (06:34→16:09)
[2020-02-22] MEDS: INSULIN LISPRO 100 UNITS/ML SQ PRN ×4 (06:39→20:53)
[2020-02-22 08:31] VITALS: BP 132/69
[2020-02-22] MEDS: RisperiDONE 1 MG TABLET PO SCH ×2 (08:46→16:10)
[2020-02-22] MEDS: OMEGA-3/DHA/EPA/FISH OIL 1,000 MG CAPSULE PO SCH (08:46)
[2020-02-22] MEDS: LITHIUM CARBONATE 600 MG CAPSULE PO SCH ×2 (08:46→16:10)
[2020-02-22] MEDS: AMOXICILLIN TRIHYDRATE 500 MG CAPSULE PO SCH ×3 (08:46→16:10)
[2020-02-22] MEDS: NICOTINE 21 MG/24 HOUR PATCH TD SCH (08:47)
[2020-02-22] MEDS: INSULIN GLARGINE,HUM.REC.ANLOG 100 UNITS/ML SQ SCH ×2 (08:55→20:53)
[2020-02-22 11:51] LABS: GLUCOMETER DEV NAME(LOC) BV2S.; GLUCOSE,POINT OF CARE 175 MG/DL (70-110)
[2020-02-22 14:28] LABS: COVID AG,FIA SOURCE NASAL SWAB
[2020-02-22 16:07] VITALS: BP 112/67
[2020-02-22 16:22] LABS: GLUCOMETER DEV NAME(LOC) BV2S.; GLUCOSE,POINT OF CARE 217 MG/DL (70-110)
[2020-02-22] MEDS: IBUPROFEN 600 MG TABLET PO PRN (20:12)
[2020-02-22] MEDS: HALOPERIDOL 5 MG TABLET PO PRN (20:12)
[2020-02-22 20:19] LABS: GLUCOMETER DEV NAME(LOC) BV2S.; GLUCOSE,POINT OF CARE 171 MG/DL (70-110)
[2020-02-23 00:21] VITALS: BP 117/75
[2020-02-23] MEDS: LEVOTHYROXINE SODIUM 50 MCG TABLET PO SCH (06:46)
[2020-02-23] MEDS: GlipiZIDE 5 MG TABLET PO SCH ×2 (06:47→16:10)
[2020-02-23] MEDS: INSULIN LISPRO 100 UNITS/ML SQ PRN ×3 (06:50→21:06)
[2020-02-23 06:53] LABS: GLUCOMETER DEV NAME(LOC) BV2S.; GLUCOSE,POINT OF CARE 152 MG/DL (70-110)
[2020-02-23 08:07] VITALS: BP 116/66
[2020-02-23] MEDS: RisperiDONE 1 MG TABLET PO SCH ×2 (09:13→16:10)
[2020-02-23] MEDS: AMOXICILLIN TRIHYDRATE 500 MG CAPSULE PO SCH ×3 (09:13→16:10)
[2020-02-23] MEDS: OMEGA-3/DHA/EPA/FISH OIL 1,000 MG CAPSULE PO SCH (09:13)
[2020-02-23] MEDS: LITHIUM CARBONATE 600 MG CAPSULE PO SCH ×2 (09:13→16:10)
[2020-02-23] MEDS: NICOTINE 21 MG/24 HOUR PATCH TD SCH (09:13)
[2020-02-23] MEDS: INSULIN GLARGINE,HUM.REC.ANLOG 100 UNITS/ML SQ SCH ×2 (09:41→21:07)
[2020-02-23 10:56] LABS: GLUCOMETER DEV NAME(LOC) BV2S.; GLUCOSE,POINT OF CARE 123 MG/DL (70-110)
[2020-02-23] MEDS: IBUPROFEN 600 MG TABLET PO PRN ×2 (10:56→17:19)
[2020-02-23] MEDS ORDERED: TUBERCULIN, PURIFIED PROTEIN DERIVATIVE 5 TU/0.1 ML SYRINGE ID ONE (11:00)
[2020-02-23 11:11] LABS: GLUCOMETER DEV NAME(LOC) BV2S.; GLUCOSE,POINT OF CARE 108 MG/DL (70-110)
[2020-02-23 16:05] LABS: GLUCOMETER DEV NAME(LOC) BV2S.; GLUCOSE,POINT OF CARE 219 MG/DL (70-110)
[2020-02-23 16:16] VITALS: BP 107/65
[2020-02-23] MEDS: BENZOCAINE 10% 7 GM GEL TP PRN (16:17)
[2020-02-23 20:23] LABS: GLUCOMETER DEV NAME(LOC) BV2S.; GLUCOSE,POINT OF CARE 193 MG/DL (70-110)
[2020-02-23] MEDS: HALOPERIDOL 5 MG TABLET PO PRN (20:32)
[2020-02-24] MEDS: LEVOTHYROXINE SODIUM 50 MCG TABLET PO SCH (06:26)
[2020-02-24] MEDS: GlipiZIDE 5 MG TABLET PO SCH ×2 (06:26→16:48)
[2020-02-24 06:31] LABS: GLUCOMETER DEV NAME(LOC) BV2S.; GLUCOSE,POINT OF CARE 102 MG/DL (70-110)
[2020-02-24] MEDS: LITHIUM CARBONATE 600 MG CAPSULE PO SCH ×2 (08:22→16:47)
[2020-02-24] MEDS: RisperiDONE 1 MG TABLET PO SCH ×2 (08:22→16:48)
[2020-02-24] MEDS: AMOXICILLIN TRIHYDRATE 500 MG CAPSULE PO SCH ×3 (08:22→16:47)
[2020-02-24] MEDS: OMEGA-3/DHA/EPA/FISH OIL 1,000 MG CAPSULE PO SCH (08:22)
[2020-02-24] MEDS: NICOTINE 21 MG/24 HOUR PATCH TD SCH (08:23)
[2020-02-24] MEDS: INSULIN GLARGINE,HUM.REC.ANLOG 100 UNITS/ML SQ SCH ×2 (08:32→21:41)
[2020-02-24 08:40] VITALS: BP 100/61
[2020-02-24] MEDS: INSULIN LISPRO 100 UNITS/ML SQ PRN ×3 (11:02→21:41)
[2020-02-24 11:14] LABS: GLUCOMETER DEV NAME(LOC) BV2S.; GLUCOSE,POINT OF CARE 161 MG/DL (70-110)
[2020-02-24 16:07] VITALS: BP 104/63
[2020-02-24 16:33] LABS: GLUCOMETER DEV NAME(LOC) BV2S.; GLUCOSE,POINT OF CARE 186 MG/DL (70-110)
[2020-02-24 19:54] LABS: GLUCOMETER DEV NAME(LOC) BV2S.; GLUCOSE,POINT OF CARE 157 MG/DL (70-110)
[2020-02-24] MEDS: HALOPERIDOL 5 MG TABLET PO PRN (20:27)
[2020-02-25 00:09] VITALS: BP 109/69
[2020-02-25] MEDS: GlipiZIDE 5 MG TABLET PO SCH ×2 (06:29→16:28)
[2020-02-25] MEDS: LEVOTHYROXINE SODIUM 50 MCG TABLET PO SCH (06:29)
[2020-02-25] MEDS: INSULIN LISPRO 100 UNITS/ML SQ PRN ×3 (06:42→20:45)
[2020-02-25 06:49] LABS: GLUCOMETER DEV NAME(LOC) BV2S.; GLUCOSE,POINT OF CARE 162 MG/DL (70-110)
[2020-02-25 07:22] LABS: BAND NEUTROPHILS % (MANUAL) 0 % (0-5)
[2020-02-25 07:25] LABS: HEMATOCRIT 44.8 % (41-53); MEAN CORPUSCULAR HEMOGLOBIN 30.1 pg (26.0-34.0); MEAN CORPUSCULAR HGB CONC 33.5 G/dL (31.0-37.0); MEAN CORPUSCULAR VOLUME 90 fL (80-100); PLATELET COUNT (AUTO) 228 K/uL (150-450); RED BLOOD CELL COUNT(AUTO) 4.99 MIL/uL (4.50-5.90); RED CELL DISTRIBUTION WIDTH 14.5 % (11.5-14.5)
[2020-02-25 07:41] LABS: ANION GAP 3 mmol/L (8-16); CALCIUM, TOTAL 9.1 mg/dL (8.8-10.5); CARBON DIOXIDE 30 mmol/L (22-29); CHLORIDE 104 mmol/L (98-107); CREATININE 0.63 mg/dL (0.60-1.30); GLOMERULAR FILTR. RATE CALC > 60 mL/min (>60); GLUCOSE,RANDOM 124 mg/dL (70-110); PHOSPHORUS 3.7 mg/dL (2.5-4.9); POTASSIUM 4.7 mmol/L (3.5-5.1); SODIUM SERUM 137 mmol/L (136-145); UREA NITROGEN, BLOOD 19 mg/dL (7-18)
[2020-02-25] MEDS: OMEGA-3/DHA/EPA/FISH OIL 1,000 MG CAPSULE PO SCH (08:09)
[2020-02-25] MEDS: NICOTINE 21 MG/24 HOUR PATCH TD SCH (08:09)
[2020-02-25] MEDS: LITHIUM CARBONATE 600 MG CAPSULE PO SCH ×2 (08:09→16:28)
[2020-02-25] MEDS: AMOXICILLIN TRIHYDRATE 500 MG CAPSULE PO SCH ×3 (08:09→16:28)
[2020-02-25] MEDS: RisperiDONE 1 MG TABLET PO SCH ×2 (08:09→16:28)
[2020-02-25 08:10] VITALS: BP 115/64
[2020-02-25] MEDS: INSULIN GLARGINE,HUM.REC.ANLOG 100 UNITS/ML SQ SCH ×2 (08:16→20:46)
[2020-02-25 08:47] LABS: EOSINOPHILS % (MANUAL) 3 % (1-6); LYMPHOCYTES % (MANUAL) 28 % (22-44); MONOCYTES % (MANUAL) 7 % (2-9); SEGMENTED NEUTROPHILS % 62 % (40-70)
[2020-02-25 11:12] LABS: GLUCOMETER DEV NAME(LOC) BV2S.; GLUCOSE,POINT OF CARE 110 MG/DL (70-110)
[2020-02-25 16:18] LABS: GLUCOMETER DEV NAME(LOC) BV2S.; GLUCOSE,POINT OF CARE 168 MG/DL (70-110)
[2020-02-25 16:37] VITALS: BP 109/64
[2020-02-25 20:05] LABS: GLUCOMETER DEV NAME(LOC) BV2S.; GLUCOSE,POINT OF CARE 216 MG/DL (70-110)
[2020-02-25] MEDS: ZOLPIDEM TARTRATE 10 MG TABLET PO PRN (20:43)
[2020-02-26 00:32] VITALS: BP 105/62
[2020-02-26] MEDS: GlipiZIDE 5 MG TABLET PO SCH ×2 (06:28→16:08)
[2020-02-26] MEDS: LEVOTHYROXINE SODIUM 50 MCG TABLET PO SCH (06:28)
[2020-02-26 06:34] LABS: GLUCOMETER DEV NAME(LOC) BV2S.; GLUCOSE,POINT OF CARE 109 MG/DL (70-110)
[2020-02-26 08:08] VITALS: BP 116/71
[2020-02-26] MEDS: MAGNESIUM OXIDE 400 MG TABLET PO SCH ×2 (08:32→16:08)
[2020-02-26] MEDS: NICOTINE 21 MG/24 HOUR PATCH TD SCH (08:32)
[2020-02-26] MEDS: RisperiDONE 1 MG TABLET PO SCH ×2 (08:32→16:08)
[2020-02-26] MEDS: OMEGA-3/DHA/EPA/FISH OIL 1,000 MG CAPSULE PO SCH (08:32)
[2020-02-26] MEDS: AMOXICILLIN TRIHYDRATE 500 MG CAPSULE PO SCH ×3 (08:32→16:08)
[2020-02-26] MEDS: LITHIUM CARBONATE 600 MG CAPSULE PO SCH ×2 (08:32→16:08)
[2020-02-26] MEDS: INSULIN GLARGINE,HUM.REC.ANLOG 100 UNITS/ML SQ SCH ×2 (08:39→21:10)
[2020-02-26] MEDS: IBUPROFEN 600 MG TABLET PO PRN (10:52)
[2020-02-26 11:12] LABS: GLUCOMETER DEV NAME(LOC) BV2S.; GLUCOSE,POINT OF CARE 133 MG/DL (70-110)
[2020-02-26 16:21] VITALS: BP 108/67
[2020-02-26 16:30] LABS: GLUCOMETER DEV NAME(LOC) BV2S.; GLUCOSE,POINT OF CARE 152 MG/DL (70-110)
[2020-02-26] MEDS: INSULIN LISPRO 100 UNITS/ML SQ PRN ×2 (17:08→21:04)
[2020-02-26 21:00] LABS: GLUCOMETER DEV NAME(LOC) BV2S.; GLUCOSE,POINT OF CARE 198 MG/DL (70-110)
[2020-02-26] MEDS: ZOLPIDEM TARTRATE 10 MG TABLET PO PRN (21:12)
[2020-02-27 06:27] LABS: GLUCOMETER DEV NAME(LOC) BV2S.; GLUCOSE,POINT OF CARE 127 MG/DL (70-110)
[2020-02-27 06:32] VITALS: BP 121/66
[2020-02-27] MEDS: GlipiZIDE 5 MG TABLET PO SCH ×2 (06:47→16:15)
[2020-02-27] MEDS: LEVOTHYROXINE SODIUM 50 MCG TABLET PO SCH (06:47)
[2020-02-27 08:11] VITALS: BP 102/57
[2020-02-27] MEDS: LITHIUM CARBONATE 600 MG CAPSULE PO SCH ×2 (08:28→16:15)
[2020-02-27] MEDS: MAGNESIUM OXIDE 400 MG TABLET PO SCH ×2 (08:28→16:15)
[2020-02-27] MEDS: OMEGA-3/DHA/EPA/FISH OIL 1,000 MG CAPSULE PO SCH (08:28)
[2020-02-27] MEDS: NICOTINE 21 MG/24 HOUR PATCH TD SCH (08:28)
[2020-02-27] MEDS: RisperiDONE 1 MG TABLET PO SCH ×2 (08:28→16:15)
[2020-02-27] MEDS: INSULIN GLARGINE,HUM.REC.ANLOG 100 UNITS/ML SQ SCH ×2 (08:35→20:07)
[2020-02-27] MEDS: INSULIN LISPRO 100 UNITS/ML SQ PRN ×3 (10:51→20:07)
[2020-02-27 11:07] LABS: GLUCOMETER DEV NAME(LOC) BV2S.; GLUCOSE,POINT OF CARE 194 MG/DL (70-110)
[2020-02-27 16:19] VITALS: BP 121/71
[2020-02-27 16:31] LABS: GLUCOMETER DEV NAME(LOC) BV2S.; GLUCOSE,POINT OF CARE 213 MG/DL (70-110)
[2020-02-27] MEDS: ZOLPIDEM TARTRATE 10 MG TABLET PO PRN (20:04)
[2020-02-27 20:58] LABS: GLUCOMETER DEV NAME(LOC) BV2S.; GLUCOSE,POINT OF CARE 153 MG/DL (70-110)
[2020-02-28 00:38] VITALS: BP 117/67
[2020-02-28 06:37] LABS: GLUCOMETER DEV NAME(LOC) BV2S.; GLUCOSE,POINT OF CARE 113 MG/DL (70-110)
[2020-02-28] MEDS: GlipiZIDE 5 MG TABLET PO SCH ×2 (06:46→16:05)
[2020-02-28] MEDS: LEVOTHYROXINE SODIUM 50 MCG TABLET PO SCH (06:46)
[2020-02-28 08:12] VITALS: BP 104/63
[2020-02-28] MEDS: RisperiDONE 1 MG TABLET PO SCH ×2 (08:15→16:05)
[2020-02-28] MEDS: NICOTINE 21 MG/24 HOUR PATCH TD SCH (08:15)
[2020-02-28] MEDS: OMEGA-3/DHA/EPA/FISH OIL 1,000 MG CAPSULE PO SCH (08:15)
[2020-02-28] MEDS: LITHIUM CARBONATE 600 MG CAPSULE PO SCH ×2 (08:15→16:05)
[2020-02-28] MEDS: MAGNESIUM OXIDE 400 MG TABLET PO SCH ×2 (08:15→16:05)
[2020-02-28] MEDS: INSULIN GLARGINE,HUM.REC.ANLOG 100 UNITS/ML SQ SCH ×2 (08:24→20:06)
[2020-02-28] MEDS: INSULIN LISPRO 100 UNITS/ML SQ PRN ×2 (10:56→20:06)
[2020-02-28 11:41] LABS: GLUCOMETER DEV NAME(LOC) BV2S.; GLUCOSE,POINT OF CARE 222 MG/DL (70-110)
[2020-02-28 16:29] VITALS: BP 105/62
[2020-02-28 16:58] LABS: GLUCOMETER DEV NAME(LOC) BV2S.; GLUCOSE,POINT OF CARE 133 MG/DL (70-110)
[2020-02-28] MEDS: ZOLPIDEM TARTRATE 10 MG TABLET PO PRN (21:16)
[2020-02-28 21:37] LABS: GLUCOMETER DEV NAME(LOC) BV2S.; GLUCOSE,POINT OF CARE 195 MG/DL (70-110)
[2020-02-29 06:15] VITALS: BP 116/75
[2020-02-29 06:32] LABS: GLUCOMETER DEV NAME(LOC) BV2S.; GLUCOSE,POINT OF CARE 125 MG/DL (70-110)
[2020-02-29] MEDS: IBUPROFEN 600 MG TABLET PO PRN (06:51)
[2020-02-29] MEDS: LEVOTHYROXINE SODIUM 50 MCG TABLET PO SCH (06:51)
[2020-02-29] MEDS: GlipiZIDE 5 MG TABLET PO SCH ×2 (06:51→16:30)
[2020-02-29 06:52] VITALS: BP 118/74
[2020-02-29] MEDS: RisperiDONE 1 MG TABLET PO SCH ×2 (08:13→16:30)
[2020-02-29] MEDS: MAGNESIUM OXIDE 400 MG TABLET PO SCH ×2 (08:13→16:30)
[2020-02-29] MEDS: OMEGA-3/DHA/EPA/FISH OIL 1,000 MG CAPSULE PO SCH (08:13)
[2020-02-29] MEDS: NICOTINE 21 MG/24 HOUR PATCH TD SCH (08:13)
[2020-02-29] MEDS: LITHIUM CARBONATE 600 MG CAPSULE PO SCH ×2 (08:13→16:30)
[2020-02-29] MEDS: INSULIN GLARGINE,HUM.REC.ANLOG 100 UNITS/ML SQ SCH ×2 (08:19→21:12)
[2020-02-29 08:20] LABS: COVID AG,FIA SOURCE NASOPHARYNGEAL
[2020-02-29 08:35] VITALS: BP 134/70
[2020-02-29] MEDS: INSULIN LISPRO 100 UNITS/ML SQ PRN ×2 (10:51→21:12)
[2020-02-29 11:48] LABS: GLUCOMETER DEV NAME(LOC) BV2S.; GLUCOSE,POINT OF CARE 161 MG/DL (70-110)
[2020-02-29] MEDS: MAGNESIUM HYDROXIDE SUSPENSION 30 ML UDCUP PO PRN ×2 (12:09→20:08)
[2020-02-29 16:12] VITALS: BP 108/67
[2020-02-29 16:45] LABS: GLUCOMETER DEV NAME(LOC) BV2S.; GLUCOSE,POINT OF CARE 120 MG/DL (70-110)
[2020-02-29] MEDS: ZOLPIDEM TARTRATE 10 MG TABLET PO PRN (20:03)
[2020-02-29 20:13] LABS: GLUCOMETER DEV NAME(LOC) BV2S.; GLUCOSE,POINT OF CARE 182 MG/DL (70-110)
[2020-03-01 06:10] VITALS: BP 141/81
[2020-03-01] MEDS: GlipiZIDE 5 MG TABLET PO SCH ×2 (06:23→16:09)
[2020-03-01] MEDS: LEVOTHYROXINE SODIUM 50 MCG TABLET PO SCH (06:23)
[2020-03-01 06:30] LABS: GLUCOMETER DEV NAME(LOC) BV2S.; GLUCOSE,POINT OF CARE 132 MG/DL (70-110)
[2020-03-01] MEDS: MAGNESIUM OXIDE 400 MG TABLET PO SCH ×2 (08:05→16:09)
[2020-03-01] MEDS: LITHIUM CARBONATE 600 MG CAPSULE PO SCH ×2 (08:06→16:09)
[2020-03-01] MEDS: RisperiDONE 1 MG TABLET PO SCH ×2 (08:06→16:09)
[2020-03-01] MEDS: NICOTINE 21 MG/24 HOUR PATCH TD SCH (08:06)
[2020-03-01] MEDS: OMEGA-3/DHA/EPA/FISH OIL 1,000 MG CAPSULE PO SCH (08:06)
[2020-03-01] MEDS: INSULIN GLARGINE,HUM.REC.ANLOG 100 UNITS/ML SQ SCH ×2 (08:11→20:22)
[2020-03-01 08:37] VITALS: BP 131/72
[2020-03-01] MEDS: INSULIN LISPRO 100 UNITS/ML SQ PRN ×3 (10:48→20:21)
[2020-03-01 10:56] LABS: GLUCOMETER DEV NAME(LOC) BV2S.; GLUCOSE,POINT OF CARE 148 MG/DL (70-110)
[2020-03-01] MEDS: MAGNESIUM HYDROXIDE SUSPENSION 30 ML UDCUP PO PRN (14:12)
[2020-03-01 16:14] VITALS: BP 115/77
[2020-03-01 16:31] LABS: GLUCOMETER DEV NAME(LOC) BV2S.; GLUCOSE,POINT OF CARE 163 MG/DL (70-110)
[2020-03-01] MEDS: ZOLPIDEM TARTRATE 10 MG TABLET PO PRN (20:23)
[2020-03-01 20:41] LABS: GLUCOMETER DEV NAME(LOC) BV2S.; GLUCOSE,POINT OF CARE 169 MG/DL (70-110)
[2020-03-02 00:15] VITALS: BP 115/79
[2020-03-02 06:22] LABS: GLUCOMETER DEV NAME(LOC) BV2S.; GLUCOSE,POINT OF CARE 134 MG/DL (70-110)
[2020-03-02] MEDS: LEVOTHYROXINE SODIUM 50 MCG TABLET PO SCH (06:29)
[2020-03-02] MEDS: GlipiZIDE 5 MG TABLET PO SCH ×2 (06:29→16:16)
[2020-03-02 08:04] VITALS: BP 115/61
[2020-03-02] MEDS: RisperiDONE 1 MG TABLET PO SCH ×2 (08:13→16:33)
[2020-03-02] MEDS: MAGNESIUM OXIDE 400 MG TABLET PO SCH ×2 (08:13→16:33)
[2020-03-02] MEDS: OMEGA-3/DHA/EPA/FISH OIL 1,000 MG CAPSULE PO SCH (08:13)
[2020-03-02] MEDS: LITHIUM CARBONATE 600 MG CAPSULE PO SCH ×2 (08:13→16:33)
[2020-03-02] MEDS: NICOTINE 21 MG/24 HOUR PATCH TD SCH (08:14)
[2020-03-02] MEDS: INSULIN GLARGINE,HUM.REC.ANLOG 100 UNITS/ML SQ SCH ×2 (08:26→21:00)
[2020-03-02] MEDS: INSULIN LISPRO 100 UNITS/ML SQ PRN (10:51)
[2020-03-02 11:15] LABS: GLUCOMETER DEV NAME(LOC) BV2S.; GLUCOSE,POINT OF CARE 175 MG/DL (70-110)
[2020-03-02 16:02] VITALS: BP 126/71
[2020-03-02 16:40] LABS: GLUCOMETER DEV NAME(LOC) BV2S.; GLUCOSE,POINT OF CARE 125 MG/DL (70-110)
[2020-03-02] MEDS: MAGNESIUM HYDROXIDE SUSPENSION 30 ML UDCUP PO PRN (19:49)
[2020-03-02] MEDS: ZOLPIDEM TARTRATE 10 MG TABLET PO PRN (20:35)
[2020-03-03 00:26] VITALS: BP 120/76
[2020-03-03] MEDS: LEVOTHYROXINE SODIUM 50 MCG TABLET PO SCH (05:55)
[2020-03-03] MEDS: GlipiZIDE 5 MG TABLET PO SCH ×2 (05:55→16:09)
[2020-03-03] MEDS: INSULIN LISPRO 100 UNITS/ML SQ PRN (05:58)
[2020-03-03 06:00] LABS: GLUCOMETER DEV NAME(LOC) BV2S.; GLUCOSE,POINT OF CARE 189 MG/DL (70-110)
[2020-03-03] MEDS: INSULIN GLARGINE,HUM.REC.ANLOG 100 UNITS/ML SQ SCH ×2 (08:03→20:15)
[2020-03-03] MEDS: NICOTINE 21 MG/24 HOUR PATCH TD SCH (08:03)
[2020-03-03 08:04] VITALS: BP 115/71
[2020-03-03] MEDS: RisperiDONE 1 MG TABLET PO SCH ×2 (08:04→16:09)
[2020-03-03] MEDS: OMEGA-3/DHA/EPA/FISH OIL 1,000 MG CAPSULE PO SCH (08:04)
[2020-03-03] MEDS: LITHIUM CARBONATE 600 MG CAPSULE PO SCH ×2 (08:04→16:09)
[2020-03-03] MEDS: MAGNESIUM OXIDE 400 MG TABLET PO SCH ×2 (08:04→16:09)
[2020-03-03 11:09] LABS: GLUCOMETER DEV NAME(LOC) BV2S.; GLUCOSE,POINT OF CARE 140 MG/DL (70-110)
[2020-03-03 16:03] VITALS: BP 111/71
[2020-03-03 16:24] LABS: GLUCOMETER DEV NAME(LOC) BV2S.; GLUCOSE,POINT OF CARE 134 MG/DL (70-110)
[2020-03-03] MEDS: ZOLPIDEM TARTRATE 10 MG TABLET PO PRN (20:15)
[2020-03-03 20:16] LABS: GLUCOMETER DEV NAME(LOC) BV2S.; GLUCOSE,POINT OF CARE 127 MG/DL (70-110)
[2020-03-04] MEDS: INSULIN LISPRO 100 UNITS/ML SQ PRN ×2 (06:27→20:14)
[2020-03-04 06:41] LABS: GLUCOMETER DEV NAME(LOC) BV2S.; GLUCOSE,POINT OF CARE 159 MG/DL (70-110)
[2020-03-04] MEDS: LEVOTHYROXINE SODIUM 50 MCG TABLET PO SCH (06:56)
[2020-03-04] MEDS: GlipiZIDE 5 MG TABLET PO SCH ×2 (06:56→16:04)
[2020-03-04 07:14] VITALS: BP 115/72
[2020-03-04 08:10] VITALS: BP 113/79
[2020-03-04] MEDS: OMEGA-3/DHA/EPA/FISH OIL 1,000 MG CAPSULE PO SCH (08:12)
[2020-03-04] MEDS: MAGNESIUM OXIDE 400 MG TABLET PO SCH ×2 (08:12→16:04)
[2020-03-04] MEDS: LITHIUM CARBONATE 600 MG CAPSULE PO SCH ×2 (08:12→16:04)
[2020-03-04] MEDS: RisperiDONE 1 MG TABLET PO SCH ×2 (08:12→16:04)
[2020-03-04] MEDS: NICOTINE 21 MG/24 HOUR PATCH TD SCH (08:14)
[2020-03-04] MEDS: INSULIN GLARGINE,HUM.REC.ANLOG 100 UNITS/ML SQ SCH ×2 (08:17→20:13)
[2020-03-04 11:07] LABS: GLUCOMETER DEV NAME(LOC) BV2S.; GLUCOSE,POINT OF CARE 128 MG/DL (70-110)
[2020-03-04 16:18] LABS: GLUCOMETER DEV NAME(LOC) BV2S.; GLUCOSE,POINT OF CARE 120 MG/DL (70-110)
[2020-03-04 16:26] VITALS: BP 116/66
[2020-03-04] MEDS: ZOLPIDEM TARTRATE 10 MG TABLET PO PRN (20:15)
[2020-03-04 20:34] LABS: GLUCOMETER DEV NAME(LOC) BV2S.; GLUCOSE,POINT OF CARE 165 MG/DL (70-110)
[2020-03-05 00:30] VITALS: BP 118/68
[2020-03-05 05:11] LABS: GLUCOMETER DEV NAME(LOC) BV2S.; GLUCOSE,POINT OF CARE 131 MG/DL (70-110)
[2020-03-05] MEDS: GlipiZIDE 5 MG TABLET PO SCH ×2 (06:31→16:05)
[2020-03-05] MEDS: LEVOTHYROXINE SODIUM 50 MCG TABLET PO SCH (06:31)
[2020-03-05] MEDS: RisperiDONE 1 MG TABLET PO SCH ×2 (08:26→16:05)
[2020-03-05] MEDS: MAGNESIUM OXIDE 400 MG TABLET PO SCH ×2 (08:26→16:05)
[2020-03-05] MEDS: LITHIUM CARBONATE 600 MG CAPSULE PO SCH ×2 (08:26→16:05)
[2020-03-05] MEDS: OMEGA-3/DHA/EPA/FISH OIL 1,000 MG CAPSULE PO SCH (08:26)
[2020-03-05] MEDS: NICOTINE 21 MG/24 HOUR PATCH TD SCH (08:27)
[2020-03-05] MEDS: INSULIN GLARGINE,HUM.REC.ANLOG 100 UNITS/ML SQ SCH ×2 (08:34→20:10)
[2020-03-05 08:38] VITALS: BP 127/70
[2020-03-05] MEDS: IBUPROFEN 600 MG TABLET PO PRN (10:51)
[2020-03-05 11:12] LABS: GLUCOMETER DEV NAME(LOC) BV2S.; GLUCOSE,POINT OF CARE 96 MG/DL (70-110)
[2020-03-05 16:10] VITALS: BP 120/68
[2020-03-05 16:19] LABS: GLUCOMETER DEV NAME(LOC) BV2S.; GLUCOSE,POINT OF CARE 133 MG/DL (70-110)
[2020-03-05] MEDS: ZOLPIDEM TARTRATE 10 MG TABLET PO PRN (20:14)
[2020-03-05 20:29] LABS: GLUCOMETER DEV NAME(LOC) BV2S.; GLUCOSE,POINT OF CARE 98 MG/DL (70-110)
[2020-03-06 01:03] VITALS: BP 132/71
[2020-03-06 06:14] LABS: GLUCOMETER DEV NAME(LOC) BV2S.; GLUCOSE,POINT OF CARE 124 MG/DL (70-110)
[2020-03-06] MEDS: GlipiZIDE 5 MG TABLET PO SCH ×2 (06:53→16:36)
[2020-03-06] MEDS: LEVOTHYROXINE SODIUM 50 MCG TABLET PO SCH (06:54)
[2020-03-06] MEDS: LITHIUM CARBONATE 600 MG CAPSULE PO SCH ×2 (08:09→16:36)
[2020-03-06] MEDS: MAGNESIUM OXIDE 400 MG TABLET PO SCH ×2 (08:09→16:36)
[2020-03-06] MEDS: OMEGA-3/DHA/EPA/FISH OIL 1,000 MG CAPSULE PO SCH (08:09)
[2020-03-06] MEDS: NICOTINE 21 MG/24 HOUR PATCH TD SCH (08:10)
[2020-03-06] MEDS: RisperiDONE 1 MG TABLET PO SCH ×2 (08:10→16:36)
[2020-03-06] MEDS: INSULIN GLARGINE,HUM.REC.ANLOG 100 UNITS/ML SQ SCH ×2 (08:17→20:10)
[2020-03-06 08:22] VITALS: BP 117/73
[2020-03-06] MEDS: INSULIN LISPRO 100 UNITS/ML SQ PRN ×3 (11:03→20:09)
[2020-03-06 11:55] LABS: GLUCOMETER DEV NAME(LOC) BV2S.; GLUCOSE,POINT OF CARE 143 MG/DL (70-110)
[2020-03-06 16:12] VITALS: BP 121/79
[2020-03-06 16:55] LABS: GLUCOMETER DEV NAME(LOC) BV2S.; GLUCOSE,POINT OF CARE 168 MG/DL (70-110)
[2020-03-06] MEDS: MAGNESIUM HYDROXIDE SUSPENSION 30 ML UDCUP PO PRN (20:01)
[2020-03-06] MEDS: ZOLPIDEM TARTRATE 10 MG TABLET PO PRN (20:06)
[2020-03-06 20:49] LABS: GLUCOMETER DEV NAME(LOC) BV2S.; GLUCOSE,POINT OF CARE 153 MG/DL (70-110)
[2020-03-07 03:39] VITALS: BP 113/71
[2020-03-07 04:49] LABS: GLUCOMETER DEV NAME(LOC) BV2S.; GLUCOSE,POINT OF CARE 113 MG/DL (70-110)
[2020-03-07] MEDS: GlipiZIDE 5 MG TABLET PO SCH ×2 (06:35→16:10)
[2020-03-07] MEDS: LEVOTHYROXINE SODIUM 50 MCG TABLET PO SCH (06:35)
[2020-03-07] MEDS: MAGNESIUM HYDROXIDE SUSPENSION 30 ML UDCUP PO PRN (06:51)
[2020-03-07 07:49] LABS: COVID AG,FIA SOURCE NASOPHARYNGEAL
[2020-03-07] MEDS: OMEGA-3/DHA/EPA/FISH OIL 1,000 MG CAPSULE PO SCH (08:02)
[2020-03-07] MEDS: RisperiDONE 1 MG TABLET PO SCH ×2 (08:02→16:10)
[2020-03-07] MEDS: MAGNESIUM OXIDE 400 MG TABLET PO SCH ×2 (08:02→16:10)
[2020-03-07] MEDS: LITHIUM CARBONATE 600 MG CAPSULE PO SCH ×2 (08:02→16:10)
[2020-03-07] MEDS: NICOTINE 21 MG/24 HOUR PATCH TD SCH (08:02)
[2020-03-07] MEDS: INSULIN GLARGINE,HUM.REC.ANLOG 100 UNITS/ML SQ SCH ×2 (08:04→20:18)
[2020-03-07 08:21] VITALS: BP 116/74
[2020-03-07 11:54] LABS: GLUCOMETER DEV NAME(LOC) BV2S.; GLUCOSE,POINT OF CARE 117 MG/DL (70-110)
[2020-03-07 16:12] VITALS: BP 136/61
[2020-03-07 16:55] LABS: GLUCOMETER DEV NAME(LOC) BV2S.; GLUCOSE,POINT OF CARE 135 MG/DL (70-110)
[2020-03-07] MEDS: INSULIN LISPRO 100 UNITS/ML SQ PRN (20:18)
[2020-03-07] MEDS: ZOLPIDEM TARTRATE 10 MG TABLET PO PRN (20:19)
[2020-03-07 21:28] LABS: GLUCOMETER DEV NAME(LOC) BV2S.; GLUCOSE,POINT OF CARE 153 MG/DL (70-110)
[2020-03-08 01:24] VITALS: BP 113/69
[2020-03-08 05:16] LABS: GLUCOMETER DEV NAME(LOC) BV2S.; GLUCOSE,POINT OF CARE 98 MG/DL (70-110)
[2020-03-08] MEDS: LEVOTHYROXINE SODIUM 50 MCG TABLET PO SCH (06:45)
[2020-03-08] MEDS: GlipiZIDE 5 MG TABLET PO SCH ×2 (06:45→16:21)
[2020-03-08 08:33] VITALS: BP 114/81
[2020-03-08] MEDS: MAGNESIUM OXIDE 400 MG TABLET PO SCH ×2 (09:53→16:21)
[2020-03-08] MEDS: RisperiDONE 1 MG TABLET PO SCH ×2 (09:53→16:21)
[2020-03-08] MEDS: LITHIUM CARBONATE 600 MG CAPSULE PO SCH ×2 (09:53→16:21)
[2020-03-08] MEDS: OMEGA-3/DHA/EPA/FISH OIL 1,000 MG CAPSULE PO SCH (09:53)
[2020-03-08] MEDS: NICOTINE 21 MG/24 HOUR PATCH TD SCH (09:53)
[2020-03-08] MEDS: INSULIN GLARGINE,HUM.REC.ANLOG 100 UNITS/ML SQ SCH ×2 (09:56→20:58)
[2020-03-08 11:19] LABS: GLUCOMETER DEV NAME(LOC) BV2S.; GLUCOSE,POINT OF CARE 122 MG/DL (70-110)
[2020-03-08 16:14] VITALS: BP 124/77
[2020-03-08 16:44] LABS: GLUCOMETER DEV NAME(LOC) BV2S.; GLUCOSE,POINT OF CARE 161 MG/DL (70-110)
[2020-03-08] MEDS: INSULIN LISPRO 100 UNITS/ML SQ PRN (17:33)
[2020-03-08 20:13] LABS: GLUCOMETER DEV NAME(LOC) BV2S.; GLUCOSE,POINT OF CARE 118 MG/DL (70-110)
[2020-03-08] MEDS: ZOLPIDEM TARTRATE 10 MG TABLET PO PRN (20:36)
[2020-03-09 03:41] VITALS: BP 108/74
[2020-03-09] MEDS: LEVOTHYROXINE SODIUM 50 MCG TABLET PO SCH (06:57)
[2020-03-09] MEDS: GlipiZIDE 5 MG TABLET PO SCH ×2 (06:57→16:08)
[2020-03-09 08:12] VITALS: BP 109/76
[2020-03-09] MEDS: LITHIUM CARBONATE 600 MG CAPSULE PO SCH ×2 (08:35→16:08)
[2020-03-09] MEDS: RisperiDONE 1 MG TABLET PO SCH ×2 (08:35→16:08)
[2020-03-09] MEDS: OMEGA-3/DHA/EPA/FISH OIL 1,000 MG CAPSULE PO SCH (08:35)
[2020-03-09] MEDS: MAGNESIUM OXIDE 400 MG TABLET PO SCH ×2 (08:35→16:08)
[2020-03-09] MEDS: NICOTINE 21 MG/24 HOUR PATCH TD SCH (08:38)
[2020-03-09] MEDS: INSULIN GLARGINE,HUM.REC.ANLOG 100 UNITS/ML SQ SCH ×2 (08:47→21:35)
[2020-03-09 08:57] LABS: GLUCOMETER DEV NAME(LOC) BV2S.; GLUCOSE,POINT OF CARE 158 MG/DL (70-110)
[2020-03-09] MEDS: INSULIN LISPRO 100 UNITS/ML SQ PRN ×2 (10:56→18:06)
[2020-03-09 11:04] LABS: GLUCOMETER DEV NAME(LOC) BV2S.; GLUCOSE,POINT OF CARE 145 MG/DL (70-110)
[2020-03-09 16:19] LABS: GLUCOMETER DEV NAME(LOC) BV2S.; GLUCOSE,POINT OF CARE 219 MG/DL (70-110)
[2020-03-09 16:41] VITALS: BP 125/72
[2020-03-09] MEDS: ZOLPIDEM TARTRATE 10 MG TABLET PO PRN (20:26)
[2020-03-09] MEDS: MAGNESIUM HYDROXIDE SUSPENSION 30 ML UDCUP PO PRN (20:26)
[2020-03-09 20:30] LABS: GLUCOMETER DEV NAME(LOC) BV2S.; GLUCOSE,POINT OF CARE 89 MG/DL (70-110)
[2020-03-10 00:54] VITALS: BP 116/72
[2020-03-10 06:14] LABS: GLUCOMETER DEV NAME(LOC) BV2S.; GLUCOSE,POINT OF CARE 132 MG/DL (70-110)
[2020-03-10] MEDS: LEVOTHYROXINE SODIUM 50 MCG TABLET PO SCH (06:31)
[2020-03-10] MEDS: GlipiZIDE 5 MG TABLET PO SCH ×2 (06:31→16:26)
[2020-03-10] MEDS: OMEGA-3/DHA/EPA/FISH OIL 1,000 MG CAPSULE PO SCH (08:04)
[2020-03-10] MEDS: LITHIUM CARBONATE 600 MG CAPSULE PO SCH ×2 (08:04→16:26)
[2020-03-10] MEDS: MAGNESIUM OXIDE 400 MG TABLET PO SCH ×2 (08:04→16:26)
[2020-03-10] MEDS: NICOTINE 21 MG/24 HOUR PATCH TD SCH (08:04)
[2020-03-10] MEDS: RisperiDONE 1 MG TABLET PO SCH ×2 (08:04→16:26)
[2020-03-10] MEDS: INSULIN GLARGINE,HUM.REC.ANLOG 100 UNITS/ML SQ SCH ×2 (08:07→20:53)
[2020-03-10 08:45] VITALS: BP 109/75
[2020-03-10] MEDS: MAG HYDROX/AL HYDROX/SIMETH ES 30 ML SUSPENSION UDCUP PO PRN (12:48)
[2020-03-10 13:14] LABS: GLUCOMETER DEV NAME(LOC) BV2S.; GLUCOSE,POINT OF CARE 134 MG/DL (70-110)
[2020-03-10 16:17] VITALS: BP 125/68
[2020-03-10 16:49] LABS: GLUCOMETER DEV NAME(LOC) BV2S.; GLUCOSE,POINT OF CARE 209 MG/DL (70-110)
[2020-03-10] MEDS: INSULIN LISPRO 100 UNITS/ML SQ PRN (16:51)
[2020-03-10 20:26] LABS: GLUCOMETER DEV NAME(LOC) BV2S.; GLUCOSE,POINT OF CARE 133 MG/DL (70-110)
[2020-03-10] MEDS: MAGNESIUM HYDROXIDE SUSPENSION 30 ML UDCUP PO PRN (20:31)
[2020-03-10] MEDS: ZOLPIDEM TARTRATE 10 MG TABLET PO PRN (20:49)
[2020-03-11] MEDS: GlipiZIDE 5 MG TABLET PO SCH ×2 (06:17→16:08)
[2020-03-11] MEDS: LEVOTHYROXINE SODIUM 50 MCG TABLET PO SCH (06:17)
[2020-03-11 06:23] VITALS: BP 122/80
[2020-03-11 06:30] LABS: GLUCOMETER DEV NAME(LOC) BV2S.; GLUCOSE,POINT OF CARE 173 MG/DL (70-110)
[2020-03-11] MEDS: INSULIN LISPRO 100 UNITS/ML SQ PRN ×2 (06:32→20:16)
[2020-03-11 08:15] VITALS: BP 119/63
[2020-03-11] MEDS: LITHIUM CARBONATE 600 MG CAPSULE PO SCH ×2 (08:23→16:08)
[2020-03-11] MEDS: MAGNESIUM OXIDE 400 MG TABLET PO SCH ×2 (08:23→16:08)
[2020-03-11] MEDS: OMEGA-3/DHA/EPA/FISH OIL 1,000 MG CAPSULE PO SCH (08:23)
[2020-03-11] MEDS: RisperiDONE 1 MG TABLET PO SCH ×2 (08:23→16:08)
[2020-03-11] MEDS: NICOTINE 21 MG/24 HOUR PATCH TD SCH (08:24)
[2020-03-11] MEDS: INSULIN GLARGINE,HUM.REC.ANLOG 100 UNITS/ML SQ SCH ×2 (08:30→20:16)
[2020-03-11] MEDS: MAG HYDROX/AL HYDROX/SIMETH ES 30 ML SUSPENSION UDCUP PO PRN (10:55)
[2020-03-11 13:03] LABS: GLUCOMETER DEV NAME(LOC) BV2S.; GLUCOSE,POINT OF CARE 133 MG/DL (70-110)
[2020-03-11 16:20] LABS: GLUCOMETER DEV NAME(LOC) BV2S.; GLUCOSE,POINT OF CARE 120 MG/DL (70-110)
[2020-03-11 16:23] VITALS: BP 123/68
[2020-03-11] MEDS: ZOLPIDEM TARTRATE 10 MG TABLET PO PRN (20:14)
[2020-03-11 21:02] LABS: GLUCOMETER DEV NAME(LOC) BV2S.; GLUCOSE,POINT OF CARE 171 MG/DL (70-110)
[2020-03-12] MEDS: GlipiZIDE 5 MG TABLET PO SCH ×2 (06:15→16:07)
[2020-03-12] MEDS: LEVOTHYROXINE SODIUM 50 MCG TABLET PO SCH (06:15)
[2020-03-12] MEDS: INSULIN LISPRO 100 UNITS/ML SQ PRN ×3 (06:20→20:15)
[2020-03-12 06:25] LABS: GLUCOMETER DEV NAME(LOC) BV2S.; GLUCOSE,POINT OF CARE 152 MG/DL (70-110)
[2020-03-12 06:34] VITALS: BP 115/91
[2020-03-12] MEDS: RisperiDONE 1 MG TABLET PO SCH ×2 (08:05→16:08)
[2020-03-12] MEDS: OMEGA-3/DHA/EPA/FISH OIL 1,000 MG CAPSULE PO SCH (08:05)
[2020-03-12] MEDS: LITHIUM CARBONATE 600 MG CAPSULE PO SCH ×2 (08:05→16:06)
[2020-03-12] MEDS: MAGNESIUM OXIDE 400 MG TABLET PO SCH ×2 (08:05→16:06)
[2020-03-12] MEDS: NICOTINE 21 MG/24 HOUR PATCH TD SCH (08:06)
[2020-03-12] MEDS: INSULIN GLARGINE,HUM.REC.ANLOG 100 UNITS/ML SQ SCH ×2 (08:13→20:15)
[2020-03-12 08:44] VITALS: BP 120/70
[2020-03-12 13:01] LABS: GLUCOMETER DEV NAME(LOC) BV2S.; GLUCOSE,POINT OF CARE 85 MG/DL (70-110)
[2020-03-12 16:18] LABS: GLUCOMETER DEV NAME(LOC) BV2S.; GLUCOSE,POINT OF CARE 174 MG/DL (70-110)
[2020-03-12 16:22] VITALS: BP 124/77
[2020-03-12] MEDS: ZOLPIDEM TARTRATE 10 MG TABLET PO PRN (20:13)
[2020-03-12 20:36] LABS: GLUCOMETER DEV NAME(LOC) BV2S.; GLUCOSE,POINT OF CARE 141 MG/DL (70-110)
[2020-03-13 00:55] VITALS: BP 124/85
[2020-03-13 05:27] VITALS: BP 125/83
[2020-03-13] MEDS: GlipiZIDE 5 MG TABLET PO SCH ×2 (06:22→16:12)
[2020-03-13] MEDS: LEVOTHYROXINE SODIUM 50 MCG TABLET PO SCH (06:22)
[2020-03-13 06:39] LABS: GLUCOMETER DEV NAME(LOC) BV2S.; GLUCOSE,POINT OF CARE 107 MG/DL (70-110)
[2020-03-13] MEDS: LITHIUM CARBONATE 600 MG CAPSULE PO SCH ×2 (08:18→16:12)
[2020-03-13] MEDS: OMEGA-3/DHA/EPA/FISH OIL 1,000 MG CAPSULE PO SCH (08:19)
[2020-03-13] MEDS: MAGNESIUM OXIDE 400 MG TABLET PO SCH ×2 (08:19→16:12)
[2020-03-13] MEDS: NICOTINE 21 MG/24 HOUR PATCH TD SCH (08:19)
[2020-03-13] MEDS: RisperiDONE 1 MG TABLET PO SCH ×2 (08:19→16:12)
[2020-03-13 08:23] VITALS: BP 113/72
[2020-03-13] MEDS: INSULIN GLARGINE,HUM.REC.ANLOG 100 UNITS/ML SQ SCH ×2 (08:26→20:09)
[2020-03-13] MEDS: INSULIN LISPRO 100 UNITS/ML SQ PRN ×2 (10:51→16:21)
[2020-03-13 13:02] LABS: GLUCOMETER DEV NAME(LOC) BV2S.; GLUCOSE,POINT OF CARE 170 MG/DL (70-110)
[2020-03-13 16:26] VITALS: BP 120/71
[2020-03-13 17:17] LABS: GLUCOMETER DEV NAME(LOC) BV2S.; GLUCOSE,POINT OF CARE 142 MG/DL (70-110)
[2020-03-13] MEDS: ZOLPIDEM TARTRATE 10 MG TABLET PO PRN (20:08)
[2020-03-13 21:16] LABS: GLUCOMETER DEV NAME(LOC) BV2S.; GLUCOSE,POINT OF CARE 140 MG/DL (70-110)
[2020-03-14 00:48] VITALS: BP 116/72
[2020-03-14] MEDS: LEVOTHYROXINE SODIUM 50 MCG TABLET PO SCH (06:16)
[2020-03-14] MEDS: GlipiZIDE 5 MG TABLET PO SCH ×2 (06:16→17:40)
[2020-03-14 06:21] LABS: GLUCOMETER DEV NAME(LOC) BV2S.; GLUCOSE,POINT OF CARE 119 MG/DL (70-110)
[2020-03-14] MEDS: OMEGA-3/DHA/EPA/FISH OIL 1,000 MG CAPSULE PO SCH (08:32)
[2020-03-14] MEDS: MAGNESIUM OXIDE 400 MG TABLET PO SCH ×2 (08:32→16:19)
[2020-03-14] MEDS: NICOTINE 21 MG/24 HOUR PATCH TD SCH (08:32)
[2020-03-14] MEDS: RisperiDONE 1 MG TABLET PO SCH ×2 (08:32→16:19)
[2020-03-14] MEDS: LITHIUM CARBONATE 600 MG CAPSULE PO SCH ×2 (08:32→16:19)
[2020-03-14 08:34] VITALS: BP 119/74
[2020-03-14] MEDS: INSULIN GLARGINE,HUM.REC.ANLOG 100 UNITS/ML SQ SCH ×2 (08:35→20:32)
[2020-03-14 08:44] LABS: COVID AG,FIA SOURCE NASOPHARYNGEAL
[2020-03-14] MEDS: INSULIN LISPRO 100 UNITS/ML SQ PRN ×2 (10:58→20:36)
[2020-03-14] MEDS: MAG HYDROX/AL HYDROX/SIMETH ES 30 ML SUSPENSION UDCUP PO PRN (11:13)
[2020-03-14 12:41] LABS: GLUCOMETER DEV NAME(LOC) BV2S.; GLUCOSE,POINT OF CARE 150 MG/DL (70-110)
[2020-03-14 16:07] LABS: GLUCOMETER DEV NAME(LOC) BV2S.; GLUCOSE,POINT OF CARE 140 MG/DL (70-110)
[2020-03-14 16:36] VITALS: BP 108/72
[2020-03-14] MEDS: MAGNESIUM HYDROXIDE SUSPENSION 30 ML UDCUP PO PRN (19:39)
[2020-03-14 20:38] LABS: GLUCOMETER DEV NAME(LOC) BV2S.; GLUCOSE,POINT OF CARE 150 MG/DL (70-110)
[2020-03-14] MEDS: ZOLPIDEM TARTRATE 10 MG TABLET PO PRN (21:02)
[2020-03-15 06:27] VITALS: BP 126/76
[2020-03-15] MEDS: GlipiZIDE 5 MG TABLET PO SCH ×2 (06:34→16:09)
[2020-03-15] MEDS: LEVOTHYROXINE SODIUM 50 MCG TABLET PO SCH (06:35)
[2020-03-15 06:51] LABS: GLUCOMETER DEV NAME(LOC) BV2S.; GLUCOSE,POINT OF CARE 117 MG/DL (70-110)
[2020-03-15] MEDS: MAGNESIUM OXIDE 400 MG TABLET PO SCH ×2 (08:30→16:09)
[2020-03-15] MEDS: LITHIUM CARBONATE 600 MG CAPSULE PO SCH ×2 (08:30→16:09)
[2020-03-15] MEDS: OMEGA-3/DHA/EPA/FISH OIL 1,000 MG CAPSULE PO SCH (08:30)
[2020-03-15] MEDS: RisperiDONE 1 MG TABLET PO SCH ×2 (08:30→16:09)
[2020-03-15] MEDS: NICOTINE 21 MG/24 HOUR PATCH TD SCH (08:31)
[2020-03-15 08:44] VITALS: BP 127/72
[2020-03-15] MEDS: INSULIN GLARGINE,HUM.REC.ANLOG 100 UNITS/ML SQ SCH ×2 (08:46→20:08)
[2020-03-15 11:12] LABS: GLUCOMETER DEV NAME(LOC) BV2S.; GLUCOSE,POINT OF CARE 122 MG/DL (70-110)
[2020-03-15] MEDS: INSULIN LISPRO 100 UNITS/ML SQ PRN (16:14)
[2020-03-15 16:21] LABS: GLUCOMETER DEV NAME(LOC) BV2S.; GLUCOSE,POINT OF CARE 219 MG/DL (70-110)
[2020-03-15 16:23] VITALS: BP 109/69
[2020-03-15] MEDS: MAG HYDROX/AL HYDROX/SIMETH ES 30 ML SUSPENSION UDCUP PO PRN (19:50)
[2020-03-15] MEDS: ZOLPIDEM TARTRATE 10 MG TABLET PO PRN (20:26)
[2020-03-15 21:13] LABS: GLUCOMETER DEV NAME(LOC) BV2S.; GLUCOSE,POINT OF CARE 111 MG/DL (70-110)
[2020-03-16 00:51] VITALS: BP 116/75
[2020-03-16] MEDS: GlipiZIDE 5 MG TABLET PO SCH ×2 (06:54→15:55)
[2020-03-16] MEDS: LEVOTHYROXINE SODIUM 50 MCG TABLET PO SCH (06:54)
[2020-03-16 07:00] LABS: GLUCOMETER DEV NAME(LOC) BV2S.; GLUCOSE,POINT OF CARE 167 MG/DL (70-110)
[2020-03-16] MEDS: INSULIN LISPRO 100 UNITS/ML SQ PRN ×3 (07:01→21:09)
[2020-03-16 08:12] VITALS: BP 122/75
[2020-03-16] MEDS: MAGNESIUM OXIDE 400 MG TABLET PO SCH ×2 (08:35→15:56)
[2020-03-16] MEDS: LITHIUM CARBONATE 600 MG CAPSULE PO SCH ×2 (08:35→15:56)
[2020-03-16] MEDS: NICOTINE 21 MG/24 HOUR PATCH TD SCH (08:35)
[2020-03-16] MEDS: OMEGA-3/DHA/EPA/FISH OIL 1,000 MG CAPSULE PO SCH (08:35)
[2020-03-16] MEDS: RisperiDONE 1 MG TABLET PO SCH ×2 (08:35→15:55)
[2020-03-16] MEDS: INSULIN GLARGINE,HUM.REC.ANLOG 100 UNITS/ML SQ SCH ×2 (08:43→21:10)
[2020-03-16 12:28] LABS: GLUCOMETER DEV NAME(LOC) BV2S.; GLUCOSE,POINT OF CARE 187 MG/DL (70-110)
[2020-03-16 16:12] VITALS: BP 109/66
[2020-03-16 16:24] LABS: GLUCOMETER DEV NAME(LOC) BV2S.; GLUCOSE,POINT OF CARE 116 MG/DL (70-110)
[2020-03-16] MEDS: MAGNESIUM HYDROXIDE SUSPENSION 30 ML UDCUP PO PRN (18:43)
[2020-03-16 20:13] LABS: GLUCOMETER DEV NAME(LOC) BV2S.; GLUCOSE,POINT OF CARE 208 MG/DL (70-110)
[2020-03-16] MEDS: ZOLPIDEM TARTRATE 10 MG TABLET PO PRN (20:38)
[2020-03-17 00:16] VITALS: BP 110/63
[2020-03-17] MEDS: LEVOTHYROXINE SODIUM 50 MCG TABLET PO SCH (06:31)
[2020-03-17] MEDS: GlipiZIDE 5 MG TABLET PO SCH ×2 (06:31→16:15)
[2020-03-17 06:39] LABS: GLUCOMETER DEV NAME(LOC) BV2S.; GLUCOSE,POINT OF CARE 187 MG/DL (70-110)
[2020-03-17] MEDS: INSULIN LISPRO 100 UNITS/ML SQ PRN ×3 (06:47→20:24)
[2020-03-17 08:10] VITALS: BP 113/69
[2020-03-17] MEDS: MAGNESIUM OXIDE 400 MG TABLET PO SCH ×2 (08:28→16:15)
[2020-03-17] MEDS: LITHIUM CARBONATE 600 MG CAPSULE PO SCH ×2 (08:28→16:15)
[2020-03-17] MEDS: RisperiDONE 1 MG TABLET PO SCH ×2 (08:28→16:15)
[2020-03-17] MEDS: OMEGA-3/DHA/EPA/FISH OIL 1,000 MG CAPSULE PO SCH (08:28)
[2020-03-17] MEDS: NICOTINE 21 MG/24 HOUR PATCH TD SCH (08:30)
[2020-03-17] MEDS: INSULIN GLARGINE,HUM.REC.ANLOG 100 UNITS/ML SQ SCH ×2 (08:55→20:24)
[2020-03-17 11:50] LABS: GLUCOMETER DEV NAME(LOC) BV2S.; GLUCOSE,POINT OF CARE 108 MG/DL (70-110)
[2020-03-17 16:26] VITALS: BP 106/67
[2020-03-17 16:35] LABS: GLUCOMETER DEV NAME(LOC) BV2S.; GLUCOSE,POINT OF CARE 179 MG/DL (70-110)
[2020-03-17] MEDS: MAGNESIUM HYDROXIDE SUSPENSION 30 ML UDCUP PO PRN (17:28)
[2020-03-17] MEDS: ZOLPIDEM TARTRATE 10 MG TABLET PO PRN (21:10)
[2020-03-17 21:23] LABS: GLUCOMETER DEV NAME(LOC) BV2S.; GLUCOSE,POINT OF CARE 179 MG/DL (70-110)
[2020-03-18 00:49] VITALS: BP 107/62
[2020-03-18] MEDS: GlipiZIDE 5 MG TABLET PO SCH ×2 (06:04→16:13)
[2020-03-18] MEDS: LEVOTHYROXINE SODIUM 50 MCG TABLET PO SCH (06:04)
[2020-03-18] MEDS: INSULIN LISPRO 100 UNITS/ML SQ PRN ×4 (06:18→20:59)
[2020-03-18 06:22] LABS: GLUCOMETER DEV NAME(LOC) BV2S.; GLUCOSE,POINT OF CARE 224 MG/DL (70-110)
[2020-03-18] MEDS: MAGNESIUM OXIDE 400 MG TABLET PO SCH ×2 (08:15→16:13)
[2020-03-18] MEDS: OMEGA-3/DHA/EPA/FISH OIL 1,000 MG CAPSULE PO SCH (08:15)
[2020-03-18] MEDS: RisperiDONE 1 MG TABLET PO SCH ×2 (08:15→16:13)
[2020-03-18] MEDS: LITHIUM CARBONATE 600 MG CAPSULE PO SCH ×2 (08:15→16:13)
[2020-03-18] MEDS: NICOTINE 21 MG/24 HOUR PATCH TD SCH (08:15)
[2020-03-18] MEDS: INSULIN GLARGINE,HUM.REC.ANLOG 100 UNITS/ML SQ SCH ×2 (08:26→20:59)
[2020-03-18 08:27] VITALS: BP 116/68
[2020-03-18 11:08] LABS: GLUCOMETER DEV NAME(LOC) BV2S.; GLUCOSE,POINT OF CARE 152 MG/DL (70-110)
[2020-03-18] MEDS: MAGNESIUM HYDROXIDE SUSPENSION 30 ML UDCUP PO PRN (14:04)
[2020-03-18 16:23] VITALS: BP 117/73
[2020-03-18 16:35] LABS: GLUCOMETER DEV NAME(LOC) BV2S.; GLUCOSE,POINT OF CARE 165 MG/DL (70-110)
[2020-03-18 20:08] LABS: GLUCOMETER DEV NAME(LOC) BV2S.; GLUCOSE,POINT OF CARE 154 MG/DL (70-110)
[2020-03-18] MEDS: ZOLPIDEM TARTRATE 10 MG TABLET PO PRN (20:40)
[2020-03-19] VITALS: BP 112/68
[2020-03-19] MEDS: INSULIN LISPRO 100 UNITS/ML SQ PRN ×3 (06:28→16:59)
[2020-03-19 06:30] LABS: GLUCOMETER DEV NAME(LOC) BV2S.; GLUCOSE,POINT OF CARE 146 MG/DL (70-110)
[2020-03-19] MEDS: LEVOTHYROXINE SODIUM 50 MCG TABLET PO SCH (06:34)
[2020-03-19] MEDS: GlipiZIDE 5 MG TABLET PO SCH ×2 (06:35→16:52)
[2020-03-19] MEDS: MAGNESIUM HYDROXIDE SUSPENSION 30 ML UDCUP PO PRN (06:52)
[2020-03-19] MEDS: RisperiDONE 1 MG TABLET PO SCH ×2 (08:21→16:52)
[2020-03-19] MEDS: MAGNESIUM OXIDE 400 MG TABLET PO SCH ×2 (08:21→16:52)
[2020-03-19] MEDS: OMEGA-3/DHA/EPA/FISH OIL 1,000 MG CAPSULE PO SCH (08:21)
[2020-03-19] MEDS: LITHIUM CARBONATE 600 MG CAPSULE PO SCH ×2 (08:21→16:52)
[2020-03-19] MEDS: NICOTINE 21 MG/24 HOUR PATCH TD SCH (08:22)
[2020-03-19 08:34] VITALS: BP 121/62
[2020-03-19] MEDS: INSULIN GLARGINE,HUM.REC.ANLOG 100 UNITS/ML SQ SCH ×2 (08:50→20:17)
[2020-03-19 11:11] LABS: GLUCOMETER DEV NAME(LOC) BV2S.; GLUCOSE,POINT OF CARE 160 MG/DL (70-110)
[2020-03-19 16:11] VITALS: BP 116/72
[2020-03-19 17:15] LABS: GLUCOMETER DEV NAME(LOC) BV2S.; GLUCOSE,POINT OF CARE 226 MG/DL (70-110)
[2020-03-19] MEDS: ZOLPIDEM TARTRATE 10 MG TABLET PO PRN (20:44)
[2020-03-19 22:14] LABS: GLUCOMETER DEV NAME(LOC) BV2S.; GLUCOSE,POINT OF CARE 104 MG/DL (70-110)
[2020-03-20 00:22] VITALS: BP 114/73
[2020-03-20] MEDS: LEVOTHYROXINE SODIUM 50 MCG TABLET PO SCH (06:36)
[2020-03-20] MEDS: GlipiZIDE 5 MG TABLET PO SCH ×2 (06:36→16:09)
[2020-03-20] MEDS: MAGNESIUM OXIDE 400 MG TABLET PO SCH ×2 (08:10→16:09)
[2020-03-20] MEDS: LITHIUM CARBONATE 600 MG CAPSULE PO SCH ×2 (08:10→16:09)
[2020-03-20] MEDS: OMEGA-3/DHA/EPA/FISH OIL 1,000 MG CAPSULE PO SCH (08:11)
[2020-03-20] MEDS: RisperiDONE 1 MG TABLET PO SCH ×2 (08:11→16:09)
[2020-03-20] MEDS: NICOTINE 21 MG/24 HOUR PATCH TD SCH (08:11)
[2020-03-20 08:22] VITALS: BP 119/68
[2020-03-20 08:24] VITALS: BP 119/68
[2020-03-20] MEDS: INSULIN GLARGINE,HUM.REC.ANLOG 100 UNITS/ML SQ SCH ×2 (08:24→20:12)
[2020-03-20 08:33] LABS: GLUCOMETER DEV NAME(LOC) BV2S.; GLUCOSE,POINT OF CARE 303 MG/DL (70-110)
[2020-03-20] MEDS: INSULIN LISPRO 100 UNITS/ML SQ PRN ×3 (10:58→20:12)
[2020-03-20 11:32] LABS: GLUCOMETER DEV NAME(LOC) BV2S.; GLUCOSE,POINT OF CARE 165 MG/DL (70-110)
[2020-03-20] MEDS: IBUPROFEN 600 MG TABLET PO PRN (16:09)
[2020-03-20 16:10] VITALS: BP 108/71
[2020-03-20 16:24] LABS: GLUCOMETER DEV NAME(LOC) BV2S.; GLUCOSE,POINT OF CARE 173 MG/DL (70-110)
[2020-03-20] MEDS: ZOLPIDEM TARTRATE 10 MG TABLET PO PRN (20:14)
[2020-03-20 20:57] LABS: GLUCOMETER DEV NAME(LOC) BV2S.; GLUCOSE,POINT OF CARE 175 MG/DL (70-110)
[2020-03-21 00:43] VITALS: BP 119/72
[2020-03-21 06:46] LABS: GLUCOMETER DEV NAME(LOC) BV2S.; GLUCOSE,POINT OF CARE 176 MG/DL (70-110)
[2020-03-21] MEDS: INSULIN LISPRO 100 UNITS/ML SQ PRN ×3 (06:48→20:14)
[2020-03-21] MEDS: LEVOTHYROXINE SODIUM 50 MCG TABLET PO SCH (07:15)
[2020-03-21] MEDS: GlipiZIDE 5 MG TABLET PO SCH ×2 (07:15→16:07)
[2020-03-21] MEDS: LITHIUM CARBONATE 600 MG CAPSULE PO SCH ×2 (08:14→16:07)
[2020-03-21] MEDS: MAGNESIUM OXIDE 400 MG TABLET PO SCH ×2 (08:14→16:07)
[2020-03-21] MEDS: RisperiDONE 1 MG TABLET PO SCH ×2 (08:14→16:07)
[2020-03-21] MEDS: OMEGA-3/DHA/EPA/FISH OIL 1,000 MG CAPSULE PO SCH (08:14)
[2020-03-21] MEDS: NICOTINE 21 MG/24 HOUR PATCH TD SCH (08:16)
[2020-03-21] MEDS: INSULIN GLARGINE,HUM.REC.ANLOG 100 UNITS/ML SQ SCH ×2 (08:26→20:14)
[2020-03-21 08:32] VITALS: BP 123/78
[2020-03-21 11:11] LABS: GLUCOMETER DEV NAME(LOC) BV2S.; GLUCOSE,POINT OF CARE 198 MG/DL (70-110)
[2020-03-21 16:06] VITALS: BP 132/80
[2020-03-21 16:22] LABS: GLUCOMETER DEV NAME(LOC) BV2S.; GLUCOSE,POINT OF CARE 114 MG/DL (70-110)
[2020-03-21] MEDS: ZOLPIDEM TARTRATE 10 MG TABLET PO PRN (20:12)
[2020-03-21 22:05] LABS: GLUCOMETER DEV NAME(LOC) BV2S.; GLUCOSE,POINT OF CARE 209 MG/DL (70-110)
[2020-03-22 00:28] VITALS: BP 109/69
[2020-03-22 04:33] LABS: GLUCOMETER DEV NAME(LOC) BV2S.; GLUCOSE,POINT OF CARE 181 MG/DL (70-110)
[2020-03-22] MEDS: LEVOTHYROXINE SODIUM 50 MCG TABLET PO SCH (06:36)
[2020-03-22] MEDS: GlipiZIDE 5 MG TABLET PO SCH ×2 (06:36→17:46)
[2020-03-22] MEDS: INSULIN LISPRO 100 UNITS/ML SQ PRN ×4 (06:38→21:00)
[2020-03-22 07:43] LABS: COVID AG,FIA SOURCE NASOPHARYNGEAL
[2020-03-22 08:15] VITALS: BP 113/69
[2020-03-22] MEDS: MAGNESIUM OXIDE 400 MG TABLET PO SCH ×2 (08:16→16:53)
[2020-03-22] MEDS: OMEGA-3/DHA/EPA/FISH OIL 1,000 MG CAPSULE PO SCH (08:16)
[2020-03-22] MEDS: NICOTINE 21 MG/24 HOUR PATCH TD SCH (08:17)
[2020-03-22] MEDS: LITHIUM CARBONATE 600 MG CAPSULE PO SCH ×2 (08:17→16:53)
[2020-03-22] MEDS: RisperiDONE 1 MG TABLET PO SCH ×2 (08:17→16:53)
[2020-03-22] MEDS: INSULIN GLARGINE,HUM.REC.ANLOG 100 UNITS/ML SQ SCH ×2 (08:29→21:04)
[2020-03-22] MEDS: BENZOCAINE 10% 7 GM GEL TP PRN (10:56)
[2020-03-22 11:08] LABS: GLUCOMETER DEV NAME(LOC) BV2S.; GLUCOSE,POINT OF CARE 172 MG/DL (70-110)
[2020-03-22] MEDS: IBUPROFEN 600 MG TABLET PO PRN (13:25)
[2020-03-22 16:03] LABS: GLUCOMETER DEV NAME(LOC) BV2S.; GLUCOSE,POINT OF CARE 184 MG/DL (70-110)
[2020-03-22 16:23] VITALS: BP 138/88
[2020-03-22 21:17] LABS: GLUCOMETER DEV NAME(LOC) BV2S.; GLUCOSE,POINT OF CARE 188 MG/DL (70-110)
[2020-03-22] MEDS: ZOLPIDEM TARTRATE 10 MG TABLET PO PRN (23:19)
[2020-03-23 00:14] VITALS: BP 129/73
[2020-03-23] MEDS: GlipiZIDE 5 MG TABLET PO SCH ×2 (06:36→17:05)
[2020-03-23] MEDS: LEVOTHYROXINE SODIUM 50 MCG TABLET PO SCH (06:37)
[2020-03-23 08:17] VITALS: BP 118/73
[2020-03-23] MEDS: LITHIUM CARBONATE 600 MG CAPSULE PO SCH ×2 (09:37→17:05)
[2020-03-23] MEDS: OMEGA-3/DHA/EPA/FISH OIL 1,000 MG CAPSULE PO SCH (09:37)
[2020-03-23] MEDS: RisperiDONE 1 MG TABLET PO SCH ×2 (09:37→17:05)
[2020-03-23] MEDS: NICOTINE 21 MG/24 HOUR PATCH TD SCH (09:37)
[2020-03-23] MEDS: INSULIN GLARGINE,HUM.REC.ANLOG 100 UNITS/ML SQ SCH ×2 (09:50→20:56)
[2020-03-23] MEDS: MAGNESIUM OXIDE 400 MG TABLET PO SCH ×2 (09:52→17:05)
[2020-03-23 10:04] LABS: GLUCOMETER DEV NAME(LOC) BV2S.; GLUCOSE,POINT OF CARE 251 MG/DL (70-110)
[2020-03-23] MEDS: MAGNESIUM HYDROXIDE SUSPENSION 30 ML UDCUP PO PRN (16:02)
[2020-03-23 16:21] VITALS: BP 111/74
[2020-03-23 16:46] LABS: GLUCOMETER DEV NAME(LOC) BV2S.; GLUCOSE,POINT OF CARE 187 MG/DL (70-110)
[2020-03-23] MEDS: INSULIN LISPRO 100 UNITS/ML SQ PRN ×2 (17:02→20:56)
[2020-03-23] MEDS: ZOLPIDEM TARTRATE 10 MG TABLET PO PRN (20:49)
[2020-03-23 21:02] LABS: GLUCOMETER DEV NAME(LOC) BV2S.; GLUCOSE,POINT OF CARE 245 MG/DL (70-110)
[2020-03-24 00:31] VITALS: BP 114/65
[2020-03-24 06:13] LABS: GLUCOMETER DEV NAME(LOC) BV2S.; GLUCOSE,POINT OF CARE 201 MG/DL (70-110)
[2020-03-24] MEDS: GlipiZIDE 5 MG TABLET PO SCH ×2 (06:23→16:21)
[2020-03-24] MEDS: LEVOTHYROXINE SODIUM 50 MCG TABLET PO SCH (06:23)
[2020-03-24] MEDS: INSULIN LISPRO 100 UNITS/ML SQ PRN ×2 (06:47→16:27)
[2020-03-24] MEDS: MAGNESIUM OXIDE 400 MG TABLET PO SCH ×2 (08:21→16:20)
[2020-03-24] MEDS: LITHIUM CARBONATE 600 MG CAPSULE PO SCH ×2 (08:21→16:20)
[2020-03-24] MEDS: RisperiDONE 1 MG TABLET PO SCH ×2 (08:21→16:21)
[2020-03-24] MEDS: OMEGA-3/DHA/EPA/FISH OIL 1,000 MG CAPSULE PO SCH (08:21)
[2020-03-24] MEDS: NICOTINE 21 MG/24 HOUR PATCH TD SCH (08:22)
[2020-03-24] MEDS: INSULIN GLARGINE,HUM.REC.ANLOG 100 UNITS/ML SQ SCH ×2 (08:27→20:18)
[2020-03-24 08:34] VITALS: BP 124/79
[2020-03-24 09:22] LABS: BASOPHILS % (AUTO) 0.8 % (0.0-2.0); EOSINOPHILS % (AUTO) 4.6 % (1.0-6.0); HEMOGLOBIN 15.3 g/dL (13.5-17.5); LYMPHOCYTES # (AUTO) 2.2 K/uL (1.0-4.8); LYMPHOCYTES % (AUTO) 30.5 % (22.0-44.0); MEAN CORPUSCULAR HEMOGLOBIN 30.1 pg (26.0-34.0); MEAN CORPUSCULAR VOLUME 89 fL (80-100); MONOCYTES # (AUTO) 0.9 K/uL (0.1-1.0); MONOCYTES % (AUTO) 12.6 % (2.0-9.0); NEUTROPHILS # (AUTO) 3.7 K/uL (1.8-7.7); NEUTROPHILS % (AUTO) 51.5 % (40.0-70.0); PLATELET COUNT (AUTO) 184 K/uL (150-450); RED BLOOD CELL COUNT(AUTO) 5.08 MIL/uL (4.50-5.90)
[2020-03-24 10:13] LABS: ALANINE AMINOTRANSFERASE 32 U/L (12-78); ALBUMIN 3.6 g/dL (3.4-5.0); ALKALINE PHOSPHATASE 76 U/L (46-116); ANION GAP 7 mmol/L (8-16); ASPARTATE AMINOTRANSFERASE 24 U/L (15-37); BILIRUBIN,TOTAL 0.8 mg/dL (0.1-1.0); CALCIUM, TOTAL 9.3 mg/dL (8.8-10.5); CARBON DIOXIDE 30 mmol/L (22-29); CHLORIDE 104 mmol/L (98-107); CHOLESTEROL 172 mg/dL (131-200); CREATININE 0.62 mg/dL (0.60-1.30); GLOMERULAR FILTR. RATE CALC > 60 mL/min (>60); GLUCOSE,RANDOM 197 mg/dL (70-110); HDL CHOLESTEROL 43 mg/dL (40-60); LDL CHOL (CALC.) 87 mg/dL (0-130); PHOSPHORUS 3.4 mg/dL (2.5-4.9); POTASSIUM 4.7 mmol/L (3.5-5.1); SODIUM SERUM 141 mmol/L (136-145); THYROID STIMULATING HORMONE 3.59 uIU/mL (0.36-3.74); TRIGLYCERIDES 210 mg/dL (15-150); UREA NITROGEN, BLOOD 19 mg/dL (7-18)
[2020-03-24] MEDS: MAG HYDROX/AL HYDROX/SIMETH ES 30 ML SUSPENSION UDCUP PO PRN (10:40)
[2020-03-24 10:57] LABS: HEMOGLOBIN A1C 6.2 % (3.8-5.6)
[2020-03-24 11:06] LABS: GLUCOMETER DEV NAME(LOC) BV2S.; GLUCOSE,POINT OF CARE 110 MG/DL (70-110)
[2020-03-24 16:11] VITALS: BP 116/65
[2020-03-24 16:37] LABS: GLUCOMETER DEV NAME(LOC) BV2S.; GLUCOSE,POINT OF CARE 186 MG/DL (70-110)
[2020-03-24] MEDS: ZOLPIDEM TARTRATE 10 MG TABLET PO PRN (20:38)
[2020-03-24 21:07] LABS: GLUCOMETER DEV NAME(LOC) BV2S.; GLUCOSE,POINT OF CARE 124 MG/DL (70-110)
[2020-03-25 04:59] VITALS: BP 118/67
[2020-03-25 06:17] LABS: GLUCOMETER DEV NAME(LOC) BV2S.; GLUCOSE,POINT OF CARE 143 MG/DL (70-110)
[2020-03-25] MEDS: GlipiZIDE 5 MG TABLET PO SCH ×2 (06:25→16:24)
[2020-03-25] MEDS: LEVOTHYROXINE SODIUM 50 MCG TABLET PO SCH (06:25)
[2020-03-25] MEDS: INSULIN LISPRO 100 UNITS/ML SQ PRN ×4 (06:37→20:19)
[2020-03-25 08:10] VITALS: BP 119/88
[2020-03-25] MEDS: RisperiDONE 1 MG TABLET PO SCH ×2 (08:20→16:24)
[2020-03-25] MEDS: MAGNESIUM OXIDE 400 MG TABLET PO SCH ×3 (08:20→16:24)
[2020-03-25] MEDS: OMEGA-3/DHA/EPA/FISH OIL 1,000 MG CAPSULE PO SCH (08:21)
[2020-03-25] MEDS: NICOTINE 21 MG/24 HOUR PATCH TD SCH (08:21)
[2020-03-25] MEDS: LITHIUM CARBONATE 600 MG CAPSULE PO SCH ×2 (08:21→16:24)
[2020-03-25] MEDS: INSULIN GLARGINE,HUM.REC.ANLOG 100 UNITS/ML SQ SCH ×2 (08:30→20:19)
[2020-03-25 11:08] LABS: GLUCOMETER DEV NAME(LOC) BV2S.; GLUCOSE,POINT OF CARE 236 MG/DL (70-110)
[2020-03-25 16:13] VITALS: BP 127/73
[2020-03-25 16:39] LABS: GLUCOMETER DEV NAME(LOC) BV2S.; GLUCOSE,POINT OF CARE 224 MG/DL (70-110)
[2020-03-25] MEDS: ZOLPIDEM TARTRATE 10 MG TABLET PO PRN (21:15)
[2020-03-25 21:21] LABS: GLUCOMETER DEV NAME(LOC) BV2S.; GLUCOSE,POINT OF CARE 223 MG/DL (70-110)
[2020-03-26 00:44] VITALS: BP 110/65
[2020-03-26 06:17] LABS: GLUCOMETER DEV NAME(LOC) BV2S.; GLUCOSE,POINT OF CARE 95 MG/DL (70-110)
[2020-03-26] MEDS: GlipiZIDE 5 MG TABLET PO SCH ×2 (06:28→16:22)
[2020-03-26] MEDS: LEVOTHYROXINE SODIUM 50 MCG TABLET PO SCH (06:28)
[2020-03-26] MEDS: RisperiDONE 1 MG TABLET PO SCH ×2 (08:16→16:22)
[2020-03-26] MEDS: OMEGA-3/DHA/EPA/FISH OIL 1,000 MG CAPSULE PO SCH (08:16)
[2020-03-26] MEDS: MAGNESIUM OXIDE 400 MG TABLET PO SCH ×3 (08:16→16:22)
[2020-03-26] MEDS: NICOTINE 21 MG/24 HOUR PATCH TD SCH (08:16)
[2020-03-26] MEDS: LITHIUM CARBONATE 600 MG CAPSULE PO SCH ×2 (08:16→16:21)
[2020-03-26] MEDS: INSULIN GLARGINE,HUM.REC.ANLOG 100 UNITS/ML SQ SCH ×2 (08:23→20:09)
[2020-03-26 08:25] VITALS: BP 119/61
[2020-03-26] MEDS: INSULIN LISPRO 100 UNITS/ML SQ PRN ×3 (10:56→20:09)
[2020-03-26 11:06] LABS: GLUCOMETER DEV NAME(LOC) BV2S.; GLUCOSE,POINT OF CARE 208 MG/DL (70-110)
[2020-03-26 16:12] VITALS: BP 121/68
[2020-03-26 16:33] LABS: GLUCOMETER DEV NAME(LOC) BV2S.; GLUCOSE,POINT OF CARE 212 MG/DL (70-110)
[2020-03-26 20:22] LABS: GLUCOMETER DEV NAME(LOC) BV2S.; GLUCOSE,POINT OF CARE 143 MG/DL (70-110)
[2020-03-26] MEDS: ZOLPIDEM TARTRATE 10 MG TABLET PO PRN (21:11)
[2020-03-27 00:33] VITALS: BP 113/62
[2020-03-27 06:01] LABS: GLUCOMETER DEV NAME(LOC) BV2S.; GLUCOSE,POINT OF CARE 108 MG/DL (70-110)
[2020-03-27] MEDS: GlipiZIDE 5 MG TABLET PO SCH ×2 (06:37→16:15)
[2020-03-27] MEDS: LEVOTHYROXINE SODIUM 50 MCG TABLET PO SCH (06:37)
[2020-03-27] MEDS: LITHIUM CARBONATE 600 MG CAPSULE PO SCH ×2 (08:15→16:15)
[2020-03-27] MEDS: MAGNESIUM OXIDE 400 MG TABLET PO SCH ×3 (08:15→16:15)
[2020-03-27] MEDS: OMEGA-3/DHA/EPA/FISH OIL 1,000 MG CAPSULE PO SCH (08:15)
[2020-03-27] MEDS: RisperiDONE 1 MG TABLET PO SCH ×2 (08:15→16:15)
[2020-03-27] MEDS: NICOTINE 21 MG/24 HOUR PATCH TD SCH (08:15)
[2020-03-27] MEDS: INSULIN GLARGINE,HUM.REC.ANLOG 100 UNITS/ML SQ SCH ×2 (08:22→20:19)
[2020-03-27 08:50] VITALS: BP 115/69
[2020-03-27] MEDS: INSULIN LISPRO 100 UNITS/ML SQ PRN ×3 (11:04→20:19)
[2020-03-27 13:07] LABS: GLUCOMETER DEV NAME(LOC) BV2S.; GLUCOSE,POINT OF CARE 204 MG/DL (70-110)
[2020-03-27 16:05] VITALS: BP 109/68
[2020-03-27 16:26] LABS: GLUCOMETER DEV NAME(LOC) BV2S.; GLUCOSE,POINT OF CARE 167 MG/DL (70-110)
[2020-03-27] MEDS: ZOLPIDEM TARTRATE 10 MG TABLET PO PRN (20:20)
[2020-03-27 23:10] LABS: GLUCOMETER DEV NAME(LOC) BV2S.; GLUCOSE,POINT OF CARE 214 MG/DL (70-110)
[2020-03-28 06:16] VITALS: BP 116/80
[2020-03-28] MEDS: LEVOTHYROXINE SODIUM 50 MCG TABLET PO SCH (06:24)
[2020-03-28] MEDS: GlipiZIDE 5 MG TABLET PO SCH ×2 (06:24→16:29)
[2020-03-28 06:26] LABS: GLUCOMETER DEV NAME(LOC) BV2S.; GLUCOSE,POINT OF CARE 137 MG/DL (70-110)
[2020-03-28] MEDS: MAGNESIUM OXIDE 400 MG TABLET PO SCH ×3 (08:27→16:29)
[2020-03-28] MEDS: RisperiDONE 1 MG TABLET PO SCH ×2 (08:28→16:29)
[2020-03-28] MEDS: OMEGA-3/DHA/EPA/FISH OIL 1,000 MG CAPSULE PO SCH (08:28)
[2020-03-28] MEDS: LITHIUM CARBONATE 600 MG CAPSULE PO SCH ×2 (08:28→16:29)
[2020-03-28] MEDS: NICOTINE 21 MG/24 HOUR PATCH TD SCH (08:28)
[2020-03-28 08:33] VITALS: BP 122/70
[2020-03-28] MEDS: INSULIN GLARGINE,HUM.REC.ANLOG 100 UNITS/ML SQ SCH ×2 (08:37→21:12)
[2020-03-28] MEDS: INSULIN LISPRO 100 UNITS/ML SQ PRN ×2 (10:56→21:17)
[2020-03-28 11:41] LABS: GLUCOMETER DEV NAME(LOC) BV2S.; GLUCOSE,POINT OF CARE 161 MG/DL (70-110)
[2020-03-28] MEDS: MAGNESIUM HYDROXIDE SUSPENSION 30 ML UDCUP PO PRN ×2 (12:24→16:35)
[2020-03-28 16:26] VITALS: BP 113/69
[2020-03-28 16:39] LABS: GLUCOMETER DEV NAME(LOC) BV2S.; GLUCOSE,POINT OF CARE 175 MG/DL (70-110)
[2020-03-28 20:20] LABS: GLUCOMETER DEV NAME(LOC) BV2S.; GLUCOSE,POINT OF CARE 208 MG/DL (70-110)
[2020-03-28] MEDS: ZOLPIDEM TARTRATE 10 MG TABLET PO PRN (21:01)
[2020-03-29] MEDS: MAGNESIUM HYDROXIDE SUSPENSION 30 ML UDCUP PO PRN (04:00)
[2020-03-29 04:02] VITALS: BP 131/84
[2020-03-29] MEDS: GlipiZIDE 5 MG TABLET PO SCH ×2 (06:35→16:12)
[2020-03-29] MEDS: LEVOTHYROXINE SODIUM 50 MCG TABLET PO SCH (06:36)
[2020-03-29 06:42] LABS: GLUCOMETER DEV NAME(LOC) BV2S.; GLUCOSE,POINT OF CARE 179 MG/DL (70-110)
[2020-03-29] MEDS: INSULIN LISPRO 100 UNITS/ML SQ PRN ×4 (06:45→20:11)
[2020-03-29 08:18] VITALS: BP 121/76
[2020-03-29] MEDS: RisperiDONE 1 MG TABLET PO SCH ×2 (08:29→16:12)
[2020-03-29] MEDS: MAGNESIUM OXIDE 400 MG TABLET PO SCH ×3 (08:29→16:11)
[2020-03-29] MEDS: OMEGA-3/DHA/EPA/FISH OIL 1,000 MG CAPSULE PO SCH (08:29)
[2020-03-29] MEDS: LITHIUM CARBONATE 600 MG CAPSULE PO SCH ×2 (08:29→16:11)
[2020-03-29] MEDS: NICOTINE 21 MG/24 HOUR PATCH TD SCH (08:30)
[2020-03-29] MEDS: INSULIN GLARGINE,HUM.REC.ANLOG 100 UNITS/ML SQ SCH ×2 (08:38→20:11)
[2020-03-29 10:21] LABS: COVID AG,FIA SOURCE NASOPHARYNGEAL
[2020-03-29 11:01] LABS: GLUCOMETER DEV NAME(LOC) BV2S.; GLUCOSE,POINT OF CARE 155 MG/DL (70-110)
[2020-03-29 16:17] VITALS: BP 124/75
[2020-03-29 16:26] LABS: GLUCOMETER DEV NAME(LOC) BV2S.; GLUCOSE,POINT OF CARE 175 MG/DL (70-110)
[2020-03-29] MEDS: ZOLPIDEM TARTRATE 10 MG TABLET PO PRN (20:22)
[2020-03-29 21:07] LABS: GLUCOMETER DEV NAME(LOC) BV2S.; GLUCOSE,POINT OF CARE 161 MG/DL (70-110)
[2020-03-30 03:46] VITALS: BP 108/73
[2020-03-30] MEDS: INSULIN LISPRO 100 UNITS/ML SQ PRN ×4 (06:20→21:03)
[2020-03-30] MEDS: GlipiZIDE 5 MG TABLET PO SCH ×2 (06:28→16:04)
[2020-03-30] MEDS: LEVOTHYROXINE SODIUM 50 MCG TABLET PO SCH (06:28)
[2020-03-30 06:41] LABS: GLUCOMETER DEV NAME(LOC) BV2S.; GLUCOSE,POINT OF CARE 183 MG/DL (70-110)
[2020-03-30] MEDS: MAGNESIUM HYDROXIDE SUSPENSION 30 ML UDCUP PO PRN (07:51)
[2020-03-30 08:28] VITALS: BP 120/76
[2020-03-30] MEDS: OMEGA-3/DHA/EPA/FISH OIL 1,000 MG CAPSULE PO SCH (09:17)
[2020-03-30] MEDS: NICOTINE 21 MG/24 HOUR PATCH TD SCH (09:17)
[2020-03-30] MEDS: RisperiDONE 1 MG TABLET PO SCH ×2 (09:17→16:04)
[2020-03-30] MEDS: MAGNESIUM OXIDE 400 MG TABLET PO SCH ×3 (09:17→16:04)
[2020-03-30] MEDS: LITHIUM CARBONATE 600 MG CAPSULE PO SCH ×2 (09:17→16:04)
[2020-03-30] MEDS: INSULIN GLARGINE,HUM.REC.ANLOG 100 UNITS/ML SQ SCH ×2 (10:08→21:03)
[2020-03-30 10:18] LABS: GLUCOMETER DEV NAME(LOC) BV2S.; GLUCOSE,POINT OF CARE 230 MG/DL (70-110)
[2020-03-30] MEDS: MAG HYDROX/AL HYDROX/SIMETH ES 30 ML SUSPENSION UDCUP PO PRN (15:10)
[2020-03-30 16:04] VITALS: BP 124/73
[2020-03-30 16:22] LABS: GLUCOMETER DEV NAME(LOC) BV2S.; GLUCOSE,POINT OF CARE 155 MG/DL (70-110)
[2020-03-30 20:13] LABS: GLUCOMETER DEV NAME(LOC) BV2S.; GLUCOSE,POINT OF CARE 238 MG/DL (70-110)
[2020-03-30] MEDS: ZOLPIDEM TARTRATE 10 MG TABLET PO PRN (20:36)
[2020-03-31 05:36] VITALS: BP 148/98
[2020-03-31 06:09] LABS: GLUCOMETER DEV NAME(LOC) BV2S.; GLUCOSE,POINT OF CARE 204 MG/DL (70-110)
[2020-03-31] MEDS: GlipiZIDE 5 MG TABLET PO SCH ×2 (06:20→16:15)
[2020-03-31] MEDS: LEVOTHYROXINE SODIUM 50 MCG TABLET PO SCH (06:20)
[2020-03-31] MEDS: INSULIN LISPRO 100 UNITS/ML SQ PRN ×2 (06:32→16:17)
[2020-03-31] MEDS: NICOTINE 21 MG/24 HOUR PATCH TD SCH (08:09)
[2020-03-31] MEDS: RisperiDONE 1 MG TABLET PO SCH ×2 (08:09→16:15)
[2020-03-31] MEDS: OMEGA-3/DHA/EPA/FISH OIL 1,000 MG CAPSULE PO SCH (08:09)
[2020-03-31] MEDS: MAGNESIUM OXIDE 400 MG TABLET PO SCH ×3 (08:09→16:15)
[2020-03-31] MEDS: LITHIUM CARBONATE 600 MG CAPSULE PO SCH ×2 (08:09→16:15)
[2020-03-31 08:13] VITALS: BP 119/68
[2020-03-31] MEDS: INSULIN GLARGINE,HUM.REC.ANLOG 100 UNITS/ML SQ SCH ×2 (08:22→20:19)
[2020-03-31 11:09] LABS: GLUCOMETER DEV NAME(LOC) BV2S.; GLUCOSE,POINT OF CARE 133 MG/DL (70-110)
[2020-03-31 16:24] LABS: GLUCOMETER DEV NAME(LOC) BV2S.; GLUCOSE,POINT OF CARE 259 MG/DL (70-110)
[2020-03-31 16:25] VITALS: BP 135/75
[2020-03-31] MEDS: ZOLPIDEM TARTRATE 10 MG TABLET PO PRN (20:19)
[2020-03-31 21:48] LABS: GLUCOMETER DEV NAME(LOC) BV2S.; GLUCOSE,POINT OF CARE 125 MG/DL (70-110)
[2020-04-01] MEDS: LEVOTHYROXINE SODIUM 50 MCG TABLET PO SCH (06:43)
[2020-04-01] MEDS: GlipiZIDE 5 MG TABLET PO SCH ×2 (06:43→15:54)
[2020-04-01 06:46] VITALS: BP 135/83
[2020-04-01] MEDS: INSULIN LISPRO 100 UNITS/ML SQ PRN ×3 (06:46→16:42)
[2020-04-01 06:50] LABS: GLUCOMETER DEV NAME(LOC) BV2S.; GLUCOSE,POINT OF CARE 167 MG/DL (70-110)
[2020-04-01] MEDS: NICOTINE 21 MG/24 HOUR PATCH TD SCH (08:05)
[2020-04-01] MEDS: OMEGA-3/DHA/EPA/FISH OIL 1,000 MG CAPSULE PO SCH (08:05)
[2020-04-01] MEDS: RisperiDONE 1 MG TABLET PO SCH ×2 (08:05→16:06)
[2020-04-01] MEDS: MAGNESIUM OXIDE 400 MG TABLET PO SCH ×3 (08:05→16:06)
[2020-04-01] MEDS: LITHIUM CARBONATE 600 MG CAPSULE PO SCH ×2 (08:05→16:06)
[2020-04-01] MEDS: INSULIN GLARGINE,HUM.REC.ANLOG 100 UNITS/ML SQ SCH ×2 (08:07→21:07)
[2020-04-01 09:05] VITALS: BP 131/74
[2020-04-01 11:11] LABS: GLUCOMETER DEV NAME(LOC) BV2S.; GLUCOSE,POINT OF CARE 211 MG/DL (70-110)
[2020-04-01 16:13] LABS: GLUCOMETER DEV NAME(LOC) BV2S.; GLUCOSE,POINT OF CARE 219 MG/DL (70-110)
[2020-04-01 16:32] VITALS: BP 116/67
[2020-04-01] MEDS: MAGNESIUM HYDROXIDE SUSPENSION 30 ML UDCUP PO PRN (19:07)
[2020-04-01] MEDS: ZOLPIDEM TARTRATE 10 MG TABLET PO PRN (21:07)
[2020-04-02 06:23] LABS: GLUCOMETER DEV NAME(LOC) BV2S.; GLUCOSE,POINT OF CARE 272 MG/DL (70-110)
[2020-04-02] MEDS: GlipiZIDE 5 MG TABLET PO SCH ×2 (06:36→16:42)
[2020-04-02] MEDS: LEVOTHYROXINE SODIUM 50 MCG TABLET PO SCH (06:36)
[2020-04-02 06:40] VITALS: BP 138/79
[2020-04-02] MEDS: RisperiDONE 1 MG TABLET PO SCH ×2 (08:24→16:42)
[2020-04-02] MEDS: OMEGA-3/DHA/EPA/FISH OIL 1,000 MG CAPSULE PO SCH (08:24)
[2020-04-02] MEDS: MAGNESIUM OXIDE 400 MG TABLET PO SCH ×3 (08:24→16:42)
[2020-04-02] MEDS: NICOTINE 21 MG/24 HOUR PATCH TD SCH (08:24)
[2020-04-02] MEDS: LITHIUM CARBONATE 600 MG CAPSULE PO SCH ×2 (08:24→16:42)
[2020-04-02] MEDS: INSULIN GLARGINE,HUM.REC.ANLOG 100 UNITS/ML SQ SCH ×2 (08:31→20:16)
[2020-04-02 08:33] VITALS: BP 118/68
[2020-04-02 09:27] LABS: GLUCOMETER DEV NAME(LOC) BV2S.; GLUCOSE,POINT OF CARE 319 MG/DL (70-110)
[2020-04-02] MEDS: INSULIN LISPRO 100 UNITS/ML SQ PRN ×3 (10:59→20:16)
[2020-04-02 11:03] LABS: GLUCOMETER DEV NAME(LOC) BV2S.; GLUCOSE,POINT OF CARE 231 MG/DL (70-110)
[2020-04-02 16:11] VITALS: BP 126/67
[2020-04-02 16:53] LABS: GLUCOMETER DEV NAME(LOC) BV2S.; GLUCOSE,POINT OF CARE 215 MG/DL (70-110)
[2020-04-02] MEDS: ZOLPIDEM TARTRATE 10 MG TABLET PO PRN (20:18)
[2020-04-02 21:38] LABS: GLUCOMETER DEV NAME(LOC) BV2S.; GLUCOSE,POINT OF CARE 216 MG/DL (70-110)
[2020-04-03 05:00] VITALS: BP 118/65
[2020-04-03 06:09] LABS: GLUCOMETER DEV NAME(LOC) BV2S.; GLUCOSE,POINT OF CARE 200 MG/DL (70-110)
[2020-04-03] MEDS: GlipiZIDE 5 MG TABLET PO SCH ×2 (06:24→16:07)
[2020-04-03] MEDS: LEVOTHYROXINE SODIUM 50 MCG TABLET PO SCH (06:24)
[2020-04-03] MEDS: INSULIN LISPRO 100 UNITS/ML SQ PRN ×4 (06:42→20:17)
[2020-04-03 08:27] VITALS: BP 123/71
[2020-04-03] MEDS: LITHIUM CARBONATE 600 MG CAPSULE PO SCH ×2 (08:34→16:07)
[2020-04-03] MEDS: RisperiDONE 1 MG TABLET PO SCH ×2 (08:34→16:07)
[2020-04-03] MEDS: MAGNESIUM OXIDE 400 MG TABLET PO SCH ×3 (08:34→16:07)
[2020-04-03] MEDS: OMEGA-3/DHA/EPA/FISH OIL 1,000 MG CAPSULE PO SCH (08:34)
[2020-04-03] MEDS: NICOTINE 21 MG/24 HOUR PATCH TD SCH (08:34)
[2020-04-03] MEDS: INSULIN GLARGINE,HUM.REC.ANLOG 100 UNITS/ML SQ SCH ×2 (08:41→20:17)
[2020-04-03 11:04] LABS: GLUCOMETER DEV NAME(LOC) BV2S.; GLUCOSE,POINT OF CARE 288 MG/DL (70-110)
[2020-04-03 16:10] VITALS: BP 126/72
[2020-04-03 16:18] LABS: GLUCOMETER DEV NAME(LOC) BV2S.; GLUCOSE,POINT OF CARE 301 MG/DL (70-110)
[2020-04-03] MEDS: ZOLPIDEM TARTRATE 10 MG TABLET PO PRN (20:17)
[2020-04-03 21:23] LABS: GLUCOMETER DEV NAME(LOC) BV2S.; GLUCOSE,POINT OF CARE 264 MG/DL (70-110)
[2020-04-04 03:56] VITALS: BP 118/75
[2020-04-04 06:14] LABS: GLUCOMETER DEV NAME(LOC) BV2S.; GLUCOSE,POINT OF CARE 202 MG/DL (70-110)
[2020-04-04] MEDS: LEVOTHYROXINE SODIUM 50 MCG TABLET PO SCH (06:42)
[2020-04-04] MEDS: GlipiZIDE 5 MG TABLET PO SCH ×2 (06:42→16:05)
[2020-04-04] MEDS: INSULIN LISPRO 100 UNITS/ML SQ PRN ×4 (06:43→20:05)
[2020-04-04] MEDS: LITHIUM CARBONATE 600 MG CAPSULE PO SCH ×2 (08:10→16:05)
[2020-04-04] MEDS: OMEGA-3/DHA/EPA/FISH OIL 1,000 MG CAPSULE PO SCH (08:10)
[2020-04-04] MEDS: NICOTINE 21 MG/24 HOUR PATCH TD SCH (08:10)
[2020-04-04] MEDS: RisperiDONE 1 MG TABLET PO SCH ×2 (08:10→16:05)
[2020-04-04] MEDS: MAGNESIUM OXIDE 400 MG TABLET PO SCH ×3 (08:10→16:05)
[2020-04-04] MEDS: INSULIN GLARGINE,HUM.REC.ANLOG 100 UNITS/ML SQ SCH ×2 (08:15→20:05)
[2020-04-04 09:20] VITALS: BP 118/69
[2020-04-04 11:04] LABS: GLUCOMETER DEV NAME(LOC) BV2S.; GLUCOSE,POINT OF CARE 168 MG/DL (70-110)
[2020-04-04 16:12] VITALS: BP 120/73
[2020-04-04 16:21] LABS: GLUCOMETER DEV NAME(LOC) BV2S.; GLUCOSE,POINT OF CARE 226 MG/DL (70-110)
[2020-04-04] MEDS: ZOLPIDEM TARTRATE 10 MG TABLET PO PRN (20:17)
[2020-04-04 20:50] LABS: GLUCOMETER DEV NAME(LOC) BV2S.; GLUCOSE,POINT OF CARE 202 MG/DL (70-110)
[2020-04-05 03:25] VITALS: BP 122/80
[2020-04-05 06:20] LABS: GLUCOMETER DEV NAME(LOC) BV2S.; GLUCOSE,POINT OF CARE 204 MG/DL (70-110)
[2020-04-05] MEDS: GlipiZIDE 5 MG TABLET PO SCH ×2 (06:49→16:21)
[2020-04-05] MEDS: LEVOTHYROXINE SODIUM 50 MCG TABLET PO SCH (06:50)
[2020-04-05] MEDS: INSULIN LISPRO 100 UNITS/ML SQ PRN ×4 (06:53→20:25)
[2020-04-05 08:07] VITALS: BP 106/64
[2020-04-05] MEDS: RisperiDONE 1 MG TABLET PO SCH ×2 (08:49→16:21)
[2020-04-05] MEDS: LITHIUM CARBONATE 600 MG CAPSULE PO SCH ×2 (08:49→16:21)
[2020-04-05] MEDS: OMEGA-3/DHA/EPA/FISH OIL 1,000 MG CAPSULE PO SCH (08:49)
[2020-04-05] MEDS: MAGNESIUM OXIDE 400 MG TABLET PO SCH ×3 (08:49→16:21)
[2020-04-05] MEDS: NICOTINE 21 MG/24 HOUR PATCH TD SCH (08:49)
[2020-04-05] MEDS: INSULIN GLARGINE,HUM.REC.ANLOG 100 UNITS/ML SQ SCH ×2 (09:03→20:25)
[2020-04-05 10:13] LABS: COVID AG,FIA SOURCE NASOPHARYNGEAL
[2020-04-05] MEDS: MAGNESIUM HYDROXIDE SUSPENSION 30 ML UDCUP PO PRN (11:20)
[2020-04-05 11:23] LABS: GLUCOMETER DEV NAME(LOC) BV2S.; GLUCOSE,POINT OF CARE 220 MG/DL (70-110)
[2020-04-05 16:13] VITALS: BP 125/73
[2020-04-05 16:31] LABS: GLUCOMETER DEV NAME(LOC) BV2S.; GLUCOSE,POINT OF CARE 233 MG/DL (70-110)
[2020-04-05] MEDS: MAG HYDROX/AL HYDROX/SIMETH ES 30 ML SUSPENSION UDCUP PO PRN (19:05)
[2020-04-05 20:17] LABS: GLUCOMETER DEV NAME(LOC) BV2S.; GLUCOSE,POINT OF CARE 214 MG/DL (70-110)
[2020-04-05] MEDS: ZOLPIDEM TARTRATE 10 MG TABLET PO PRN (20:29)
[2020-04-06 04:45] VITALS: BP 116/72
[2020-04-06 06:21] LABS: GLUCOMETER DEV NAME(LOC) BV2S.; GLUCOSE,POINT OF CARE 161 MG/DL (70-110)
[2020-04-06] MEDS: GlipiZIDE 5 MG TABLET PO SCH ×2 (06:23→16:19)
[2020-04-06] MEDS: LEVOTHYROXINE SODIUM 50 MCG TABLET PO SCH (06:23)
[2020-04-06] MEDS: INSULIN LISPRO 100 UNITS/ML SQ PRN ×4 (06:45→20:29)
[2020-04-06 08:15] VITALS: BP 122/74
[2020-04-06] MEDS: NICOTINE 21 MG/24 HOUR PATCH TD SCH (08:36)
[2020-04-06] MEDS: OMEGA-3/DHA/EPA/FISH OIL 1,000 MG CAPSULE PO SCH (08:36)
[2020-04-06] MEDS: RisperiDONE 1 MG TABLET PO SCH ×2 (08:36→16:19)
[2020-04-06] MEDS: LITHIUM CARBONATE 600 MG CAPSULE PO SCH ×2 (08:37→16:19)
[2020-04-06] MEDS: INSULIN GLARGINE,HUM.REC.ANLOG 100 UNITS/ML SQ SCH ×2 (08:43→20:29)
[2020-04-06] MEDS: MAGNESIUM OXIDE 400 MG TABLET PO SCH ×3 (08:44→16:19)
[2020-04-06] MEDS: MAGNESIUM HYDROXIDE SUSPENSION 30 ML UDCUP PO PRN (09:41)
[2020-04-06 11:04] LABS: GLUCOMETER DEV NAME(LOC) BV2S.; GLUCOSE,POINT OF CARE 180 MG/DL (70-110)
[2020-04-06 16:23] VITALS: BP 114/76
[2020-04-06 16:25] LABS: GLUCOMETER DEV NAME(LOC) BV2S.; GLUCOSE,POINT OF CARE 161 MG/DL (70-110)
[2020-04-06 20:05] LABS: GLUCOMETER DEV NAME(LOC) BV2S.; GLUCOSE,POINT OF CARE 189 MG/DL (70-110)
[2020-04-06] MEDS: ZOLPIDEM TARTRATE 10 MG TABLET PO PRN (20:26)
[2020-04-07 01:28] VITALS: BP 110/69
[2020-04-07] MEDS: LEVOTHYROXINE SODIUM 50 MCG TABLET PO SCH (06:26)
[2020-04-07] MEDS: GlipiZIDE 5 MG TABLET PO SCH ×2 (06:26→19:33)
[2020-04-07 08:15] VITALS: BP 142/81
[2020-04-07] MEDS: MAGNESIUM OXIDE 400 MG TABLET PO SCH ×3 (08:25→16:22)
[2020-04-07] MEDS: OMEGA-3/DHA/EPA/FISH OIL 1,000 MG CAPSULE PO SCH (08:25)
[2020-04-07] MEDS: LITHIUM CARBONATE 600 MG CAPSULE PO SCH ×2 (08:25→16:22)
[2020-04-07] MEDS: RisperiDONE 1 MG TABLET PO SCH ×2 (08:25→16:23)
[2020-04-07] MEDS: NICOTINE 21 MG/24 HOUR PATCH TD SCH (08:26)
[2020-04-07] MEDS: INSULIN GLARGINE,HUM.REC.ANLOG 100 UNITS/ML SQ SCH ×2 (08:36→20:46)
[2020-04-07 08:53] LABS: GLUCOMETER DEV NAME(LOC) BV2S.; GLUCOSE,POINT OF CARE 217 MG/DL (70-110)
[2020-04-07] MEDS: INSULIN LISPRO 100 UNITS/ML SQ PRN ×3 (10:55→20:46)
[2020-04-07 11:05] LABS: GLUCOMETER DEV NAME(LOC) BV2S.; GLUCOSE,POINT OF CARE 187 MG/DL (70-110)
[2020-04-07 16:13] VITALS: BP 116/75
[2020-04-07 16:54] LABS: GLUCOMETER DEV NAME(LOC) BV2S.; GLUCOSE,POINT OF CARE 200 MG/DL (70-110)
[2020-04-07] MEDS: MAG HYDROX/AL HYDROX/SIMETH ES 30 ML SUSPENSION UDCUP PO PRN (18:43)
[2020-04-07] MEDS: ZOLPIDEM TARTRATE 10 MG TABLET PO PRN (20:17)
[2020-04-07 20:36] LABS: GLUCOMETER DEV NAME(LOC) BV2S.; GLUCOSE,POINT OF CARE 244 MG/DL (70-110)
[2020-04-08 05:57] VITALS: BP 140/85
[2020-04-08] MEDS: LEVOTHYROXINE SODIUM 50 MCG TABLET PO SCH (06:29)
[2020-04-08] MEDS: GlipiZIDE 5 MG TABLET PO SCH ×2 (06:29→16:05)
[2020-04-08 06:31] LABS: GLUCOMETER DEV NAME(LOC) BV2S.; GLUCOSE,POINT OF CARE 190 MG/DL (70-110)
[2020-04-08] MEDS: INSULIN LISPRO 100 UNITS/ML SQ PRN ×4 (06:45→20:10)
[2020-04-08] MEDS: RisperiDONE 1 MG TABLET PO SCH ×2 (08:04→16:05)
[2020-04-08] MEDS: LITHIUM CARBONATE 600 MG CAPSULE PO SCH ×2 (08:04→16:05)
[2020-04-08] MEDS: OMEGA-3/DHA/EPA/FISH OIL 1,000 MG CAPSULE PO SCH (08:04)
[2020-04-08] MEDS: NICOTINE 21 MG/24 HOUR PATCH TD SCH (08:04)
[2020-04-08] MEDS: MAGNESIUM OXIDE 400 MG TABLET PO SCH ×3 (08:04→16:05)
[2020-04-08] MEDS: INSULIN GLARGINE,HUM.REC.ANLOG 100 UNITS/ML SQ SCH ×2 (08:15→20:10)
[2020-04-08 08:26] VITALS: BP 116/76
[2020-04-08 16:15] LABS: GLUCOMETER DEV NAME(LOC) BV2S.; GLUCOSE,POINT OF CARE 177 MG/DL (70-110)
[2020-04-08 16:23] VITALS: BP 123/82
[2020-04-08] MEDS: ZOLPIDEM TARTRATE 10 MG TABLET PO PRN (20:11)
[2020-04-08 20:55] LABS: GLUCOMETER DEV NAME(LOC) BV2S.; GLUCOSE,POINT OF CARE 295 MG/DL (70-110)
[2020-04-09 06:04] VITALS: BP 139/75
[2020-04-09] MEDS: GlipiZIDE 5 MG TABLET PO SCH ×2 (06:24→16:05)
[2020-04-09] MEDS: LEVOTHYROXINE SODIUM 50 MCG TABLET PO SCH (06:24)
[2020-04-09 06:35] LABS: GLUCOMETER DEV NAME(LOC) BV2S.; GLUCOSE,POINT OF CARE 182 MG/DL (70-110)
[2020-04-09] MEDS: INSULIN LISPRO 100 UNITS/ML SQ PRN ×4 (06:53→20:18)
[2020-04-09 08:25] VITALS: BP 127/78
[2020-04-09] MEDS: RisperiDONE 1 MG TABLET PO SCH ×2 (08:39→16:05)
[2020-04-09] MEDS: LITHIUM CARBONATE 600 MG CAPSULE PO SCH ×2 (08:39→16:05)
[2020-04-09] MEDS: OMEGA-3/DHA/EPA/FISH OIL 1,000 MG CAPSULE PO SCH (08:39)
[2020-04-09] MEDS: MAGNESIUM OXIDE 400 MG TABLET PO SCH ×3 (08:40→16:05)
[2020-04-09] MEDS: NICOTINE 21 MG/24 HOUR PATCH TD SCH (08:40)
[2020-04-09] MEDS: INSULIN GLARGINE,HUM.REC.ANLOG 100 UNITS/ML SQ SCH ×2 (08:51→20:18)
[2020-04-09 11:05] LABS: GLUCOMETER DEV NAME(LOC) BV2S.; GLUCOSE,POINT OF CARE 298 MG/DL (70-110)
[2020-04-09 16:17] LABS: GLUCOMETER DEV NAME(LOC) BV2S.; GLUCOSE,POINT OF CARE 224 MG/DL (70-110)
[2020-04-09 16:22] VITALS: BP 124/75
[2020-04-09] MEDS: ZOLPIDEM TARTRATE 10 MG TABLET PO PRN (20:20)
[2020-04-09 20:54] LABS: GLUCOMETER DEV NAME(LOC) BV2S.; GLUCOSE,POINT OF CARE 242 MG/DL (70-110)
[2020-04-10 00:26] VITALS: BP 137/73
[2020-04-10] MEDS: INSULIN LISPRO 100 UNITS/ML SQ PRN ×4 (06:15→20:06)
[2020-04-10 06:29] LABS: GLUCOMETER DEV NAME(LOC) BV2S.; GLUCOSE,POINT OF CARE 185 MG/DL (70-110)
[2020-04-10] MEDS: GlipiZIDE 5 MG TABLET PO SCH ×2 (06:32→16:24)
[2020-04-10] MEDS: LEVOTHYROXINE SODIUM 50 MCG TABLET PO SCH (06:32)
[2020-04-10 08:37] VITALS: BP 111/70
[2020-04-10] MEDS: RisperiDONE 1 MG TABLET PO SCH ×2 (08:40→16:24)
[2020-04-10] MEDS: OMEGA-3/DHA/EPA/FISH OIL 1,000 MG CAPSULE PO SCH (08:40)
[2020-04-10] MEDS: MAGNESIUM OXIDE 400 MG TABLET PO SCH ×3 (08:40→16:24)
[2020-04-10] MEDS: LITHIUM CARBONATE 600 MG CAPSULE PO SCH ×2 (08:40→16:24)
[2020-04-10] MEDS: NICOTINE 21 MG/24 HOUR PATCH TD SCH (08:41)
[2020-04-10] MEDS: INSULIN GLARGINE,HUM.REC.ANLOG 100 UNITS/ML SQ SCH ×2 (08:47→20:05)
[2020-04-10 11:09] LABS: GLUCOMETER DEV NAME(LOC) BV2S.; GLUCOSE,POINT OF CARE 317 MG/DL (70-110)
[2020-04-10 16:15] VITALS: BP 105/62
[2020-04-10 16:37] LABS: GLUCOMETER DEV NAME(LOC) BV2S.; GLUCOSE,POINT OF CARE 192 MG/DL (70-110)
[2020-04-10] MEDS: ZOLPIDEM TARTRATE 10 MG TABLET PO PRN (20:36)
[2020-04-10 20:54] LABS: GLUCOMETER DEV NAME(LOC) BV2S.; GLUCOSE,POINT OF CARE 251 MG/DL (70-110)
[2020-04-11 04:12] VITALS: BP 114/69
[2020-04-11 05:52] LABS: GLUCOMETER DEV NAME(LOC) BV2S.; GLUCOSE,POINT OF CARE 186 MG/DL (70-110)
[2020-04-11] MEDS: LEVOTHYROXINE SODIUM 50 MCG TABLET PO SCH (06:29)
[2020-04-11] MEDS: GlipiZIDE 5 MG TABLET PO SCH ×2 (06:29→16:29)
[2020-04-11] MEDS: INSULIN LISPRO 100 UNITS/ML SQ PRN ×4 (06:44→20:22)
[2020-04-11 08:12] VITALS: BP 123/71
[2020-04-11] MEDS: RisperiDONE 1 MG TABLET PO SCH ×2 (08:29→16:22)
[2020-04-11] MEDS: MAGNESIUM OXIDE 400 MG TABLET PO SCH ×3 (08:29→16:22)
[2020-04-11] MEDS: OMEGA-3/DHA/EPA/FISH OIL 1,000 MG CAPSULE PO SCH (08:29)
[2020-04-11] MEDS: LITHIUM CARBONATE 600 MG CAPSULE PO SCH ×2 (08:31→16:22)
[2020-04-11] MEDS: NICOTINE 21 MG/24 HOUR PATCH TD SCH (08:35)
[2020-04-11] MEDS: INSULIN GLARGINE,HUM.REC.ANLOG 100 UNITS/ML SQ SCH ×2 (09:10→20:22)
[2020-04-11 11:38] LABS: GLUCOMETER DEV NAME(LOC) BV2S.; GLUCOSE,POINT OF CARE 159 MG/DL (70-110)
[2020-04-11 16:07] VITALS: BP 118/72
[2020-04-11 16:22] LABS: GLUCOMETER DEV NAME(LOC) BV2S.; GLUCOSE,POINT OF CARE 166 MG/DL (70-110)
[2020-04-11] MEDS: ZOLPIDEM TARTRATE 10 MG TABLET PO PRN (20:15)
[2020-04-11 20:21] LABS: GLUCOMETER DEV NAME(LOC) BV2S.; GLUCOSE,POINT OF CARE 226 MG/DL (70-110)
[2020-04-12] MEDS: LEVOTHYROXINE SODIUM 50 MCG TABLET PO SCH (05:59)
[2020-04-12] MEDS: GlipiZIDE 5 MG TABLET PO SCH (05:59)
[2020-04-12 06:15] VITALS: BP 140/88
[2020-04-12 06:15] LABS: GLUCOMETER DEV NAME(LOC) BV2S.; GLUCOSE,POINT OF CARE 171 MG/DL (70-110)
[2020-04-12] MEDS: INSULIN LISPRO 100 UNITS/ML SQ PRN ×3 (07:05→21:06)
[2020-04-12 08:20] VITALS: BP 117/68
[2020-04-12] MEDS: MAGNESIUM OXIDE 400 MG TABLET PO SCH ×3 (08:24→16:08)
[2020-04-12] MEDS: RisperiDONE 1 MG TABLET PO SCH ×2 (08:24→16:09)
[2020-04-12] MEDS: OMEGA-3/DHA/EPA/FISH OIL 1,000 MG CAPSULE PO SCH (08:24)
[2020-04-12] MEDS: LITHIUM CARBONATE 600 MG CAPSULE PO SCH ×2 (08:24→16:09)
[2020-04-12] MEDS: NICOTINE 21 MG/24 HOUR PATCH TD SCH (08:26)
[2020-04-12] MEDS: INSULIN GLARGINE,HUM.REC.ANLOG 100 UNITS/ML SQ SCH ×2 (09:41→21:02)
[2020-04-12 10:58] LABS: GLUCOMETER DEV NAME(LOC) BV2S.; GLUCOSE,POINT OF CARE 275 MG/DL (70-110)
[2020-04-12 11:03] LABS: COVID AG,FIA SOURCE NASOPHARYNGEAL
[2020-04-12] MEDS: MAG HYDROX/AL HYDROX/SIMETH ES 30 ML SUSPENSION UDCUP PO PRN (14:24)
[2020-04-12 16:08] VITALS: BP 116/73
[2020-04-12] MEDS: ZOLPIDEM TARTRATE 10 MG TABLET PO PRN (19:56)
[2020-04-12 20:02] LABS: GLUCOMETER DEV NAME(LOC) BV2S.; GLUCOSE,POINT OF CARE 210 MG/DL (70-110)
[2020-04-12 20:02] LABS: GLUCOMETER DEV NAME(LOC) BV2S.; GLUCOSE,POINT OF CARE 286 MG/DL (70-110)
[2020-04-13 05:06] VITALS: BP 121/78
[2020-04-13 05:23] LABS: GLUCOMETER DEV NAME(LOC) BV2S.; GLUCOSE,POINT OF CARE 257 MG/DL (70-110)
[2020-04-13] MEDS: INSULIN LISPRO 100 UNITS/ML SQ PRN ×3 (06:41→20:17)
[2020-04-13] MEDS: LEVOTHYROXINE SODIUM 50 MCG TABLET PO SCH (07:01)
[2020-04-13] MEDS: GlipiZIDE 10 MG TABLET PO SCH ×2 (07:01→16:18)
[2020-04-13] MEDS: MAGNESIUM OXIDE 400 MG TABLET PO SCH ×3 (08:30→16:18)
[2020-04-13] MEDS: LITHIUM CARBONATE 600 MG CAPSULE PO SCH ×2 (08:30→16:19)
[2020-04-13] MEDS: OMEGA-3/DHA/EPA/FISH OIL 1,000 MG CAPSULE PO SCH (08:30)
[2020-04-13] MEDS: RisperiDONE 1 MG TABLET PO SCH ×2 (08:30→16:19)
[2020-04-13 08:31] VITALS: BP 118/72
[2020-04-13] MEDS: NICOTINE 21 MG/24 HOUR PATCH TD SCH (08:31)
[2020-04-13] MEDS: INSULIN GLARGINE,HUM.REC.ANLOG 100 UNITS/ML SQ SCH ×2 (08:41→20:17)
[2020-04-13 11:16] LABS: GLUCOMETER DEV NAME(LOC) BV2S.; GLUCOSE,POINT OF CARE 258 MG/DL (70-110)
[2020-04-13 16:29] LABS: GLUCOMETER DEV NAME(LOC) BV2S.; GLUCOSE,POINT OF CARE 127 MG/DL (70-110)
[2020-04-13 16:39] VITALS: BP 117/60
[2020-04-13] MEDS: ZOLPIDEM TARTRATE 10 MG TABLET PO PRN (20:18)
[2020-04-13 20:56] LABS: GLUCOMETER DEV NAME(LOC) BV2S.; GLUCOSE,POINT OF CARE 151 MG/DL (70-110)
[2020-04-14 00:31] VITALS: BP 120/74
[2020-04-14] MEDS: GlipiZIDE 10 MG TABLET PO SCH ×2 (06:30→16:27)
[2020-04-14] MEDS: LEVOTHYROXINE SODIUM 50 MCG TABLET PO SCH (06:30)
[2020-04-14] MEDS: INSULIN LISPRO 100 UNITS/ML SQ PRN ×4 (06:49→20:11)
[2020-04-14 06:53] LABS: GLUCOMETER DEV NAME(LOC) BV2S.; GLUCOSE,POINT OF CARE 189 MG/DL (70-110)
[2020-04-14] MEDS: MAGNESIUM OXIDE 400 MG TABLET PO SCH ×3 (08:04→16:27)
[2020-04-14] MEDS: OMEGA-3/DHA/EPA/FISH OIL 1,000 MG CAPSULE PO SCH (08:04)
[2020-04-14] MEDS: RisperiDONE 1 MG TABLET PO SCH ×2 (08:04→16:27)
[2020-04-14] MEDS: LITHIUM CARBONATE 600 MG CAPSULE PO SCH ×2 (08:04→16:27)
[2020-04-14] MEDS: NICOTINE 21 MG/24 HOUR PATCH TD SCH (08:05)
[2020-04-14] MEDS: INSULIN GLARGINE,HUM.REC.ANLOG 100 UNITS/ML SQ SCH ×2 (08:11→20:09)
[2020-04-14 08:44] VITALS: BP 127/61
[2020-04-14 11:58] LABS: GLUCOMETER DEV NAME(LOC) BV2S.; GLUCOSE,POINT OF CARE 193 MG/DL (70-110)
[2020-04-14 16:14] VITALS: BP 123/71
[2020-04-14 16:38] LABS: GLUCOMETER DEV NAME(LOC) BV2S.; GLUCOSE,POINT OF CARE 226 MG/DL (70-110)
[2020-04-14] MEDS: ZOLPIDEM TARTRATE 10 MG TABLET PO PRN (20:35)
[2020-04-14 22:00] LABS: GLUCOMETER DEV NAME(LOC) BV2S.; GLUCOSE,POINT OF CARE 213 MG/DL (70-110)
[2020-04-15] MEDS: LEVOTHYROXINE SODIUM 50 MCG TABLET PO SCH (06:09)
[2020-04-15] MEDS: GlipiZIDE 10 MG TABLET PO SCH ×2 (06:09→16:11)
[2020-04-15 06:25] LABS: GLUCOMETER DEV NAME(LOC) BV2S.; GLUCOSE,POINT OF CARE 185 MG/DL (70-110)
[2020-04-15 06:31] VITALS: BP 108/72
[2020-04-15] MEDS: INSULIN LISPRO 100 UNITS/ML SQ PRN ×3 (07:07→20:12)
[2020-04-15] MEDS: MAGNESIUM OXIDE 400 MG TABLET PO SCH ×3 (08:18→16:11)
[2020-04-15] MEDS: OMEGA-3/DHA/EPA/FISH OIL 1,000 MG CAPSULE PO SCH (08:18)
[2020-04-15] MEDS: LITHIUM CARBONATE 600 MG CAPSULE PO SCH ×2 (08:18→16:11)
[2020-04-15] MEDS: RisperiDONE 1 MG TABLET PO SCH ×2 (08:18→16:11)
[2020-04-15] MEDS: NICOTINE 21 MG/24 HOUR PATCH TD SCH (08:19)
[2020-04-15 08:23] VITALS: BP 119/73
[2020-04-15] MEDS: INSULIN GLARGINE,HUM.REC.ANLOG 100 UNITS/ML SQ SCH ×2 (08:26→20:12)
[2020-04-15 11:50] LABS: GLUCOMETER DEV NAME(LOC) BV2S.; GLUCOSE,POINT OF CARE 225 MG/DL (70-110)
[2020-04-15 16:21] LABS: GLUCOMETER DEV NAME(LOC) BV2S.; GLUCOSE,POINT OF CARE 136 MG/DL (70-110)
[2020-04-15 16:26] VITALS: BP 122/69
[2020-04-15] MEDS: ZOLPIDEM TARTRATE 10 MG TABLET PO PRN (20:13)
[2020-04-15 22:48] LABS: GLUCOMETER DEV NAME(LOC) BV2S.; GLUCOSE,POINT OF CARE 238 MG/DL (70-110)
[2020-04-16 06:07] VITALS: BP 150/86
[2020-04-16] MEDS: GlipiZIDE 10 MG TABLET PO SCH ×2 (06:25→16:18)
[2020-04-16] MEDS: LEVOTHYROXINE SODIUM 50 MCG TABLET PO SCH (06:25)
[2020-04-16] MEDS: INSULIN LISPRO 100 UNITS/ML SQ PRN ×4 (06:31→20:18)
[2020-04-16 06:35] LABS: GLUCOMETER DEV NAME(LOC) BV2S.; GLUCOSE,POINT OF CARE 189 MG/DL (70-110)
[2020-04-16] MEDS: NICOTINE 21 MG/24 HOUR PATCH TD SCH (08:04)
[2020-04-16] MEDS: RisperiDONE 1 MG TABLET PO SCH ×2 (08:04→16:18)
[2020-04-16] MEDS: LITHIUM CARBONATE 600 MG CAPSULE PO SCH ×2 (08:04→16:18)
[2020-04-16] MEDS: MAGNESIUM OXIDE 400 MG TABLET PO SCH ×3 (08:04→16:18)
[2020-04-16] MEDS: OMEGA-3/DHA/EPA/FISH OIL 1,000 MG CAPSULE PO SCH (08:04)
[2020-04-16] MEDS: INSULIN GLARGINE,HUM.REC.ANLOG 100 UNITS/ML SQ SCH ×2 (08:19→20:18)
[2020-04-16 08:46] VITALS: BP 129/81
[2020-04-16 11:09] LABS: GLUCOMETER DEV NAME(LOC) BV2S.; GLUCOSE,POINT OF CARE 212 MG/DL (70-110)
[2020-04-16 16:10] VITALS: BP 120/72
[2020-04-16 16:30] LABS: GLUCOMETER DEV NAME(LOC) BV2S.; GLUCOSE,POINT OF CARE 159 MG/DL (70-110)
[2020-04-16] MEDS: ZOLPIDEM TARTRATE 10 MG TABLET PO PRN (20:19)
[2020-04-16 20:52] LABS: GLUCOMETER DEV NAME(LOC) BV2S.; GLUCOSE,POINT OF CARE 227 MG/DL (70-110)
[2020-04-17 00:29] VITALS: BP 112/69
[2020-04-17 06:26] LABS: GLUCOMETER DEV NAME(LOC) BV2S.; GLUCOSE,POINT OF CARE 182 MG/DL (70-110)
[2020-04-17] MEDS: LEVOTHYROXINE SODIUM 50 MCG TABLET PO SCH (06:35)
[2020-04-17] MEDS: GlipiZIDE 10 MG TABLET PO SCH ×2 (06:35→16:14)
[2020-04-17] MEDS: INSULIN LISPRO 100 UNITS/ML SQ PRN ×3 (06:37→21:28)
[2020-04-17 08:21] VITALS: BP 107/62
[2020-04-17] MEDS: LITHIUM CARBONATE 600 MG CAPSULE PO SCH ×2 (08:52→16:44)
[2020-04-17] MEDS: RisperiDONE 1 MG TABLET PO SCH ×2 (08:52→16:44)
[2020-04-17] MEDS: OMEGA-3/DHA/EPA/FISH OIL 1,000 MG CAPSULE PO SCH (08:52)
[2020-04-17] MEDS: MAGNESIUM OXIDE 400 MG TABLET PO SCH ×3 (08:52→16:44)
[2020-04-17] MEDS: NICOTINE 21 MG/24 HOUR PATCH TD SCH (08:53)
[2020-04-17] MEDS: INSULIN GLARGINE,HUM.REC.ANLOG 100 UNITS/ML SQ SCH ×2 (09:04→21:00)
[2020-04-17 09:14] LABS: GLUCOMETER DEV NAME(LOC) BV2S.; GLUCOSE,POINT OF CARE 263 MG/DL (70-110)
[2020-04-17 11:25] LABS: GLUCOMETER DEV NAME(LOC) BV2S.; GLUCOSE,POINT OF CARE 217 MG/DL (70-110)
[2020-04-17 16:09] VITALS: BP 123/69
[2020-04-17 16:53] LABS: GLUCOMETER DEV NAME(LOC) BV2S.; GLUCOSE,POINT OF CARE 134 MG/DL (70-110)
[2020-04-17] MEDS: ZOLPIDEM TARTRATE 10 MG TABLET PO PRN (20:58)
[2020-04-17] MEDS: MAG HYDROX/AL HYDROX/SIMETH ES 30 ML SUSPENSION UDCUP PO PRN (21:26)
[2020-04-17 21:34] LABS: GLUCOMETER DEV NAME(LOC) BV2S.; GLUCOSE,POINT OF CARE 171 MG/DL (70-110)
[2020-04-18 06:22] LABS: GLUCOMETER DEV NAME(LOC) BV2S.; GLUCOSE,POINT OF CARE 172 MG/DL (70-110)
[2020-04-18 06:44] VITALS: BP 118/69
[2020-04-18] MEDS: LEVOTHYROXINE SODIUM 50 MCG TABLET PO SCH (06:57)
[2020-04-18] MEDS: GlipiZIDE 10 MG TABLET PO SCH ×2 (06:57→16:40)
[2020-04-18] MEDS: INSULIN LISPRO 100 UNITS/ML SQ PRN ×4 (06:59→20:31)
[2020-04-18 08:25] VITALS: BP 117/73
[2020-04-18] MEDS: LITHIUM CARBONATE 600 MG CAPSULE PO SCH ×2 (08:31→16:40)
[2020-04-18] MEDS: MAGNESIUM OXIDE 400 MG TABLET PO SCH ×3 (08:31→16:40)
[2020-04-18] MEDS: NICOTINE 21 MG/24 HOUR PATCH TD SCH (08:31)
[2020-04-18] MEDS: RisperiDONE 1 MG TABLET PO SCH ×2 (08:31→16:40)
[2020-04-18] MEDS: OMEGA-3/DHA/EPA/FISH OIL 1,000 MG CAPSULE PO SCH (08:31)
[2020-04-18] MEDS: INSULIN GLARGINE,HUM.REC.ANLOG 100 UNITS/ML SQ SCH ×2 (08:33→20:30)
[2020-04-18] MEDS: IBUPROFEN 600 MG TABLET PO PRN (11:02)
[2020-04-18 11:28] LABS: GLUCOMETER DEV NAME(LOC) BV2S.; GLUCOSE,POINT OF CARE 196 MG/DL (70-110)
[2020-04-18 16:07] VITALS: BP 142/89
[2020-04-18 16:50] LABS: GLUCOMETER DEV NAME(LOC) BV2S.; GLUCOSE,POINT OF CARE 152 MG/DL (70-110)
[2020-04-18 20:27] LABS: GLUCOMETER DEV NAME(LOC) BV2S.; GLUCOSE,POINT OF CARE 150 MG/DL (70-110)
[2020-04-18] MEDS: ZOLPIDEM TARTRATE 10 MG TABLET PO PRN (20:33)
[2020-04-19 06:18] LABS: GLUCOMETER DEV NAME(LOC) BV2S.; GLUCOSE,POINT OF CARE 205 MG/DL (70-110)
[2020-04-19] MEDS: GlipiZIDE 10 MG TABLET PO SCH ×2 (06:34→16:30)
[2020-04-19] MEDS: LEVOTHYROXINE SODIUM 50 MCG TABLET PO SCH (06:34)
[2020-04-19] MEDS: INSULIN LISPRO 100 UNITS/ML SQ PRN ×4 (06:36→21:38)
[2020-04-19 07:57] LABS: COVID AG,FIA SOURCE NASOPHARYNGEAL
[2020-04-19 08:10] VITALS: BP 124/78
[2020-04-19] MEDS: LITHIUM CARBONATE 600 MG CAPSULE PO SCH ×2 (08:12→16:26)
[2020-04-19] MEDS: NICOTINE 21 MG/24 HOUR PATCH TD SCH (08:12)
[2020-04-19] MEDS: MAGNESIUM OXIDE 400 MG TABLET PO SCH ×3 (08:13→16:26)
[2020-04-19] MEDS: OMEGA-3/DHA/EPA/FISH OIL 1,000 MG CAPSULE PO SCH (08:13)
[2020-04-19] MEDS: RisperiDONE 1 MG TABLET PO SCH ×2 (08:13→16:26)
[2020-04-19] MEDS: INSULIN GLARGINE,HUM.REC.ANLOG 100 UNITS/ML SQ SCH ×2 (08:53→21:36)
[2020-04-19] MEDS: IBUPROFEN 600 MG TABLET PO PRN ×2 (10:31→20:36)
[2020-04-19 16:32] VITALS: BP 116/68
[2020-04-19 16:45] LABS: GLUCOMETER DEV NAME(LOC) BV2S.; GLUCOSE,POINT OF CARE 222 MG/DL (70-110)
[2020-04-19 16:45] LABS: GLUCOMETER DEV NAME(LOC) BV2S.; GLUCOSE,POINT OF CARE 146 MG/DL (70-110)
[2020-04-19] MEDS: ZOLPIDEM TARTRATE 10 MG TABLET PO PRN (20:36)
[2020-04-19 20:42] LABS: GLUCOMETER DEV NAME(LOC) BV2S.; GLUCOSE,POINT OF CARE 195 MG/DL (70-110)
[2020-04-20 00:11] VITALS: BP 112/63
[2020-04-20 06:48] LABS: GLUCOMETER DEV NAME(LOC) BV2S.; GLUCOSE,POINT OF CARE 175 MG/DL (70-110)
[2020-04-20] MEDS: LEVOTHYROXINE SODIUM 50 MCG TABLET PO SCH (06:55)
[2020-04-20] MEDS: GlipiZIDE 10 MG TABLET PO SCH ×2 (06:55→16:04)
[2020-04-20] MEDS: INSULIN LISPRO 100 UNITS/ML SQ PRN ×3 (06:57→21:47)
[2020-04-20 07:09] VITALS: BP 120/78
[2020-04-20] MEDS: IBUPROFEN 600 MG TABLET PO PRN (07:12)
[2020-04-20 08:10] VITALS: BP 123/66
[2020-04-20] MEDS: OMEGA-3/DHA/EPA/FISH OIL 1,000 MG CAPSULE PO SCH (08:22)
[2020-04-20] MEDS: LITHIUM CARBONATE 600 MG CAPSULE PO SCH ×2 (08:22→16:04)
[2020-04-20] MEDS: MAGNESIUM OXIDE 400 MG TABLET PO SCH ×3 (08:22→16:04)
[2020-04-20] MEDS: RisperiDONE 1 MG TABLET PO SCH ×2 (08:22→16:04)
[2020-04-20] MEDS: NICOTINE 21 MG/24 HOUR PATCH TD SCH (08:26)
[2020-04-20] MEDS: INSULIN GLARGINE,HUM.REC.ANLOG 100 UNITS/ML SQ SCH ×2 (08:32→21:46)
[2020-04-20] MEDS: CYCLOBENZAPRINE HCL 10 MG TABLET PO PRN ×2 (09:00→18:13)
[2020-04-20 16:10] VITALS: BP 112/67
[2020-04-20 16:18] LABS: GLUCOMETER DEV NAME(LOC) BV2S.; GLUCOSE,POINT OF CARE 132 MG/DL (70-110)
[2020-04-20 16:18] LABS: GLUCOMETER DEV NAME(LOC) BV2S.; GLUCOSE,POINT OF CARE 142 MG/DL (70-110)
[2020-04-20 18:13] VITALS: BP 122/70
[2020-04-20 21:40] LABS: GLUCOMETER DEV NAME(LOC) BV2S.; GLUCOSE,POINT OF CARE 206 MG/DL (70-110)
[2020-04-20] MEDS: ZOLPIDEM TARTRATE 10 MG TABLET PO PRN (21:40)
[2020-04-21 06:24] LABS: GLUCOMETER DEV NAME(LOC) BV2S.; GLUCOSE,POINT OF CARE 224 MG/DL (70-110)
[2020-04-21 06:31] VITALS: BP 102/65
[2020-04-21] MEDS: LEVOTHYROXINE SODIUM 50 MCG TABLET PO SCH (07:04)
[2020-04-21] MEDS: GlipiZIDE 10 MG TABLET PO SCH ×2 (07:04→16:14)
[2020-04-21] MEDS: INSULIN LISPRO 100 UNITS/ML SQ PRN ×4 (07:05→21:04)
[2020-04-21] MEDS: OMEGA-3/DHA/EPA/FISH OIL 1,000 MG CAPSULE PO SCH (08:24)
[2020-04-21] MEDS: NICOTINE 21 MG/24 HOUR PATCH TD SCH (08:24)
[2020-04-21] MEDS: LITHIUM CARBONATE 600 MG CAPSULE PO SCH ×2 (08:24→16:14)
[2020-04-21] MEDS: MAGNESIUM OXIDE 400 MG TABLET PO SCH ×3 (08:24→16:14)
[2020-04-21] MEDS: RisperiDONE 1 MG TABLET PO SCH ×2 (08:24→16:14)
[2020-04-21] MEDS: INSULIN GLARGINE,HUM.REC.ANLOG 100 UNITS/ML SQ SCH ×2 (08:31→21:04)
[2020-04-21] MEDS: CYCLOBENZAPRINE HCL 10 MG TABLET PO PRN ×2 (10:16→17:56)
[2020-04-21 11:04] VITALS: BP 123/81
[2020-04-21 11:12] LABS: GLUCOMETER DEV NAME(LOC) BV2S.; GLUCOSE,POINT OF CARE 161 MG/DL (70-110)
[2020-04-21 16:28] LABS: GLUCOMETER DEV NAME(LOC) BV2S.; GLUCOSE,POINT OF CARE 185 MG/DL (70-110)
[2020-04-21 16:33] VITALS: BP 115/78
[2020-04-21] MEDS: MAG HYDROX/AL HYDROX/SIMETH ES 30 ML SUSPENSION UDCUP PO PRN (17:55)
[2020-04-21 18:00] VITALS: BP 127/77
[2020-04-21 18:58] VITALS: BP 115/74
[2020-04-21 20:27] LABS: GLUCOMETER DEV NAME(LOC) BV2S.; GLUCOSE,POINT OF CARE 194 MG/DL (70-110)
[2020-04-21] MEDS: ZOLPIDEM TARTRATE 10 MG TABLET PO PRN (21:05)
[2020-04-22 00:27] VITALS: BP 117/78
[2020-04-22] MEDS: GlipiZIDE 10 MG TABLET PO SCH ×2 (06:43→16:15)
[2020-04-22] MEDS: LEVOTHYROXINE SODIUM 50 MCG TABLET PO SCH (06:44)
[2020-04-22 06:52] LABS: GLUCOMETER DEV NAME(LOC) BV2S.; GLUCOSE,POINT OF CARE 165 MG/DL (70-110)
[2020-04-22] MEDS: INSULIN LISPRO 100 UNITS/ML SQ PRN ×4 (06:52→20:03)
[2020-04-22] MEDS: LITHIUM CARBONATE 600 MG CAPSULE PO SCH ×2 (08:19→16:15)
[2020-04-22] MEDS: MAGNESIUM OXIDE 400 MG TABLET PO SCH ×3 (08:19→16:15)
[2020-04-22] MEDS: OMEGA-3/DHA/EPA/FISH OIL 1,000 MG CAPSULE PO SCH (08:19)
[2020-04-22] MEDS: RisperiDONE 1 MG TABLET PO SCH ×2 (08:19→16:16)
[2020-04-22] MEDS: NICOTINE 21 MG/24 HOUR PATCH TD SCH (08:20)
[2020-04-22 08:27] VITALS: BP 121/77
[2020-04-22] MEDS: INSULIN GLARGINE,HUM.REC.ANLOG 100 UNITS/ML SQ SCH ×2 (08:28→20:03)
[2020-04-22] MEDS: CYCLOBENZAPRINE HCL 10 MG TABLET PO PRN ×2 (10:49→20:07)
[2020-04-22 11:05] LABS: GLUCOMETER DEV NAME(LOC) BV2S.; GLUCOSE,POINT OF CARE 213 MG/DL (70-110)
[2020-04-22 16:08] VITALS: BP 118/70
[2020-04-22 16:34] LABS: GLUCOMETER DEV NAME(LOC) BV2S.; GLUCOSE,POINT OF CARE 146 MG/DL (70-110)
[2020-04-22] MEDS: ZOLPIDEM TARTRATE 10 MG TABLET PO PRN (20:07)
[2020-04-22 20:24] LABS: GLUCOMETER DEV NAME(LOC) BV2S.; GLUCOSE,POINT OF CARE 190 MG/DL (70-110)
[2020-04-23] MEDS: GlipiZIDE 10 MG TABLET PO SCH ×2 (06:16→16:16)
[2020-04-23] MEDS: LEVOTHYROXINE SODIUM 50 MCG TABLET PO SCH (06:16)
[2020-04-23 06:33] VITALS: BP 124/78
[2020-04-23] MEDS: CYCLOBENZAPRINE HCL 10 MG TABLET PO PRN ×2 (06:33→20:18)
[2020-04-23 06:35] LABS: GLUCOMETER DEV NAME(LOC) BV2S.; GLUCOSE,POINT OF CARE 219 MG/DL (70-110)
[2020-04-23] MEDS: INSULIN LISPRO 100 UNITS/ML SQ PRN ×4 (06:47→20:17)
[2020-04-23 08:11] VITALS: BP 130/80
[2020-04-23] MEDS: NICOTINE 21 MG/24 HOUR PATCH TD SCH (08:13)
[2020-04-23] MEDS: LITHIUM CARBONATE 600 MG CAPSULE PO SCH ×2 (08:13→16:16)
[2020-04-23] MEDS: RisperiDONE 1 MG TABLET PO SCH ×2 (08:13→16:16)
[2020-04-23] MEDS: MAGNESIUM OXIDE 400 MG TABLET PO SCH ×3 (08:13→16:16)
[2020-04-23] MEDS: OMEGA-3/DHA/EPA/FISH OIL 1,000 MG CAPSULE PO SCH (08:13)
[2020-04-23] MEDS: INSULIN GLARGINE,HUM.REC.ANLOG 100 UNITS/ML SQ SCH ×2 (08:20→20:18)
[2020-04-23 08:59] LABS: BASOPHILS % (AUTO) 0.8 % (0.0-2.0); EOSINOPHILS % (AUTO) 5.6 % (1.0-6.0); HEMATOCRIT 44.7 % (41-53); LYMPHOCYTES # (AUTO) 1.8 K/uL (1.0-4.8); LYMPHOCYTES % (AUTO) 25.1 % (22.0-44.0); MEAN CORPUSCULAR HEMOGLOBIN 29.6 pg (26.0-34.0); MEAN CORPUSCULAR HGB CONC 33.5 G/dL (31.0-37.0); MEAN CORPUSCULAR VOLUME 88 fL (80-100); MONOCYTES % (AUTO) 13.5 % (2.0-9.0); PLATELET COUNT (AUTO) 188 K/uL (150-450); RED BLOOD CELL COUNT(AUTO) 5.06 MIL/uL (4.50-5.90); RED CELL DISTRIBUTION WIDTH 13.9 % (11.5-14.5)
[2020-04-23 09:22] LABS: ALANINE AMINOTRANSFERASE 33 U/L (12-78); ALBUMIN 3.2 g/dL (3.4-5.0); ALKALINE PHOSPHATASE 77 U/L (46-116); ANION GAP 7 mmol/L (8-16); ASPARTATE AMINOTRANSFERASE 21 U/L (15-37); BILIRUBIN,TOTAL 0.6 mg/dL (0.1-1.0); CALCIUM, TOTAL 9.1 mg/dL (8.8-10.5); CARBON DIOXIDE 27 mmol/L (22-29); CHLORIDE 104 mmol/L (98-107); CREATININE 0.68 mg/dL (0.60-1.30); GLOMERULAR FILTR. RATE CALC > 60 mL/min (>60); GLUCOSE,RANDOM 188 mg/dL (70-110); PHOSPHORUS 3.6 mg/dL (2.5-4.9); POTASSIUM 4.6 mmol/L (3.5-5.1); SODIUM SERUM 138 mmol/L (136-145); TOTAL PROTEIN, SERUM 7.4 g/dL (6.4-8.2); UREA NITROGEN, BLOOD 21 mg/dL (7-18)
[2020-04-23 11:03] LABS: GLUCOMETER DEV NAME(LOC) BV2S.; GLUCOSE,POINT OF CARE 184 MG/DL (70-110)
[2020-04-23 16:12] VITALS: BP 120/70
[2020-04-23 16:32] LABS: GLUCOMETER DEV NAME(LOC) BV2S.; GLUCOSE,POINT OF CARE 190 MG/DL (70-110)
[2020-04-23] MEDS: ZOLPIDEM TARTRATE 10 MG TABLET PO PRN (20:18)
[2020-04-23 20:39] LABS: GLUCOMETER DEV NAME(LOC) BV2S.; GLUCOSE,POINT OF CARE 182 MG/DL (70-110)
[2020-04-24 06:21] VITALS: BP 126/72
[2020-04-24] MEDS: INSULIN LISPRO 100 UNITS/ML SQ PRN ×4 (06:54→20:22)
[2020-04-24] MEDS: LEVOTHYROXINE SODIUM 50 MCG TABLET PO SCH (06:55)
[2020-04-24] MEDS: GlipiZIDE 10 MG TABLET PO SCH ×2 (06:55→16:13)
[2020-04-24 06:57] LABS: GLUCOMETER DEV NAME(LOC) BV2S.; GLUCOSE,POINT OF CARE 175 MG/DL (70-110)
[2020-04-24] MEDS: NICOTINE 21 MG/24 HOUR PATCH TD SCH (08:19)
[2020-04-24] MEDS: RisperiDONE 1 MG TABLET PO SCH ×2 (08:19→16:13)
[2020-04-24] MEDS: LITHIUM CARBONATE 600 MG CAPSULE PO SCH ×2 (08:19→16:13)
[2020-04-24] MEDS: MAGNESIUM OXIDE 400 MG TABLET PO SCH ×3 (08:19→16:13)
[2020-04-24] MEDS: OMEGA-3/DHA/EPA/FISH OIL 1,000 MG CAPSULE PO SCH (08:19)
[2020-04-24] MEDS: INSULIN GLARGINE,HUM.REC.ANLOG 100 UNITS/ML SQ SCH ×2 (08:26→20:21)
[2020-04-24 08:32] VITALS: BP 110/70
[2020-04-24 11:06] LABS: GLUCOMETER DEV NAME(LOC) BV2S.; GLUCOSE,POINT OF CARE 341 MG/DL (70-110)
[2020-04-24] MEDS: MAG HYDROX/AL HYDROX/SIMETH ES 30 ML SUSPENSION UDCUP PO PRN (16:32)
[2020-04-24 17:20] VITALS: BP 130/80
[2020-04-24 17:55] LABS: GLUCOMETER DEV NAME(LOC) BV2S.; GLUCOSE,POINT OF CARE 143 MG/DL (70-110)
[2020-04-24] MEDS: ZOLPIDEM TARTRATE 10 MG TABLET PO PRN (20:23)
[2020-04-24] MEDS: CYCLOBENZAPRINE HCL 10 MG TABLET PO PRN (20:23)
[2020-04-24 20:54] LABS: GLUCOMETER DEV NAME(LOC) BV2S.; GLUCOSE,POINT OF CARE 205 MG/DL (70-110)
[2020-04-25 04:57] VITALS: BP 112/74
[2020-04-25] MEDS: GlipiZIDE 10 MG TABLET PO SCH ×2 (06:14→16:35)
[2020-04-25] MEDS: LEVOTHYROXINE SODIUM 50 MCG TABLET PO SCH (06:15)
[2020-04-25 06:30] LABS: GLUCOMETER DEV NAME(LOC) BV2S.; GLUCOSE,POINT OF CARE 138 MG/DL (70-110)
[2020-04-25 08:15] VITALS: BP 112/78
[2020-04-25] MEDS: RisperiDONE 1 MG TABLET PO SCH ×2 (08:15→16:35)
[2020-04-25] MEDS: OMEGA-3/DHA/EPA/FISH OIL 1,000 MG CAPSULE PO SCH (08:16)
[2020-04-25] MEDS: NICOTINE 21 MG/24 HOUR PATCH TD SCH (08:16)
[2020-04-25] MEDS: MAGNESIUM OXIDE 400 MG TABLET PO SCH ×3 (08:16→16:35)
[2020-04-25] MEDS: LITHIUM CARBONATE 600 MG CAPSULE PO SCH ×2 (08:16→16:35)
[2020-04-25] MEDS: INSULIN GLARGINE,HUM.REC.ANLOG 100 UNITS/ML SQ SCH ×2 (08:19→21:05)
[2020-04-25] MEDS: INSULIN LISPRO 100 UNITS/ML SQ PRN ×3 (10:57→21:05)
[2020-04-25 11:11] LABS: GLUCOMETER DEV NAME(LOC) BV2S.; GLUCOSE,POINT OF CARE 251 MG/DL (70-110)
[2020-04-25 16:10] VITALS: BP 119/72
[2020-04-25] MEDS: CYCLOBENZAPRINE HCL 10 MG TABLET PO PRN (16:56)
[2020-04-25 17:05] LABS: GLUCOMETER DEV NAME(LOC) BV2S.; GLUCOSE,POINT OF CARE 152 MG/DL (70-110)
[2020-04-25 20:13] LABS: GLUCOMETER DEV NAME(LOC) BV2S.; GLUCOSE,POINT OF CARE 233 MG/DL (70-110)
[2020-04-25] MEDS: ZOLPIDEM TARTRATE 10 MG TABLET PO PRN (20:28)
[2020-04-26 00:15] VITALS: BP 116/68
[2020-04-26] MEDS: GlipiZIDE 10 MG TABLET PO SCH ×2 (06:08→16:05)
[2020-04-26] MEDS: LEVOTHYROXINE SODIUM 50 MCG TABLET PO SCH (06:08)
[2020-04-26 06:26] LABS: GLUCOMETER DEV NAME(LOC) BV2S.; GLUCOSE,POINT OF CARE 129 MG/DL (70-110)
[2020-04-26 08:13] VITALS: BP 123/74
[2020-04-26] MEDS: RisperiDONE 1 MG TABLET PO SCH ×2 (09:18→16:05)
[2020-04-26] MEDS: OMEGA-3/DHA/EPA/FISH OIL 1,000 MG CAPSULE PO SCH (09:18)
[2020-04-26] MEDS: NICOTINE 21 MG/24 HOUR PATCH TD SCH (09:18)
[2020-04-26] MEDS: LITHIUM CARBONATE 600 MG CAPSULE PO SCH ×2 (09:18→16:05)
[2020-04-26] MEDS: MAGNESIUM OXIDE 400 MG TABLET PO SCH ×3 (09:18→16:05)
[2020-04-26] MEDS: INSULIN GLARGINE,HUM.REC.ANLOG 100 UNITS/ML SQ SCH ×2 (09:41→20:43)
[2020-04-26 10:07] LABS: COVID AG,FIA SOURCE NASOPHARYNGEAL
[2020-04-26] MEDS: CYCLOBENZAPRINE HCL 10 MG TABLET PO PRN ×2 (10:26→16:52)
[2020-04-26 11:20] LABS: GLUCOMETER DEV NAME(LOC) BV2S.; GLUCOSE,POINT OF CARE 244 MG/DL (70-110)
[2020-04-26] MEDS: INSULIN LISPRO 100 UNITS/ML SQ PRN ×3 (11:38→20:43)
[2020-04-26 16:10] VITALS: BP 128/64
[2020-04-26 16:20] LABS: GLUCOMETER DEV NAME(LOC) BV2S.; GLUCOSE,POINT OF CARE 217 MG/DL (70-110)
[2020-04-26] MEDS: MAGNESIUM HYDROXIDE SUSPENSION 30 ML UDCUP PO PRN (17:37)
[2020-04-26 20:11] LABS: GLUCOMETER DEV NAME(LOC) BV2S.; GLUCOSE,POINT OF CARE 214 MG/DL (70-110)
[2020-04-26] MEDS: ZOLPIDEM TARTRATE 10 MG TABLET PO PRN (20:18)
[2020-04-27] MEDS: GlipiZIDE 10 MG TABLET PO SCH ×2 (06:29→16:25)
[2020-04-27] MEDS: LEVOTHYROXINE SODIUM 50 MCG TABLET PO SCH (06:29)
[2020-04-27 06:36] LABS: GLUCOMETER DEV NAME(LOC) BV2S.; GLUCOSE,POINT OF CARE 157 MG/DL (70-110)
[2020-04-27 06:37] VITALS: BP 110/72
[2020-04-27] MEDS: INSULIN LISPRO 100 UNITS/ML SQ PRN ×4 (06:45→20:18)
[2020-04-27 08:08] VITALS: BP 118/78
[2020-04-27] MEDS: OMEGA-3/DHA/EPA/FISH OIL 1,000 MG CAPSULE PO SCH (09:20)
[2020-04-27] MEDS: MAGNESIUM OXIDE 400 MG TABLET PO SCH ×3 (09:41→16:26)
[2020-04-27] MEDS: RisperiDONE 1 MG TABLET PO SCH ×2 (09:41→16:27)
[2020-04-27] MEDS: LITHIUM CARBONATE 600 MG CAPSULE PO SCH ×2 (09:41→16:25)
[2020-04-27] MEDS: NICOTINE 21 MG/24 HOUR PATCH TD SCH (09:41)
[2020-04-27] MEDS: INSULIN GLARGINE,HUM.REC.ANLOG 100 UNITS/ML SQ SCH ×2 (09:43→20:18)
[2020-04-27 11:11] LABS: GLUCOMETER DEV NAME(LOC) BV2S.; GLUCOSE,POINT OF CARE 308 MG/DL (70-110)
[2020-04-27 16:18] VITALS: BP 134/68
[2020-04-27 16:43] LABS: GLUCOMETER DEV NAME(LOC) BV2S.; GLUCOSE,POINT OF CARE 154 MG/DL (70-110)
[2020-04-27 20:18] LABS: GLUCOMETER DEV NAME(LOC) BV2S.; GLUCOSE,POINT OF CARE 219 MG/DL (70-110)
[2020-04-27] MEDS: ZOLPIDEM TARTRATE 10 MG TABLET PO PRN (21:06)
[2020-04-28 00:28] VITALS: BP 117/62
[2020-04-28 06:06] LABS: GLUCOMETER DEV NAME(LOC) BV2S.; GLUCOSE,POINT OF CARE 225 MG/DL (70-110)
[2020-04-28] MEDS: GlipiZIDE 10 MG TABLET PO SCH (06:22)
[2020-04-28] MEDS: LEVOTHYROXINE SODIUM 50 MCG TABLET PO SCH (06:23)
[2020-04-28] MEDS: INSULIN LISPRO 100 UNITS/ML SQ PRN ×2 (06:47→10:56)
[2020-04-28] MEDS: LITHIUM CARBONATE 600 MG CAPSULE PO SCH (08:29)
[2020-04-28] MEDS: MAGNESIUM OXIDE 400 MG TABLET PO SCH ×2 (08:29→12:07)
[2020-04-28] MEDS: OMEGA-3/DHA/EPA/FISH OIL 1,000 MG CAPSULE PO SCH (08:29)
[2020-04-28] MEDS: RisperiDONE 1 MG TABLET PO SCH (08:29)
[2020-04-28] MEDS: NICOTINE 21 MG/24 HOUR PATCH TD SCH (08:30)
[2020-04-28 08:31] VITALS: BP 127/77
[2020-04-28] MEDS: INSULIN GLARGINE,HUM.REC.ANLOG 100 UNITS/ML SQ SCH (08:35)
[2020-04-28 11:14] LABS: GLUCOMETER DEV NAME(LOC) BV2S.; GLUCOSE,POINT OF CARE 212 MG/DL (70-110)
[2020-04-28] MEDS ORDERED: GLIP10 PO (12:23)
[2020-04-28] MEDS: IBUPROFEN 600 MG TABLET PO PRN (13:57)
== END 2020-04-28 15:00 | DRG 885 ==
LOC: EMS 10:29 → B2S 12:46 → B3A 01-20 17:30 → B2S 01-21 22:25
PROVIDERS: ADMIT Psychiatry & Neurology Psychiatry; ATTEND Psychiatry & Neurology Psychiatry
DX: F25.9 Schizoaffective disorder, unspecified (principal); E11.65 Type 2 diabetes mellitus with hyperglycemia; R45.851 Suicidal ideations; K59.00 Constipation, unspecified; F41.9 Anxiety disorder, unspecified; G47.00 Insomnia, unspecified; E03.9 Hypothyroidism, unspecified; K21.9 Gastro-esophageal reflux disease without esophagitis; R45.850 Homicidal ideations; Z91.5 Personal history of self-harm; F17.210 Nicotine dependence, cigarettes, uncomplicated; F12.90 Cannabis use, unspecified, uncomplicated; Z20.822 Contact with and (suspected) exposure to COVID-19; Z28.21 Immunization not carried out because of patient refusal
CPT/HCPCS: 83036; 83540; 83550; 83735; 84100; 84443; 85007; 87081; 87426; 99285; G0480; J1815

== ENCOUNTER 2022-06-05 07:10 | Inpatient (IN) | payer MEDICARE, MEDICAID ==
[~2022-06-05] VITALS: Ht 177.8 cm; Wt 84.6 kg
[~2022-06-05 07:10] MED LIST changes: +GLIP10TA10 PO; +LISI2.5T13 PO; +LITH300C3 PO; -LITH600C5 PO; +METF-446 PO; -METF-960 PO; +OMEG-135 PO; -RISP1TAB48 PO; +RISP1TAB98 PO
[2022-06-05] MEDS ORDERED: INSULIN REGULAR, HUMAN 100 UNITS/ML SQ ONE (08:15)
[2022-06-05 08:30] LABS: BASOPHILS % (AUTO) 0.6 % (0.0-2.0); EOSINOPHILS % (AUTO) 1.5 % (1.0-6.0); HEMOGLOBIN 15.2 g/dL (13.5-17.5); LYMPHOCYTES # (AUTO) 1.5 K/uL (1.0-4.8); LYMPHOCYTES % (AUTO) 19.8 % (22.0-44.0); MEAN CORPUSCULAR HEMOGLOBIN 30.4 pg (26.0-34.0); MEAN CORPUSCULAR HGB CONC 33.1 G/dL (31.0-37.0); MEAN CORPUSCULAR VOLUME 92 fL (80-100); MONOCYTES # (AUTO) 0.9 K/uL (0.1-1.0); MONOCYTES % (AUTO) 11.8 % (2.0-9.0); NEUTROPHILS % (AUTO) 66.3 % (40.0-70.0); PLATELET COUNT (AUTO) 225 K/uL (150-450); RED BLOOD CELL COUNT(AUTO) 5.01 MIL/uL (4.50-5.90); RED CELL DISTRIBUTION WIDTH 15.2 % (11.5-14.5)
[2022-06-05 08:34] LABS: ANION GAP 4 mmol/L (8-16); CARBON DIOXIDE 30 mmol/L (22-29); CHLORIDE 99 mmol/L (98-107); CREATININE 0.63 mg/dL (0.60-1.30); GLOMERULAR FILTR. RATE CALC > 60 mL/min (>60); GLUCOSE,RANDOM 332 mg/dL (70-110); POTASSIUM 4.3 mmol/L (3.5-5.1); SODIUM SERUM 133 mmol/L (136-145)
[2022-06-05 08:40] LABS: ALANINE AMINOTRANSFERASE 24 U/L (12-78); ALBUMIN 3.1 g/dL (3.4-5.0); ALKALINE PHOSPHATASE 93 U/L (46-116); ASPARTATE AMINOTRANSFERASE 24 U/L (15-37); BILIRUBIN,TOTAL 0.8 mg/dL (0.1-1.0); TOTAL PROTEIN, SERUM 7.7 g/dL (6.4-8.2)
[2022-06-05] MEDS ORDERED: HALOPERIDOL 5 MG TABLET PO PRN (10:45)
[2022-06-05] MEDS ORDERED: GlipiZIDE 10 MG TABLET PO ONE (11:15)
[2022-06-05 11:40] LABS: COVID AG,FIA SOURCE NASAL SWAB
[2022-06-05 15:22] VITALS: BP 140/87; PULSE 102; RESP 18; TEMP 97.8; O2SAT 98
[2022-06-05] MEDS ORDERED: GLUCAGON,HUMAN RECOMBINANT 1 MG VIAL IM PRN (15:45)
[2022-06-05 16:05] VITALS: TEMP 98.7
[2022-06-05 16:06] VITALS: BP 140/87; PULSE 102; RESP 18; TEMP 97.8; O2SAT 98
[2022-06-05] MEDS ORDERED: LISINOPRIL 5 MG TABLET PO SCH (16:30)
[2022-06-05 16:40] VITALS: BP 139/89; PULSE 92; RESP 18; TEMP 97.9; O2SAT 98
[2022-06-05] MEDS: MetFORMIN HCL 500 MG TABLET PO SCH (16:53)
[2022-06-05 17:06] LABS: GLUCOMETER DEV NAME(LOC) BV2X.2; GLUCOSE,POINT OF CARE 249 MG/DL (70-110)
[2022-06-05 20:05] VITALS: TEMP 97.8
[2022-06-05 20:06] VITALS: BP 105/83; PULSE 86; RESP 18; TEMP 97.8; O2SAT 97
[2022-06-05 20:31] LABS: GLUCOMETER DEV NAME(LOC) BV2X.2; GLUCOSE,POINT OF CARE 116 MG/DL (70-110)
[2022-06-06 00:08] VITALS: BP 102/66; PULSE 108; RESP 17; TEMP 97.7; O2SAT 97
[2022-06-06] MEDS ORDERED: ONDANSETRON HCL 4 MG TABLET PO PRN (05:30)
[2022-06-06] MEDS ORDERED: BACITRACIN 28 GM OINTMENT TP PRN (05:30)
[2022-06-06] MEDS ORDERED: CloNIDine HCL 0.1 MG TABLET PO PRN (05:30)
[2022-06-06] MEDS ORDERED: OMEPRAZOLE 20 MG CAPSULE PO PRN (05:30)
[2022-06-06] MEDS ORDERED: ALBUTEROL SULFATE HFA 90 MCG/PUFF 8 GM INHALER IH PRN (05:30)
[2022-06-06] MEDS ORDERED: MAGNESIUM HYDROXIDE SUSPENSION 30 ML UDCUP PO PRN (05:30)
[2022-06-06] MEDS ORDERED: LOPERAMIDE HCL 2 MG CAPSULE PO PRN (05:30)
[2022-06-06] MEDS ORDERED: BENZOCAINE/MENTHOL LOZENGE PO PRN (05:30)
[2022-06-06] MEDS ORDERED: DOCUSATE SODIUM 100 MG CAPSULE PO PRN (05:30)
[2022-06-06] MEDS ORDERED: IBUPROFEN 600 MG TABLET PO PRN (05:30)
[2022-06-06] MEDS ORDERED: ACETAMINOPHEN 325 MG TABLET PO PRN (05:30)
[2022-06-06] MEDS ORDERED: PETROLATUM,WHITE 28 GM JELLY TP PRN (05:30)
[2022-06-06] MEDS: GlipiZIDE 10 MG TABLET PO SCH (06:51)
[2022-06-06] MEDS: MetFORMIN HCL 500 MG TABLET PO SCH ×3 (06:51→17:00)
[2022-06-06 08:43] VITALS: BP 110/69; PULSE 88; RESP 16; TEMP 97.6
[2022-06-06] MEDS ORDERED: LISINOPRIL 5 MG TABLET PO SCH (09:00)
[2022-06-06] MEDS: LISINOPRIL 5 MG TABLET PO SCH (09:00)
[2022-06-06] MEDS ORDERED: LORazepam 2 MG/ML VIAL ONE (12:57)
[2022-06-06] MEDS ORDERED: HALOPERIDOL LACTATE 5 MG/ML VIAL ONE (12:59)
[2022-06-06] MEDS ORDERED: LORazepam 2 MG/ML VIAL IM ONE (13:00)
[2022-06-06] MEDS ORDERED: HALOPERIDOL LACTATE 5 MG/ML VIAL IM ONE (13:00)
[2022-06-06] MEDS ORDERED: DiphenhydrAMINE HCL 50 MG/ML VIAL IM ONE (13:00)
[2022-06-06 16:06] VITALS: TEMP 98
[2022-06-06 20:27] VITALS: TEMP 97.8
[2022-06-06 20:28] VITALS: RESP 18; TEMP 97.8
[2022-06-07] VITALS (7 sets, daily range): BP systolic 101–114; BP diastolic 63–73; PULSE 76–100; RESP 18; TEMP 97.2–98.3; O2SAT 95–96
[2022-06-07] MEDS: MetFORMIN HCL 500 MG TABLET PO SCH ×2 (06:42→17:00)
[2022-06-07] MEDS: GlipiZIDE 10 MG TABLET PO SCH (06:48)
[2022-06-07] MEDS: LORazepam 2 MG TABLET PO PRN (08:33)
[2022-06-07] MEDS: LISINOPRIL 5 MG TABLET PO SCH (08:43)
[2022-06-07] MEDS: RisperiDONE 1 MG TABLET PO SCH ×2 (11:46→17:35)
[2022-06-07] MEDS: LITHIUM CARBONATE 300 MG CAPSULE PO SCH ×2 (11:47→17:34)
[2022-06-07 16:56] LABS: GLUCOMETER DEV NAME(LOC) BV2X.2; GLUCOSE,POINT OF CARE 271 MG/DL (70-110)
[2022-06-07] MEDS: INSULIN LISPRO 100 UNITS/ML SQ PRN (17:05)
[2022-06-08] VITALS (8 sets, daily range): BP systolic 106–111; BP diastolic 69–70; PULSE 79–102; RESP 18; TEMP 97.7–98.2; O2SAT 97
[2022-06-08] MEDS: GlipiZIDE 10 MG TABLET PO SCH (06:54)
[2022-06-08] MEDS: MetFORMIN HCL 500 MG TABLET PO SCH ×2 (07:00→16:57)
[2022-06-08] MEDS: LITHIUM CARBONATE 300 MG CAPSULE PO SCH ×2 (10:03→16:51)
[2022-06-08] MEDS: RisperiDONE 1 MG TABLET PO SCH ×2 (10:05→16:51)
[2022-06-08] MEDS: LISINOPRIL 5 MG TABLET PO SCH (10:05)
[2022-06-08 16:51] LABS: GLUCOMETER DEV NAME(LOC) BV2X.2; GLUCOSE,POINT OF CARE 290 MG/DL (70-110)
[2022-06-08] MEDS: INSULIN LISPRO 100 UNITS/ML SQ PRN ×2 (17:02→20:35)
[2022-06-08] MEDS: ZOLPIDEM TARTRATE 10 MG TABLET PO PRN (20:38)
[2022-06-08 21:06] LABS: GLUCOMETER DEV NAME(LOC) BV2X.2; GLUCOSE,POINT OF CARE 311 MG/DL (70-110)
[2022-06-09] VITALS (8 sets, daily range): BP systolic 111–112; BP diastolic 70–74; PULSE 79–99; RESP 18; TEMP 97.2–98.5
[2022-06-09] MEDS: GlipiZIDE 10 MG TABLET PO SCH (06:45)
[2022-06-09] MEDS: MetFORMIN HCL 500 MG TABLET PO SCH (06:50)
[2022-06-09] MEDS: LISINOPRIL 5 MG TABLET PO SCH (09:21)
[2022-06-09] MEDS: RisperiDONE 1 MG TABLET PO SCH ×2 (09:21→16:19)
[2022-06-09] MEDS: LITHIUM CARBONATE 300 MG CAPSULE PO SCH ×2 (09:21→16:19)
[2022-06-09] MEDS: MUPIROCIN CALCIUM 2% 22 GM OINTMENT NASAL SCH (16:19)
[2022-06-09] MEDS: INSULIN LISPRO 100 UNITS/ML SQ PRN (20:10)
[2022-06-09 20:11] LABS: GLUCOMETER DEV NAME(LOC) BV2X.2; GLUCOSE,POINT OF CARE 258 MG/DL (70-110)
[2022-06-09] MEDS: ZOLPIDEM TARTRATE 10 MG TABLET PO PRN (20:15)
[2022-06-10] VITALS (8 sets, daily range): BP systolic 103–125; BP diastolic 64–88; PULSE 76–98; RESP 18; TEMP 97.6–99; O2SAT 96–99
[2022-06-10] MEDS: GlipiZIDE 10 MG TABLET PO SCH (06:45)
[2022-06-10] MEDS: MULTIVITAMINS WITH MINERALS, THERAPEUTIC TABLET PO SCH (09:04)
[2022-06-10] MEDS: LITHIUM CARBONATE 300 MG CAPSULE PO SCH ×2 (09:04→16:36)
[2022-06-10] MEDS: LISINOPRIL 5 MG TABLET PO SCH (09:05)
[2022-06-10] MEDS: RisperiDONE 1 MG TABLET PO SCH ×2 (09:05→16:37)
[2022-06-10] MEDS: MUPIROCIN CALCIUM 2% 22 GM OINTMENT NASAL SCH ×2 (09:06→16:37)
[2022-06-10] MEDS: INSULIN LISPRO 100 UNITS/ML SQ PRN ×3 (11:20→20:49)
[2022-06-10 12:26] LABS: GLUCOMETER DEV NAME(LOC) BV2X.2; GLUCOSE,POINT OF CARE 386 MG/DL (70-110)
[2022-06-10 16:16] LABS: GLUCOMETER DEV NAME(LOC) BV2X.2; GLUCOSE,POINT OF CARE 245 MG/DL (70-110)
[2022-06-10 20:46] LABS: GLUCOMETER DEV NAME(LOC) BV2X.2; GLUCOSE,POINT OF CARE 295 MG/DL (70-110)
[2022-06-10] MEDS: ZOLPIDEM TARTRATE 10 MG TABLET PO PRN (20:54)
[2022-06-11] VITALS: TEMP 97.7
[2022-06-11 04:34] VITALS: TEMP 97.6
[2022-06-11] MEDS: GlipiZIDE 10 MG TABLET PO SCH (06:23)
[2022-06-11 08:13] VITALS: BP 110/70; PULSE 88; RESP 18; TEMP 98; O2SAT 98
[2022-06-11] MEDS: RisperiDONE 1 MG TABLET PO SCH ×2 (08:40→16:08)
[2022-06-11] MEDS: MULTIVITAMINS WITH MINERALS, THERAPEUTIC TABLET PO SCH (08:40)
[2022-06-11] MEDS: LITHIUM CARBONATE 300 MG CAPSULE PO SCH ×2 (08:40→16:08)
[2022-06-11] MEDS: MUPIROCIN CALCIUM 2% 22 GM OINTMENT NASAL SCH ×2 (08:40→16:08)
[2022-06-11] MEDS: LISINOPRIL 5 MG TABLET PO SCH (08:42)
[2022-06-11 11:15] LABS: GLUCOMETER DEV NAME(LOC) POC.BV
[2022-06-11 12:16] VITALS: TEMP 98.2
[2022-06-11 16:20] VITALS: TEMP 98.2
[2022-06-11 20:48] VITALS: TEMP 98.1
[2022-06-11] MEDS: ZOLPIDEM TARTRATE 10 MG TABLET PO PRN (20:49)
[2022-06-12 00:40] VITALS: TEMP 98.4
[2022-06-12 04:27] VITALS: BP 113/68; PULSE 92; RESP 18; TEMP 97.7; O2SAT 98
[2022-06-12 04:28] VITALS: TEMP 97.7
[2022-06-12] MEDS: GlipiZIDE 10 MG TABLET PO SCH (06:39)
[2022-06-12 09:30] VITALS: BP 132/70; PULSE 78; RESP 17; TEMP 98; O2SAT 96
[2022-06-12] MEDS: LITHIUM CARBONATE 300 MG CAPSULE PO SCH ×2 (09:54→16:32)
[2022-06-12] MEDS: RisperiDONE 1 MG TABLET PO SCH ×2 (09:54→16:32)
[2022-06-12] MEDS: MUPIROCIN CALCIUM 2% 22 GM OINTMENT NASAL SCH ×2 (09:54→16:32)
[2022-06-12] MEDS: MULTIVITAMINS WITH MINERALS, THERAPEUTIC TABLET PO SCH (09:54)
[2022-06-12] MEDS: LISINOPRIL 5 MG TABLET PO SCH (09:55)
[2022-06-12] MEDS: INSULIN LISPRO 100 UNITS/ML SQ PRN ×3 (12:17→20:52)
[2022-06-12 12:21] LABS: GLUCOMETER DEV NAME(LOC) BV2X.2; GLUCOSE,POINT OF CARE 323 MG/DL (70-110)
[2022-06-12 16:21] VITALS: TEMP 97.6
[2022-06-12 18:12] LABS: GLUCOMETER DEV NAME(LOC) BV2S.; GLUCOSE,POINT OF CARE 280 MG/DL (70-110)
[2022-06-12 20:23] VITALS: BP 108/65; PULSE 86; RESP 18; TEMP 98; TEMP 98.3; O2SAT 96
[2022-06-12 20:36] LABS: GLUCOMETER DEV NAME(LOC) BV2X.2; GLUCOSE,POINT OF CARE 310 MG/DL (70-110)
[2022-06-12] MEDS: ZOLPIDEM TARTRATE 10 MG TABLET PO PRN (20:44)
[2022-06-13] VITALS (7 sets, daily range): BP systolic 100; BP diastolic 60–73; PULSE 83–91; RESP 18; TEMP 97.5–98.2; O2SAT 97–99
[2022-06-13] MEDS: GlipiZIDE 10 MG TABLET PO SCH (06:29)
[2022-06-13] MEDS: RisperiDONE 1 MG TABLET PO SCH ×2 (08:27→16:43)
[2022-06-13] MEDS: MULTIVITAMINS WITH MINERALS, THERAPEUTIC TABLET PO SCH (08:27)
[2022-06-13] MEDS: LITHIUM CARBONATE 300 MG CAPSULE PO SCH ×2 (08:27→16:43)
[2022-06-13] MEDS: LISINOPRIL 5 MG TABLET PO SCH (08:28)
[2022-06-13] MEDS: MUPIROCIN CALCIUM 2% 22 GM OINTMENT NASAL SCH ×2 (08:28→16:43)
[2022-06-13] MEDS ORDERED: GLUCAGON,HUMAN RECOMBINANT 1 MG VIAL IM PRN (11:30)
[2022-06-13 11:36] LABS: GLUCOMETER DEV NAME(LOC) BV2X.2; GLUCOSE,POINT OF CARE 418 MG/DL (70-110)
[2022-06-13] MEDS: INSULIN LISPRO 100 UNITS/ML SQ PRN ×3 (11:45→20:42)
[2022-06-13 13:11] LABS: GLUCOMETER DEV NAME(LOC) BV2X.2; GLUCOSE,POINT OF CARE 240 MG/DL (70-110)
[2022-06-13 16:51] LABS: GLUCOMETER DEV NAME(LOC) BV2X.2; GLUCOSE,POINT OF CARE 240 MG/DL (70-110)
[2022-06-13 20:46] LABS: GLUCOMETER DEV NAME(LOC) BV2X.2; GLUCOSE,POINT OF CARE 339 MG/DL (70-110)
[2022-06-13] MEDS: ZOLPIDEM TARTRATE 10 MG TABLET PO PRN (20:46)
[2022-06-14] VITALS (7 sets, daily range): BP systolic 113–126; BP diastolic 69–70; PULSE 87–98; RESP 18–19; TEMP 97.6–98.9; O2SAT 98
[2022-06-14] MEDS: GlipiZIDE 10 MG TABLET PO SCH (06:45)
[2022-06-14] MEDS: LITHIUM CARBONATE 300 MG CAPSULE PO SCH ×2 (08:54→16:38)
[2022-06-14] MEDS: MUPIROCIN CALCIUM 2% 22 GM OINTMENT NASAL SCH (08:54)
[2022-06-14] MEDS: MULTIVITAMINS WITH MINERALS, THERAPEUTIC TABLET PO SCH (08:55)
[2022-06-14] MEDS: RisperiDONE 1 MG TABLET PO SCH ×2 (08:55→16:38)
[2022-06-14] MEDS: LISINOPRIL 5 MG TABLET PO SCH (08:55)
[2022-06-14 11:26] LABS: GLUCOMETER DEV NAME(LOC) BV2X.2; GLUCOSE,POINT OF CARE 413 MG/DL (70-110)
[2022-06-14] MEDS: INSULIN LISPRO 100 UNITS/ML SQ PRN ×3 (11:36→21:07)
[2022-06-14 12:55] LABS: GLUCOMETER DEV NAME(LOC) BV2X.2; GLUCOSE,POINT OF CARE 287 MG/DL (70-110)
[2022-06-14] MEDS: LORazepam 2 MG TABLET PO PRN (17:16)
[2022-06-14 17:21] LABS: GLUCOMETER DEV NAME(LOC) BV2X.2; GLUCOSE,POINT OF CARE 367 MG/DL (70-110)
[2022-06-15 00:06] VITALS: TEMP 98.1
[2022-06-15 04:39] VITALS: TEMP 98.4
[2022-06-15] MEDS: GlipiZIDE 10 MG TABLET PO SCH (06:41)
[2022-06-15 08:17] VITALS: BP 109/69; PULSE 94; RESP 16; TEMP 97.8
[2022-06-15] MEDS: LITHIUM CARBONATE 300 MG CAPSULE PO SCH ×2 (08:49→16:57)
[2022-06-15] MEDS: LISINOPRIL 5 MG TABLET PO SCH (08:49)
[2022-06-15] MEDS: MULTIVITAMINS WITH MINERALS, THERAPEUTIC TABLET PO SCH (08:49)
[2022-06-15] MEDS: RisperiDONE 1 MG TABLET PO SCH ×2 (08:49→16:57)
[2022-06-15] MEDS: INSULIN LISPRO 100 UNITS/ML SQ PRN ×3 (11:36→20:14)
[2022-06-15 11:41] LABS: GLUCOMETER DEV NAME(LOC) BV2X.2; GLUCOSE,POINT OF CARE 412 MG/DL (70-110)
[2022-06-15 12:08] VITALS: TEMP 97.9
[2022-06-15 16:04] VITALS: TEMP 97.6
[2022-06-15 16:56] LABS: GLUCOMETER DEV NAME(LOC) BV2X.2; GLUCOSE,POINT OF CARE 301 MG/DL (70-110)
[2022-06-15] MEDS: INSULIN GLARGINE,HUM.REC.ANLOG 100 UNITS/ML SQ SCH (20:13)
[2022-06-15 20:15] VITALS: BP 102/64; PULSE 89; RESP 18; TEMP 97.8; O2SAT 96
[2022-06-15] MEDS: ZOLPIDEM TARTRATE 10 MG TABLET PO PRN (20:18)
[2022-06-15 20:26] LABS: GLUCOMETER DEV NAME(LOC) BV2X.2; GLUCOSE,POINT OF CARE 287 MG/DL (70-110)
[2022-06-16] VITALS (7 sets, daily range): BP systolic 103–116; BP diastolic 61–69; PULSE 92–101; RESP 18–19; TEMP 96.1–98.3; O2SAT 98
[2022-06-16] MEDS: GlipiZIDE 10 MG TABLET PO SCH (06:16)
[2022-06-16] MEDS: LITHIUM CARBONATE 300 MG CAPSULE PO SCH ×2 (09:09→16:16)
[2022-06-16] MEDS: LISINOPRIL 5 MG TABLET PO SCH (09:09)
[2022-06-16] MEDS: RisperiDONE 1 MG TABLET PO SCH ×2 (09:09→16:16)
[2022-06-16] MEDS: MULTIVITAMINS WITH MINERALS, THERAPEUTIC TABLET PO SCH (09:10)
[2022-06-16] MEDS: INSULIN LISPRO 100 UNITS/ML SQ PRN ×3 (11:59→20:25)
[2022-06-16] MEDS: NICOTINE 21 MG/24 HOUR PATCH TD SCH (12:16)
[2022-06-16 12:46] LABS: GLUCOMETER DEV NAME(LOC) BV2S.; GLUCOSE,POINT OF CARE 333 MG/DL (70-110)
[2022-06-16 16:41] LABS: GLUCOMETER DEV NAME(LOC) BV2X.2; GLUCOSE,POINT OF CARE 222 MG/DL (70-110)
[2022-06-16] MEDS: INSULIN GLARGINE,HUM.REC.ANLOG 100 UNITS/ML SQ SCH (20:25)
[2022-06-16] MEDS: ZOLPIDEM TARTRATE 10 MG TABLET PO PRN (20:27)
[2022-06-16 21:26] LABS: GLUCOMETER DEV NAME(LOC) BV2X.2; GLUCOSE,POINT OF CARE 298 MG/DL (70-110)
[2022-06-17] VITALS (7 sets, daily range): BP systolic 109–116; BP diastolic 60–65; PULSE 83–90; RESP 18; TEMP 97.5–98.4; O2SAT 98
[2022-06-17] MEDS: GlipiZIDE 10 MG TABLET PO SCH (06:13)
[2022-06-17 06:16] LABS: GLUCOMETER DEV NAME(LOC) BV2X.2; GLUCOSE,POINT OF CARE 269 MG/DL (70-110)
[2022-06-17] MEDS: INSULIN LISPRO 100 UNITS/ML SQ PRN ×4 (06:35→21:48)
[2022-06-17] MEDS: NICOTINE 21 MG/24 HOUR PATCH TD SCH (09:22)
[2022-06-17] MEDS: LITHIUM CARBONATE 300 MG CAPSULE PO SCH ×2 (09:22→16:59)
[2022-06-17] MEDS: LISINOPRIL 5 MG TABLET PO SCH (09:23)
[2022-06-17] MEDS: RisperiDONE 1 MG TABLET PO SCH ×2 (09:23→16:59)
[2022-06-17] MEDS: MULTIVITAMINS WITH MINERALS, THERAPEUTIC TABLET PO SCH (09:23)
[2022-06-17 12:21] LABS: GLUCOMETER DEV NAME(LOC) BV2X.2; GLUCOSE,POINT OF CARE 260 MG/DL (70-110)
[2022-06-17] MEDS: ZOLPIDEM TARTRATE 10 MG TABLET PO PRN (20:25)
[2022-06-17] MEDS: INSULIN GLARGINE,HUM.REC.ANLOG 100 UNITS/ML SQ SCH (21:48)
[2022-06-17 22:16] LABS: GLUCOMETER DEV NAME(LOC) BV2S.; GLUCOSE,POINT OF CARE 177 MG/DL (70-110)
[2022-06-18] VITALS (7 sets, daily range): BP systolic 101–110; BP diastolic 63–71; PULSE 80–84; RESP 18; TEMP 97.7–98.1; O2SAT 98
[2022-06-18 04:11] LABS: GLUCOMETER DEV NAME(LOC) BV2X.2; GLUCOSE,POINT OF CARE 323 MG/DL (70-110)
[2022-06-18] MEDS: GlipiZIDE 10 MG TABLET PO SCH (07:08)
[2022-06-18] MEDS: MULTIVITAMINS WITH MINERALS, THERAPEUTIC TABLET PO SCH (09:00)
[2022-06-18] MEDS: NICOTINE 21 MG/24 HOUR PATCH TD SCH (09:00)
[2022-06-18] MEDS: RisperiDONE 1 MG TABLET PO SCH ×2 (09:00→16:46)
[2022-06-18] MEDS: LITHIUM CARBONATE 300 MG CAPSULE PO SCH ×2 (09:00→16:46)
[2022-06-18] MEDS: LISINOPRIL 5 MG TABLET PO SCH (09:01)
[2022-06-18] MEDS: INSULIN LISPRO 100 UNITS/ML SQ PRN ×3 (11:27→20:13)
[2022-06-18 11:36] LABS: GLUCOMETER DEV NAME(LOC) BV2X.2; GLUCOSE,POINT OF CARE 310 MG/DL (70-110)
[2022-06-18 16:32] LABS: GLUCOMETER DEV NAME(LOC) BV2X.2; GLUCOSE,POINT OF CARE 185 MG/DL (70-110)
[2022-06-18] MEDS: INSULIN GLARGINE,HUM.REC.ANLOG 100 UNITS/ML SQ SCH ×2 (20:15→21:00)
[2022-06-18 20:21] LABS: GLUCOMETER DEV NAME(LOC) BV2X.2; GLUCOSE,POINT OF CARE 301 MG/DL (70-110)
[2022-06-19] VITALS (8 sets, daily range): BP systolic 102–107; BP diastolic 65–70; PULSE 83–100; RESP 18–20; TEMP 97.2–98; O2SAT 97–98
[2022-06-19] MEDS: GlipiZIDE 10 MG TABLET PO SCH (06:49)
[2022-06-19] MEDS: NICOTINE 21 MG/24 HOUR PATCH TD SCH (08:57)
[2022-06-19] MEDS: MULTIVITAMINS WITH MINERALS, THERAPEUTIC TABLET PO SCH (08:57)
[2022-06-19] MEDS: LISINOPRIL 5 MG TABLET PO SCH (08:57)
[2022-06-19] MEDS: RisperiDONE 1 MG TABLET PO SCH ×2 (08:57→16:40)
[2022-06-19] MEDS: LITHIUM CARBONATE 300 MG CAPSULE PO SCH ×2 (08:57→16:41)
[2022-06-19 09:51] LABS: GLUCOMETER DEV NAME(LOC) POC.BV
[2022-06-19] MEDS: INSULIN LISPRO 100 UNITS/ML SQ PRN ×4 (11:48→21:15)
[2022-06-19 12:01] LABS: GLUCOMETER DEV NAME(LOC) BV2X.2; GLUCOSE,POINT OF CARE 291 MG/DL (70-110)
[2022-06-19 16:31] LABS: GLUCOMETER DEV NAME(LOC) BV2X.2; GLUCOSE,POINT OF CARE 236 MG/DL (70-110)
[2022-06-19] MEDS: LORazepam 2 MG TABLET PO PRN (18:18)
[2022-06-19 20:20] LABS: GLUCOMETER DEV NAME(LOC) BV2X.2; GLUCOSE,POINT OF CARE 202 MG/DL (70-110)
[2022-06-19] MEDS: INSULIN GLARGINE,HUM.REC.ANLOG 100 UNITS/ML SQ SCH (20:43)
[2022-06-19] MEDS: ZOLPIDEM TARTRATE 10 MG TABLET PO PRN (21:31)
[2022-06-20 00:12] VITALS: TEMP 97.8
[2022-06-20 04:06] VITALS: TEMP 97.6
[2022-06-20] MEDS: GlipiZIDE 10 MG TABLET PO SCH (06:18)
[2022-06-20 08:17] VITALS: BP 119/69; PULSE 96; RESP 16; TEMP 98.3
[2022-06-20] MEDS: MULTIVITAMINS WITH MINERALS, THERAPEUTIC TABLET PO SCH (08:36)
[2022-06-20] MEDS: RisperiDONE 1 MG TABLET PO SCH ×2 (08:37→16:36)
[2022-06-20] MEDS: LISINOPRIL 5 MG TABLET PO SCH (08:37)
[2022-06-20] MEDS: LITHIUM CARBONATE 300 MG CAPSULE PO SCH ×2 (08:37→16:36)
[2022-06-20] MEDS: NICOTINE 21 MG/24 HOUR PATCH TD SCH (08:37)
[2022-06-20] MEDS: INSULIN LISPRO 100 UNITS/ML SQ PRN ×3 (11:16→20:47)
[2022-06-20 11:26] LABS: GLUCOMETER DEV NAME(LOC) BV2X.2; GLUCOSE,POINT OF CARE 311 MG/DL (70-110)
[2022-06-20 12:40] VITALS: TEMP 98.9
[2022-06-20 16:11] VITALS: TEMP 97.9
[2022-06-20 16:46] LABS: GLUCOMETER DEV NAME(LOC) BV2X.2; GLUCOSE,POINT OF CARE 255 MG/DL (70-110)
[2022-06-20 20:26] VITALS: BP 113/72; PULSE 108; RESP 18; TEMP 97.8; O2SAT 99
[2022-06-20 20:27] LABS: GLUCOMETER DEV NAME(LOC) BV2X.2; GLUCOSE,POINT OF CARE 260 MG/DL (70-110)
[2022-06-20] MEDS: INSULIN GLARGINE,HUM.REC.ANLOG 100 UNITS/ML SQ SCH (20:47)
[2022-06-21] VITALS: TEMP 97.5
[2022-06-21 04:26] VITALS: TEMP 97.6
[2022-06-21] MEDS: GlipiZIDE 10 MG TABLET PO SCH (06:48)
[2022-06-21] MEDS: MULTIVITAMINS WITH MINERALS, THERAPEUTIC TABLET PO SCH (08:53)
[2022-06-21] MEDS: LITHIUM CARBONATE 300 MG CAPSULE PO SCH ×2 (08:53→16:42)
[2022-06-21] MEDS: RisperiDONE 1 MG TABLET PO SCH ×2 (08:53→16:42)
[2022-06-21] MEDS: LISINOPRIL 5 MG TABLET PO SCH (08:53)
[2022-06-21 08:57] VITALS: BP 108/66; PULSE 92; RESP 17; TEMP 98.9
[2022-06-21] MEDS: NICOTINE 21 MG/24 HOUR PATCH TD SCH (08:57)
[2022-06-21] MEDS: INSULIN LISPRO 100 UNITS/ML SQ PRN ×3 (11:43→20:25)
[2022-06-21 11:46] LABS: GLUCOMETER DEV NAME(LOC) BV2X.2; GLUCOSE,POINT OF CARE 206 MG/DL (70-110)
[2022-06-21 12:10] VITALS: TEMP 98.4
[2022-06-21 16:46] LABS: GLUCOMETER DEV NAME(LOC) BV2X.2; GLUCOSE,POINT OF CARE 238 MG/DL (70-110)
[2022-06-21 16:58] VITALS: TEMP 97.9
[2022-06-21] MEDS: ZOLPIDEM TARTRATE 10 MG TABLET PO PRN (20:15)
[2022-06-21 20:17] VITALS: BP 101/64; PULSE 69; RESP 18; TEMP 98.3; O2SAT 98
[2022-06-21] MEDS: INSULIN GLARGINE,HUM.REC.ANLOG 100 UNITS/ML SQ SCH (20:24)
[2022-06-21 20:36] LABS: GLUCOMETER DEV NAME(LOC) BV2X.2; GLUCOSE,POINT OF CARE 170 MG/DL (70-110)
[2022-06-22] VITALS (7 sets, daily range): BP systolic 102–104; BP diastolic 60–64; PULSE 84–90; RESP 16–18; TEMP 97.8–98.4; O2SAT 98
[2022-06-22] MEDS: GlipiZIDE 10 MG TABLET PO SCH (06:12)
[2022-06-22] MEDS: LISINOPRIL 5 MG TABLET PO SCH (09:00)
[2022-06-22] MEDS: RisperiDONE 1 MG TABLET PO SCH ×2 (09:05→16:52)
[2022-06-22] MEDS: LITHIUM CARBONATE 300 MG CAPSULE PO SCH ×2 (09:05→16:53)
[2022-06-22] MEDS: MULTIVITAMINS WITH MINERALS, THERAPEUTIC TABLET PO SCH (09:06)
[2022-06-22] MEDS: NICOTINE 21 MG/24 HOUR PATCH TD SCH (09:06)
[2022-06-22] MEDS: INSULIN LISPRO 100 UNITS/ML SQ PRN ×3 (11:25→20:38)
[2022-06-22 11:41] LABS: GLUCOMETER DEV NAME(LOC) BV2X.2; GLUCOSE,POINT OF CARE 194 MG/DL (70-110)
[2022-06-22 19:06] LABS: GLUCOMETER DEV NAME(LOC) BV2X.2; GLUCOSE,POINT OF CARE 151 MG/DL (70-110)
[2022-06-22] MEDS: ZOLPIDEM TARTRATE 10 MG TABLET PO PRN (20:28)
[2022-06-22 20:31] LABS: GLUCOMETER DEV NAME(LOC) BV2X.2; GLUCOSE,POINT OF CARE 253 MG/DL (70-110)
[2022-06-22] MEDS: INSULIN GLARGINE,HUM.REC.ANLOG 100 UNITS/ML SQ SCH (20:38)
[2022-06-23 00:06] VITALS: TEMP 97.7
[2022-06-23 04:19] VITALS: TEMP 97.5
[2022-06-23] MEDS: GlipiZIDE 10 MG TABLET PO SCH (06:33)
[2022-06-23 08:23] VITALS: BP 109/66; PULSE 93; RESP 16; TEMP 98.7
[2022-06-23] MEDS: RisperiDONE 1 MG TABLET PO SCH ×2 (08:30→16:29)
[2022-06-23] MEDS: MULTIVITAMINS WITH MINERALS, THERAPEUTIC TABLET PO SCH (08:30)
[2022-06-23] MEDS: LITHIUM CARBONATE 300 MG CAPSULE PO SCH ×2 (08:30→16:29)
[2022-06-23] MEDS: LISINOPRIL 5 MG TABLET PO SCH (08:30)
[2022-06-23] MEDS: NICOTINE 21 MG/24 HOUR PATCH TD SCH (08:31)
[2022-06-23] MEDS: INSULIN LISPRO 100 UNITS/ML SQ PRN ×3 (11:20→20:28)
[2022-06-23 11:36] LABS: GLUCOMETER DEV NAME(LOC) BV2X.2; GLUCOSE,POINT OF CARE 224 MG/DL (70-110)
[2022-06-23 12:20] VITALS: TEMP 98.8
[2022-06-23 16:37] LABS: GLUCOMETER DEV NAME(LOC) BV2X.2; GLUCOSE,POINT OF CARE 228 MG/DL (70-110)
[2022-06-23 17:09] VITALS: TEMP 98.4
[2022-06-23 20:05] VITALS: BP 111/72; PULSE 72; RESP 16; TEMP 98
[2022-06-23] MEDS: ZOLPIDEM TARTRATE 10 MG TABLET PO PRN (20:17)
[2022-06-23] MEDS: INSULIN GLARGINE,HUM.REC.ANLOG 100 UNITS/ML SQ SCH (20:28)
[2022-06-23 20:55] LABS: GLUCOMETER DEV NAME(LOC) BV2X.2; GLUCOSE,POINT OF CARE 211 MG/DL (70-110)
[2022-06-24 00:03] VITALS: TEMP 97.8
[2022-06-24 04:06] VITALS: TEMP 97.7
[2022-06-24] MEDS: GlipiZIDE 10 MG TABLET PO SCH (06:18)
[2022-06-24 08:06] VITALS: BP 126/72; PULSE 74; RESP 17; TEMP 98.2
[2022-06-24] MEDS: MULTIVITAMINS WITH MINERALS, THERAPEUTIC TABLET PO SCH (08:25)
[2022-06-24] MEDS: LITHIUM CARBONATE 300 MG CAPSULE PO SCH ×2 (08:25→16:25)
[2022-06-24] MEDS: RisperiDONE 1 MG TABLET PO SCH ×2 (08:26→16:25)
[2022-06-24] MEDS: LISINOPRIL 5 MG TABLET PO SCH (08:27)
[2022-06-24] MEDS: NICOTINE 21 MG/24 HOUR PATCH TD SCH (08:28)
[2022-06-24] MEDS: INSULIN LISPRO 100 UNITS/ML SQ PRN ×3 (11:21→20:37)
[2022-06-24 11:26] LABS: GLUCOMETER DEV NAME(LOC) BV2X.2; GLUCOSE,POINT OF CARE 201 MG/DL (70-110)
[2022-06-24 12:08] VITALS: TEMP 98
[2022-06-24 16:07] VITALS: TEMP 97.9
[2022-06-24 16:31] LABS: GLUCOMETER DEV NAME(LOC) BV2X.2; GLUCOSE,POINT OF CARE 175 MG/DL (70-110)
[2022-06-24 20:06] VITALS: BP 100/60; PULSE 85; RESP 17; TEMP 98.1
[2022-06-24] MEDS: ZOLPIDEM TARTRATE 10 MG TABLET PO PRN (20:28)
[2022-06-24] MEDS: INSULIN GLARGINE,HUM.REC.ANLOG 100 UNITS/ML SQ SCH (20:36)
[2022-06-24 22:16] LABS: GLUCOMETER DEV NAME(LOC) BV2X.2; GLUCOSE,POINT OF CARE 198 MG/DL (70-110)
[2022-06-25] VITALS (7 sets, daily range): BP systolic 108–109; BP diastolic 50–65; PULSE 78–81; RESP 16; TEMP 97.2–98.1; O2SAT 98
[2022-06-25] MEDS: GlipiZIDE 10 MG TABLET PO SCH (06:24)
[2022-06-25] MEDS: LITHIUM CARBONATE 300 MG CAPSULE PO SCH ×2 (08:23→16:28)
[2022-06-25] MEDS: MULTIVITAMINS WITH MINERALS, THERAPEUTIC TABLET PO SCH (08:23)
[2022-06-25] MEDS: RisperiDONE 1 MG TABLET PO SCH ×2 (08:23→16:28)
[2022-06-25] MEDS: NICOTINE 21 MG/24 HOUR PATCH TD SCH (08:26)
[2022-06-25] MEDS: LISINOPRIL 5 MG TABLET PO SCH (08:27)
[2022-06-25 11:26] LABS: GLUCOMETER DEV NAME(LOC) POC.BV
[2022-06-25] MEDS: INSULIN LISPRO 100 UNITS/ML SQ PRN ×3 (11:43→20:38)
[2022-06-25 11:56] LABS: GLUCOMETER DEV NAME(LOC) BV2X.2; GLUCOSE,POINT OF CARE 180 MG/DL (70-110)
[2022-06-25 16:36] LABS: GLUCOMETER DEV NAME(LOC) BV2X.2; GLUCOSE,POINT OF CARE 125 MG/DL (70-110)
[2022-06-25] MEDS: ZOLPIDEM TARTRATE 10 MG TABLET PO PRN (20:35)
[2022-06-25] MEDS: INSULIN GLARGINE,HUM.REC.ANLOG 100 UNITS/ML SQ SCH (20:38)
[2022-06-25 20:46] LABS: GLUCOMETER DEV NAME(LOC) BV2X.2; GLUCOSE,POINT OF CARE 217 MG/DL (70-110)
[2022-06-26 04:15] VITALS: TEMP 97.5
[2022-06-26] MEDS: GlipiZIDE 10 MG TABLET PO SCH (06:13)
[2022-06-26 06:31] LABS: GLUCOMETER DEV NAME(LOC) BV2X.2; GLUCOSE,POINT OF CARE 100 MG/DL (70-110)
[2022-06-26 08:26] VITALS: BP 116/70; PULSE 83; RESP 18; TEMP 97.9; O2SAT 98
[2022-06-26] MEDS: MULTIVITAMINS WITH MINERALS, THERAPEUTIC TABLET PO SCH (08:49)
[2022-06-26] MEDS: LITHIUM CARBONATE 300 MG CAPSULE PO SCH ×2 (08:49→16:16)
[2022-06-26] MEDS: LISINOPRIL 5 MG TABLET PO SCH (08:49)
[2022-06-26] MEDS: RisperiDONE 1 MG TABLET PO SCH ×2 (08:49→16:15)
[2022-06-26] MEDS: NICOTINE 21 MG/24 HOUR PATCH TD SCH (08:49)
[2022-06-26 11:46] LABS: GLUCOMETER DEV NAME(LOC) BV2X.2; GLUCOSE,POINT OF CARE 114 MG/DL (70-110)
[2022-06-26] MEDS: INSULIN LISPRO 100 UNITS/ML SQ PRN ×2 (17:04→20:59)
[2022-06-26 17:06] LABS: GLUCOMETER DEV NAME(LOC) BV2X.2; GLUCOSE,POINT OF CARE 167 MG/DL (70-110)
[2022-06-26 17:34] VITALS: TEMP 97.7
[2022-06-26] MEDS: ZOLPIDEM TARTRATE 10 MG TABLET PO PRN (20:51)
[2022-06-26] MEDS: INSULIN GLARGINE,HUM.REC.ANLOG 100 UNITS/ML SQ SCH (21:00)
[2022-06-26 21:01] LABS: GLUCOMETER DEV NAME(LOC) BV2X.2; GLUCOSE,POINT OF CARE 234 MG/DL (70-110)
[2022-06-26 21:23] VITALS: TEMP 97.9
[2022-06-26 21:25] VITALS: BP 104/65; PULSE 84; RESP 18; TEMP 97.9; O2SAT 99
[2022-06-27] VITALS (7 sets, daily range): BP systolic 95–111; BP diastolic 64–66; PULSE 80–92; RESP 16–18; TEMP 97.3–98.2; O2SAT 97
[2022-06-27] MEDS: GlipiZIDE 10 MG TABLET PO SCH (06:19)
[2022-06-27] MEDS: INSULIN LISPRO 100 UNITS/ML SQ PRN ×4 (06:42→20:17)
[2022-06-27 06:51] LABS: GLUCOMETER DEV NAME(LOC) BV2X.2; GLUCOSE,POINT OF CARE 186 MG/DL (70-110)
[2022-06-27] MEDS: MULTIVITAMINS WITH MINERALS, THERAPEUTIC TABLET PO SCH (08:14)
[2022-06-27] MEDS: LISINOPRIL 5 MG TABLET PO SCH (08:14)
[2022-06-27] MEDS: LITHIUM CARBONATE 300 MG CAPSULE PO SCH ×2 (08:14→17:02)
[2022-06-27] MEDS: RisperiDONE 1 MG TABLET PO SCH ×2 (08:14→17:01)
[2022-06-27] MEDS: NICOTINE 21 MG/24 HOUR PATCH TD SCH (08:15)
[2022-06-27 11:26] LABS: GLUCOMETER DEV NAME(LOC) BV2X.2; GLUCOSE,POINT OF CARE 179 MG/DL (70-110)
[2022-06-27 18:01] LABS: GLUCOMETER DEV NAME(LOC) BV2X.2; GLUCOSE,POINT OF CARE 192 MG/DL (70-110)
[2022-06-27] MEDS: INSULIN GLARGINE,HUM.REC.ANLOG 100 UNITS/ML SQ SCH (20:18)
[2022-06-27 20:26] LABS: GLUCOMETER DEV NAME(LOC) BV2X.2; GLUCOSE,POINT OF CARE 158 MG/DL (70-110)
[2022-06-27] MEDS: ZOLPIDEM TARTRATE 10 MG TABLET PO PRN (20:36)
[2022-06-28 00:59] VITALS: TEMP 98
[2022-06-28 04:22] VITALS: TEMP 97.8
[2022-06-28] MEDS: GlipiZIDE 10 MG TABLET PO SCH (06:31)
[2022-06-28] MEDS: INSULIN LISPRO 100 UNITS/ML SQ PRN ×4 (06:31→20:49)
[2022-06-28 06:56] LABS: GLUCOMETER DEV NAME(LOC) BV2X.2; GLUCOSE,POINT OF CARE 146 MG/DL (70-110)
[2022-06-28 08:17] VITALS: TEMP 96.8
[2022-06-28 08:19] VITALS: BP 109/68; PULSE 81; RESP 19; TEMP 96.8; O2SAT 97
[2022-06-28] MEDS: MULTIVITAMINS WITH MINERALS, THERAPEUTIC TABLET PO SCH (08:39)
[2022-06-28] MEDS: LISINOPRIL 5 MG TABLET PO SCH (08:39)
[2022-06-28] MEDS: LITHIUM CARBONATE 300 MG CAPSULE PO SCH ×2 (08:39→16:56)
[2022-06-28] MEDS: RisperiDONE 1 MG TABLET PO SCH ×2 (08:39→16:56)
[2022-06-28] MEDS: NICOTINE 21 MG/24 HOUR PATCH TD SCH (08:42)
[2022-06-28] MEDS: MAG HYDROX/AL HYDROX/SIMETH ES 30 ML SUSPENSION UDCUP PO PRN (09:39)
[2022-06-28 11:36] LABS: GLUCOMETER DEV NAME(LOC) BV2X.2; GLUCOSE,POINT OF CARE 134 MG/DL (70-110)
[2022-06-28 16:35] VITALS: BP 102/66; PULSE 91; RESP 17; TEMP 97.7
[2022-06-28 16:36] LABS: GLUCOMETER DEV NAME(LOC) BV2X.2; GLUCOSE,POINT OF CARE 155 MG/DL (70-110)
[2022-06-28] MEDS: INSULIN GLARGINE,HUM.REC.ANLOG 100 UNITS/ML SQ SCH (20:47)
[2022-06-28] MEDS: ZOLPIDEM TARTRATE 10 MG TABLET PO PRN (20:50)
[2022-06-28 20:51] LABS: GLUCOMETER DEV NAME(LOC) BV2X.2; GLUCOSE,POINT OF CARE 207 MG/DL (70-110)
[2022-06-29 00:28] VITALS: BP 104/63; PULSE 85; RESP 17; TEMP 98
[2022-06-29 06:12] VITALS: BP 101/64; PULSE 84; RESP 16; TEMP 97.3; O2SAT 91
[2022-06-29 06:41] LABS: GLUCOMETER DEV NAME(LOC) BV2X.2; GLUCOSE,POINT OF CARE 157 MG/DL (70-110)
[2022-06-29] MEDS: GlipiZIDE 10 MG TABLET PO SCH (06:58)
[2022-06-29] MEDS: INSULIN LISPRO 100 UNITS/ML SQ PRN ×4 (07:01→20:36)
[2022-06-29 08:09] VITALS: BP 114/63; PULSE 89; RESP 16; TEMP 97.8
[2022-06-29] MEDS: RisperiDONE 1 MG TABLET PO SCH ×2 (08:18→16:42)
[2022-06-29] MEDS: MULTIVITAMINS WITH MINERALS, THERAPEUTIC TABLET PO SCH (08:18)
[2022-06-29] MEDS: LISINOPRIL 5 MG TABLET PO SCH (08:19)
[2022-06-29] MEDS: NICOTINE 21 MG/24 HOUR PATCH TD SCH (08:25)
[2022-06-29] MEDS: LITHIUM CARBONATE 300 MG CAPSULE PO SCH ×2 (08:28→16:42)
[2022-06-29 11:46] LABS: GLUCOMETER DEV NAME(LOC) BV2X.2; GLUCOSE,POINT OF CARE 185 MG/DL (70-110)
[2022-06-29 12:37] VITALS: RESP 18
[2022-06-29 13:37] VITALS: RESP 18
[2022-06-29 17:01] LABS: GLUCOMETER DEV NAME(LOC) BV2X.2; GLUCOSE,POINT OF CARE 146 MG/DL (70-110)
[2022-06-29 20:21] VITALS: BP 101/62; PULSE 84; RESP 18; TEMP 98.1; O2SAT 97
[2022-06-29] MEDS: ZOLPIDEM TARTRATE 10 MG TABLET PO PRN (20:27)
[2022-06-29] MEDS: INSULIN GLARGINE,HUM.REC.ANLOG 100 UNITS/ML SQ SCH (20:36)
[2022-06-29 21:21] LABS: GLUCOMETER DEV NAME(LOC) BV2X.2; GLUCOSE,POINT OF CARE 215 MG/DL (70-110)
[2022-06-30 06:26] LABS: GLUCOMETER DEV NAME(LOC) BV2X.2; GLUCOSE,POINT OF CARE 140 MG/DL (70-110)
[2022-06-30] MEDS: GlipiZIDE 10 MG TABLET PO SCH (06:30)
[2022-06-30] MEDS: INSULIN LISPRO 100 UNITS/ML SQ PRN ×4 (06:33→20:34)
[2022-06-30] MEDS: LISINOPRIL 5 MG TABLET PO SCH (08:37)
[2022-06-30] MEDS: LITHIUM CARBONATE 300 MG CAPSULE PO SCH ×2 (08:37→16:07)
[2022-06-30] MEDS: RisperiDONE 1 MG TABLET PO SCH ×2 (08:38→16:07)
[2022-06-30] MEDS: NICOTINE 21 MG/24 HOUR PATCH TD SCH (08:39)
[2022-06-30] MEDS: MULTIVITAMINS WITH MINERALS, THERAPEUTIC TABLET PO SCH (08:54)
[2022-06-30 09:35] VITALS: BP 110/60; PULSE 81; RESP 18; TEMP 97.6; O2SAT 98
[2022-06-30 11:37] LABS: GLUCOMETER DEV NAME(LOC) BV2X.2; GLUCOSE,POINT OF CARE 150 MG/DL (70-110)
[2022-06-30 16:51] LABS: GLUCOMETER DEV NAME(LOC) BV2X.2; GLUCOSE,POINT OF CARE 162 MG/DL (70-110)
[2022-06-30] MEDS: ZOLPIDEM TARTRATE 10 MG TABLET PO PRN (20:29)
[2022-06-30] MEDS: INSULIN GLARGINE,HUM.REC.ANLOG 100 UNITS/ML SQ SCH (20:35)
[2022-06-30 21:01] LABS: GLUCOMETER DEV NAME(LOC) BV2X.2; GLUCOSE,POINT OF CARE 206 MG/DL (70-110)
[2022-06-30 21:12] VITALS: BP 101/62; PULSE 81; RESP 16; TEMP 97.5; O2SAT 96
[2022-07-01 05:56] LABS: GLUCOMETER DEV NAME(LOC) BV2X.2; GLUCOSE,POINT OF CARE 118 MG/DL (70-110)
[2022-07-01] MEDS: GlipiZIDE 10 MG TABLET PO SCH (06:27)
[2022-07-01] MEDS: NICOTINE 21 MG/24 HOUR PATCH TD SCH (08:50)
[2022-07-01] MEDS: LISINOPRIL 5 MG TABLET PO SCH (08:50)
[2022-07-01] MEDS: RisperiDONE 1 MG TABLET PO SCH ×2 (08:50→16:35)
[2022-07-01] MEDS: LITHIUM CARBONATE 300 MG CAPSULE PO SCH ×2 (08:51→16:35)
[2022-07-01] MEDS: MULTIVITAMINS WITH MINERALS, THERAPEUTIC TABLET PO SCH (08:51)
[2022-07-01 09:12] VITALS: BP 111/67; PULSE 99; RESP 20; TEMP 98; O2SAT 98
[2022-07-01] MEDS: INSULIN LISPRO 100 UNITS/ML SQ PRN ×3 (11:15→20:35)
[2022-07-01 11:17] LABS: GLUCOMETER DEV NAME(LOC) BV2X.2; GLUCOSE,POINT OF CARE 188 MG/DL (70-110)
[2022-07-01 16:32] LABS: GLUCOMETER DEV NAME(LOC) BV2X.2; GLUCOSE,POINT OF CARE 224 MG/DL (70-110)
[2022-07-01 16:42] VITALS: BP 108/62; PULSE 86; RESP 18; TEMP 98.2; O2SAT 97
[2022-07-01] MEDS: INSULIN GLARGINE,HUM.REC.ANLOG 100 UNITS/ML SQ SCH (20:35)
[2022-07-01 20:46] LABS: GLUCOMETER DEV NAME(LOC) BV2X.2; GLUCOSE,POINT OF CARE 187 MG/DL (70-110)
[2022-07-01] MEDS: ZOLPIDEM TARTRATE 10 MG TABLET PO PRN (20:46)
[2022-07-02 00:30] VITALS: BP 97/60; PULSE 85; RESP 18; TEMP 98; O2SAT 97
[2022-07-02] MEDS: INSULIN LISPRO 100 UNITS/ML SQ PRN ×4 (06:11→20:22)
[2022-07-02 06:17] LABS: GLUCOMETER DEV NAME(LOC) BV2X.2; GLUCOSE,POINT OF CARE 136 MG/DL (70-110)
[2022-07-02] MEDS: GlipiZIDE 10 MG TABLET PO SCH (06:30)
[2022-07-02 08:20] VITALS: BP 110/82; PULSE 82; RESP 18; TEMP 98.1; O2SAT 98
[2022-07-02] MEDS: MULTIVITAMINS WITH MINERALS, THERAPEUTIC TABLET PO SCH (08:20)
[2022-07-02] MEDS: RisperiDONE 1 MG TABLET PO SCH ×2 (08:20→16:26)
[2022-07-02] MEDS: LITHIUM CARBONATE 300 MG CAPSULE PO SCH ×2 (08:20→16:26)
[2022-07-02] MEDS: NICOTINE 21 MG/24 HOUR PATCH TD SCH (08:20)
[2022-07-02] MEDS: LISINOPRIL 5 MG TABLET PO SCH (08:21)
[2022-07-02 11:40] LABS: GLUCOMETER DEV NAME(LOC) BV2S.; GLUCOSE,POINT OF CARE 122 MG/DL (70-110)
[2022-07-02 16:23] VITALS: BP 98/64; PULSE 62; RESP 18; TEMP 97.8; O2SAT 98
[2022-07-02 17:11] LABS: GLUCOMETER DEV NAME(LOC) BV2S.; GLUCOSE,POINT OF CARE 155 MG/DL (70-110)
[2022-07-02 20:20] LABS: GLUCOMETER DEV NAME(LOC) BV2X.2; GLUCOSE,POINT OF CARE 186 MG/DL (70-110)
[2022-07-02] MEDS: INSULIN GLARGINE,HUM.REC.ANLOG 100 UNITS/ML SQ SCH (20:22)
[2022-07-02] MEDS: ZOLPIDEM TARTRATE 10 MG TABLET PO PRN (21:07)
[2022-07-03 02:30] VITALS: BP 128/71; PULSE 86; RESP 18; TEMP 98; O2SAT 97
[2022-07-03] MEDS: GlipiZIDE 10 MG TABLET PO SCH (06:05)
[2022-07-03 06:11] LABS: GLUCOMETER DEV NAME(LOC) BV2X.2; GLUCOSE,POINT OF CARE 128 MG/DL (70-110)
[2022-07-03] MEDS: LITHIUM CARBONATE 300 MG CAPSULE PO SCH ×2 (08:11→16:34)
[2022-07-03] MEDS: RisperiDONE 1 MG TABLET PO SCH ×2 (08:11→16:34)
[2022-07-03] MEDS: MULTIVITAMINS WITH MINERALS, THERAPEUTIC TABLET PO SCH (08:11)
[2022-07-03] MEDS: LISINOPRIL 5 MG TABLET PO SCH (08:11)
[2022-07-03] MEDS: NICOTINE 21 MG/24 HOUR PATCH TD SCH (08:12)
[2022-07-03 08:13] VITALS: BP 107/56; PULSE 82; RESP 18; TEMP 97.7; O2SAT 100
[2022-07-03 11:21] LABS: GLUCOMETER DEV NAME(LOC) BV2X.2; GLUCOSE,POINT OF CARE 183 MG/DL (70-110)
[2022-07-03 16:31] LABS: GLUCOMETER DEV NAME(LOC) BV2X.2; GLUCOSE,POINT OF CARE 164 MG/DL (70-110)
[2022-07-03] MEDS: INSULIN LISPRO 100 UNITS/ML SQ PRN ×2 (16:39→20:48)
[2022-07-03 17:11] VITALS: BP 101/61; PULSE 63; RESP 19; TEMP 98.2; O2SAT 97
[2022-07-03] MEDS: INSULIN GLARGINE,HUM.REC.ANLOG 100 UNITS/ML SQ SCH (20:49)
[2022-07-03 20:51] LABS: GLUCOMETER DEV NAME(LOC) BV2X.2; GLUCOSE,POINT OF CARE 232 MG/DL (70-110)
[2022-07-03] MEDS: ZOLPIDEM TARTRATE 10 MG TABLET PO PRN (20:52)
[2022-07-04 05:17] VITALS: RESP 19; TEMP 98; O2SAT 98
[2022-07-04] MEDS: GlipiZIDE 10 MG TABLET PO SCH (06:33)
[2022-07-04] MEDS: INSULIN LISPRO 100 UNITS/ML SQ PRN ×4 (06:39→20:43)
[2022-07-04 06:41] LABS: GLUCOMETER DEV NAME(LOC) BV2X.2; GLUCOSE,POINT OF CARE 204 MG/DL (70-110)
[2022-07-04] MEDS: RisperiDONE 1 MG TABLET PO SCH ×2 (08:50→16:02)
[2022-07-04] MEDS: LITHIUM CARBONATE 300 MG CAPSULE PO SCH ×2 (08:50→16:02)
[2022-07-04] MEDS: MULTIVITAMINS WITH MINERALS, THERAPEUTIC TABLET PO SCH (08:55)
[2022-07-04] MEDS: NICOTINE 21 MG/24 HOUR PATCH TD SCH (08:55)
[2022-07-04] MEDS: LISINOPRIL 5 MG TABLET PO SCH (08:55)
[2022-07-04 09:04] VITALS: BP 120/78; PULSE 69; RESP 19; TEMP 98.4
[2022-07-04 11:21] LABS: GLUCOMETER DEV NAME(LOC) BV2X.2; GLUCOSE,POINT OF CARE 278 MG/DL (70-110)
[2022-07-04 16:31] LABS: GLUCOMETER DEV NAME(LOC) BV2X.2; GLUCOSE,POINT OF CARE 143 MG/DL (70-110)
[2022-07-04 16:40] VITALS: BP 104/63; PULSE 86; RESP 18; TEMP 98.9; O2SAT 97
[2022-07-04 20:31] LABS: GLUCOMETER DEV NAME(LOC) BV2X.2; GLUCOSE,POINT OF CARE 224 MG/DL (70-110)
[2022-07-04] MEDS: INSULIN GLARGINE,HUM.REC.ANLOG 100 UNITS/ML SQ SCH (20:42)
[2022-07-04] MEDS: ZOLPIDEM TARTRATE 10 MG TABLET PO PRN (20:47)
[2022-07-05] VITALS: BP 117/75; PULSE 79; RESP 18; TEMP 98; O2SAT 98
[2022-07-05] MEDS: INSULIN LISPRO 100 UNITS/ML SQ PRN ×4 (06:47→20:49)
[2022-07-05 06:56] LABS: GLUCOMETER DEV NAME(LOC) BV2X.2; GLUCOSE,POINT OF CARE 167 MG/DL (70-110)
[2022-07-05] MEDS: GlipiZIDE 10 MG TABLET PO SCH (06:59)
[2022-07-05 08:19] VITALS: BP 127/68; PULSE 84; RESP 18; TEMP 98.6
[2022-07-05] MEDS: MULTIVITAMINS WITH MINERALS, THERAPEUTIC TABLET PO SCH (09:26)
[2022-07-05] MEDS: LITHIUM CARBONATE 300 MG CAPSULE PO SCH ×2 (09:26→17:26)
[2022-07-05] MEDS: RisperiDONE 1 MG TABLET PO SCH ×2 (09:26→17:26)
[2022-07-05] MEDS: LISINOPRIL 5 MG TABLET PO SCH (09:27)
[2022-07-05] MEDS: NICOTINE 21 MG/24 HOUR PATCH TD SCH (09:28)
[2022-07-05 11:31] LABS: GLUCOMETER DEV NAME(LOC) BV2X.2; GLUCOSE,POINT OF CARE 174 MG/DL (70-110)
[2022-07-05 16:12] VITALS: BP 108/61; PULSE 84; RESP 19; TEMP 98.8; O2SAT 97
[2022-07-05 17:16] LABS: GLUCOMETER DEV NAME(LOC) BV2X.2; GLUCOSE,POINT OF CARE 198 MG/DL (70-110)
[2022-07-05] MEDS: INSULIN GLARGINE,HUM.REC.ANLOG 100 UNITS/ML SQ SCH (20:49)
[2022-07-05 20:51] LABS: GLUCOMETER DEV NAME(LOC) BV2X.2; GLUCOSE,POINT OF CARE 220 MG/DL (70-110)
[2022-07-05] MEDS: ZOLPIDEM TARTRATE 10 MG TABLET PO PRN (20:58)
[2022-07-05] MEDS: LORazepam 2 MG TABLET PO PRN (20:58)
[2022-07-06 00:43] VITALS: BP 114/62; PULSE 80; RESP 18; TEMP 97.6; O2SAT 97
[2022-07-06] MEDS: GlipiZIDE 10 MG TABLET PO SCH (06:40)
[2022-07-06 09:06] VITALS: BP 119/72; PULSE 82; RESP 18; TEMP 97.6
[2022-07-06] MEDS: RisperiDONE 1 MG TABLET PO SCH ×2 (09:21→16:39)
[2022-07-06] MEDS: LITHIUM CARBONATE 300 MG CAPSULE PO SCH ×2 (09:21→16:39)
[2022-07-06] MEDS: NICOTINE 21 MG/24 HOUR PATCH TD SCH (09:22)
[2022-07-06] MEDS: MULTIVITAMINS WITH MINERALS, THERAPEUTIC TABLET PO SCH (09:22)
[2022-07-06] MEDS: LISINOPRIL 5 MG TABLET PO SCH (09:22)
[2022-07-06 11:26] LABS: GLUCOMETER DEV NAME(LOC) BV2X.2; GLUCOSE,POINT OF CARE 198 MG/DL (70-110)
[2022-07-06] MEDS: INSULIN LISPRO 100 UNITS/ML SQ PRN ×3 (11:29→20:47)
[2022-07-06 16:31] VITALS: BP 113/64; PULSE 76; RESP 18; TEMP 97.1; O2SAT 99
[2022-07-06 16:51] LABS: GLUCOMETER DEV NAME(LOC) BV2X.2; GLUCOSE,POINT OF CARE 227 MG/DL (70-110)
[2022-07-06 20:21] LABS: GLUCOMETER DEV NAME(LOC) BV2X.2; GLUCOSE,POINT OF CARE 178 MG/DL (70-110)
[2022-07-06] MEDS: ZOLPIDEM TARTRATE 10 MG TABLET PO PRN (20:42)
[2022-07-06] MEDS: INSULIN GLARGINE,HUM.REC.ANLOG 100 UNITS/ML SQ SCH (20:47)
[2022-07-07 00:43] VITALS: BP 106/58; PULSE 91; RESP 17; TEMP 98.1; O2SAT 97
[2022-07-07 06:01] LABS: GLUCOMETER DEV NAME(LOC) BV2X.2; GLUCOSE,POINT OF CARE 122 MG/DL (70-110)
[2022-07-07] MEDS: INSULIN LISPRO 100 UNITS/ML SQ PRN ×3 (06:10→16:54)
[2022-07-07] MEDS: GlipiZIDE 10 MG TABLET PO SCH (06:11)
[2022-07-07 08:32] VITALS: BP 106/62; PULSE 85; RESP 16; TEMP 97.8; O2SAT 99
[2022-07-07] MEDS: LITHIUM CARBONATE 300 MG CAPSULE PO SCH ×2 (09:02→16:23)
[2022-07-07] MEDS: RisperiDONE 1 MG TABLET PO SCH ×2 (09:02→16:23)
[2022-07-07] MEDS: MULTIVITAMINS WITH MINERALS, THERAPEUTIC TABLET PO SCH (09:02)
[2022-07-07] MEDS: NICOTINE 21 MG/24 HOUR PATCH TD SCH (09:03)
[2022-07-07] MEDS: LISINOPRIL 5 MG TABLET PO SCH (09:11)
[2022-07-07 15:26] LABS: GLUCOMETER DEV NAME(LOC) BV2X.2; GLUCOSE,POINT OF CARE 127 MG/DL (70-110)
[2022-07-07] MEDS: MAG HYDROX/AL HYDROX/SIMETH ES 30 ML SUSPENSION UDCUP PO PRN (16:04)
[2022-07-07 16:20] VITALS: BP 133/81; PULSE 77; RESP 17; TEMP 97.8; O2SAT 97
[2022-07-07 16:51] LABS: GLUCOMETER DEV NAME(LOC) BV2X.2; GLUCOSE,POINT OF CARE 131 MG/DL (70-110)
[2022-07-07 20:11] LABS: GLUCOMETER DEV NAME(LOC) BV2X.2; GLUCOSE,POINT OF CARE 115 MG/DL (70-110)
[2022-07-07] MEDS: ZOLPIDEM TARTRATE 10 MG TABLET PO PRN (20:30)
[2022-07-07] MEDS: INSULIN GLARGINE,HUM.REC.ANLOG 100 UNITS/ML SQ SCH (20:43)
[2022-07-08 00:18] VITALS: BP 106/61; PULSE 75; RESP 17; TEMP 98; O2SAT 99
[2022-07-08] MEDS: GlipiZIDE 10 MG TABLET PO SCH (05:43)
[2022-07-08] MEDS: INSULIN LISPRO 100 UNITS/ML SQ PRN ×3 (05:45→17:00)
[2022-07-08 05:51] LABS: GLUCOMETER DEV NAME(LOC) BV2X.2; GLUCOSE,POINT OF CARE 139 MG/DL (70-110)
[2022-07-08 08:13] VITALS: BP 113/72; PULSE 79; RESP 16; TEMP 97.9; O2SAT 95
[2022-07-08] MEDS: LISINOPRIL 5 MG TABLET PO SCH (08:41)
[2022-07-08] MEDS: MULTIVITAMINS WITH MINERALS, THERAPEUTIC TABLET PO SCH (08:42)
[2022-07-08] MEDS: RisperiDONE 1 MG TABLET PO SCH ×2 (08:42→16:48)
[2022-07-08] MEDS: LITHIUM CARBONATE 300 MG CAPSULE PO SCH ×2 (08:42→16:48)
[2022-07-08] MEDS: NICOTINE 21 MG/24 HOUR PATCH TD SCH (08:42)
[2022-07-08 11:31] LABS: GLUCOMETER DEV NAME(LOC) BV2X.2; GLUCOSE,POINT OF CARE 190 MG/DL (70-110)
[2022-07-08 16:15] VITALS: BP 115/78; PULSE 79; RESP 18; TEMP 98; O2SAT 98
[2022-07-08 16:51] LABS: GLUCOMETER DEV NAME(LOC) BV2X.2; GLUCOSE,POINT OF CARE 189 MG/DL (70-110)
[2022-07-08] MEDS: ZOLPIDEM TARTRATE 10 MG TABLET PO PRN (20:52)
[2022-07-08] MEDS: INSULIN GLARGINE,HUM.REC.ANLOG 100 UNITS/ML SQ SCH (21:00)
[2022-07-09] MEDS: GlipiZIDE 10 MG TABLET PO SCH (06:37)
[2022-07-09 08:20] VITALS: BP 119/64; PULSE 101; RESP 18; TEMP 97.6; O2SAT 97
[2022-07-09] MEDS: LISINOPRIL 5 MG TABLET PO SCH (08:35)
[2022-07-09] MEDS: LITHIUM CARBONATE 300 MG CAPSULE PO SCH ×2 (08:36→16:43)
[2022-07-09] MEDS: RisperiDONE 1 MG TABLET PO SCH ×2 (08:36→16:44)
[2022-07-09] MEDS: MULTIVITAMINS WITH MINERALS, THERAPEUTIC TABLET PO SCH (08:36)
[2022-07-09] MEDS: NICOTINE 21 MG/24 HOUR PATCH TD SCH (08:41)
[2022-07-09] MEDS ORDERED: DiphenhydrAMINE HCL 50 MG/ML VIAL IM ONE (10:00)
[2022-07-09] MEDS ORDERED: HALOPERIDOL LACTATE 5 MG/ML VIAL IM ONE (10:00)
[2022-07-09] MEDS ORDERED: LORazepam 2 MG/ML VIAL IM ONE (10:00)
[2022-07-09] MEDS ORDERED: HALOPERIDOL LACTATE 5 MG/ML VIAL ONE (10:36)
[2022-07-09] MEDS ORDERED: LORazepam 2 MG/ML VIAL ONE (10:41)
[2022-07-09] MEDS ORDERED: DiphenhydrAMINE HCL 50 MG/ML VIAL ONE (10:42)
[2022-07-09 16:57] VITALS: BP 117/67; PULSE 98; RESP 18; TEMP 97.7; O2SAT 97
[2022-07-09] MEDS: ZOLPIDEM TARTRATE 10 MG TABLET PO PRN (20:55)
[2022-07-09] MEDS: INSULIN GLARGINE,HUM.REC.ANLOG 100 UNITS/ML SQ SCH (21:30)
[2022-07-09] MEDS: INSULIN LISPRO 100 UNITS/ML SQ PRN (21:30)
[2022-07-09 22:51] LABS: GLUCOMETER DEV NAME(LOC) BV2S.; GLUCOSE,POINT OF CARE 224 MG/DL (70-110)
[2022-07-10 00:21] VITALS: BP 124/77; PULSE 88; RESP 18; TEMP 97.8; O2SAT 97
[2022-07-10] MEDS: GlipiZIDE 10 MG TABLET PO SCH (06:34)
[2022-07-10] MEDS: INSULIN LISPRO 100 UNITS/ML SQ PRN ×3 (06:41→16:56)
[2022-07-10 06:50] LABS: GLUCOMETER DEV NAME(LOC) BV2X.2; GLUCOSE,POINT OF CARE 149 MG/DL (70-110)
[2022-07-10 08:44] VITALS: BP 116/68; PULSE 81; RESP 16; TEMP 98.9; O2SAT 98
[2022-07-10] MEDS: LITHIUM CARBONATE 300 MG CAPSULE PO SCH ×2 (09:19→16:25)
[2022-07-10] MEDS: RisperiDONE 1 MG TABLET PO SCH ×2 (09:19→16:25)
[2022-07-10] MEDS: NICOTINE 21 MG/24 HOUR PATCH TD SCH (09:19)
[2022-07-10] MEDS: MULTIVITAMINS WITH MINERALS, THERAPEUTIC TABLET PO SCH (09:19)
[2022-07-10] MEDS: LISINOPRIL 5 MG TABLET PO SCH (09:20)
[2022-07-10 11:21] LABS: GLUCOMETER DEV NAME(LOC) BV2X.2; GLUCOSE,POINT OF CARE 169 MG/DL (70-110)
[2022-07-10 16:22] VITALS: BP 129/69; PULSE 89; RESP 19; TEMP 98.4; O2SAT 100
[2022-07-10 17:01] LABS: GLUCOMETER DEV NAME(LOC) BV2S.; GLUCOSE,POINT OF CARE 215 MG/DL (70-110)
[2022-07-10 20:28] VITALS: BP 136/72; PULSE 79; RESP 17; TEMP 98; O2SAT 98
[2022-07-10] MEDS: LORazepam 2 MG TABLET PO PRN (20:52)
[2022-07-10] MEDS: ZOLPIDEM TARTRATE 10 MG TABLET PO PRN (20:52)
[2022-07-10] MEDS: INSULIN GLARGINE,HUM.REC.ANLOG 100 UNITS/ML SQ SCH (21:00)
[2022-07-11] MEDS: GlipiZIDE 10 MG TABLET PO SCH (06:05)
[2022-07-11 08:39] VITALS: BP 110/66; PULSE 99; RESP 16; TEMP 98.4
[2022-07-11] MEDS: LISINOPRIL 5 MG TABLET PO SCH (08:48)
[2022-07-11] MEDS: NICOTINE 21 MG/24 HOUR PATCH TD SCH (08:48)
[2022-07-11] MEDS: RisperiDONE 1 MG TABLET PO SCH ×2 (08:48→16:43)
[2022-07-11] MEDS: MULTIVITAMINS WITH MINERALS, THERAPEUTIC TABLET PO SCH (08:48)
[2022-07-11] MEDS: LITHIUM CARBONATE 300 MG CAPSULE PO SCH ×2 (08:48→16:43)
[2022-07-11] MEDS: INSULIN LISPRO 100 UNITS/ML SQ PRN ×3 (11:37→20:44)
[2022-07-11 11:52] LABS: GLUCOMETER DEV NAME(LOC) BV2X.2; GLUCOSE,POINT OF CARE 200 MG/DL (70-110)
[2022-07-11 16:51] LABS: GLUCOMETER DEV NAME(LOC) BV2X.2; GLUCOSE,POINT OF CARE 198 MG/DL (70-110)
[2022-07-11 20:21] LABS: GLUCOMETER DEV NAME(LOC) BV2X.2; GLUCOSE,POINT OF CARE 201 MG/DL (70-110)
[2022-07-11 20:27] VITALS: BP 102/64; PULSE 85; RESP 18; TEMP 98.2; O2SAT 97
[2022-07-11] MEDS: INSULIN GLARGINE,HUM.REC.ANLOG 100 UNITS/ML SQ SCH (20:45)
[2022-07-11] MEDS: ZOLPIDEM TARTRATE 10 MG TABLET PO PRN (21:26)
[2022-07-11] MEDS: MUPIROCIN CALCIUM 2% 22 GM OINTMENT NASAL SCH (21:26)
[2022-07-12] MEDS: GlipiZIDE 10 MG TABLET PO SCH (06:36)
[2022-07-12 08:45] VITALS: BP 130/72; PULSE 85; RESP 17; TEMP 97.7
[2022-07-12] MEDS: MUPIROCIN CALCIUM 2% 22 GM OINTMENT NASAL SCH ×2 (08:56→16:33)
[2022-07-12] MEDS: LITHIUM CARBONATE 300 MG CAPSULE PO SCH ×2 (08:56→16:33)
[2022-07-12] MEDS: LISINOPRIL 5 MG TABLET PO SCH (08:56)
[2022-07-12] MEDS: NICOTINE 21 MG/24 HOUR PATCH TD SCH (08:56)
[2022-07-12] MEDS: MULTIVITAMINS WITH MINERALS, THERAPEUTIC TABLET PO SCH (08:57)
[2022-07-12] MEDS: RisperiDONE 1 MG TABLET PO SCH ×2 (08:57→16:34)
[2022-07-12] MEDS: INSULIN LISPRO 100 UNITS/ML SQ PRN ×3 (11:48→21:12)
[2022-07-12 12:11] LABS: GLUCOMETER DEV NAME(LOC) BV2X.2; GLUCOSE,POINT OF CARE 192 MG/DL (70-110)
[2022-07-12 16:56] LABS: GLUCOMETER DEV NAME(LOC) BV2X.2; GLUCOSE,POINT OF CARE 156 MG/DL (70-110)
[2022-07-12 20:18] VITALS: BP 106/60; PULSE 86; RESP 19; TEMP 98.3; O2SAT 99
[2022-07-12] MEDS: ZOLPIDEM TARTRATE 10 MG TABLET PO PRN (20:54)
[2022-07-12 21:05] LABS: GLUCOMETER DEV NAME(LOC) BV2X.2; GLUCOSE,POINT OF CARE 173 MG/DL (70-110)
[2022-07-12] MEDS: INSULIN GLARGINE,HUM.REC.ANLOG 100 UNITS/ML SQ SCH (21:12)
[2022-07-12] MEDS: LORazepam 2 MG TABLET PO PRN (21:57)
[2022-07-13 06:31] LABS: GLUCOMETER DEV NAME(LOC) BV2X.2; GLUCOSE,POINT OF CARE 153 MG/DL (70-110)
[2022-07-13] MEDS: GlipiZIDE 10 MG TABLET PO SCH (06:43)
[2022-07-13] MEDS: INSULIN LISPRO 100 UNITS/ML SQ PRN ×4 (06:46→20:57)
[2022-07-13 08:30] VITALS: BP 119/68; PULSE 85; RESP 18; TEMP 97.4
[2022-07-13] MEDS: LITHIUM CARBONATE 300 MG CAPSULE PO SCH ×2 (09:25→16:24)
[2022-07-13] MEDS: MUPIROCIN CALCIUM 2% 22 GM OINTMENT NASAL SCH ×2 (09:25→16:25)
[2022-07-13] MEDS: RisperiDONE 1 MG TABLET PO SCH ×2 (09:25→16:24)
[2022-07-13] MEDS: MULTIVITAMINS WITH MINERALS, THERAPEUTIC TABLET PO SCH (09:25)
[2022-07-13] MEDS: LISINOPRIL 5 MG TABLET PO SCH (09:26)
[2022-07-13] MEDS: NICOTINE 21 MG/24 HOUR PATCH TD SCH (09:26)
[2022-07-13 11:20] LABS: GLUCOMETER DEV NAME(LOC) BV2X.2; GLUCOSE,POINT OF CARE 227 MG/DL (70-110)
[2022-07-13 17:21] LABS: GLUCOMETER DEV NAME(LOC) BV2S.; GLUCOSE,POINT OF CARE 169 MG/DL (70-110)
[2022-07-13 20:21] VITALS: BP 123/75; PULSE 85; RESP 18; TEMP 98.1; O2SAT 97
[2022-07-13] MEDS: ZOLPIDEM TARTRATE 10 MG TABLET PO PRN (20:55)
[2022-07-13] MEDS: INSULIN GLARGINE,HUM.REC.ANLOG 100 UNITS/ML SQ SCH (20:56)
[2022-07-13 21:16] LABS: GLUCOMETER DEV NAME(LOC) BV2X.2; GLUCOSE,POINT OF CARE 211 MG/DL (70-110)
[2022-07-14 06:11] LABS: GLUCOMETER DEV NAME(LOC) BV2X.2; GLUCOSE,POINT OF CARE 136 MG/DL (70-110)
[2022-07-14] MEDS: GlipiZIDE 10 MG TABLET PO SCH (06:22)
[2022-07-14] MEDS: INSULIN LISPRO 100 UNITS/ML SQ PRN ×4 (06:25→20:38)
[2022-07-14] MEDS: MUPIROCIN CALCIUM 2% 22 GM OINTMENT NASAL SCH ×2 (08:09→16:34)
[2022-07-14] MEDS: LITHIUM CARBONATE 300 MG CAPSULE PO SCH ×2 (08:09→16:34)
[2022-07-14] MEDS: RisperiDONE 1 MG TABLET PO SCH ×2 (08:09→16:34)
[2022-07-14] MEDS: MULTIVITAMINS WITH MINERALS, THERAPEUTIC TABLET PO SCH (08:09)
[2022-07-14] MEDS: LISINOPRIL 5 MG TABLET PO SCH (08:09)
[2022-07-14] MEDS: NICOTINE 21 MG/24 HOUR PATCH TD SCH (08:12)
[2022-07-14 08:45] VITALS: BP 117/74; PULSE 84; RESP 17; TEMP 97.6; O2SAT 99
[2022-07-14 11:21] LABS: GLUCOMETER DEV NAME(LOC) BV2X.2; GLUCOSE,POINT OF CARE 164 MG/DL (70-110)
[2022-07-14 16:35] LABS: GLUCOMETER DEV NAME(LOC) BV2X.2; GLUCOSE,POINT OF CARE 153 MG/DL (70-110)
[2022-07-14 20:17] LABS: GLUCOMETER DEV NAME(LOC) BV2X.2; GLUCOSE,POINT OF CARE 230 MG/DL (70-110)
[2022-07-14] MEDS: INSULIN GLARGINE,HUM.REC.ANLOG 100 UNITS/ML SQ SCH (20:38)
[2022-07-14 20:42] VITALS: BP 142/80; PULSE 91; RESP 17; TEMP 98.1; O2SAT 98
[2022-07-14] MEDS: ZOLPIDEM TARTRATE 10 MG TABLET PO PRN (20:53)
[2022-07-15 06:22] LABS: GLUCOMETER DEV NAME(LOC) BV2X.2; GLUCOSE,POINT OF CARE 195 MG/DL (70-110)
[2022-07-15] MEDS: GlipiZIDE 10 MG TABLET PO SCH (06:25)
[2022-07-15] MEDS: INSULIN LISPRO 100 UNITS/ML SQ PRN ×4 (06:28→20:34)
[2022-07-15 08:23] VITALS: BP 108/67; PULSE 98; RESP 17; TEMP 98.1
[2022-07-15] MEDS: LISINOPRIL 5 MG TABLET PO SCH (08:36)
[2022-07-15] MEDS: MULTIVITAMINS WITH MINERALS, THERAPEUTIC TABLET PO SCH (08:36)
[2022-07-15] MEDS: RisperiDONE 1 MG TABLET PO SCH ×2 (08:36→16:34)
[2022-07-15] MEDS: LITHIUM CARBONATE 300 MG CAPSULE PO SCH ×2 (08:36→16:34)
[2022-07-15] MEDS: NICOTINE 21 MG/24 HOUR PATCH TD SCH (08:37)
[2022-07-15] MEDS: MUPIROCIN CALCIUM 2% 22 GM OINTMENT NASAL SCH ×2 (08:39→16:34)
[2022-07-15 11:26] LABS: GLUCOMETER DEV NAME(LOC) BV2X.2; GLUCOSE,POINT OF CARE 226 MG/DL (70-110)
[2022-07-15 16:30] LABS: GLUCOMETER DEV NAME(LOC) BV2X.2; GLUCOSE,POINT OF CARE 213 MG/DL (70-110)
[2022-07-15 20:32] VITALS: BP 116/62; PULSE 85; RESP 17; TEMP 98.7; O2SAT 99
[2022-07-15 20:36] LABS: GLUCOMETER DEV NAME(LOC) BV2X.2; GLUCOSE,POINT OF CARE 130 MG/DL (70-110)
[2022-07-15] MEDS: INSULIN GLARGINE,HUM.REC.ANLOG 100 UNITS/ML SQ SCH (20:36)
[2022-07-15] MEDS: ZOLPIDEM TARTRATE 10 MG TABLET PO PRN (21:35)
[2022-07-16 06:05] LABS: GLUCOMETER DEV NAME(LOC) BV2X.2; GLUCOSE,POINT OF CARE 128 MG/DL (70-110)
[2022-07-16] MEDS: GlipiZIDE 10 MG TABLET PO SCH (06:28)
[2022-07-16] MEDS: INSULIN LISPRO 100 UNITS/ML SQ PRN ×4 (06:37→20:46)
[2022-07-16] MEDS: MULTIVITAMINS WITH MINERALS, THERAPEUTIC TABLET PO SCH (08:47)
[2022-07-16] MEDS: LITHIUM CARBONATE 300 MG CAPSULE PO SCH ×2 (08:47→16:33)
[2022-07-16] MEDS: LISINOPRIL 5 MG TABLET PO SCH (08:48)
[2022-07-16] MEDS: NICOTINE 21 MG/24 HOUR PATCH TD SCH (08:48)
[2022-07-16] MEDS: RisperiDONE 1 MG TABLET PO SCH ×2 (08:50→16:33)
[2022-07-16 08:51] VITALS: BP 115/68; PULSE 80; RESP 18; TEMP 98.4
[2022-07-16] MEDS: MUPIROCIN CALCIUM 2% 22 GM OINTMENT NASAL SCH ×2 (08:52→16:33)
[2022-07-16 15:31] LABS: GLUCOMETER DEV NAME(LOC) BV2X.2; GLUCOSE,POINT OF CARE 223 MG/DL (70-110)
[2022-07-16 16:26] LABS: GLUCOMETER DEV NAME(LOC) BV2X.2; GLUCOSE,POINT OF CARE 126 MG/DL (70-110)
[2022-07-16 20:22] LABS: GLUCOMETER DEV NAME(LOC) BV2X.2; GLUCOSE,POINT OF CARE 197 MG/DL (70-110)
[2022-07-16] MEDS: INSULIN GLARGINE,HUM.REC.ANLOG 100 UNITS/ML SQ SCH (20:46)
[2022-07-16] MEDS: ZOLPIDEM TARTRATE 10 MG TABLET PO PRN (20:48)
[2022-07-16 20:49] VITALS: BP 103/64; PULSE 91; RESP 17; TEMP 98.7
[2022-07-17] MEDS: GlipiZIDE 10 MG TABLET PO SCH (06:39)
[2022-07-17 08:09] VITALS: BP 109/63; PULSE 84; RESP 19; TEMP 97.6; O2SAT 99
[2022-07-17] MEDS: MULTIVITAMINS WITH MINERALS, THERAPEUTIC TABLET PO SCH (09:10)
[2022-07-17] MEDS: LISINOPRIL 5 MG TABLET PO SCH (09:10)
[2022-07-17] MEDS: LITHIUM CARBONATE 300 MG CAPSULE PO SCH ×2 (09:10→16:29)
[2022-07-17] MEDS: NICOTINE 21 MG/24 HOUR PATCH TD SCH (09:10)
[2022-07-17] MEDS: RisperiDONE 1 MG TABLET PO SCH ×2 (09:10→16:29)
[2022-07-17] MEDS: MUPIROCIN CALCIUM 2% 22 GM OINTMENT NASAL SCH ×2 (09:13→16:29)
[2022-07-17] MEDS: INSULIN LISPRO 100 UNITS/ML SQ PRN ×3 (11:27→20:45)
[2022-07-17 11:35] LABS: GLUCOMETER DEV NAME(LOC) BV2X.2; GLUCOSE,POINT OF CARE 138 MG/DL (70-110)
[2022-07-17 16:26] LABS: GLUCOMETER DEV NAME(LOC) BV2X.2; GLUCOSE,POINT OF CARE 173 MG/DL (70-110)
[2022-07-17 20:13] VITALS: BP 99/65; PULSE 89; RESP 18; TEMP 98.8; O2SAT 98
[2022-07-17 20:30] LABS: GLUCOMETER DEV NAME(LOC) BV2X.2; GLUCOSE,POINT OF CARE 192 MG/DL (70-110)
[2022-07-17] MEDS: INSULIN GLARGINE,HUM.REC.ANLOG 100 UNITS/ML SQ SCH (20:44)
[2022-07-17] MEDS: ZOLPIDEM TARTRATE 10 MG TABLET PO PRN (21:04)
[2022-07-18 05:16] LABS: GLUCOMETER DEV NAME(LOC) BV2X.2; GLUCOSE,POINT OF CARE 185 MG/DL (70-110)
[2022-07-18] MEDS: INSULIN LISPRO 100 UNITS/ML SQ PRN ×3 (06:34→17:04)
[2022-07-18] MEDS: GlipiZIDE 10 MG TABLET PO SCH (06:35)
[2022-07-18] MEDS: LITHIUM CARBONATE 300 MG CAPSULE PO SCH ×2 (08:16→17:03)
[2022-07-18] MEDS: MUPIROCIN CALCIUM 2% 22 GM OINTMENT NASAL SCH (08:16)
[2022-07-18] MEDS: MULTIVITAMINS WITH MINERALS, THERAPEUTIC TABLET PO SCH (08:16)
[2022-07-18] MEDS: RisperiDONE 1 MG TABLET PO SCH ×2 (08:16→17:03)
[2022-07-18] MEDS: NICOTINE 21 MG/24 HOUR PATCH TD SCH (08:46)
[2022-07-18] MEDS: LISINOPRIL 5 MG TABLET PO SCH (08:46)
[2022-07-18] MEDS ORDERED: LORazepam 2 MG/ML VIAL ONE (09:05)
[2022-07-18] MEDS ORDERED: DiphenhydrAMINE HCL 50 MG/ML VIAL ONE (09:05)
[2022-07-18] MEDS ORDERED: HALOPERIDOL LACTATE 5 MG/ML VIAL ONE (09:07)
[2022-07-18] MEDS ORDERED: DiphenhydrAMINE HCL 50 MG/ML VIAL IM ONE (09:15)
[2022-07-18] MEDS ORDERED: HALOPERIDOL LACTATE 5 MG/ML VIAL IM ONE (09:15)
[2022-07-18] MEDS ORDERED: LORazepam 2 MG/ML VIAL IM ONE (09:15)
[2022-07-18 09:16] VITALS: BP 109/66; PULSE 88; RESP 16; TEMP 98.9
[2022-07-18 12:01] LABS: GLUCOMETER DEV NAME(LOC) BV2X.2; GLUCOSE,POINT OF CARE 281 MG/DL (70-110)
[2022-07-18 17:16] LABS: GLUCOMETER DEV NAME(LOC) BV2X.2; GLUCOSE,POINT OF CARE 209 MG/DL (70-110)
[2022-07-18 20:10] VITALS: BP 120/80; PULSE 80; RESP 18; TEMP 98.1; O2SAT 97
[2022-07-18] MEDS: ZOLPIDEM TARTRATE 10 MG TABLET PO PRN (20:25)
[2022-07-18] MEDS: INSULIN GLARGINE,HUM.REC.ANLOG 100 UNITS/ML SQ SCH (20:29)
[2022-07-19] MEDS: GlipiZIDE 10 MG TABLET PO SCH (06:18)
[2022-07-19] MEDS: LITHIUM CARBONATE 300 MG CAPSULE PO SCH ×2 (08:37→16:20)
[2022-07-19] MEDS: RisperiDONE 1 MG TABLET PO SCH ×2 (08:38→16:20)
[2022-07-19] MEDS: MULTIVITAMINS WITH MINERALS, THERAPEUTIC TABLET PO SCH (08:38)
[2022-07-19] MEDS: LISINOPRIL 5 MG TABLET PO SCH (08:38)
[2022-07-19] MEDS: NICOTINE 21 MG/24 HOUR PATCH TD SCH (08:39)
[2022-07-19 09:10] VITALS: BP 113/74; PULSE 87; RESP 17; TEMP 98
[2022-07-19] MEDS: INSULIN LISPRO 100 UNITS/ML SQ PRN ×3 (11:43→21:06)
[2022-07-19 11:51] LABS: GLUCOMETER DEV NAME(LOC) BV2X.2; GLUCOSE,POINT OF CARE 185 MG/DL (70-110)
[2022-07-19 17:15] LABS: GLUCOMETER DEV NAME(LOC) BV2X.2; GLUCOSE,POINT OF CARE 198 MG/DL (70-110)
[2022-07-19 20:40] VITALS: BP 110/71; PULSE 83; RESP 18; TEMP 97.8; O2SAT 96
[2022-07-19] MEDS: ZOLPIDEM TARTRATE 10 MG TABLET PO PRN (20:58)
[2022-07-19] MEDS: INSULIN GLARGINE,HUM.REC.ANLOG 100 UNITS/ML SQ SCH (21:06)
[2022-07-20 00:17] LABS: GLUCOMETER DEV NAME(LOC) BV2X.2; GLUCOSE,POINT OF CARE 147 MG/DL (70-110)
[2022-07-20 05:36] LABS: GLUCOMETER DEV NAME(LOC) BV2X.2; GLUCOSE,POINT OF CARE 192 MG/DL (70-110)
[2022-07-20] MEDS: GlipiZIDE 10 MG TABLET PO SCH (06:07)
[2022-07-20] MEDS: INSULIN LISPRO 100 UNITS/ML SQ PRN ×3 (06:14→20:26)
[2022-07-20] MEDS: LITHIUM CARBONATE 300 MG CAPSULE PO SCH ×2 (08:33→16:29)
[2022-07-20] MEDS: RisperiDONE 1 MG TABLET PO SCH ×2 (08:33→16:29)
[2022-07-20] MEDS: MULTIVITAMINS WITH MINERALS, THERAPEUTIC TABLET PO SCH (08:33)
[2022-07-20] MEDS: LISINOPRIL 5 MG TABLET PO SCH (08:33)
[2022-07-20] MEDS: NICOTINE 21 MG/24 HOUR PATCH TD SCH (08:33)
[2022-07-20 08:58] VITALS: BP 104/55; PULSE 80; RESP 17; TEMP 97.6; O2SAT 98
[2022-07-20 17:06] LABS: GLUCOMETER DEV NAME(LOC) BV2X.2; GLUCOSE,POINT OF CARE 212 MG/DL (70-110)
[2022-07-20 20:06] VITALS: BP 137/68; PULSE 90; RESP 16; TEMP 97.8; O2SAT 97
[2022-07-20] MEDS: ZOLPIDEM TARTRATE 10 MG TABLET PO PRN (20:17)
[2022-07-20 20:26] LABS: GLUCOMETER DEV NAME(LOC) BV2X.2; GLUCOSE,POINT OF CARE 241 MG/DL (70-110)
[2022-07-20] MEDS: INSULIN GLARGINE,HUM.REC.ANLOG 100 UNITS/ML SQ SCH (20:27)
[2022-07-21 06:21] LABS: GLUCOMETER DEV NAME(LOC) BV2X.2; GLUCOSE,POINT OF CARE 222 MG/DL (70-110)
[2022-07-21] MEDS: GlipiZIDE 10 MG TABLET PO SCH (06:30)
[2022-07-21] MEDS: INSULIN LISPRO 100 UNITS/ML SQ PRN ×4 (06:34→20:13)
[2022-07-21] MEDS: LISINOPRIL 5 MG TABLET PO SCH (08:35)
[2022-07-21] MEDS: RisperiDONE 1 MG TABLET PO SCH ×2 (08:35→16:18)
[2022-07-21] MEDS: MULTIVITAMINS WITH MINERALS, THERAPEUTIC TABLET PO SCH (08:35)
[2022-07-21] MEDS: LITHIUM CARBONATE 300 MG CAPSULE PO SCH ×2 (08:35→16:18)
[2022-07-21] MEDS: NICOTINE 21 MG/24 HOUR PATCH TD SCH (08:36)
[2022-07-21 08:59] VITALS: BP 108/65; PULSE 78; RESP 18; TEMP 97.6; O2SAT 98
[2022-07-21 12:21] LABS: GLUCOMETER DEV NAME(LOC) BV2X.2; GLUCOSE,POINT OF CARE 200 MG/DL (70-110)
[2022-07-21 16:41] LABS: GLUCOMETER DEV NAME(LOC) BV2X.2; GLUCOSE,POINT OF CARE 136 MG/DL (70-110)
[2022-07-21] MEDS: ZOLPIDEM TARTRATE 10 MG TABLET PO PRN (20:06)
[2022-07-21 20:07] VITALS: BP 110/69; PULSE 86; RESP 16; TEMP 97.6; O2SAT 97
[2022-07-21] MEDS: INSULIN GLARGINE,HUM.REC.ANLOG 100 UNITS/ML SQ SCH (20:12)
[2022-07-21 20:41] LABS: GLUCOMETER DEV NAME(LOC) BV2X.2; GLUCOSE,POINT OF CARE 191 MG/DL (70-110)
[2022-07-22] MEDS: GlipiZIDE 10 MG TABLET PO SCH (06:25)
[2022-07-22 08:14] VITALS: BP 102/65; PULSE 90; RESP 18; TEMP 98.2; O2SAT 97
[2022-07-22] MEDS: LISINOPRIL 5 MG TABLET PO SCH (09:00)
[2022-07-22] MEDS: LITHIUM CARBONATE 300 MG CAPSULE PO SCH ×2 (09:05→16:58)
[2022-07-22] MEDS: MULTIVITAMINS WITH MINERALS, THERAPEUTIC TABLET PO SCH (09:05)
[2022-07-22] MEDS: RisperiDONE 1 MG TABLET PO SCH ×2 (09:05→16:58)
[2022-07-22] MEDS: NICOTINE 21 MG/24 HOUR PATCH TD SCH (09:07)
[2022-07-22] MEDS: INSULIN LISPRO 100 UNITS/ML SQ PRN ×3 (11:28→20:38)
[2022-07-22 11:41] LABS: GLUCOMETER DEV NAME(LOC) BV2X.2; GLUCOSE,POINT OF CARE 269 MG/DL (70-110)
[2022-07-22 16:56] LABS: GLUCOMETER DEV NAME(LOC) BV2X.2; GLUCOSE,POINT OF CARE 241 MG/DL (70-110)
[2022-07-22 20:20] VITALS: BP 120/73; PULSE 93; RESP 18; TEMP 98.4; O2SAT 93
[2022-07-22] MEDS: INSULIN GLARGINE,HUM.REC.ANLOG 100 UNITS/ML SQ SCH (20:37)
[2022-07-22] MEDS: ZOLPIDEM TARTRATE 10 MG TABLET PO PRN (20:41)
[2022-07-22 21:46] LABS: GLUCOMETER DEV NAME(LOC) BV2X.2; GLUCOSE,POINT OF CARE 169 MG/DL (70-110)
[2022-07-22] MEDS: LORazepam 2 MG TABLET PO PRN (22:46)
[2022-07-23 05:46] LABS: GLUCOMETER DEV NAME(LOC) BV2X.2; GLUCOSE,POINT OF CARE 192 MG/DL (70-110)
[2022-07-23] MEDS: GlipiZIDE 10 MG TABLET PO SCH (06:10)
[2022-07-23] MEDS: INSULIN LISPRO 100 UNITS/ML SQ PRN ×4 (06:25→20:20)
[2022-07-23 08:16] VITALS: BP 113/69; PULSE 87; RESP 16; TEMP 97.6; O2SAT 96
[2022-07-23] MEDS: LISINOPRIL 5 MG TABLET PO SCH (09:31)
[2022-07-23] MEDS: RisperiDONE 1 MG TABLET PO SCH ×2 (09:31→16:14)
[2022-07-23] MEDS: LITHIUM CARBONATE 300 MG CAPSULE PO SCH ×2 (09:31→16:14)
[2022-07-23] MEDS: MULTIVITAMINS WITH MINERALS, THERAPEUTIC TABLET PO SCH (09:31)
[2022-07-23] MEDS: NICOTINE 21 MG/24 HOUR PATCH TD SCH (09:33)
[2022-07-23 11:41] LABS: GLUCOMETER DEV NAME(LOC) BV2X.2; GLUCOSE,POINT OF CARE 158 MG/DL (70-110)
[2022-07-23 16:31] LABS: GLUCOMETER DEV NAME(LOC) BV2X.2; GLUCOSE,POINT OF CARE 144 MG/DL (70-110)
[2022-07-23 20:08] VITALS: BP 110/68; PULSE 78; RESP 16; TEMP 98.1; O2SAT 97
[2022-07-23] MEDS: ZOLPIDEM TARTRATE 10 MG TABLET PO PRN (20:15)
[2022-07-23] MEDS: INSULIN GLARGINE,HUM.REC.ANLOG 100 UNITS/ML SQ SCH (20:20)
[2022-07-23 23:31] LABS: GLUCOMETER DEV NAME(LOC) BV2X.2; GLUCOSE,POINT OF CARE 241 MG/DL (70-110)
[2022-07-24] MEDS: GlipiZIDE 10 MG TABLET PO SCH (06:13)
[2022-07-24 08:28] VITALS: BP 126/78; PULSE 100; RESP 18; TEMP 97.9
[2022-07-24] MEDS: LISINOPRIL 5 MG TABLET PO SCH (08:32)
[2022-07-24] MEDS: MULTIVITAMINS WITH MINERALS, THERAPEUTIC TABLET PO SCH (08:33)
[2022-07-24] MEDS: NICOTINE 21 MG/24 HOUR PATCH TD SCH (08:33)
[2022-07-24] MEDS: RisperiDONE 1 MG TABLET PO SCH ×2 (08:33→16:33)
[2022-07-24] MEDS: LITHIUM CARBONATE 300 MG CAPSULE PO SCH ×2 (08:33→16:33)
[2022-07-24] MEDS: INSULIN LISPRO 100 UNITS/ML SQ PRN ×3 (11:44→20:47)
[2022-07-24 14:31] LABS: GLUCOMETER DEV NAME(LOC) BV2X.2; GLUCOSE,POINT OF CARE 267 MG/DL (70-110)
[2022-07-24 16:31] LABS: GLUCOMETER DEV NAME(LOC) BV2X.2; GLUCOSE,POINT OF CARE 233 MG/DL (70-110)
[2022-07-24 20:26] LABS: GLUCOMETER DEV NAME(LOC) BV2X.2; GLUCOSE,POINT OF CARE 201 MG/DL (70-110)
[2022-07-24] MEDS: INSULIN GLARGINE,HUM.REC.ANLOG 100 UNITS/ML SQ SCH (20:45)
[2022-07-24] MEDS: ZOLPIDEM TARTRATE 10 MG TABLET PO PRN (20:50)
[2022-07-24 21:00] VITALS: BP 117/63; PULSE 84; RESP 17; TEMP 98.1; O2SAT 99
[2022-07-25 06:06] LABS: GLUCOMETER DEV NAME(LOC) BV2X.2; GLUCOSE,POINT OF CARE 225 MG/DL (70-110)
[2022-07-25] MEDS: GlipiZIDE 10 MG TABLET PO SCH (06:32)
[2022-07-25] MEDS: INSULIN LISPRO 100 UNITS/ML SQ PRN ×4 (06:34→21:02)
[2022-07-25 08:30] VITALS: BP_SYST 100; BP_SYST 90; BP_DIAS 60; BP_DIAS 78; PULSE 87; PULSE 88; RESP 17; RESP 18; TEMP 97.8; TEMP 98; O2SAT 78; O2SAT 98
[2022-07-25] MEDS: LISINOPRIL 5 MG TABLET PO SCH (09:24)
[2022-07-25] MEDS: LITHIUM CARBONATE 300 MG CAPSULE PO SCH ×2 (09:25→17:10)
[2022-07-25] MEDS: NICOTINE 21 MG/24 HOUR PATCH TD SCH (09:25)
[2022-07-25] MEDS: MULTIVITAMINS WITH MINERALS, THERAPEUTIC TABLET PO SCH (09:25)
[2022-07-25] MEDS: RisperiDONE 1 MG TABLET PO SCH ×2 (09:25→17:10)
[2022-07-25 11:26] LABS: GLUCOMETER DEV NAME(LOC) BV2X.2; GLUCOSE,POINT OF CARE 121 MG/DL (70-110)
[2022-07-25 16:36] LABS: GLUCOMETER DEV NAME(LOC) BV2X.2; GLUCOSE,POINT OF CARE 194 MG/DL (70-110)
[2022-07-25 20:30] VITALS: BP 90/78; PULSE 87; RESP 18; TEMP 98; O2SAT 78
[2022-07-25 20:56] LABS: GLUCOMETER DEV NAME(LOC) BV2X.2; GLUCOSE,POINT OF CARE 167 MG/DL (70-110)
[2022-07-25] MEDS: INSULIN GLARGINE,HUM.REC.ANLOG 100 UNITS/ML SQ SCH (21:02)
[2022-07-25] MEDS: ZOLPIDEM TARTRATE 10 MG TABLET PO PRN (21:03)
[2022-07-26] MEDS: GlipiZIDE 10 MG TABLET PO SCH (06:17)
[2022-07-26] MEDS: LITHIUM CARBONATE 300 MG CAPSULE PO SCH ×2 (08:16→16:27)
[2022-07-26] MEDS: LISINOPRIL 5 MG TABLET PO SCH (08:16)
[2022-07-26] MEDS: MULTIVITAMINS WITH MINERALS, THERAPEUTIC TABLET PO SCH (08:16)
[2022-07-26] MEDS: RisperiDONE 1 MG TABLET PO SCH ×2 (08:16→16:27)
[2022-07-26] MEDS: NICOTINE 21 MG/24 HOUR PATCH TD SCH (08:17)
[2022-07-26 08:25] VITALS: BP 107/69; PULSE 99; RESP 19; TEMP 97.7
[2022-07-26] MEDS: INSULIN LISPRO 100 UNITS/ML SQ PRN ×3 (11:21→20:36)
[2022-07-26 12:01] LABS: GLUCOMETER DEV NAME(LOC) BV2X.2; GLUCOSE,POINT OF CARE 211 MG/DL (70-110)
[2022-07-26 16:36] LABS: GLUCOMETER DEV NAME(LOC) BV2X.2; GLUCOSE,POINT OF CARE 170 MG/DL (70-110)
[2022-07-26 20:08] VITALS: BP 119/68; PULSE 85; RESP 16; TEMP 98.8; O2SAT 99
[2022-07-26] MEDS: ZOLPIDEM TARTRATE 10 MG TABLET PO PRN (20:27)
[2022-07-26 20:36] LABS: GLUCOMETER DEV NAME(LOC) BV2X.2; GLUCOSE,POINT OF CARE 213 MG/DL (70-110)
[2022-07-26] MEDS: INSULIN GLARGINE,HUM.REC.ANLOG 100 UNITS/ML SQ SCH (20:36)
[2022-07-27] MEDS: GlipiZIDE 10 MG TABLET PO SCH (06:29)
[2022-07-27] MEDS: INSULIN LISPRO 100 UNITS/ML SQ PRN ×4 (06:33→21:09)
[2022-07-27 06:41] LABS: GLUCOMETER DEV NAME(LOC) BV2X.2; GLUCOSE,POINT OF CARE 176 MG/DL (70-110)
[2022-07-27] MEDS: RisperiDONE 1 MG TABLET PO SCH ×2 (08:15→16:52)
[2022-07-27] MEDS: MULTIVITAMINS WITH MINERALS, THERAPEUTIC TABLET PO SCH (08:15)
[2022-07-27] MEDS: LISINOPRIL 5 MG TABLET PO SCH (08:15)
[2022-07-27] MEDS: LITHIUM CARBONATE 300 MG CAPSULE PO SCH ×2 (08:15→16:52)
[2022-07-27] MEDS: NICOTINE 21 MG/24 HOUR PATCH TD SCH (08:21)
[2022-07-27 08:46] VITALS: BP 112/71; PULSE 99; RESP 17; TEMP 97.9
[2022-07-27 12:11] LABS: GLUCOMETER DEV NAME(LOC) BV2X.2; GLUCOSE,POINT OF CARE 210 MG/DL (70-110)
[2022-07-27 17:11] LABS: GLUCOMETER DEV NAME(LOC) BV2X.2; GLUCOSE,POINT OF CARE 121 MG/DL (70-110)
[2022-07-27 20:32] VITALS: BP 96/67; PULSE 79; RESP 17; TEMP 97.4; O2SAT 96
[2022-07-27] MEDS: INSULIN GLARGINE,HUM.REC.ANLOG 100 UNITS/ML SQ SCH (21:09)
[2022-07-27] MEDS: ZOLPIDEM TARTRATE 10 MG TABLET PO PRN (21:23)
[2022-07-27 21:55] VITALS: RESP 16
[2022-07-27 23:26] LABS: GLUCOMETER DEV NAME(LOC) BV2X.2; GLUCOSE,POINT OF CARE 281 MG/DL (70-110)
[2022-07-28 06:21] LABS: GLUCOMETER DEV NAME(LOC) BV2X.2; GLUCOSE,POINT OF CARE 177 MG/DL (70-110)
[2022-07-28] MEDS: GlipiZIDE 10 MG TABLET PO SCH (06:29)
[2022-07-28] MEDS: INSULIN LISPRO 100 UNITS/ML SQ PRN ×4 (06:31→20:11)
[2022-07-28] MEDS: MULTIVITAMINS WITH MINERALS, THERAPEUTIC TABLET PO SCH (08:36)
[2022-07-28] MEDS: LITHIUM CARBONATE 300 MG CAPSULE PO SCH ×2 (08:36→19:11)
[2022-07-28] MEDS: LISINOPRIL 5 MG TABLET PO SCH (08:36)
[2022-07-28] MEDS: RisperiDONE 1 MG TABLET PO SCH ×2 (08:36→19:17)
[2022-07-28] MEDS: NICOTINE 21 MG/24 HOUR PATCH TD SCH (08:42)
[2022-07-28 09:07] VITALS: BP 107/61; PULSE 86; RESP 18; TEMP 97.9; O2SAT 98
[2022-07-28 11:41] LABS: GLUCOMETER DEV NAME(LOC) BV2X.2; GLUCOSE,POINT OF CARE 172 MG/DL (70-110)
[2022-07-28] MEDS ORDERED: TUBERCULIN, PURIFIED PROTEIN DERIVATIVE 5 TU/0.1 ML SYRINGE ID ONE (12:00)
[2022-07-28 16:52] LABS: GLUCOMETER DEV NAME(LOC) BV2X.2; GLUCOSE,POINT OF CARE 172 MG/DL (70-110)
[2022-07-28] MEDS: ZOLPIDEM TARTRATE 10 MG TABLET PO PRN (20:07)
[2022-07-28] MEDS: INSULIN GLARGINE,HUM.REC.ANLOG 100 UNITS/ML SQ SCH (20:11)
[2022-07-28 20:21] LABS: GLUCOMETER DEV NAME(LOC) BV2X.2; GLUCOSE,POINT OF CARE 264 MG/DL (70-110)
[2022-07-28 21:12] VITALS: BP 128/63; PULSE 72; RESP 18; TEMP 97.8; O2SAT 99
[2022-07-29] MEDS: GlipiZIDE 10 MG TABLET PO SCH (06:35)
[2022-07-29 08:28] VITALS: BP 106/66; PULSE 91; RESP 16; TEMP 97.5
[2022-07-29] MEDS: LITHIUM CARBONATE 300 MG CAPSULE PO SCH ×2 (09:00→16:51)
[2022-07-29] MEDS: MULTIVITAMINS WITH MINERALS, THERAPEUTIC TABLET PO SCH (09:01)
[2022-07-29] MEDS: NICOTINE 21 MG/24 HOUR PATCH TD SCH (09:01)
[2022-07-29] MEDS: RisperiDONE 1 MG TABLET PO SCH ×2 (09:01→16:51)
[2022-07-29] MEDS: LISINOPRIL 5 MG TABLET PO SCH (09:01)
[2022-07-29 20:09] VITALS: BP 116/69; PULSE 84; RESP 18; TEMP 97.9
[2022-07-29 20:10] VITALS: BP 102/53; PULSE 80; RESP 16; TEMP 98; O2SAT 95
[2022-07-29] MEDS: ZOLPIDEM TARTRATE 10 MG TABLET PO PRN (20:50)
[2022-07-29] MEDS: INSULIN GLARGINE,HUM.REC.ANLOG 100 UNITS/ML SQ SCH (21:00)
[2022-07-30] MEDS: GlipiZIDE 10 MG TABLET PO SCH (06:26)
[2022-07-30] MEDS: RisperiDONE 1 MG TABLET PO SCH ×2 (08:33→16:38)
[2022-07-30] MEDS: MULTIVITAMINS WITH MINERALS, THERAPEUTIC TABLET PO SCH (08:33)
[2022-07-30] MEDS: LITHIUM CARBONATE 300 MG CAPSULE PO SCH ×2 (08:33→16:37)
[2022-07-30] MEDS: NICOTINE 21 MG/24 HOUR PATCH TD SCH (08:33)
[2022-07-30] MEDS: LISINOPRIL 5 MG TABLET PO SCH (09:00)
[2022-07-30 09:24] VITALS: BP 101/60; PULSE 80; RESP 16; TEMP 97.7; O2SAT 98
[2022-07-30 20:00] VITALS: BP 112/70; PULSE 78; RESP 18; TEMP 97.8; O2SAT 99
[2022-07-30] MEDS: ZOLPIDEM TARTRATE 10 MG TABLET PO PRN (20:42)
[2022-07-30] MEDS: INSULIN LISPRO 100 UNITS/ML SQ PRN (20:45)
[2022-07-30] MEDS: INSULIN GLARGINE,HUM.REC.ANLOG 100 UNITS/ML SQ SCH (20:46)
[2022-07-30 20:47] LABS: GLUCOMETER DEV NAME(LOC) BV2X.2; GLUCOSE,POINT OF CARE 272 MG/DL (70-110)
[2022-07-31] MEDS: GlipiZIDE 10 MG TABLET PO SCH (06:21)
[2022-07-31] MEDS: INSULIN LISPRO 100 UNITS/ML SQ PRN ×2 (06:40→16:27)
[2022-07-31 06:41] LABS: GLUCOMETER DEV NAME(LOC) BV2X.2; GLUCOSE,POINT OF CARE 183 MG/DL (70-110)
[2022-07-31] MEDS: RisperiDONE 1 MG TABLET PO SCH ×2 (08:26→16:28)
[2022-07-31] MEDS: MULTIVITAMINS WITH MINERALS, THERAPEUTIC TABLET PO SCH (08:26)
[2022-07-31] MEDS: NICOTINE 21 MG/24 HOUR PATCH TD SCH (08:26)
[2022-07-31] MEDS: LITHIUM CARBONATE 300 MG CAPSULE PO SCH ×2 (08:26→16:28)
[2022-07-31] MEDS: LISINOPRIL 5 MG TABLET PO SCH (08:26)
[2022-07-31 08:28] VITALS: BP 119/69; PULSE 87; RESP 18; TEMP 97.8; O2SAT 98
[2022-07-31 16:26] LABS: GLUCOMETER DEV NAME(LOC) BV2X.2; GLUCOSE,POINT OF CARE 183 MG/DL (70-110)
[2022-07-31] MEDS: INSULIN GLARGINE,HUM.REC.ANLOG 100 UNITS/ML SQ SCH (20:38)
[2022-07-31 21:22] VITALS: BP 96/61; PULSE 80; RESP 18; TEMP 97; O2SAT 100
[2022-07-31] MEDS: ZOLPIDEM TARTRATE 10 MG TABLET PO PRN (22:02)
[2022-08-01] MEDS: GlipiZIDE 10 MG TABLET PO SCH (06:23)
[2022-08-01 08:08] VITALS: BP 118/79; PULSE 80; RESP 18; TEMP 97.1
[2022-08-01] MEDS: MULTIVITAMINS WITH MINERALS, THERAPEUTIC TABLET PO SCH (09:10)
[2022-08-01] MEDS: RisperiDONE 1 MG TABLET PO SCH ×2 (09:10→16:43)
[2022-08-01] MEDS: LITHIUM CARBONATE 300 MG CAPSULE PO SCH ×2 (09:10→16:43)
[2022-08-01] MEDS: LISINOPRIL 5 MG TABLET PO SCH (09:10)
[2022-08-01] MEDS: NICOTINE 21 MG/24 HOUR PATCH TD SCH (09:11)
[2022-08-01 16:31] LABS: GLUCOMETER DEV NAME(LOC) BV2X.2; GLUCOSE,POINT OF CARE 170 MG/DL (70-110)
[2022-08-01] MEDS: INSULIN LISPRO 100 UNITS/ML SQ PRN (16:42)
[2022-08-01 20:17] VITALS: BP 115/63; PULSE 86; RESP 18; TEMP 97.9; O2SAT 97
[2022-08-01] MEDS: INSULIN GLARGINE,HUM.REC.ANLOG 100 UNITS/ML SQ SCH (20:37)
[2022-08-01] MEDS: ZOLPIDEM TARTRATE 10 MG TABLET PO PRN (20:58)
[2022-08-02 06:01] LABS: GLUCOMETER DEV NAME(LOC) BV2X.2; GLUCOSE,POINT OF CARE 146 MG/DL (70-110)
[2022-08-02] MEDS: GlipiZIDE 10 MG TABLET PO SCH (06:06)
[2022-08-02] MEDS: INSULIN LISPRO 100 UNITS/ML SQ PRN ×2 (06:08→11:43)
[2022-08-02] MEDS: LITHIUM CARBONATE 300 MG CAPSULE PO SCH ×2 (08:25→16:02)
[2022-08-02] MEDS: RisperiDONE 1 MG TABLET PO SCH ×2 (08:25→16:02)
[2022-08-02] MEDS: MULTIVITAMINS WITH MINERALS, THERAPEUTIC TABLET PO SCH (08:25)
[2022-08-02] MEDS: LISINOPRIL 5 MG TABLET PO SCH (08:26)
[2022-08-02] MEDS: NICOTINE 21 MG/24 HOUR PATCH TD SCH (08:26)
[2022-08-02 08:34] VITALS: BP 116/73; PULSE 89; RESP 18; TEMP 97.9
[2022-08-02 11:41] LABS: GLUCOMETER DEV NAME(LOC) BV2X.2; GLUCOSE,POINT OF CARE 159 MG/DL (70-110)
[2022-08-02] MEDS ORDERED: LITH300C3 PO (12:58)
[2022-08-02] MEDS ORDERED: RISP1TAB48 PO (12:58)
[2022-08-02] MEDS ORDERED: INSLAN SQ (12:59)
[2022-08-02] MEDS ORDERED: GLIP10TA10 PO (12:59)
[2022-08-02] MEDS ORDERED: LISI-892 PO (13:01)
[2022-08-02 15:15] VITALS: BP 123/73; PULSE 96; RESP 19; TEMP 98.3; O2SAT 98
[2022-08-02 20:20] VITALS: BP 123/73; PULSE 96; RESP 19; TEMP 98.3; O2SAT 98
== END 2022-08-02 16:00 | disposition home or self-care (01) | DRG 885 ==
LOC: EMS 07:14 → B2X 15:52
PROVIDERS: ADMIT Psychiatry & Neurology Psychiatry; ATTEND Psychiatry & Neurology Psychiatry
DX: F25.9 Schizoaffective disorder, unspecified (principal); E11.65 Type 2 diabetes mellitus with hyperglycemia; R45.851 Suicidal ideations; K21.9 Gastro-esophageal reflux disease without esophagitis; F41.9 Anxiety disorder, unspecified; R45.850 Homicidal ideations; G47.00 Insomnia, unspecified; Z20.822 Contact with and (suspected) exposure to COVID-19; F32.A Depression, unspecified; K59.00 Constipation, unspecified; F15.10 Other stimulant abuse, uncomplicated; E03.9 Hypothyroidism, unspecified; Z87.891 Personal history of nicotine dependence; Z91.148 Patient's other noncompliance with medication regimen for other reason; Z79.84 Long term (current) use of oral hypoglycemic drugs; Z79.899 Other long term (current) drug therapy
CPT/HCPCS: 71045; 80053; 80178; 82962; 85025; 87081; 93005; 99285; G0480; J1200; J1630; J1815; J2060; 36415-L1; 36415-TC